=== PATIENT | male | born 1960 | race Caucasian/White ===

== ENCOUNTER → 2019-07-17 09:09 | Outpatient (CLI) | payer BC, SELFPAY ==
--- NOTE | 2019-07-17 09:25 | XR_ITS ---
PROCEDURE: XR CHEST 2V CLINICAL HISTORY: cough Cough and chest pain COMPARISON: CXR CHEST(2 VIEWS-NOT PORTABLE) from 02/21/2014 CXR CHEST(2 VIEWS-NOT PORTABLE) from 10/07/2015 CT CHEST W CON from 03/05/2019 XR CHEST AP from 03/05/2019 FINDINGS: The cardiomediastinal silhouette and pulmonary vascularity are within normal limits. The lungs are clear without infiltrates, suspicious nodules, or pleural effusions. No acute bony abnormalities. IMPRESSION: No acute findings. Dictated by: Vijay Greene MD 07/17/2019 11:16 Electronically signed by Vijay Greene MD in [place] 07/17/2019 11:16
[2019-07-17 09:35] LABS: Basophils # 0.1 K/mm3 (0-0.2); Basophils % 1.1 % (0.1-2.0); Eosinophils # 0.2 K/mm3 (0.0-0.4); Eosinophils % 2.8 % (0.1-12.0); Hematocrit 51.5 % (42.0-52.0); Hemoglobin 16.3 g/dL (14.1-18.0); Lymphocytes # 1.7 K/mm3 (0.7-4.5); Lymphocytes % 20.2 % (10-50); Mean Corpuscular HGB Conc 31.6 g/dL (31.8-35.4); Mean Corpuscular Hemoglobin 32.9 pg (27.0-31.2); Mean Corpuscular Volume 104.2 fl (80-94); Mean Platelet Volume 7.7 fl (7.4-10.4); Monocytes # 0.5 K/mm3 (0.1-1.0); Monocytes % 6.5 % (1.7-9.3); Neutrophils # 5.7 K/mm3 (1.8-7.8); Neutrophils % 69.3 % (37.0-80.0); Platelet Count 196 K/mm3 (142-424); Red Blood Count 4.94 M/mm3 (4.60-6.20); Red Cell Distribution Width 12.9 % (11.5-17.5); White Blood Count 8.2 K/mm3 (4.8-10.8)
== END ==
PROVIDERS: Visit Provider Physician Assistant
DX: R05 Cough (principal)
CPT/HCPCS: 36415; 71046; 85025

== ENCOUNTER 2020-04-28 13:33 | Emergency (ER) | payer BC, SELFPAY ==
[2020-04-28 13:33] VITALS: BP 124/73; PULSE 86; RESP 18; TEMP 36.8; O2SAT 97; BMI 27.3
--- NOTE | 2020-04-28 13:42 | XR_ITS ---
PROCEDURE: XR CHEST 2V CLINICAL HISTORY: R/O Pneumonia Cough, smoker COMPARISON: CR CXR CHEST(2 VIEWS-NOT PORTABLE) from 10/07/[address] CHEST W CON from 03/05/2019 CR XR CHEST AP from 03/05/2019 CR XR CHEST 2V from 07/17/2019 FINDINGS: The cardiomediastinal silhouette and pulmonary vascularity are within normal limits. The lungs are clear without infiltrates, suspicious nodules, or pleural effusions. Mild COPD. No acute bony findings. IMPRESSION: No change with no acute finding. Mild COPD Dictated by: Vijay Greene MD 04/28/2020 13:50 Vijay Greene MD in [place] 04/28/2020 13:50
--- NOTE | 2020-04-28 13:53 | HMH.EDGENADL ---
ED Disposition Clinical Impression: COPD (chronic obstructive pulmonary disease) Qualifiers: COPD type: chronic bronchitis Chronic bronchitis type: simple Qualified Code(s): J41.0 - Simple chronic bronchitis Disposition: Home, Self-Care Condition on Discharge: Good Instructions: DI for Chronic Bronchitis Referrals: PCP,Lakesha [Primary Care Provider] - Rubén Yoon MD [Staff Physician] - - Critical Care Critical Care Time: No Attestation: On 04/28/20, the high probability of a clinically significant, sudden or life threatening deterioration of the following system(s) required my full and direct attention, intervention and personal management. The time I documented below is in addition to time spent performing reported procedures but includes the following listed in this critical care notation. Medical Decision Making - Medical Records Medical records reviewed: Yes: I reviewed the patient's medical records. - Caesar Inquiry Pt receiving controlled substance: No Vital Signs: 04/28/20 13:33 Temperature 98.2 F Temperature Source Oral Pulse Rate [Right Radial] 86 Respiratory Rate 18 Blood Pressure [Right Arm] 124/73 Blood Pressure Mean [Right Arm] 90 Blood Pressure Source [Right Arm] Automatic Cuff Blood Pressure Position [Right Arm] Supine 02 Sat by Pulse Oximetry 97 Oxygen Delivery Method Room Air Orders (Tests/Meds): ORDERS Category Date Time Status Basic Metabolic Panel Stat Lab 04/28/20 13:31 Received CBC w/Auto Diff [Complete Blood Count Auto Diff] Stat Lab 04/28/20 13:31 Received - Radiology Data #1 Image(s): Chest Image Reviewed: Yes I reviewed the patient's radiology results, Yes I discussed the image results w/the radiologist, Yes I have reviewed radiologist's interpretation IMPRESSION: No change with no acute finding. Mild COPD - Reevaluation(s) Time: 14:12 Reevaluation #1: On reevaluation, the patient is doing fine. Resting comfortably. There is no evidence of hypoxia. Chest x-ray is unremarkable. Patient needs to follow-up with PCP. Given strict return precautions. Verbalized understanding. Medical Decision Narrative: 59-year-old male sent to the emergency department by his dentist for possible aspiration. The patient is not requiring any supplemental oxygen. No difficulty breathing. No respiratory distress. Patient is afebrile. Chest x-ray will be obtained. General Adult HPI - General Chief complaint: Shortness of Breath/Dyspnea Stated complaint: Short of breath Time Seen by Provider: 04/28/20 13:35 Mode of Arrival: EMS Limitations: No Limitations Description of Symptoms (Recalled from ER Triage Doc. by RN): Short of breath earlier today - History of Present Illness HPI narrative: This is a 59-year-old male presented to the emergency department with shortness of breath. The patient states that he went to the dentist yesterday had a tooth pulled. The dentist was concerned he may have aspirated some secretions and told him if he was to have any cough come the emergency department. Patient states that he coughed a little bit earlier when he was having a shortness of breath and he feels much better. He is not having any actual difficulty breathing at this time. He is not requiring supplemental oxygen. Denies any fevers or chills. Is not having any chest pain. No abdominal pain or vomiting. No diarrhea. - Related Data Home Medications Medication Instructions Recorded Confirmed Doxycycline Hyclate [Vibra-Tab 100 mg PO BID 04/28/20 100mg tablet] predniSONE [Deltasone 20mg 20 mg PO BID 04/28/20 tablet] Previous Rx's Medication Instructions Recorded albuterol sulfate 90 mcg/actuation 2 puff INHALATION Q4-6H PRN 90 08/22/19 aerosol inhaler Days #3 units Allergies Allergy/AdvReac Type Severity Reaction Status Date / Time amoxicillin [AMOXICILLIN] Allergy Mild Verified 04/28/20 13:40 Penicillins [PENICILLINS] Allergy
[2020-04-28 13:57] LABS: Chloride 106 mmol/L (98-107); Potassium 3.9 mmoL/L (3.5-5.1); Sodium 144 mmol/L (136-145)
[2020-04-28 14:00] LABS: Anion Gap 13.9 mEq/L (5-15); Blood Urea Nitrogen 9 mg/dl (9-20); Calcium 9.4 mg/dl (8.4-10.2); Carbon Dioxide 28 mmol/L (22.0-30.0); Creatinine Clearance Estimated 137 mL/min (50-200); Estimated Glomerular Filt Rate 116 ml/min (>60); GFR (African American) 140 ML/MIN (>60); Glucose 104 mg/dl (74-100)
[2020-04-28 14:34] VITALS: BP 130/70; PULSE 88; RESP 20; TEMP 37; O2SAT 99
[2020-04-28 14:34] LABS: Basophils # 0.1 K/mm3 (0-0.2); Basophils % 0.8 % (0.1-2.0); Eosinophils # 0.1 K/mm3 (0.0-0.4); Eosinophils % 1.1 % (0.1-12.0); Hematocrit 48.3 % (42.0-52.0); Hemoglobin 16.4 g/dL (14.1-18.0); Lymphocytes # 2.4 K/mm3 (0.7-4.5); Lymphocytes % 31.7 % (10-50); Mean Corpuscular Hemoglobin 35.7 pg (27.0-31.2); Mean Corpuscular Volume 104.9 fl (80-94); Mean Platelet Volume 8.1 fl (7.4-10.4); Monocytes # 0.8 K/mm3 (0.1-1.0); Monocytes % 10.7 % (1.7-9.3); Neutrophils # 4.2 K/mm3 (1.8-7.8); Neutrophils % 55.6 % (37.0-80.0); Platelet Count 103 K/mm3 (142-424); Red Blood Count 4.61 M/mm3 (4.60-6.20); Red Cell Distribution Width 14.4 % (11.5-17.5); White Blood Count 7.6 K/mm3 (4.8-10.8)
== END 2020-04-28 14:38 | disposition home or self-care (01) ==
PROVIDERS: Emergency Provider Emergency Medicine; PCP Emergency Medicine
DX: J41.0 Simple chronic bronchitis (principal); J44.0 Chronic obstructive pulmonary disease with (acute) lower respiratory infection; F17.210 Nicotine dependence, cigarettes, uncomplicated; Z79.899 Other long term (current) drug therapy; Z88.0 Allergy status to penicillin; Z88.2 Allergy status to sulfonamides
CPT/HCPCS: 71046; 80048; 85025; 99282

== ENCOUNTER 2020-06-16 10:30 | Emergency (ER) | payer BC, SELFPAY ==
[2020-06-16 10:40] VITALS: BP 151/90; PULSE 95; RESP 14; TEMP 36.9; O2SAT 97; BMI 26.6
--- NOTE | 2020-06-16 10:53 | HMH.EDUTC ---
[facility] Disposition Clinical Impression: Exposure to COVID-19 virus Sinusitis Qualifiers: Sinusitis location: unspecified location Chronicity: acute Recurrence: non-recurrent Qualified Code(s): J01.90 - Acute sinusitis, unspecified COPD (chronic obstructive pulmonary disease) Qualifiers: COPD type: unspecified COPD Qualified Code(s): J44.9 - Chronic obstructive pulmonary disease, unspecified Disposition: Home, Self-Care Condition on Discharge: Good Instructions: Chronic Obstructive Pulmonary Disease, DI for Sinusitis, Preventing the Spread of Coronavirus Discharge Instructions Additional Instructions: Drink plenty of fluids. Take tylenol for pain or fever. Take the medications as directed. Follow up with your regular doctor. GO TO THE ER FOR ANY WORSENING SYMPTOMS Prescriptions: predniSONE [Prednisone 20mg Tab] 20 mg PO BID 4 Days #8 tab Transmission Status: Received by [id number] Azithromycin [Z-Khai 250mg Tab*] 250 mg PO UD DOSE PK #6 tab Transmission Status: [id number] Referrals: Rubén Yoon MD [Primary Care Provider] - Time of Disposition: 11:06 Medical Decision Making - Medical Records Medical records reviewed: No: I reviewed the patient's medical records. - Caesar Inquiry Pt receiving controlled substance: No Vital Signs: 06/16/20 10:40 06/16/20 11:08 Temperature 98.4 F 98.4 F Temperature Source Oral Pulse Rate 95 H Pulse Rate [Right Brachial] 95 H Respiratory Rate 14 14 Blood Pressure 151/90 H Blood Pressure [Right Arm] 151/90 H Blood Pressure Mean [Right Arm] 110 Blood Pressure Source [Right Arm] Automatic Cuff Blood Pressure Position [Right Arm] Sitting 02 Sat by Pulse Oximetry 97 Oxygen Delivery Method Room Air [facility] HPI - General Stated complaint: cov test Time Seen by Provider: 06/16/20 10:53 - History of Present Illness Provider Complaint: He states that for the past 2 days he has had a low grade fever and sinus congestion. He thinks that he has a sinus infection, but his work wanted him to be tested for covid-19. - Related Data Previous Rx's Medication Instructions Recorded albuterol sulfate 90 mcg/actuation 2 puff INHALATION Q4-6H PRN 90 06/09/20 aerosol inhaler Days #3 units fluticasone 100 mcg-salmeterol 50 1 inh INHALATION BID #60 each 06/09/20 mcg/dose blistr powdr for inhalation Azithromycin [Z-Khai 250mg Tab*] 250 mg PO UD DOSE PK #6 tab 06/16/20 predniSONE [Prednisone 20mg 20 mg PO BID 4 Days #8 tab 06/16/20 Tab] Allergies Allergy/AdvReac Type Severity Reaction Status Date / Time amoxicillin [AMOXICILLIN] Allergy Mild Verified 06/09/20 14:18 Penicillins [PENICILLINS] Allergy Mild Verified 06/09/20 14:18 [facility]EE [facility]INGS Allergy Severe Anaphylaxis Uncoded 06/09/20 14:18 [facility] History - Hepatitis A Screen Attestation statement:: This patient has been screened for Hepatitis A risk factors. I have reviewed the patient's past medical history: Yes Medical History: Reports:: Anxiety, Chronic Obstructive Pulmonary Disease (COPD), Depression Other Surgeries: Yes: Colonoscopy Amputation: No Fractures: No Comment: Back surgery, Eye, Neck surgery - Social History Smoking Status: Current every day smoker Tobacco Type: cigarettes # Packs/Day (cigarettes): 1 Alcohol Intake: current Alcohol Intake Frequency:: 3 or more drinks per day Substance Use Type: denies use Occupational Status: disabled Housing: house Household Members: none - Psychiatric History Pschychiatric History:: Reports:: Anxiety, Depression Family Hx:: Cancer, Heart Attack, Diabetes, Hypertension, Stroke ROS Obtained: Yes All systems reviewed & no additional complaints - Constitutional Constitutional: Reports system reviewed and no additional complaints, except as docu - Eyes Eyes: Reports system reviewed and no additional complaints, except as docu - ENT Ears, Nose, Mouth, and Throat: Reports system r
[2020-06-16 11:08] VITALS: BP 151/90; PULSE 95; RESP 14; TEMP 36.9; O2SAT 97
== END 2020-06-16 11:10 | disposition home or self-care (01) ==
PROVIDERS: Emergency Provider Nurse Practitioner Family; PCP Emergency Medicine
DX: Z20.822 Contact with and (suspected) exposure to COVID-19 (principal); J01.90 Acute sinusitis, unspecified; J44.9 Chronic obstructive pulmonary disease, unspecified; F41.8 Other specified anxiety disorders; F17.210 Nicotine dependence, cigarettes, uncomplicated
CPT/HCPCS: 99202; G0463; U0003

== ENCOUNTER → 2020-06-30 10:07 | Outpatient (CLI) | payer BC, SELFPAY ==
--- NOTE | 2020-06-30 10:08 | CT_ITS ---
PROCEDURE: CT LUNG SCREENING CLINICAL INDICATION: LDCT Current smoker 45 pack year smoking history copd Chest w on pacs COMPARISON: CT ABDPELW/WO CT ABD PELVIS W/WO CONTRAST from 11/05/[address] CHEST W CON from 03/05/2019 TECHNIQUE: The exam was performed on a [employer] Speed [address] scanner using 2.90 mGy CTDI. A low dose helical CT CHEST was performed on a multi-detector scanner. All CT scans at the facility use one or more dose reduction, viz: automated exposure control, ma/kV adjustment per patient size (including targeted exams where dose is matched to indication, i.e. head), or iterative reconstruction technique. The LDCT was performed in a facility that meets the criteria for the screening program. Data regarding this exam was submitted to ACR which is an approved registry. The order for this exam indicates that it came as a result of a lung cancer screening counseling shard decision-making visit that included all the elements required of such a visit including smoking cessation. The radiologist interpreting this exam meets the CMS criteria for the LDCT lung cancer screening program. The exam is reported using the Lung-RADS classification scale and reported to the ACR registry. NOTE: This study was performed for the specific purposes of lung cancer screening and is not an alternative to diagnostic chest CT. RADIATION DOSE: CTDI vol(CT dose Index-volume) = 2.90mG DLP (Dose Length Product) = 119.33 mGcm FINDINGS: COPD changes with paraseptal and centrilobular emphysema. Old granulomatous disease. Scattered tiny nodular opacities which may be due to granulomas which are stable. Mild fibrotic change left lower lobe medially posterior to the hilum. No suspicious pulmonary nodules apparent. OTHER FINDINGS: Mild nonspecific thickening of the distal esophagus. Minimal calcification in the pancreatic head. Soft tissue density is present medial to the inferior vena cava measuring 2.4 x 1.7 cm consistent with a an area of adenopathy probably unchanged. IMPRESSION: Lung-RADS Category 2 Benign Appearance or Behavior Follow-up: Continue annual screening with LDCT in 12 months Dictated by: Vijay Greene MD 07/01/2020 09:04 Vijay Greene MD in [place] 07/01/2020 09:04
[2020-06-30 11:25] VITALS: PULSE 86; PULSE 90
== END ==
PROVIDERS: PCP Emergency Medicine; Visit Provider Internal Medicine Pulmonary Disease
DX: Z87.891 Personal history of nicotine dependence (principal); Z12.2 Encounter for screening for malignant neoplasm of respiratory organs; R06.02 Shortness of breath
CPT/HCPCS: 71271; 94060; 94618; 94640; 94727; 94729

== ENCOUNTER 2020-08-28 14:44 | Emergency (ER) | payer BC, SELFPAY ==
[2020-08-28 14:44] VITALS: BP 136/81; PULSE 101; RESP 16; TEMP 36.6; O2SAT 98; BMI 25.6
--- NOTE | 2020-08-28 15:08 | XR_ITS ---
PROCEDURE: XR CHEST PORTABLE CLINICAL HISTORY: soa Shortness of air COMPARISON: CR XR CHEST AP from 03/05/[address] CHEST W CON from 03/05/2019 CR XR CHEST 2V from 07/17/2019 CR XR CHEST 2V from 04/28/2020 FINDINGS: The cardiomediastinal silhouette and pulmonary vascularity are within normal limits. The lungs are clear without infiltrates, suspicious nodules, or pleural effusions. No acute bony abnormalities. IMPRESSION: No acute findings. Dictated by: Vijay Greene MD 08/28/2020 15:37 Vijay Greene MD in [place] 08/28/2020 15:37
--- NOTE | 2020-08-28 15:18 | HMH.EDGENADL ---
ED Disposition Clinical Impression: Vaccine reaction Disposition: Home, Self-Care Condition on Discharge: Good Additional Instructions: Return the emergency department for worsening nausea vomiting fever or any other concerns within 8 hours otherwise follow-up with your primary care physician with next few days Referrals: Rubén Yoon MD [Primary Care Provider] - - Critical Care Critical Care Time: No Attestation: On 08/28/20, the high probability of a clinically significant, sudden or life threatening deterioration of the following system(s) required my full and direct attention, intervention and personal management. The time I documented below is in addition to time spent performing reported procedures but includes the following listed in this critical care notation. Medical Decision Making - Medical Records Medical records reviewed: Yes: I reviewed the patient's medical records. - Caesar Inquiry Pt receiving controlled substance: No Vital Signs: 08/28/20 14:44 08/28/20 15:35 Temperature 98 F Temperature Source Oral Pulse Rate 98 H Pulse Rate [Radial] 101 H Respiratory Rate 16 Blood Pressure 124/86 Blood Pressure [Right Arm] 136/81 Blood Pressure Mean 103 Blood Pressure Mean [Right Arm] 99 Blood Pressure Position [Right Arm] Sitting 02 Sat by Pulse Oximetry 98 97 Oxygen Delivery Method Room Air - Lab Data Lab Results 08/28/20 15:30: WBC 4.9, RBC 4.33 L, Hgb 14.3, Hct 44.5, MCV 102.9 H, MCH 33.0 H, MCHC 32.0, RDW 13.5, Plt Count 81 L, MPV 8.8, Neut % (Auto) 62.1, Lymph % (Auto) 26.6, Banks % (Auto) 7.9, Eos % (Auto) 2.4, Baso % (Auto) 1.0, Neut # (Auto) 3.1, Lymph # (Auto) 1.3, Banks # (Auto) 0.4, Eos # (Auto) 0.1, Baso # (Auto) 0.1 08/28/20 15:30: Sodium 140, Potassium 3.5, Chloride 104, Carbon Dioxide 24, Anion Gap 15.5 H, BUN 6 L, Creatinine 0.60 L, Estimated Creat Clear 163, Estimated GFR 138, Est GFR ( Amer) 167, Glucose 164 H, Calcium 9.2, Total Bilirubin 0.9, AST 154 H, ALT 123 H, Alkaline Phosphatase 115, Total Protein 7.4, Albumin 4.4, Globulin 3.0, Albumin/Globulin Ratio 1.5 Result diagrams: 08/28/20 15:30 08/28/20 15:30 Orders (Tests/Meds): ED MEDICATIONS Generic Name Dose Route Start Last Admin Trade Name Freq PRN Reason Stop Dose Admin Sodium Chloride 1,000 mls @ 999 mls/hr 08/28/20 15:15 08/28/20 15:24 Sod Chlor 0.9% 1000ml Bag IV 08/28/20 16:15 999 mls/hr .Q1H1M CHAUNCEY Administration Discontinued Medications Generic Name Dose Route Start Last Admin Trade Name Freq PRN Reason Stop Dose Admin Promethazine HCl 25 mg 08/28/20 15:08 08/28/20 15:24 Promethazine Hcl 25mg/Ml 1ml Vial IV 08/28/20 15:09 25 mg ONCE ONE Administration Sodium Chloride 25 ml 08/28/20 15:08 08/28/20 16:04 Sodium Chloride 0.9% 25ml Bag IV 08/28/20 15:09 Not Given ONCE ONE Medical Decision Narrative: All presents with nonspecific symptoms as above after Covid vaccine. Symptoms most consistent with relation with vaccine. Otherwise he is in no acute distress chest x-ray was clear for no evidence of large consolidation. No concern for urinary tract infection based on history and exam and he does not have an acute abdomen on exam. He has no concern for pharyngitis or otitis media. Likely viral nature versus vaccine related. Laboratory and chest x-ray evaluation otherwise unremarkable and plan to discharge with return precautions General Adult HPI - General Chief complaint: Weakness Stated complaint: poss reaction to covid shot Time Seen by Provider: 08/28/20 14:45 Mode of Arrival: Ambulatory Limitations: No Limitations Description of Symptoms (Recalled from ER Triage Doc. by RN): to ed per pvt car with c/o generalized weakness, fever, dizziness, nausea, and feels shakey after recieving his covid vacc weds. pt denies chest pain, sob. - History of Present Illness HPI narrative: 59-year-old male presents with nausea vomiting for the last f
[2020-08-28 15:35] VITALS: BP 124/86; PULSE 98; O2SAT 97
[2020-08-28 15:43] LABS: Basophils # 0.1 K/mm3 (0-0.2); Eosinophils # 0.1 K/mm3 (0.0-0.4); Eosinophils % 2.4 % (0.1-12.0); Hematocrit 44.5 % (42.0-52.0); Hemoglobin 14.3 g/dL (14.1-18.0); Lymphocytes # 1.3 K/mm3 (0.7-4.5); Lymphocytes % 26.6 % (10-50); Mean Corpuscular Volume 102.9 fl (80-94); Mean Platelet Volume 8.8 fl (7.4-10.4); Monocytes # 0.4 K/mm3 (0.1-1.0); Monocytes % 7.9 % (1.7-9.3); Neutrophils # 3.1 K/mm3 (1.8-7.8); Neutrophils % 62.1 % (37.0-80.0); Platelet Count 81 K/mm3 (142-424); Red Blood Count 4.33 M/mm3 (4.60-6.20); Red Cell Distribution Width 13.5 % (11.5-17.5); White Blood Count 4.9 K/mm3 (4.8-10.8)
[2020-08-28 15:51] LABS: Chloride 104 mmol/L (98-107); Potassium 3.5 mmoL/L (3.5-5.1); Sodium 140 mmol/L (136-145)
[2020-08-28 15:54] LABS: Alanine Aminotransferase 123 U/L (12-78); Albumin Level 4.4 g/dl (3.5-5.0); Albumin/Globulin Ratio 1.5 (1.1-1.8); Alkaline Phosphatase 115 U/L (38-126); Anion Gap 15.5 mEq/L (5-15); Aspartate Amino Transferase 154 U/L (17-59); Bilirubin,Total 0.9 mg/dl (0.2-1.3); Blood Urea Nitrogen 6 mg/dl (9-20); Carbon Dioxide 24 mmol/L (22.0-30.0); Creatinine Clearance Estimated 163 mL/min (50-200); Estimated Glomerular Filt Rate 138 ml/min (>60); GFR (African American) 167 ML/MIN (>60); Total Protein,Serum 7.4 g/dl (6.3-8.2)
[2020-08-28 15:55] LABS: Calcium 9.2 mg/dl (8.4-10.2); Glucose 164 mg/dl (74-100)
[2020-08-28 16:18] VITALS: BP 135/74; PULSE 78; RESP 16; TEMP 36.6; O2SAT 98
== END 2020-08-28 16:19 | disposition home or self-care (01) ==
PROVIDERS: Emergency Provider Emergency Medicine; PCP Emergency Medicine
DX: T50.Z95A Adverse effect of other vaccines and biological substances, initial encounter (principal); R50.9 Fever, unspecified; R42 Dizziness and giddiness; R53.83 Other fatigue; J44.9 Chronic obstructive pulmonary disease, unspecified; F41.8 Other specified anxiety disorders; Z88.0 Allergy status to penicillin; F17.210 Nicotine dependence, cigarettes, uncomplicated
CPT/HCPCS: 71045; 80053; 85025; 96365; 99282

== ENCOUNTER → 2021-04-12 10:33 | Outpatient (CLI) | payer BC, SELFPAY | PROVIDERS: PCP Emergency Medicine; Visit Provider Nurse Practitioner | DX: Z20.822 Contact with and (suspected) exposure to COVID-19 (principal) | CPT/HCPCS: C9803; U0003; U0005 ==

== ENCOUNTER → 2021-10-28 10:53 | Outpatient (CLI) | payer BC, SELFPAY | PROVIDERS: PCP Emergency Medicine; Visit Provider Emergency Medicine | DX: Z20.822 Contact with and (suspected) exposure to COVID-19 (principal) | CPT/HCPCS: C9803; U0003; U0005 ==

== ENCOUNTER → 2022-01-28 08:54 | Outpatient (CLI) | payer BC, SELFPAY ==
--- NOTE | 2022-01-28 08:58 | XR_ITS ---
FINAL REPORT CLINICAL HISTORY: neck pain FINDINGS: CERVICAL SPINE Five views were obtained. There is no acute fracture. There is no malalignment. There are mild degenerative changes with osteophytes in the lower cervical spine. There is a chronic calcification adjacent to the C7 spinous process. There is mild right C6-7 neural foraminal narrowing. Note is made of presumed vascular calcifications in the bilateral neck. IMPRESSION: Degenerative change with mild right C6-7 neural foraminal narrowing. No acute bony abnormality. Reviewed, Interpreted and Dictated by Cezar Kevin III, MD Transcribed by Leona Peralta Authenticated and [facility]
== END ==
PROVIDERS: PCP Emergency Medicine; Visit Provider Physician Assistant
DX: M54.2 Cervicalgia (principal)
CPT/HCPCS: 72050

== ENCOUNTER → 2022-02-10 09:59 | Outpatient (CLI) | payer BC, SELFPAY ==
--- NOTE | 2022-02-10 | CA_ITS ---
FINAL REPORT TECHNIQUE: Color Doppler, duplex Doppler and lawson scale sonography of the bilateral neck arterial vasculature was performed. Velocities were measured in the carotid arteries. Stenosis evaluation based on the validated velocity criteria. CLINICAL HISTORY: smoker, dizziness, neck pain FINDINGS: The peak systolic velocity of the right common carotid artery is 57 cm/s. The peak systolic velocity of the right internal carotid artery is 110 cm/s and end diastolic velocity 32 cm/s. The ICA/CCA ratio is 2.7. A small amount of plaque is present. The right external carotid artery is patent. The right vertebral artery is patent with antegrade flow. The peak systolic velocity of the left common carotid artery is 170 cm/s. The peak systolic velocity of the left internal carotid artery is 100 cm/s and end diastolic velocity 27 cm/s. The ICA/CCA ratio is 1.6. A small amount of plaque is present. The left external carotid artery is patent.The left vertebral artery is patent with antegrade flow. IMPRESSION: Less than 50% bilateral carotid stenoses. Bilateral patent vertebral arteries with antegrade flow. If indicated, CTA or MRA could further evaluate. Reviewed, Interpreted and Dictated by Cezar Kevin III, MD Transcribed by Naina Choudhury Authenticated and [facility]
== END ==
PROVIDERS: PCP Emergency Medicine; Visit Provider Physician Assistant
DX: R42 Dizziness and giddiness (principal)
CPT/HCPCS: 93880

== ENCOUNTER 2022-02-16 09:00 | Outpatient (RCR) | payer BC, SELFPAY ==
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
== END 2022-02-16 09:05 | disposition home or self-care (01) ==
LOC: PT 09:00
PROVIDERS: PCP Emergency Medicine; Visit Provider Physician Assistant
DX: M54.2 Cervicalgia (principal)
CPT/HCPCS: 97010; 97110; 97140; 97163; 97535

== ENCOUNTER → 2022-02-16 10:07 | Outpatient (CLI) | payer BC, SELFPAY ==
[2022-02-16 11:17] LABS: Alanine Aminotransferase 39 U/L (12-78); Albumin Level 4.2 g/dl (3.5-5.0); Alkaline Phosphatase 108 U/L (38-126); Anion Gap 13.4 mEq/L (5-15); Aspartate Amino Transferase 38 U/L (17-59); Bilirubin,Indirect 0.6 mg/dL (0.0-0.9); Bilirubin,Total 0.6 mg/dl (0.2-1.3); Bilirubin,Unconjugated 0.6 mg/dL (0.0-1.1); Blood Urea Nitrogen 8 mg/dl (9-20); Calcium 9.8 mg/dl (8.4-10.2); Carbon Dioxide 30 mmol/L (22.0-30.0); Chloride 101 mmol/L (98-107); Chol/HDL Ratio 2.9 (1-3.5); Cholesterol 181 mg/dl (140-200); Estimated Glomerular Filt Rate 115 ml/min (>60); GFR (African American) 139 ML/MIN (>60); Glucose 97 mg/dl (74-100); HDL Cholesterol 63 mg/dl (40-60); Potassium 4.4 mmoL/L (3.5-5.1); Sodium 140 mmol/L (136-145); Triglycerides 96 mg/dl (30-150); VLDL Cholesterol 19 mg/dL (0-40)
[2022-02-16 11:34] LABS: Direct LDL Cholesterol 90.06 mg/dL (100-129)
[2022-02-16 12:21] LABS: Basophils # 0.1 K/mm3 (0-0.2); Basophils % 0.9 % (0.1-2.0); Eosinophils # 0.2 K/mm3 (0.0-0.4); Hematocrit 48.6 % (42.0-52.0); Hemoglobin 15.2 g/dL (14.1-18.0); Lymphocytes # 2.1 K/mm3 (0.7-4.5); Lymphocytes % 25.6 % (10-50); Mean Corpuscular HGB Conc 31.3 g/dL (31.8-35.4); Mean Corpuscular Hemoglobin 32.8 pg (27.0-31.2); Mean Corpuscular Volume 104.9 fl (80-94); Mean Platelet Volume 8.3 fl (7.4-10.4); Monocytes # 0.7 K/mm3 (0.1-1.0); Neutrophils # 4.9 K/mm3 (1.8-7.8); Neutrophils % 61.6 % (37.0-80.0); Platelet Count 129 K/mm3 (142-424); Red Blood Count 4.63 M/mm3 (4.60-6.20); Red Cell Distribution Width 13.4 % (11.5-17.5)
== END ==
PROVIDERS: PCP Emergency Medicine; Visit Provider Nurse Practitioner
DX: R42 Dizziness and giddiness (principal); I77.9 Disorder of arteries and arterioles, unspecified; E78.5 Hyperlipidemia, unspecified
CPT/HCPCS: 36415; 80048; 80061; 80076; 85025

== ENCOUNTER → 2022-04-15 07:32 | Outpatient (CLI) | payer BC, SELFPAY ==
--- NOTE | 2022-04-15 07:32 | NM_ITS ---
APPROVED REPORT Exam: Nuclear Stress Test Indication: TOB USE,FM HX, C.P., SOB, FATIGUE Patient Location: Outpatient Stress Tech: Cristina Diez MA Tech:Brittani Blackmon ARRT RT (R)(N)(M) Ht: 5 ft 9 in Wt: 195 lbs HR: 73 bpm BP: 170/92 mmHg BSA: 2.04 m2 TID: 1.07 BMI: 28.7 History: TOB USE, FM HX, C.P., SOB, FATIGUE Procedure: Patient received a 0.4 mg of intravenous Lexiscan, resting heart rate 73 bpm, resting blood pressure 170/92 mmHg, with Lexiscan maximum heart rate achived was 110 bpm which is Less than 85 % of the maximum predicted heart rate and blood pressure was 161/89 mmHg. PT C/O C.P. AND SOB WITH LEXISCAN Electrocardiogram Resting electrocardiogram shows sinus rhythm, with Lexiscan there is less than 1.[address] segment depression noted from the baseline EKG. The EKG portion of the Lexiscan is nondiagnostic. Cardiac Stress and Resting SPECT Images: Cardiac Stress and Resting SPECT images were obtained using technetium 99m Myoview 29.8 mCi stress and 10.55 mCi at rest. Gated SPECT for analysis of segmental wall motion and calculation of the ejection fraction also done. Prone images were also obtained. Cardiac prone images show uniform myocardial activity without segmental perfusion abnormality, computer derived ejection fraction is 57% with no regional wall motion abnormality, right ventricle is normal size and contractility. Conclusion: 1. The EKG portion of the Lexiscan is nondiagnostic. 2. No scintigraphic evidence of reversible ischemia seen, computer derived ejection fraction 57% with no regional wall motion abnormality, right ventricle is normal size and contractility. 3. Normal Lexiscan Myoview study. Electronically signed by : Lorenzo Lyons MD 04/15/2022 13:40:28
--- NOTE | 2022-04-15 07:33 | CA_ITS ---
APPROVED REPORT EXAM: Comprehensive 2D, Doppler, and color-flow Echocardiogram Direct Mail Clerk: Stephanie Hong RVT Ht: 5 ft 11 in Wt: 199lbs BSA: 2.10 BP: 134/70 mmHg Indications: CARDOSO,COPD,HLD 2D Dimensions LVOT 2.41 cm (M/F) 1.5-2.5 LA Volume 22.10 mL LA Volume Index 10.47 mL/m2 (M/F) 16-34 M-Mode Dimensions RVDd 3.34 cm (0.9-2.6) LA Diam 3.27 cm (1.9-4.0) LVDd 4.15 cm (3.5-5.7) Ao Diam 3.45 cm (2.0-3.7) LVDs 2.58 cm (3.5-5.7) IVSd 1.05 cm (0.6-1.1) PWd 0.85 cm (0.6-1.1) EF (Teich) 68.50% FS 37.80% EDV (Teich) 76.40 mL TAPSE 2.02 (<1.7) ESV (Teich) 24.10 mL LV Diastology E Decel Time 273.00 (160-240 msec) E/A Ratio 0.7 MED E' 6.00 (< 7 cm/sec) E'/MED E' Ratio 10.72 (>14) LAT E' 8.30 (<10 cm/sec) E/LAT E' Ratio 7.75 (>14) Aortic Valve AO Peak GR. 6.80 mmHg Mitral Valve MV E Max Rod. 64.00 (40-130 cm/s) MV A Velocity 93.00 (40-130 cm/s) E/A Ratio 0.69 MV Decel. Time 273.00 (160-240 ms) MV PHT 80.00 ms Pulmonary Valve PV Peak Velocity 82.00 (50-150 cm/s) Left Ventricle Left atrium is mildly enlarged, left ventricle is normal size mild concentric left ventricular hypertrophy, estimated ejection fraction 55% with no regional wall motion abnormality, grade 1 diastolic dysfunction seen without tissue Doppler evidence of raise left atrial pressure. Right Ventricle Right atrium and right ventricle are mildly enlarged with normal contractility. Aortic Valve Aortic valve is minimally thickened and fibrosed there is no aortic stenosis or aortic insufficiency. Mitral Valve Mitral valve is grossly normal, there is trace mitral regurgitation. Tricuspid Valve Tricuspid valve grossly normal, there is trace tricuspid regurgitation, tricuspid regurgitation jet velocity is inadequate for calculation of the right ventricular systolic pressure. Pulmonic Valve Pulmonic valve is poorly visualized. Great Vessels Aortic root is normal size. Inferior vena cava is normal size with normal inspiratory collapse. Pericardium No significant pericardial effusion noted. Conclusion 1. Mild biatrial enlargement, normal left ventricular size, mild concentric left ventricular hypertrophy, estimated ejection fraction 55% with no regional wall motion abnormality, grade 1 diastolic dysfunction seen without tissue Doppler evidence of raise left atrial pressure. 2. Mildly enlarged right ventricle with normal contractility. 3. Trace mitral and tricuspid regurgitation. 4. No significant pericardial effusion noted. 5. Inferior vena cava is normal size with normal inspiratory collapse. Electronically signed by : Lorenzo Lyons MD 04/15/2022 16:14:41
--- NOTE | 2022-04-15 08:57 | CA_ITS ---
APPROVED REPORT Exam: Pharmacologic Technologist: Cristina Welch, Ht: 5 ft 10 in Wt: 199 lbs BSA: 2.08 m2 HR: 73 bpm BP: 170/92 mmHg Medical History Medications: ProAir,,,,, ANoro,,,,, Timolol,,,,, Fluorometholone,,,,, LanTanoprost,,,,, Stress Test Details Test: LEXISCAN Reason for pharmacologic stress test: physical limitation. HR Resting HR: 74 bpm Max Heart Rate (APMHR): 160.155522 bpm Max HR Achieved: 111 bpm Target HR (85% APMHR): 136.152420 bpm % of APMHR: 69.38 BP Resting BP: 170/92 mmHg Max BP: 180/89 mmHg Recovery BP: 164.0/92.0 mmHg ECG Clinical Exercise duration: 04:00 min Highest Stage Achieved: Exercise capacity: 1.0 METs Stress ECG Conclusion Symptoms: SOA, Chest Pain. Arrhythmias/Ectopy: None ST-T Changes: <1.5mm ST segment Test Summary REST . . . . . . . Resting REST 01:15 . . 74 . 170/ 92 . . Stage 1 01:00 . . 99 . . . . Stage 2 01:00 . . 109 . 161/ 89 . . Stage 3 01:00 . . 105 . 167/ 90 . . Stage 4 01:00 . . 97 . 167/ 91 . Stop exercise at 04:00 RECOVERY 01:00 . . 93 . . . . RECOVERY 02:00 . . 93 . 180/ 89 . . RECOVERY 02:41 . . 91 . 164/ 92 . . Electronically signed by : Lorenzo Lyons MD 04/15/2022 13:36:33
== END ==
PROVIDERS: PCP Emergency Medicine; Visit Provider Nurse Practitioner
DX: R06.00 Dyspnea, unspecified (principal); I35.0 Nonrheumatic aortic (valve) stenosis
CPT/HCPCS: 78452; 93017; 93306; A9502; J2785

== ENCOUNTER 2022-04-29 08:48 | Emergency (ER) | payer BC, SELFPAY ==
[2022-04-29] VITALS (9 sets, daily range): BP systolic 129–154; BP diastolic 74–86; PULSE 86–109; RESP 14–18; TEMP 36.8; O2SAT 97–99; BMI 27.9
--- NOTE | 2022-04-29 08:44 | ECG_ITS ---
APPROVED REPORT Exam: Resting ECG HR:108 bpm ECG Measurements Heart Rate 108 AXES ID 183 P 87 QRSd 101 QRS -60 QT 414 T 67 QTc 477 Conclusion SINUS TACHYCARDIA LEFT ANTERIOR FASCICULAR BLOCK [QRS AXIS <= -45, QR IN I, RS IN II] NONSPECIFIC T-WAVE ABNORMALITY ABNORMAL ECG UNCONFIRMED REPORT Electronically signed by : Christian Campbell MD 04/29/2022 16:05:33
--- NOTE | 2022-04-29 08:51 | HMH.EDGENADL ---
Discharge Plan Disposition Patient Disposition: Home, Self-Care Condition: Good Prescriptions Prescriptions: New pantoprazole [Protonix] 40 mg tablet,delayed release (DR/EC) 40 mg PO DAILY Qty: 30 0RF No Action albuterol sulfate [ProAir HFA] 90 mcg/actuation HFA aerosol inhaler 2 puff INHALATION Q4-6H PRN (Reason: shortness of breath or wheezing) 90 Days Qty: 3 12RF Rx Instructions: administer with spacer latanoprost 0.005 % drops 1 drp Eye-Both HS Label Comments: INSTILL 1 DROP INTO EACH EYE ONCE DAILY AT NIGHT fluorometholone 0.1 % drops,suspension 1 drp Eye-Right ONCE PRN (Reason: Eye Irritation) Label Comments: INSTILL 1 DROP INTO RIGHT EYE ONCE DAILY timolol maleate 0.5 % drops 1 drp Eye-Both DAILY Anoro Ellipta 62.5-25 mcg/actuation blister with device 1 inh INHALATION DAILY Activity Restrictions/Add. Instructions Additional Instructions/Restrictions: Protonix as prescribed. Follow-up with Dr. Royal in his office. Call today to make an appointment to be seen. Return emergency department if worsening symptoms. Clinical Impressions Clinical Impression: Esophageal thickening, Atypical chest pain, Hematemesis, Hemoptysis, Cirrhosis, Occult blood positive stool, Abdominal pain, Chronic pancreatitis Instructions Patient Instructions: DI for Abdominal Pain-Adult, DI for Atypical Chest Pain, Gastrointestinal Bleeding, DI for Esophagitis Discharge ED Provider: Brad Love General Adult HPI General Chief complaint: Chest Pain Stated complaint: CHEST PAIN Time Seen by Provider: 04/29/22 08:56 History of Present Illness HPI narrative: The patient has numerous complaints. States that he has been sick since Monday of this week. He has a headache, states feels like my head is going to blow off . He has a cough with hemoptysis and shortness of breath. He feels like he has had a fever, but does not have a thermometer and has not taken his temperature. He has a dry throat. He has chest pain and abdominal pain. He is vomiting blood and passing blood in his stool. He has body aches. States he has not had a history of hematemesis or blood in stool before, but has had hemoptysis before. He does not know the cause at that time. He has had a EGD and colonoscopy before, he does not know when. He states he does drink alcohol but not very much and reports his last alcohol consumption was last month. He is a smoker. States he was here recently to have a stress test and an echocardiogram. Related Data Home Medications Medication Instructions Recorded Confirmed fluorometholone 0.1 % eye 1 drp Eye-Right ONCE PRN Eye 02/16/22 04/29/22 drops,suspension Irritation latanoprost 0.005 % eye drops 1 drp Eye-Both HS EYE 02/16/22 04/29/22 timolol maleate 0.5 % eye drops 1 drp Eye-Both DAILY EYE 02/16/22 04/29/22 umeclidinium 62.5 mcg-vilanterol 1 inh inhalation DAILY Breathing 04/29/22 04/29/22 25 mcg/actuation powdr for problems inhalation (Anoro Ellipta) Previous Rx's Medication Instructions Recorded albuterol sulfate 90 mcg/actuation 2 puff inhalation Q4-6H PRN 07/21/20 aerosol inhaler (ProAir HFA) shortness of breath or wheezing 90 days #3 multiple units pantoprazole 40 mg tablet,delayed 40 mg PO DAILY #30 tabs 04/29/22 release (Protonix) Allergies Allergy/AdvReac Type Severity Reaction Status Date / Time amoxicillin [AMOXICILLIN] Allergy Mild Unknown Verified 02/16/22 09:47 allergy reaction Penicillins [PENICILLINS] Allergy Mild Unknown Verified 02/16/22 09:47 allergy reaction BEE STINGS Allergy Severe Anaphylaxis Uncoded 02/16/22 09:47 [facility] Disclaimer: The information contained in this section may have been updated after the patient was seen, as this information can be updated by other users. Medical History Alcoholism Anxiety and depression Blindness
--- NOTE | 2022-04-29 08:52 | XR_ITS ---
FINAL REPORT CLINICAL HISTORY: CHEST PAIN, SOB FINDINGS: A portable view of the chest was obtained. Comparison is made to a prior exam dated 08/28/2020. Cardiac and mediastinal silhouettes are within normal limits. The lungs are clear. There is no pleural effusion or pneumothorax. IMPRESSION: No acute process on this portable exam. Reviewed, Interpreted and Dictated by Aixa Pena MD Transcribed by Ute Rand Authenticated and [facility]
--- NOTE | 2022-04-29 08:57 | PC.NURSE ---
XR AT BEDSIDE
--- NOTE | 2022-04-29 08:59 | PC.NURSE ---
DR GREENE AT BEDSIDE
--- NOTE | 2022-04-29 09:09 | CT_ITS ---
FINAL REPORT TECHNIQUE: Thin section axial images were obtained from skull base to vertex without contrast. Coronal reconstruction images were obtained from the axial data. Exam was performed using dose reduction technique. CLINICAL HISTORY: headache COMPARISON: 03/05/2019 FINDINGS: There is no mass effect or midline shift. There is no hydrocephalus. There is no intracranial hemorrhage. The posterior fossa is without acute abnormality. The basilar cisterns are preserved. The soft tissues are without acute abnormality. No acute osseous abnormality is identified. IMPRESSION: No acute intracranial abnormality. If symptomatology persists, consider MRI. Reviewed, Interpreted and Dictated by Aixa Pena MD Transcribed by Ute Rand Authenticated and [facility]
--- NOTE | 2022-04-29 09:09 | CT_ITS ---
FINAL REPORT TECHNIQUE: Axial imaging of the chest is obtained after the administration of contrast. 3-D MIP reformatted images were also obtained and reviewed per PE protocol. CLINICAL HISTORY: hemoptysis, soa COMPARISON: 03/05/2019 FINDINGS: The pulmonary arteries are well filled. There is no evidence of pulmonary embolus. There is no aortic dissection or intimal flap. There is no axillary lymphadenopathy. There are small mediastinal lymph nodes with no lymphadenopathy. There is a left thyroid nodule measuring 2.3 cm. There is wall thickening of the distal 1/2 of the esophagus which could represent esophagitis. Neoplasm is difficult to exclude particularly at the GE junction. There is emphysema. There is evidence of granulomatous disease. No suspicious mass or nodule is seen. There is no pleural or pericardial effusion. There is no acute osseous abnormality. IMPRESSION: No evidence of pulmonary embolism or aortic dissection. Distal esophageal wall thickening particularly of the GE junction could represent esophagitis or neoplasm. Consider endoscopy. Left thyroid nodule. Consider ultrasound. Reviewed, Interpreted and Dictated by Aixa Pena MD Transcribed by Ute Rand Authenticated and [facility]
--- NOTE | 2022-04-29 09:09 | CT_ITS ---
FINAL REPORT TECHNIQUE: Thin section axial images were obtained through the abdomen after intravenous contrast. Reconstruction images were obtained from the axial data. Exam was performed using dose reduction techniques. CLINICAL HISTORY: abdo pain, hematemesis, blood in stool COMPARISON: 03/05/2019 FINDINGS: There are hypodense lesions in the dome and left lobe of the liver. These are unchanged and favored to represent hepatic cysts. The liver is nodular in contour consistent with cirrhosis. The gallbladder is present. The spleen and adrenal glands are unremarkable. There are calcifications in the head of the pancreas suggesting chronic pancreatitis. There are small bilateral hypodense renal lesions favored to represent cysts. There is no hydronephrosis. Abdominal GI tract is without acute abnormality. Distal esophageal wall thickening is seen. There is no small bowel obstruction. There is no abdominal lymphadenopathy or ascites. The pelvic solid organs are unremarkable. The pelvic portions of the GI tract, including the appendix, are without acute abnormality. There is no pelvic lymphadenopathy or ascites. No acute osseous abnormalities identified. IMPRESSION: 1. Cirrhosis. 2. No acute intra-abdominal or intrapelvic abnormality. 3. Chronic pancreatitis. Reviewed, Interpreted and Dictated by Aixa Pena MD Transcribed by Ute Rand Authenticated and [facility]
[2022-04-29 09:12] LABS: Coronavirus 19, PCR Not Detected (NotDetected); Influenza A, PCR Not Detected (NotDetected); Influenza B, PCR Not Detected (NotDetected)
[2022-04-29 09:14] LABS: Chloride 98 mmol/L (98-107); Potassium 3.3 mmoL/L (3.5-5.1); Sodium 133 mmol/L (136-145)
[2022-04-29 09:16] LABS: Alanine Aminotransferase 55 U/L (12-78); Alkaline Phosphatase 115 U/L (38-126); Aspartate Amino Transferase 96 U/L (17-59); Basophils # 0.1 K/mm3 (0-0.2); Basophils % 1.3 % (0.1-2.0); Bilirubin,Total 2.3 mg/dl (0.2-1.3); Blood Urea Nitrogen 21 mg/dl (9-20); Creatinine Clearance Estimated 123 mL/min (50-200); Eosinophils # 0.1 K/mm3 (0.0-0.4); Eosinophils % 1.2 % (0.1-12.0); Estimated Glomerular Filt Rate 99 ml/min (>60); GFR (African American) 119 ML/MIN (>60); Hematocrit 48.9 % (42.0-52.0); Hemoglobin 16.4 g/dL (14.1-18.0); Lymphocytes # 1.1 K/mm3 (0.7-4.5); Lymphocytes % 18.1 % (10-50); Mean Corpuscular HGB Conc 33.6 g/dL (31.8-35.4); Mean Corpuscular Hemoglobin 32.7 pg (27.0-31.2); Mean Corpuscular Volume 97.4 fl (80-94); Mean Platelet Volume 9.2 fl (7.4-10.4); Monocytes # 0.4 K/mm3 (0.1-1.0); Monocytes % 6.3 % (1.7-9.3); Neutrophils # 4.2 K/mm3 (1.8-7.8); Neutrophils % 73.1 % (37.0-80.0); Platelet Count 59 K/mm3 (142-424); Red Blood Count 5.02 M/mm3 (4.60-6.20); Red Cell Distribution Width 13.7 % (11.5-17.5); White Blood Count 5.8 K/mm3 (4.8-10.8)
[2022-04-29 09:16] LABS: Occult Blood,Stool Positive (Negative)
[2022-04-29 09:17] LABS: Albumin Level 4.9 g/dl (3.5-5.0); Albumin/Globulin Ratio 1.3 (1.1-1.8); Anion Gap 18.3 mEq/L (5-15); Calcium 9.8 mg/dl (8.4-10.2); Carbon Dioxide 20 mmol/L (22.0-30.0); Globulin 3.7 g/dL (1.3-3.2); Glucose 125 mg/dl (74-100); Total Protein,Serum 8.6 g/dl (6.3-8.2)
[2022-04-29 09:23] LABS: Ethyl Alcohol < 10 mg/dl (0-10)
[2022-04-29 09:29] LABS: Troponin I 0.02 ng/ml (0.00-0.034)
--- NOTE | 2022-04-29 09:42 | PC.NURSE ---
PT TO CT AT THIS TIME
--- NOTE | 2022-04-29 09:58 | PC.NURSE ---
PT RETURNED FROM CT
--- NOTE | 2022-04-29 10:10 | PC.NURSE ---
1010 ROUNDED ON PT, NO NEEDS AT THIS TIME
--- NOTE | 2022-04-29 11:00 | PC.NURSE ---
1100 ROUNDED ON PT, WARM BLANKET PROVIDED. CALL LIGHT WITHIN REACH
--- NOTE | 2022-04-29 11:42 | PC.NURSE ---
DR WARD PAGED AT THIS TIME
--- NOTE | 2022-04-29 12:00 | PC.NURSE ---
1200 PT PROVIDED REMOTE FOR TV, NO NEEDS AT THIS TIME
[2022-04-29 12:07] LABS: Troponin I 0.02 ng/ml (0.00-0.034)
[2022-04-29 12:28] LABS: Lipase 256 U/L (23-300)
[2022-04-29 12:40] LABS: Microscopic, Urine URINE MICROSCOPIC (MICROSCOPIC)
[2022-04-29 12:43] LABS: Appearance,Urine CLEAR (Clear); Blood, Urine TRACE-I (Negative); Color,Urine YELLOW (Yellow); Glucose,Urine (UA) Negative (Negative); Ketones,Urine 2+ (Negative); Leukocyte Esterase,Urine Negative (Negative); Nitrate,Urine Negative (Negative); PH,Urine 6.5 (5.0-8.5); Protein,Urine Negative (Negative); Specific Gravity, Urine <= 1.005 (1.005-1.030); Urobilinogen,Urine 0.2 EU/dl (0.2)
[2022-04-29 12:47] LABS: Bilirubin,Urine 1+ (Negative)
[2022-04-29 12:51] LABS: Bacteria,Urine Trace /lpf; RBC,Urine Occasional #/hpf (0-3); WBC,Urine Occasional #/hpf (0-3)
[2022-04-29 12:51] LABS: INR 1.06 (0.9-1.1); Prothrombin Time 11.4 seconds (10.1-12.5)
--- NOTE | 2022-04-29 13:03 | PC.NURSE ---
DR GREENE AT BEDSIDE TO UPDATE PT
== END 2022-04-29 13:18 | disposition home or self-care (01) ==
PROVIDERS: Emergency Provider Emergency Medicine; PCP Physician Assistant
DX: R07.89 Other chest pain (principal); K22.89 Other specified disease of esophagus; K92.0 Hematemesis; R04.2 Hemoptysis; R10.9 Unspecified abdominal pain; F10.20 Alcohol dependence, uncomplicated; K70.30 Alcoholic cirrhosis of liver without ascites; K86.1 Other chronic pancreatitis; J44.9 Chronic obstructive pulmonary disease, unspecified; F41.9 Anxiety disorder, unspecified; F17.210 Nicotine dependence, cigarettes, uncomplicated; Z20.822 Contact with and (suspected) exposure to COVID-19
CPT/HCPCS: 70450; 71045; 71275; 74177; 80053; 81001; 82272; 83690; 84484; 85025; 85610; 93005; 96361; 96374; 96375; 99285; C9803; G0328; J2405; Q9967; U0003; U0005

== ENCOUNTER 2022-04-30 23:11 | Emergency (ER) | payer BC, SELFPAY ==
[2022-04-30 23:11] VITALS: BP 142/73; PULSE 89; RESP 18; TEMP 36.4; O2SAT 100; BMI 26.5
[2022-04-30 23:54] VITALS: BMI 26.5
--- NOTE | 2022-04-30 23:55 | CT_ITS ---
PROCEDURE INFORMATION: Exam: CT Head Without Contrast Exam date and time: 05/01/2022 12:30 AM Age: 61 years old Clinical indication: Injury or trauma; Fall TECHNIQUE: Imaging protocol: Computed tomography of the head without contrast. Radiation optimization: All CT scans at this facility use at least one of these dose optimization techniques: automated exposure control; mA and/or kV adjustment per patient size (includes targeted exams where dose is matched to clinical indication); or iterative reconstruction. COMPARISON: CT HEAD/BRAIN WO CON 04/29/2022 9:46 AM FINDINGS: Brain: There is no evidence of acute parenchymal hemorrhage, extra-axial collection, or acute infarction. There is no mass effect, midline shift, or downward herniation. Cerebral ventricles: No ventriculomegaly. Paranasal sinuses: Visualized sinuses are unremarkable. No fluid levels. Mastoid air cells: Visualized mastoid air cells are well aerated. Bones/joints: Unremarkable. No acute fracture. Soft tissues: Unremarkable. IMPRESSION: No acute intracranial abnormality.
--- NOTE | 2022-04-30 23:55 | XR_ITS ---
PROCEDURE INFORMATION: Exam: XR Chest Exam date and time: 05/01/2022 1:06 AM Age: 61 years old Clinical indication: Pain; Chest pressure; Additional info: Fall TECHNIQUE: Imaging protocol: Radiologic exam of the chest. Views: 1 view. COMPARISON: CR XR CHEST PORTABLE 04/29/2022 9:09 AM FINDINGS: Lungs: Unremarkable. No consolidation. Pleural spaces: Unremarkable. No pleural effusion. No pneumothorax. Heart/Mediastinum: Unremarkable. No cardiomegaly. Bones/joints: No acute osseous abnormality. IMPRESSION: No acute findings.
--- NOTE | 2022-04-30 23:55 | XR_ITS ---
PROCEDURE INFORMATION: Exam: XR Pelvis Exam date and time: 05/01/2022 12:42 AM Age: 61 years old Clinical indication: Pelvic pain; Patient HX: Fall TECHNIQUE: Imaging protocol: Radiologic exam of the pelvis. Views: 1 or 2 view. COMPARISON: CT ABDOMEN PELVIS W CON 04/29/2022 9:49 AM FINDINGS: Bones/joints: No acute fracture or dislocation. Incidentally seen are postoperative changes from L3-L5 fusion. Minimal joint space narrowing in both hips. Soft tissues: Unremarkable. IMPRESSION: No acute findings.
--- NOTE | 2022-04-30 23:55 | CT_ITS ---
PROCEDURE INFORMATION: Exam: CT Cervical Spine Without Contrast Exam date and time: 05/01/2022 12:32 AM Age: 61 years old Clinical indication: Neck pain; Additional info: Fall TECHNIQUE: Imaging protocol: Computed tomography of the cervical spine without contrast. Radiation optimization: All CT scans at this facility use at least one of these dose optimization techniques: automated exposure control; mA and/or kV adjustment per patient size (includes targeted exams where dose is matched to clinical indication); or iterative reconstruction. COMPARISON: CT CERVICAL SPINE WO CON 03/05/2019 8:57 AM FINDINGS: Bones/joints: No acute fracture. Normal alignment. There is [id number] degenerative disc disease and spondylosis at C5-C6 and C6-C7. Lungs: There is COPD noted. Please refer to chest CT from 04/29/2022. Soft tissues: Unremarkable. IMPRESSION: No evidence of acute fracture.
[2022-05-01] VITALS (10 sets, daily range): BP systolic 102–151; BP diastolic 53–81; PULSE 84–93; RESP 20; TEMP 36.4; O2SAT 94–99
--- NOTE | 2022-05-01 00:14 | HMH.EDFALL ---
Discharge Plan Disposition Patient Disposition: Home, Self-Care Chief Complaint: Fall Prescriptions Prescriptions: No Action albuterol sulfate [ProAir HFA] 90 mcg/actuation HFA aerosol inhaler 2 puff INHALATION Q4-6H PRN (Reason: shortness of breath or wheezing) 90 Days Qty: 3 12RF Rx Instructions: administer with spacer latanoprost 0.005 % drops 1 drp Eye-Both HS Label Comments: INSTILL 1 DROP INTO EACH EYE ONCE DAILY AT NIGHT fluorometholone 0.1 % drops,suspension 1 drp Eye-Right ONCE PRN (Reason: Eye Irritation) Label Comments: INSTILL 1 DROP INTO RIGHT EYE ONCE DAILY timolol maleate 0.5 % drops 1 drp Eye-Both DAILY Anoro Ellipta 62.5-25 mcg/actuation blister with device 1 inh INHALATION DAILY pantoprazole [Protonix] 40 mg tablet,delayed release (DR/EC) 40 mg PO DAILY Qty: 30 0RF Referrals Follow up/Referrals: Kari Barnard PA [Primary Care Provider] - See instructions Clinical Impressions Clinical Impression: Fall, Alcohol intoxication Instructions Patient Instructions: DI for Alcohol Use Disorder Discharge ED Provider: Rubén Yoon Fall HPI General Chief Complaint: Fall Stated Complaint: Fall Time Seen by Provider: 04/30/22 23:30 Mode of Arrival: EMS Source of Information: Patient, EMS and Medical Record Limitations: No Limitations Description of Symptoms (Recalled from ER Triage Doc. by RN): the pt claims he has had a half pint of vodka and has fallen no complaints other than the fact he has been falling over a month History of Present Illness HPI Narrative: pt with fall and has hx of etoh -no specific c/o - MD complaint: fall Onset (ago): hour(s) Fall witnessed: no Place fall occurred: home Loss of consciousness: unsure Prolonged down time: unclear Symptoms prior to fall: none Context: alcohol use Location of injury: head and neck Severity: moderate Related Data Home Medications Medication Instructions Recorded Confirmed fluorometholone 0.1 % eye 1 drp Eye-Right ONCE PRN Eye 02/16/22 04/29/22 drops,suspension Irritation latanoprost 0.005 % eye drops 1 drp Eye-Both HS EYE 02/16/22 04/29/22 timolol maleate 0.5 % eye drops 1 drp Eye-Both DAILY EYE 02/16/22 04/29/22 umeclidinium 62.5 mcg-vilanterol 1 inh inhalation DAILY Breathing 04/29/22 04/29/22 25 mcg/actuation powdr for problems inhalation (Anoro Ellipta) Previous Rx's Medication Instructions Recorded albuterol sulfate 90 mcg/actuation 2 puff inhalation Q4-6H PRN 07/21/20 aerosol inhaler (ProAir HFA) shortness of breath or wheezing 90 days #3 multiple units pantoprazole 40 mg tablet,delayed 40 mg PO DAILY #30 tabs 04/29/22 release (Protonix) Allergies Allergy/AdvReac Type Severity Reaction Status Date / Time amoxicillin [AMOXICILLIN] Allergy Mild Unknown Verified 02/16/22 09:47 allergy reaction Penicillins [PENICILLINS] Allergy Mild Unknown Verified 02/16/22 09:47 allergy reaction BEE STINGS Allergy Severe Anaphylaxis Uncoded 02/16/22 09:47 [facility] Disclaimer: The information contained in this section may have been updated after the patient was seen, as this information can be updated by other users. Medical History Alcoholism Anxiety and depression Blindness of right eye Chronic low back pain Common bile duct dilatation COPD (chronic obstructive pulmonary disease) Elevated LFTs Hiatal hernia Pancreatitis, acute Surgical History History of cornea transplant History of lumbar fusion Social History Smoking Status: Current every day smoker tobacco type: cigarettes packs per day: 1 alcohol intake: current substance use type: denies use current occupational status: other Travel in the last 8 weeks: None household members: none housing: house
[2022-05-01 00:17] LABS: Creatine Kinase MB 1.6 ng/ml (0.0-2.03); Ethyl Alcohol 367 mg/dl (0-10)
[2022-05-01 00:21] LABS: Troponin I 0.02 ng/ml (0.00-0.034)
[2022-05-01 00:24] LABS: Microscopic, Urine URINE MICROSCOPIC (MICROSCOPIC)
[2022-05-01 00:26] LABS: Appearance,Urine CLEAR (Clear); Bilirubin,Urine Negative (Negative); Blood, Urine TRACE-L (Negative); Color,Urine YELLOW (Yellow); Glucose,Urine (UA) Negative (Negative); Ketones,Urine TRACE (Negative); Leukocyte Esterase,Urine Negative (Negative); Nitrate,Urine Negative (Negative); PH,Urine 6.5 (5.0-8.5); Protein,Urine TRACE (Negative); Urobilinogen,Urine 0.2 EU/dl (0.2)
[2022-05-01 00:28] LABS: RBC,Urine Occasional #/hpf (0-3); Squamous Epithelial Cell,Urine Occasional #/hpf (0-5)
--- NOTE | 2022-05-01 00:30 | PC.NURSE ---
Pt gone to RAD via stretcher
[2022-05-01 00:37] LABS: Barbiturates Screen,Urine Negative ng/ml (<200)
[2022-05-01 00:38] LABS: Amphetamine/Metha Screen,Urine Negative ng/ml (<1000)
[2022-05-01 00:39] LABS: Cannabinoid Screen,Urine Negative ng/ml (<50); Cocaine Screen,Urine Negative ng/ml (<300)
[2022-05-01 00:40] LABS: Methadone Screen,Urine Negative ng/ml (<300)
[2022-05-01 00:41] LABS: Opiate Screen,Urine Negative ng/ml (<300)
[2022-05-01 00:42] LABS: Phencyclidine Screen,Urine Negative ng/ml (<25)
[2022-05-01 00:44] LABS: Benzodiazepines Screen,Urine Negative ng/ml (<200)
--- NOTE | 2022-05-01 01:07 | ECG_ITS ---
APPROVED REPORT Exam: Resting ECG HR:87 bpm ECG Measurements Heart Rate 87 AXES QRSd 121 QRS -27 QT 412 T 41 QTc 456 Conclusion UNCERTAIN REGULAR RHYTHM - appears to be sinus tach, but artifact limits accuracy LEFT AXIS DEVIATION [QRS AXIS < -20] RIGHT VENTRICULAR CONDUCTION DELAY [RSR (QR) IN V1/V2] NONSPECIFIC ST ELEVATION [0.05+ mV ST ELEVATION] ABNORMAL RHYTHM ECG UNCONFIRMED REPORT Electronically signed by : Christian Campbell MD 05/02/2022 20:20:32
[2022-05-01 01:17] LABS: Magnesium 2.4 mg/dl (1.6-2.3)
--- NOTE | 2022-05-01 01:50 | PC.NURSE ---
Pt provided with more warm blankets and a gatorade
--- NOTE | 2022-05-01 02:11 | PC.NURSE ---
LAB at to draw troponin
[2022-05-01 02:23] LABS: Monocytes # 0.2 K/mm3 (0.1-1.0); Red Cell Distribution Width 13.9 % (11.5-17.5); White Blood Count 3.3 K/mm3 (4.8-10.8)
[2022-05-01 02:26] LABS: Basophils % 0.9 % (0.1-2.0); Eosinophils % 0.9 % (0.1-12.0); Hematocrit 41.7 % (42.0-52.0); Hemoglobin 13.8 g/dL (14.1-18.0); Lymphocytes # 1.1 K/mm3 (0.7-4.5); Lymphocytes % 33.4 % (10-50); Mean Corpuscular HGB Conc 33.2 g/dL (31.8-35.4); Mean Corpuscular Hemoglobin 32.8 pg (27.0-31.2); Mean Corpuscular Volume 98.9 fl (80-94); Mean Platelet Volume 8.4 fl (7.4-10.4); Monocytes % 6.4 % (1.7-9.3); Neutrophils # 1.9 K/mm3 (1.8-7.8); Neutrophils % 58.4 % (37.0-80.0); Platelet Count 67 K/mm3 (142-424); Red Blood Count 4.22 M/mm3 (4.60-6.20)
[2022-05-01 02:38] LABS: Chloride 109 mmol/L (98-107); Potassium 3.2 mmoL/L (3.5-5.1); Sodium 141 mmol/L (136-145)
[2022-05-01 02:41] LABS: Alanine Aminotransferase 107 U/L (12-78); Albumin Level 3.9 g/dl (3.5-5.0); Albumin/Globulin Ratio 1.5 (1.1-1.8); Alkaline Phosphatase 100 U/L (38-126); Anion Gap 14.2 mEq/L (5-15); Aspartate Amino Transferase 183 U/L (17-59); Bilirubin,Total 0.8 mg/dl (0.2-1.3); Blood Urea Nitrogen 10 mg/dl (9-20); Carbon Dioxide 21 mmol/L (22.0-30.0); Creatinine Clearance Estimated 133 mL/min (50-200); Estimated Glomerular Filt Rate 115 ml/min (>60); GFR (African American) 139 ML/MIN (>60); Globulin 2.6 g/dL (1.3-3.2); Total Protein,Serum 6.5 g/dl (6.3-8.2)
[2022-05-01 02:42] LABS: Glucose 227 mg/dl (74-100)
[2022-05-01 02:55] LABS: Troponin I < 0.01 ng/ml (0.00-0.034)
[2022-05-01 05:16] LABS: Creatine Kinase 118 U/L (55-170)
--- NOTE | 2022-05-01 05:53 | PC.NURSE ---
Ordered breakfast tray for pt
--- NOTE | 2022-05-01 08:05 | PC.NURSE ---
spoke with sister, winnie who states she will be on her way to get pt
--- NOTE | 2022-05-01 08:19 | PC.NURSE ---
IV removed and pt is getting dressed
== END 2022-05-01 08:29 | disposition home or self-care (01) ==
PROVIDERS: Emergency Provider Emergency Medicine; PCP Physician Assistant
DX: F10.229 Alcohol dependence with intoxication, unspecified (principal); W19.XXXA Unspecified fall, initial encounter; F41.9 Anxiety disorder, unspecified; M54.50 Low back pain, unspecified; G89.29 Other chronic pain; J44.9 Chronic obstructive pulmonary disease, unspecified; Z87.19 Personal history of other diseases of the digestive system; F17.210 Nicotine dependence, cigarettes, uncomplicated; Z94.7 Corneal transplant status; M43.26 Fusion of spine, lumbar region
CPT/HCPCS: 36415; 70450; 71045; 72125; 72170; 80053; 80305; 81001; 82550; 82553; 83735; 84484; 85025; 93005; 96360; 99285

== ENCOUNTER 2022-06-13 11:43 | Emergency (ER) | payer BC, SELFPAY ==
[2022-06-13 11:45] VITALS: BP 140/80; PULSE 75; RESP 17; TEMP 36.8; O2SAT 100; BMI 27.9
[2022-06-13 12:00] VITALS: BP 144/87; PULSE 74; RESP 20; O2SAT 97
--- NOTE | 2022-06-13 12:05 | HMH.EDGENADL ---
Discharge Plan Disposition Patient Disposition: Home, Self-Care Prescriptions Prescriptions: No Action albuterol sulfate [ProAir HFA] 90 mcg/actuation HFA aerosol inhaler 2 puff INHALATION Q4-6H PRN (Reason: shortness of breath or wheezing) 90 Days Qty: 3 12RF Rx Instructions: administer with spacer latanoprost 0.005 % drops 1 drp Eye-Both HS Label Comments: INSTILL 1 DROP INTO EACH EYE ONCE DAILY AT NIGHT fluorometholone 0.1 % drops,suspension 1 drp Eye-Right ONCE PRN (Reason: Eye Irritation) Label Comments: INSTILL 1 DROP INTO RIGHT EYE ONCE DAILY timolol maleate 0.5 % drops 1 drp Eye-Both DAILY Anoro Ellipta 62.5-25 mcg/actuation blister with device 1 inh INHALATION DAILY pantoprazole [Protonix] 40 mg tablet,delayed release (DR/EC) 40 mg PO DAILY Referrals Follow up/Referrals: Rubén Yoon MD [Primary Care Provider] - See instructions Activity Restrictions/Add. Instructions Additional Instructions/Restrictions: Please follow-up with your primary care doctor. Your CT showed chronic but improving distal esophageal wall thickening which is likely inflammatory. You do need an endoscopy at some point but this is not emergent as there is no evidence of any upper GI bleed at the moment. You also have abnormal LFTs and thrombocytopenia and a CT scan showing cirrhosis please continue follow-up with primary care doctor regarding this. Clinical Impressions Clinical Impression: Abnormal LFTs, Cirrhosis, Abdominal pain, Thrombocytopenia Instructions Patient Instructions: DI for Gastrointestinal Bleeding Discharge ED Provider: Stone Hernandez General Adult HPI General Chief complaint: GI Bleed Stated complaint: right stomach pain, Blood in Stool Time Seen by Provider: 06/13/22 12:06 Mode of Arrival: Ambulatory Limitations: No Limitations Description of Symptoms (Recalled from ER Triage Doc. by RN): PT REPORTS WEEK LONG DARK BLACK STOOLS AND LOWER ABDOMINAL PAIN. SIMILAR EPISODE IN APRIL. History of Present Illness HPI narrative: Patient is a 61-year-old male presenting with dark stool and diffuse abdominal pain. Was sent by his primary care doctor as they were concerned that his H&H had dropped. Patient states that he for 1 week has had some diffuse abdominal discomfort as well as dark stools. He is not on any iron supplementation. From chart review he has a history of abnormal LFTs and potential cirrhosis however he states that he has not been told any specific etiology for this. States he had a similar presentation of this in the past and was supposed to have an endoscopy but did not follow-up as he was supposed to. Denies any NSAIDs denies any anticoagulation currently. Related Data Home Medications Medication Instructions Recorded Confirmed fluorometholone 0.1 % eye 1 drp Eye-Right ONCE PRN Eye 02/16/22 06/13/22 drops,suspension Irritation latanoprost 0.005 % eye drops 1 drp Eye-Both HS EYE 02/16/22 06/13/22 timolol maleate 0.5 % eye drops 1 drp Eye-Both DAILY EYE 02/16/22 06/13/22 umeclidinium 62.5 mcg-vilanterol 1 inh inhalation DAILY Breathing 04/29/22 06/13/22 25 mcg/actuation powdr for problems inhalation (Anoro Ellipta) pantoprazole 40 mg tablet,delayed 40 mg PO DAILY Reflux/Acid reflux 06/13/22 06/13/22 release (Protonix) Previous Rx's Medication Instructions Recorded albuterol sulfate 90 mcg/actuation 2 puff inhalation Q4-6H PRN 07/21/20 aerosol inhaler (ProAir HFA) shortness of breath or wheezing 90 days #3 multiple units Allergies Allergy/AdvReac Type Severity Reaction Status Date / Time amoxicillin [AMOXICILLIN] Allergy Mild Unknown Verified 02/16/22 09:47 allergy reaction Penicillins [PENICILLINS] Allergy Mild Unknown Verified 02/16/22 09:47 allergy reaction BEE STINGS Allergy Severe Anaphylaxis Uncoded 02/16/22 09:47 [facility] Disclaimer: The information contained in this section may
--- NOTE | 2022-06-13 12:06 | PC.NURSE ---
DR XIONG AT BEDSIDE
[2022-06-13 12:07] LABS: Coronavirus 19, PCR Not Detected (NotDetected); Influenza A, PCR Not Detected (NotDetected); Influenza B, PCR Not Detected (NotDetected)
--- NOTE | 2022-06-13 12:12 | CT_ITS ---
FINAL REPORT CLINICAL HISTORY: diffuse abdominal pain/ttp with history of melena COMPARISON: 04/29/2022 FINDINGS: CT OF THE ABDOMEN AND PELVIS WITH CONTRAST Axial CT images of the abdomen and pelvis were obtained after the administration of IV contrast. Coronal reformatted images were also obtained and reviewed.This study was performed with techniques to keep radiation doses as low as reasonably achievable (ALARA). Individualized dose reduction techniques using automated exposure control or adjustment of mA and/or kV according to the patient's size were employed. Abdomen: There is mild atelectasis or scarring in the lung bases. The heart is normal in size. There is persistent but improved distal esophageal wall thickening which is probably inflammatory. The liver has a lobular contour consistent with cirrhosis. There are 3 small hepatic masses which likely represent cysts, stable. There is no biliary ductal dilatation. There is nonspecific gallbladder wall thickening. The spleen is unremarkable. No adrenal mass is present. Again noted are multiple pancreatic calcifications consistent with chronic pancreatitis. There are less than 3 mm bilateral renal stones with a small probable cyst in the lower pole the right kidney. There is no hydronephrosis. The aorta is normal in caliber. There is no free fluid or adenopathy. There are moderate vascular calcifications. Pelvis: The appendix is normal. The there are multiple sigmoid diverticula The urinary bladder is unremarkable. No inflammatory process is seen. There is no adenopathy. There is no evidence of bowel obstruction. There are postoperative changes in the lower lumbar spine. IMPRESSION: Stable findings of cirrhosis and chronic pancreatitis. Partially improved distal esophageal wall thickening, likely inflammatory. If indicated, upper endoscopy may be helpful. Small nonobstructing renal stones. Reviewed, Interpreted and Dictated by Cezar Kevin III, MD Transcribed by Leona Peralta Authenticated and [facility]
[2022-06-13 12:16] LABS: Basophils # 0.1 K/mm3 (0-0.2); Basophils % 1.3 % (0.1-2.0); Chloride 102 mmol/L (98-107); Eosinophils # 0.1 K/mm3 (0.0-0.4); Eosinophils % 1.8 % (0.1-12.0); Hemoglobin 16.6 g/dL (14.1-18.0); Lymphocytes # 1.6 K/mm3 (0.7-4.5); Mean Corpuscular HGB Conc 32.5 g/dL (31.8-35.4); Mean Corpuscular Hemoglobin 32.9 pg (27.0-31.2); Mean Corpuscular Volume 101.1 fl (80-94); Mean Platelet Volume 8.6 fl (7.4-10.4); Monocytes # 0.6 K/mm3 (0.1-1.0); Monocytes % 8.7 % (1.7-9.3); Neutrophils # 4.2 K/mm3 (1.8-7.8); Neutrophils % 64.1 % (37.0-80.0); Platelet Count 117 K/mm3 (142-424); Potassium 3.3 mmoL/L (3.5-5.1); Red Blood Count 5.04 M/mm3 (4.60-6.20); Red Cell Distribution Width 15.2 % (11.5-17.5); Sodium 138 mmol/L (136-145); White Blood Count 6.5 K/mm3 (4.8-10.8)
--- NOTE | 2022-06-13 12:18 | PC.NURSE ---
PT UPDATED ON POC, REMOTE PROVIDED FOR TV. NO FURTHER NEEDS AT THIS TIME
[2022-06-13 12:19] LABS: Alanine Aminotransferase 131 U/L (12-78); Albumin Level 4.7 g/dl (3.5-5.0); Albumin/Globulin Ratio 1.3 (1.1-1.8); Alkaline Phosphatase 127 U/L (38-126); Anion Gap 11.3 mEq/L (5-15); Aspartate Amino Transferase 154 U/L (17-59); Bilirubin,Total 1.6 mg/dl (0.2-1.3); Blood Urea Nitrogen 5 mg/dl (9-20); Calcium 9.3 mg/dl (8.4-10.2); Carbon Dioxide 28 mmol/L (22.0-30.0); Creatinine Clearance Estimated 164 mL/min (50-200); Estimated Glomerular Filt Rate 137 ml/min (>60); GFR (African American) 166 ML/MIN (>60); Globulin 3.7 g/dL (1.3-3.2); Glucose 133 mg/dl (74-100); Total Protein,Serum 8.4 g/dl (6.3-8.2)
[2022-06-13 12:30] VITALS: BP 148/83; PULSE 68; RESP 18; O2SAT 98
[2022-06-13 12:34] LABS: Lipase 198 U/L (23-300)
[2022-06-13 13:00] VITALS: BP 148/84; PULSE 67; RESP 18; O2SAT 99
--- NOTE | 2022-06-13 13:00 | PC.NURSE ---
ROUNDED ON PT, URINAL PROVIDED. NO NEEDS AT THIS TIME. CALL LIGHT WITHIN REACH
[2022-06-13 13:31] VITALS: BP 130/88; PULSE 66; RESP 20; O2SAT 98
--- NOTE | 2022-06-13 13:38 | PC.NURSE ---
contacted rad to check on status of ct, staff states will check on it
[2022-06-13 13:39] LABS: Occult Blood,Stool Negative (Negative)
--- NOTE | 2022-06-13 13:42 | PC.NURSE ---
DR XIONG AT BEDSIDE TO UPDATE PT
--- NOTE | 2022-06-13 13:45 | PC.NURSE ---
preliminary ct reading given to VERONICA NAVAS
[2022-06-13 14:02] VITALS: BP 150/80; PULSE 68; RESP 18; TEMP 36.6; O2SAT 99
== END 2022-06-13 14:08 | disposition home or self-care (01) ==
PROVIDERS: Emergency Provider Student in an Organized Health Care Education/Training Program; PCP Emergency Medicine
DX: R10.30 Lower abdominal pain, unspecified (principal); R94.5 Abnormal results of liver function studies; K74.60 Unspecified cirrhosis of liver; D69.6 Thrombocytopenia, unspecified; F10.20 Alcohol dependence, uncomplicated; F41.8 Other specified anxiety disorders; M54.50 Low back pain, unspecified; G89.29 Other chronic pain; Z87.19 Personal history of other diseases of the digestive system; F17.210 Nicotine dependence, cigarettes, uncomplicated; H54.413A Blindness right eye category 3, normal vision left eye; K44.9 Diaphragmatic hernia without obstruction or gangrene; Z20.822 Contact with and (suspected) exposure to COVID-19
CPT/HCPCS: 74177; 80053; 82272; 83690; 85025; 86850; 96360; 99284; 99285; C9803; G0328; Q9967; U0003; U0005

== ENCOUNTER 2022-08-03 10:50 | Day surgery (SDC) | payer BC, SELFPAY ==
[2022-07-18 13:56] VITALS: BMI 26.5
[2022-08-03 11:43] VITALS: BP 176/104; PULSE 68; RESP 18; TEMP 36.2; O2SAT 97
[2022-08-03 13:27] VITALS: O2SAT 97
--- NOTE | 2022-08-03 13:32 | EXP.ANES.CKL ---
[facility] Disclaimer: The information contained in this section may have been updated after the patient was seen, as this information can be updated by other users. Medical History Alcoholism Anxiety and depression Black tarry stools Blindness of right eye Chronic low back pain Common bile duct dilatation COPD (chronic obstructive pulmonary disease) Elevated LFTs Hiatal hernia Pancreatitis, acute Surgical History History of cornea transplant History of lumbar fusion Hx of neck surgery Family History Other Family history of diabetes mellitus type II Family history of stroke No significant family history Social History Smoking Status: Current every day smoker tobacco type: cigarettes packs per day: 1 alcohol intake: current substance use type: denies use current occupational status: other Travel in the last 8 weeks: None household members: none housing: house lives independently: Yes marital status: education level: high school caffeine: No special feliciano needs: No agree to transfusion: No do you feel safe at home: Yes victim of physical abuse: No victim of emotional abuse: No victim of sexual abuse: No would you like helpful sources: No [facility] Anesthesia Checklist Patient Identification Patient Identification: Verbal (Name & ) Structural Data Admitted From: Home Planned Operative Procedure/s: egd,colonoscopy Consent for Planned Operative Procedure(s) Verified: Yes Airway Assessment C-Spine Mobility Assessed: Yes TMJ Mobility Assessed: Yes Dentition: Poor Dentition Neurological Assessment Level of Consciousness: Awake, Alert and Appropriate Anesthesia Plan Anesthesia Risk discussed: Yes Anesthesia Plan: Verified ASA Class: III Anesthesia Type: MAC
[2022-08-03 13:55] VITALS: BP 104/66; PULSE 67; RESP 14; TEMP 36.2; O2SAT 96
--- NOTE | 2022-08-03 13:55 | HMH.SCOPE ---
Procedure: Date: 08/03/22 Patient Date of :: 1960 Procedure Performed:: EGD Indications:: The patient is a 61 year old with cirrhosis. There is history of chronic intermittent stools that are black and tarry. Patient has had negative FOBT. Has chronic intermittent abdominal pain Performing Provider:: Merrick Morales MD Referring Provider:: Jitendra Lancaster APRN Sedation:: See RN records Procedure:: The gastroscope was gently passed through the incisoral orifice into the oral cavity and under direct visualization the esophagus was intubated. The endoscope was passed down the esophagus, through the stomach, and into the duodenum. Color, texture, mucosa, and anatomy of the esophagus, stomach, and duodenum were carefully examined with the scope. Findings:: Oropharynx: normal Esophagus: normal EG Junction: intact at 40 cm Cardia: small hiatal hernia Fundus: normal Body: portal hypertensive gastropathy. gastritis. Biopsies obtained Antrum: portal hypertensive gastropathy. gastritis. Biopsies obtained Duodenal bulb: normal Duodenum (second and third portion): normal Impression: Small hiatal hernia PHG Gastritis Recommendations:: Await pathology results Recommend that patient work towards abstinence of alcohol use Repeat EGD in 3 years Complications:: none Estimated blood obtained (mL): 0
--- NOTE | 2022-08-03 13:58 | HMH.SCOPE ---
Procedure: Date: 08/03/22 Patient Date of :: 1960 Procedure Performed:: Colonoscopy Indications:: Screening Performing Provider:: Merrick Morales MD Referring Provider:: Jitendra Lancaster APRN Sedation:: See RN records Procedure:: After placing the patient in the left lateral decubitus position, the colonoscopy was gently inserted into the rectum and under direct visualization advanced to the cecum which was identified by transillumination in the right lower quadrant, identification of the ileocecal valve, appendiceal orifice, and cecal strap. Color, texture, mucosa, and anatomy of the colon were carefully examined with the scope. Findings:: Anal canal: normal Rectum: Internal hemorrhoids Sigmoid colon: normal without polyps or inflammatory changes Descending colon: normal without polyps or inflammatory changes Splenic flexure: normal Transverse colon: normal without polyps or inflammatory changes Hepatic flexure: normal Ascending colon: normal without polyps or inflammatory changes Cecum: normal Terminal ileum: not visualized Impression: Hemorrhoids Fair bowel preparation throughout entire colon (green and brown substance adherent to mucosa) Recommendations:: Repeat colonoscopy in 5 years Complications:: none Estimated blood obtained (mL): 0
[2022-08-03 14:05] VITALS: BP 123/99; PULSE 67; RESP 17; O2SAT 98
[2022-08-03 14:20] VITALS: BP 158/86; PULSE 71; RESP 18; O2SAT 98
== END 2022-08-03 14:25 | disposition home or self-care (01) ==
PROVIDERS: PCP Physician Assistant; Visit Provider Internal Medicine
PROC: 0DJ08ZZ Inspection of Upper Intestinal Tract, Via Natural or Artificial Opening Endoscopic (ICD-10-PCS; CPT 43235; principal; 2022-08-03 12:00)
DX: K92.1 Melena (principal); R10.9 Unspecified abdominal pain; Z86.010 Personal history of colon polyps; K44.9 Diaphragmatic hernia without obstruction or gangrene; K31.9 Disease of stomach and duodenum, unspecified; K29.70 Gastritis, unspecified, without bleeding
CPT/HCPCS: 45378; 43239

== ENCOUNTER → 2022-08-17 10:32 | Outpatient (CLI) | payer BC, SELFPAY ==
[2022-08-17 10:59] LABS: Basophils % 0.3 % (0.1-2.0); Eosinophils # 0.1 K/mm3 (0.0-0.4); Eosinophils % 1.7 % (0.1-12.0); Hematocrit 52.4 % (42.0-52.0); Lymphocytes # 1.2 K/mm3 (0.7-4.5); Lymphocytes % 19.1 % (10-50); Mean Corpuscular HGB Conc 32.4 g/dL (31.8-35.4); Mean Corpuscular Hemoglobin 33.6 pg (27.0-31.2); Mean Corpuscular Volume 103.5 fl (80-94); Mean Platelet Volume 9.1 fl (7.4-10.4); Monocytes # 0.4 K/mm3 (0.1-1.0); Monocytes % 6.3 % (1.7-9.3); Neutrophils # 4.6 K/mm3 (1.8-7.8); Neutrophils % 72.6 % (37.0-80.0); Platelet Count 93 K/mm3 (142-424); Red Blood Count 5.06 M/mm3 (4.60-6.20); Red Cell Distribution Width 14.1 % (11.5-17.5); White Blood Count 6.3 K/mm3 (4.8-10.8)
[2022-08-17 11:11] LABS: INR 1.16 (0.9-1.1); Prothrombin Time 12.4 seconds (10.1-12.5)
[2022-08-17 11:24] LABS: Iron 303 ug/dL (49-181)
[2022-08-17 11:25] LABS: Alanine Aminotransferase 90 U/L (12-78); Albumin Level 4.7 g/dl (3.5-5.0); Albumin/Globulin Ratio 1.3 (1.1-1.8); Alkaline Phosphatase 140 U/L (38-126); Amylase 180 U/L (30-110); Anion Gap 23.1 mEq/L (5-15); Aspartate Amino Transferase 124 U/L (17-59); Bilirubin,Total 2.9 mg/dl (0.2-1.3); Blood Urea Nitrogen 7 mg/dl (9-20); Calcium 9.6 mg/dl (8.4-10.2); Carbon Dioxide 26 mmol/L (22.0-30.0); Chloride 93 mmol/L (98-107); Estimated Glomerular Filt Rate 115 ml/min (>60); GFR (African American) 139 ML/MIN (>60); Globulin 3.5 g/dL (1.3-3.2); Glucose 110 mg/dl (74-100); Lipase 117 U/L (23-300); Potassium 4.1 mmoL/L (3.5-5.1); Sodium 138 mmol/L (136-145); Total Protein,Serum 8.2 g/dl (6.3-8.2)
[2022-08-17 11:31] LABS: C-Reactive Protein 8.7 mg/L (0-4)
[2022-08-17 11:34] LABS: Total Iron Binding Capacity 345 ug/dL (261-462)
[2022-08-17 11:45] LABS: Erythrocyte Sedimentation Rate 2 mm/hr (0-20)
[2022-08-17 12:00] LABS: Ferritin 553 ng/ml (17.9-464)
[2022-08-17 12:31] LABS: Vitamin B12 451 pg/mL (239-931)
[2022-08-18 12:14] LABS: Anti-Centromere B Antibodies <0.2 AI (0.0-0.9); Anti-DNA (DS) Ab Qn <1 IU/mL (0-9); Anti-Jo-1 <0.2 AI (0.0-0.9); Anti-Smith Antibody <0.2 AI (0.0-0.9); Antichromatin Antibodies <0.2 AI (0.0-0.9); Antiscleroderma-70 Antibodies <0.2 AI (0.0-0.9); RNP Antibodies <0.2 AI (0.0-0.9); Sjogren's Anti-SS-A <0.2 AI (0.0-0.9); Sjogren's Anti-SS-B 0.2 AI (0.0-0.9)
[2022-08-18 17:15] LABS: RA Latex Turbid. <10.0 IU/mL (<14.0)
[2022-08-19 10:35] LABS: Peripheral Smear Review Scanned Result
[2022-08-22 07:51] LABS: Fibrosis Score 0.85; Fibrosis Stage F4
[2022-08-22 07:52] LABS: Steatosis Score 0.85
[2022-08-22 07:53] LABS: Alpha 2-Macroglobulins, Qn 260; NASH Grade N1
[2022-08-22 07:54] LABS: Apolipoprotein A-1 190; Bilirubin, Total 2.2; Haptoglobin 175
[2022-08-22 07:55] LABS: ALT (SGPT) P5P 85; GGT 1531
[2022-08-22 07:56] LABS: AST (SGOT) P5P 103; Cholesterol, Total 234; Glucose 106; Triglycerides 161
[2022-08-22 08:09] LABS: HBsAg Screen Negative; Hep A Ab, IGM Negative
[2022-08-22 08:10] LABS: HCV Ab Non Reactive; Hep B Core Ab, IgM Negative
== END ==
PROVIDERS: PCP Physician Assistant; Visit Provider Physician Assistant
DX: D69.6 Thrombocytopenia, unspecified (principal); K74.60 Unspecified cirrhosis of liver; R79.89 Other specified abnormal findings of blood chemistry; K92.1 Melena; F10.20 Alcohol dependence, uncomplicated; K86.1 Other chronic pancreatitis; H54.40 Blindness, one eye, unspecified eye
CPT/HCPCS: 36415; 80053; 80074; 82150; 82607; 82728; 82746; 83540; 83550; 83690; 85025; 85610; 85651; 86140; 86225; 86235; 86431

== ENCOUNTER → 2022-08-19 08:03 | Outpatient (CLI) | payer BC, SELFPAY ==
--- NOTE | 2022-08-19 08:07 | US_ITS ---
FINAL REPORT TECHNIQUE: Limited sonographic images of the liver were obtained. CLINICAL HISTORY: Cirrhosis FINDINGS: LIVER ULTRASOUND There is increased echogenicity of the liver with mild heterogeneous echotexture compatible with reported cirrhosis. There are at least 1 or 2 small hepatic cysts. The gallbladder is partially contracted without definite stones. There is no biliary ductal dilatation. The portal vein is patent with normal directional flow. There is no evidence of ascites. IMPRESSION: Cirrhosis without appreciable ascites. Reviewed, Interpreted and Dictated by Josh Zapata MD Transcribed by Naina Choudhury Authenticated and [facility]
== END ==
PROVIDERS: PCP Physician Assistant; Visit Provider Nurse Practitioner Family
DX: K74.60 Unspecified cirrhosis of liver (principal)
CPT/HCPCS: 76705

== ENCOUNTER → 2022-08-25 13:24 | Outpatient (CLI) | payer BC, SELFPAY | PROVIDERS: PCP Nurse Practitioner; Visit Provider Nurse Practitioner | DX: D45 Polycythemia vera (principal) ==

== ENCOUNTER → 2022-09-21 23:15 | Outpatient (CLI) | payer BC, SELFPAY ==
[2022-09-21 17:48] LABS: MANUAL DIFFERENTIAL MANUAL DIFFERENTIAL (MANUAL DIFF)
[2022-09-21 18:02] LABS: Alanine Aminotransferase 188 U/L (12-78); Albumin Level 4.7 g/dl (3.5-5.0); Albumin/Globulin Ratio 1.6 (1.1-1.8); Alkaline Phosphatase 144 U/L (38-126); Amylase 183 U/L (30-110); Anion Gap 17.6 mEq/L (5-15); Aspartate Amino Transferase 171 U/L (17-59); Bilirubin,Total 1.6 mg/dl (0.2-1.3); Blood Urea Nitrogen 9 mg/dl (9-20); Calcium 9.5 mg/dl (8.4-10.2); Carbon Dioxide 22 mmol/L (22.0-30.0); Chloride 103 mmol/L (98-107); Estimated Glomerular Filt Rate 137 ml/min (>60); GFR (African American) 166 ML/MIN (>60); Glucose 107 mg/dl (74-100); Lactate Dehydrogenase 198 U/L (313-618); Lipase 249 U/L (23-300); Potassium 3.6 mmoL/L (3.5-5.1); Sodium 139 mmol/L (136-145); Total Protein,Serum 7.7 g/dl (6.3-8.2)
[2022-09-21 18:13] LABS: Basophils % 0.3 % (0.1-2.0); Eosinophils # 0.1 K/mm3 (0.0-0.4); Eosinophils % 1.8 % (0.1-12.0); Hematocrit 50.2 % (42.0-52.0); Hemoglobin 15.7 g/dL (14.1-18.0); Lymphocytes # 1.6 K/mm3 (0.7-4.5); Lymphocytes % 24.9 % (10-50); Mean Corpuscular HGB Conc 31.3 g/dL (31.8-35.4); Mean Corpuscular Hemoglobin 32.5 pg (27.0-31.2); Mean Corpuscular Volume 103.8 fl (80-94); Mean Platelet Volume 9.6 fl (7.4-10.4); Monocytes # 0.5 K/mm3 (0.1-1.0); Monocytes % 8.4 % (1.7-9.3); Neutrophils # 4.1 K/mm3 (1.8-7.8); Neutrophils % 64.6 % (37.0-80.0); Platelet Count 89 K/mm3 (142-424); Red Blood Count 4.84 M/mm3 (4.60-6.20); Red Cell Distribution Width 13.6 % (11.5-17.5); White Blood Count 6.3 K/mm3 (4.8-10.8)
[2022-09-21 20:37] LABS: Hypochromasia 1+; Lymphocytes % 22 % (10-50); Macrocytosis 1+; Monocytes % 10 % (2-9); Neutrophils % 68 % (42-76); Platelet Estimate Normal; Total Cells Counted 100
[2022-09-23 16:13] LABS: Erythropoietin 6.2 mIU/mL (2.6-18.5)
[2022-09-23 17:47] LABS: Peripheral Smear Review Scanned Result
== END ==
PROVIDERS: PCP Physician Assistant; Visit Provider Physician Assistant
DX: R10.9 Unspecified abdominal pain (principal); K70.30 Alcoholic cirrhosis of liver without ascites; K86.1 Other chronic pancreatitis; R79.89 Other specified abnormal findings of blood chemistry
CPT/HCPCS: 80053; 81270; 82150; 82668; 83615; 83690; 85007; 85014; 85018; 85048; 85049

== ENCOUNTER → 2023-02-21 08:01 | Outpatient (CLI) | payer BC, SELFPAY ==
--- NOTE | 2023-02-21 08:09 | US_ITS ---
FINAL REPORT CLINICAL HISTORY: ALCOHLIC CIRRHOSIS COMPARISON: 08/19/2022 FINDINGS: Sonographic images of the right upper quadrant were obtained. The pancreas is partially obscured. The liver has a coarse and somewhat nodular appearance, consistent with the clinical history of cirrhosis. There is mild sludge present in the gallbladder without evidence of stones. There is no evidence of biliary ductal dilatation.The common duct measures 3.4 mm. Limited images of the right kidney are unremarkable. No ascites is visualized. IMPRESSION: Coarsened liver texture with a somewhat nodular appearance, consistent with the clinical history of cirrhosis. Mild sludge present in the gallbladder without evidence of stones or biliary ductal dilatation. Reviewed, Interpreted and Dictated by Vito Vernon MD Transcribed by Rolanda Cameron Authenticated and . [facility]
== END ==
PROVIDERS: PCP Physician Assistant; Visit Provider Physician Assistant
DX: K70.30 Alcoholic cirrhosis of liver without ascites (principal)
CPT/HCPCS: 76705

== ENCOUNTER 2023-03-20 15:47 | Emergency (ER) | payer BC, SELFPAY ==
[2023-03-20] VITALS (7 sets, daily range): BP systolic 118–155; BP diastolic 76–101; PULSE 68–96; RESP 18–20; TEMP 36.7; O2SAT 94–98; BMI 27.1
--- NOTE | 2023-03-20 15:50 | PC.NURSE ---
called [facility] for neuro for possible transfer
--- NOTE | 2023-03-20 17:27 | HMH.EDGENADL ---
Discharge Plan Disposition Patient Disposition: Home, Self-Care Condition: Good Prescriptions Prescriptions: New lidocaine 5 % adhesive patch,medicated 1 patch topical DAILY PRN (Reason: pain) Qty: 30 0RF Rx Instructions: leave on most painful area for up to 12 hrs No Action albuterol sulfate [ProAir HFA] 90 mcg/actuation HFA aerosol inhaler 2 puff INHALATION Q4-6H PRN (Reason: shortness of breath or wheezing) 90 Days Qty: 3 12RF Rx Instructions: administer with spacer latanoprost 0.005 % drops 1 drp Eye-Both HS Patient Comments: INSTILL 1 DROP INTO EACH EYE ONCE DAILY AT NIGHT fluorometholone 0.1 % drops,suspension 1 drp Eye-Right ONCE PRN (Reason: Eye Irritation) Patient Comments: INSTILL 1 DROP INTO RIGHT EYE ONCE DAILY timolol maleate 0.5 % drops 1 drp Eye-Both DAILY pantoprazole [Protonix] 40 mg tablet,delayed release (DR/EC) 40 mg PO BID Qty: 180 1RF Rx Instructions: Take first thing in the morning (on empty stomach) and before dinner (not bedtime) quetiapine 25 mg tablet See Rx Instructions .ROUTE .COMPLEX Qty: 30 2RF Dose Instruction: TAKE ONE TABLET BY MOUTH EVERY DAY AT BEDTIME Rx Instructions: TAKE ONE TABLET BY MOUTH EVERY DAY AT BEDTIME fluticasone propionate [Flovent HFA] 110 mcg/actuation HFA aerosol inhaler 1 puff inhalation BID 90 Days Qty: 12 3RF Anoro Ellipta 62.5-25 mcg/actuation blister with device 1 inh inhalation DAILY 90 Days Qty: 180 2RF famotidine 40 mg tablet See Rx Instructions .ROUTE .COMPLEX Qty: 90 1RF Dose Instruction: TAKE ONE TABLET BY MOUTH EVERY DAY AT BEDTIME Rx Instructions: TAKE ONE TABLET BY MOUTH EVERY DAY AT BEDTIME sucralfate [Carafate] 1 gram tablet 1 g PO QACHS Zenpep 40,000-126,000- 168,000 unit capsule,delayed release(DR/EC) 2 cap PO BID Rx Instructions: administer with meals and/or snacks peg 3350-electrolytes [GaviLyte-G] 236-22.74-6.74 -5.86 gram recon soln 240 ml PO Q10M Rx Instructions: until fecal effluent is clear- follow mailed instructions Referrals Follow up/Referrals: Kari Barnard PA [Primary Care Provider] - See instructions Activity Restrictions/Add. Instructions Additional Instructions/Restrictions: Your CT scan showed no evidence of acute infection, hernia, or other emergent pathology. please follow-up with your primary care provider. Please return to the emergency department if you develop any new or worsening symptoms or become concerned for your health. Clinical Impressions Clinical Impression: Abdominal pain, LLQ Instructions Patient Instructions: DI for Acute Abdominal Pain Discharge ED Provider: Laurent Reyes General Adult HPI General Chief complaint: Abdominal Pain Stated complaint: adb pain, suspected gulbladder Time Seen by Provider: 03/20/23 17:22 Mode of Arrival: Ambulatory Source of Information: Patient Limitations: No Limitations Description of Symptoms (Recalled from ER Triage Doc. by RN): c/o lower left abdominal pain that started one year ago. pt states he had an ultrasound on the here showing he needed his gallbladder taken out. He was scheduled at [place] to have the procedure when the pain got to severe he was directed to the nearest ER. History of Present Illness HPI narrative: 62-year-old male, history as reported below, presents with worsening left lower quadrant pain. Reports pain is worse with movement. Reports pain is improved with belching and with farting. Denies fevers at home. No history of diverticulitis. No changes in bowel habits. Related Data Home Medications Medication Instructions Recorded Confirmed fluorometholone 0.1 % eye 1 drp Eye-Right ONCE PRN Eye 02/16/22 11/04/22 drops,suspension Irritation latanoprost 0.005 % eye drops 1 drp Eye-Both HS EYE 02/16/22 11/04/22 timolol maleate 0.5 % eye drops 1 drp Eye-Both DAILY EYE 02/16/22
--- NOTE | 2023-03-20 17:31 | CT_ITS ---
PROCEDURE INFORMATION: Exam: CT Abdomen And Pelvis With Contrast Exam date and time: 03/20/2023 6:28 PM Age: 62 years old Clinical indication: Abdominal pain; Localized; Left lower quadrant (llq); Additional info: Llq pain TECHNIQUE: Imaging protocol: Computed tomography of the abdomen and pelvis with contrast. Radiation optimization: All CT scans at this facility use at least one of these dose optimization techniques: automated exposure control; mA and/or kV adjustment per patient size (includes targeted exams where dose is matched to clinical indication); or iterative reconstruction. Contrast material: ISOVUE; Contrast volume: 75 ml; Contrast route: IV; REPORTING DATA: Count of CT and Cardiac NM exams in prior 12 months: This patient has received 6 known CTs and 0 known cardiac nuclear medicine studies in the 12 months prior to the current study. COMPARISON: No relevant prior studies available. FINDINGS: Liver: There are low-density lesions in the liver which most likely reflect a combination of cysts and/or hemangiomas. The liver demonstrates a cirrhotic morphology with nodular contour and volume redistribution. Gallbladder and bile ducts: Normal. No calcified stones. No ductal dilation. Pancreas: There are scattered calcifications throughout pancreas compatible with chronic pancreatitis. Spleen: There are multiple calcifications in the spleen most likely reflects small granulomas. Adrenal glands: The adrenal glands appear normal. Kidneys and ureters: There are nonobstructing bilateral intrarenal calculi. Stomach and bowel: There are scattered colonic diverticula without evidence for active diverticulitis. Appendix: No evidence of appendicitis. Intraperitoneal space: Unremarkable. No free air. No significant fluid collection. Vasculature: There is atherosclerotic disease of the visualized aorta and its major branch vessels. Lymph nodes: There are mildly prominent but nonenlarged and nonspecific retroperitoneal nodes. Urinary bladder: There is mild bladder wall thickening, possibly due to under distention and a nonspecific finding. Reproductive: No significant pathology. Bones/joints: There is surgical hardware within the lumbar spine. There is diffuse degenerative disease of the visualized osseous structures. Soft tissues: Unremarkable. IMPRESSION: 1. There are scattered colonic diverticula without evidence for active diverticulitis. 2. Cirrhosis and portal hypertension. 3. Changes of chronic pancreatitis. 4. Otherwise, incidental findings as above.
[2023-03-20 17:53] LABS: Microscopic, Urine URINE MICROSCOPIC (MICROSCOPIC)
[2023-03-20 17:57] LABS: Basophils # 0.1 K/mm3 (0-0.2); Basophils % 0.6 % (0.1-2.0); Eosinophils # 0.1 K/mm3 (0.0-0.4); Eosinophils % 1.1 % (0.1-12.0); Hemoglobin 16.9 g/dL (14.1-18.0); Lymphocytes # 2.2 K/mm3 (0.7-4.5); Lymphocytes % 28.7 % (10-50); Mean Corpuscular HGB Conc 33.1 g/dL (31.8-35.4); Mean Corpuscular Hemoglobin 33.3 pg (27.0-31.2); Mean Corpuscular Volume 100.7 fl (80-94); Mean Platelet Volume 9.1 fl (7.4-10.4); Monocytes # 0.5 K/mm3 (0.1-1.0); Monocytes % 6.5 % (1.7-9.3); Neutrophils # 4.7 K/mm3 (1.8-7.8); Neutrophils % 63.2 % (37.0-80.0); Platelet Count 93 K/mm3 (142-424); Red Blood Count 5.06 M/mm3 (4.60-6.20); Red Cell Distribution Width 14.9 % (11.5-17.5); White Blood Count 7.5 K/mm3 (4.8-10.8)
[2023-03-20 17:58] LABS: Appearance,Urine CLEAR (Clear); Bilirubin,Urine Negative (Negative); Blood, Urine Negative (Negative); Color,Urine YELLOW (Yellow); Glucose,Urine (UA) Negative (Negative); Ketones,Urine Negative (Negative); Leukocyte Esterase,Urine TRACE (Negative); Nitrate,Urine Negative (Negative); PH,Urine 6.5 (5.0-8.5); Protein,Urine Negative (Negative); Urobilinogen,Urine 0.2 EU/dl (0.2)
[2023-03-20 17:59] LABS: Chloride 107 mmol/L (98-107); Potassium 3.5 mmoL/L (3.5-5.1); Sodium 142 mmol/L (136-145)
[2023-03-20 18:01] LABS: Blood Urea Nitrogen 7 mg/dl (9-20); Creatinine Clearance Estimated 97 mL/min (50-200); Estimated Glomerular Filt Rate 98 ml/min (>60); GFR (African American) 119 ML/MIN (>60)
[2023-03-20 18:02] LABS: Alanine Aminotransferase 146 U/L (12-78); Albumin Level 4.9 g/dl (3.5-5.0); Albumin/Globulin Ratio 1.3 (1.1-1.8); Alkaline Phosphatase 122 U/L (38-126); Anion Gap 13.5 mEq/L (5-15); Aspartate Amino Transferase 187 U/L (17-59); Bilirubin,Total 1.2 mg/dl (0.2-1.3); Calcium 9.3 mg/dl (8.4-10.2); Carbon Dioxide 25 mmol/L (22.0-30.0); Globulin 3.7 g/dL (1.3-3.2); Glucose 96 mg/dl (74-100); Lipase 263 U/L (23-300); Total Protein,Serum 8.6 g/dl (6.3-8.2)
[2023-03-20 18:07] LABS: Squamous Epithelial Cell,Urine Occasional #/hpf (0-5); WBC,Urine Occasional #/hpf (0-3)
[2023-03-20 18:07] LABS: Lactic Acid 2.3 mmol/L (0.7-2.1)
== END 2023-03-20 19:32 | disposition home or self-care (01) ==
PROVIDERS: Emergency Medicine; Emergency Provider Nurse Practitioner Family; PCP Physician Assistant
DX: R10.32 Left lower quadrant pain (principal); J44.9 Chronic obstructive pulmonary disease, unspecified; F31.9 Bipolar disorder, unspecified; F17.210 Nicotine dependence, cigarettes, uncomplicated
CPT/HCPCS: 74177; 80053; 81001; 83605; 83690; 85025; 99285; Q9967

== ENCOUNTER 2023-04-24 12:10 | Outpatient (CLI) | payer BC, SELFPAY ==
[2023-04-24 13:25] VITALS: PULSE 73; PULSE 78
[2023-04-24] MEDS: ALBUTEROL 0.083% 2.5 MG/3 ML NEB IH (13:25)
== END 2023-04-24 23:59 ==
LOC: RT 12:10
PROVIDERS: PCP Physician Assistant; Visit Provider Internal Medicine Pulmonary Disease
DX: R06.09 Other forms of dyspnea (principal)
CPT/HCPCS: 94060; 94618; 94640; 94726; 94729

== ENCOUNTER 2023-07-14 20:03 | Observation (INO) | payer BC, SELFPAY ==
[2023-07-14] VITALS (8 sets, daily range): BP systolic 136–158; BP diastolic 70–106; PULSE 70–90; RESP 13–19; TEMP 36.6; O2SAT 95–98; BMI 27.2
--- NOTE | 2023-07-14 20:05 | ECG_ITS ---
APPROVED REPORT Exam: Resting ECG HR:92 bpm ECG Measurements Heart Rate 92 AXES MI 178 P 64 QRSd 112 QRS -61 QT 386 T 56 QTc 435 Conclusion SINUS RHYTHM S1-S2-S3 PATTERN, CONSISTENT WITH PULMONARY DISEASE, RVH, OR NORMAL VARIANT INCOMPLETE RIGHT BUNDLE BRANCH BLOCK [90+ ms QRS DURATION, TERMINAL R IN V1/V2, 40+ ms S IN I/aVL/V4/V5/V6] LEFT ANTERIOR FASCICULAR BLOCK [QRS AXIS <= -45, QR IN I, RS IN II] UNCONFIRMED REPORT Electronically signed by : MAITE CAZARES, 07/15/2023 07:50:21
--- NOTE | 2023-07-14 20:07 | PC.NURSE ---
Dr. Hughes and nursing staff at [facility] side
--- NOTE | 2023-07-14 20:10 | XR_ITS ---
PROCEDURE INFORMATION: Exam: XR Chest Exam date and time: 07/14/2023 8:19 PM Age: 62 years old Clinical indication: Other: Vomiting blood; Additional info: Vomitng blood cp TECHNIQUE: Imaging protocol: Radiologic exam of the chest. Views: 1 view. COMPARISON: CR XR CHEST PORTABLE 05/01/2022 1:06 AM FINDINGS: Lungs: No airspace consolidation. Pleural spaces: Hazy opacity at the right lung base possibly lung presenting a small volume of pleural fluid. Heart/Mediastinum: Unremarkable. No cardiomegaly. Bones/joints: Unremarkable. IMPRESSION: Possible minor right-sided pleural fluid.
--- NOTE | 2023-07-14 20:12 | HMH.EDGENADL ---
Discharge Plan Disposition Patient Disposition: Admitted Chief Complaint: Chest Pain Clinical Impressions Clinical Impression: Hematemesis, Gastritis, Esophagitis Discharge ED Provider: Cachorro Hughes General Adult HPI General Chief complaint: Chest Pain Stated complaint: CP, hematemisis, Time Seen by Provider: 07/14/23 20:10 History of Present Illness HPI narrative: This is a 62-year-old male with history of hypertension, hyperlipidemia, COPD still currently smoking, bipolar disorder, anxiety, presenting with vomiting blood. Patient states this has been going on for couple of days. He has also been having black, tarry stools. He has had both of these in the past. Patient states that he started vomiting just before arrival and was bringing up red blood. Midsternal chest pain started shortly thereafter. Does not radiate. Not made better or worse by anything in particular. Patient states that the vomiting is unrelated to p.o. intake. States that he does drink, does not drink daily. Recently followed up with GI and had scope done, unsure of what the results were. This was done at [facility]. Patient denies lightheadedness, shortness of breath, diaphoresis, or any other concerns. Please note that above description of symptoms, in this electronic medical record under categorization of recalled from ER triage doctor by RN are reflective of an initial nursing assessment, however, is not reflective of my full history and physical exam that was personally taken and clarified. Consequentially, this preceding description of symptoms, which may include the patient's categorized chief complaint in the EMR, do not reflect my personal clinical impression, and the ultimate description of history of present illness and patient stated complaints should be deferred to this section of the note. Unless stated otherwise or congruent with this section of the note, additional signs, symptoms, or incongruence should be interpreted as inaccurate with my clinical impression. Related Data Home Medications Medication Instructions Recorded Confirmed fluorometholone 0.1 % eye 1 drp Eye-Right ONCE PRN Eye 02/16/22 07/14/23 drops,suspension Irritation latanoprost 0.005 % eye drops 1 drp Eye-Both HS EYE 02/16/22 07/14/23 timolol maleate 0.5 % eye drops 1 drp Eye-Both DAILY EYE 02/16/22 07/14/23 [id number] 2 cap PO BID Supplement 07/18/22 07/14/23 40,000-126,000-168,000 unit capsule, delay rel (Zenpep) peg 3350-electrolytes 236 240 ml PO Q10M prep 08/03/22 07/14/23 gram-22.74 gram-6.74 gram-5.86 gram solution (GaviLyte-G) famotidine 40 mg tablet 40 mg PO DAILY GERD 07/14/23 07/14/23 quetiapine 25 mg tablet 25 mg PO HS Insomnia 07/14/23 07/14/23 Previous Rx's Medication Instructions Recorded albuterol sulfate 90 mcg/actuation 2 puff inhalation Q4-6H PRN 07/21/20 aerosol inhaler (ProAir HFA) shortness of breath or wheezing 90 days #3 multiple units fluticasone propionate 110 1 puff inhalation BID 90 days #12 01/23/23 mcg/actuation HFA aerosol inhaler grams (Flovent HFA) umeclidinium 62.5 mcg-vilanterol 1 inh inhalation DAILY 90 days 01/23/23 25 mcg/actuation powdr for #180 ea inhalation (Anoro Ellipta) pantoprazole 40 mg tablet,delayed 40 mg PO BID Reflux/Acid reflux 05/01/23 release (Protonix) #180 tabs Allergies Allergy/AdvReac Type Severity Reaction Status Date / Time amoxicillin [AMOXICILLIN] Allergy Mild Unknown Verified 11/04/22 11:25 allergy reaction Penicillins [PENICILLINS] Allergy Mild Unknown Verified 11/04/22 11:25 allergy reaction BEE STINGS Allergy Severe Anaphylaxis Uncoded 11/04/22 11:25 [facility] Disclaimer: The information contained in this section may have been updated after the patient was seen, as this information can be updated by other users. Medical History (Updated 07/14/23 @ 23:21 by Cachorro Hughes MD) Dyspnea on exertion Encounter for screening for malignant neoplasm of lung Smoking greater than 30 pack years Bipolar 1 disorder Abnormal LFTs Black tarry stools Alcohol intoxication Chronic low back pain Alcoholism Anxiety and depression Blindness of right eye COPD (chronic obstructive pulmonary disease) Common bile duct dilatation Hiatal hernia Pancreatitis, acute Elevated LFTs Surgical History Hx of neck surgery History of cornea transplant History of lumbar fusion Family History Other Family history of diabetes mellitus type II Family history of stroke No significant family history Social History Smoking Status: Current every day smoker tobacco type: cigarettes packs per day: 1 alcohol intake: current substance use type: denies use current occupational status: other Travel in the last 8 weeks: None household members: none housing: house lives independently: Yes marital status: education level: high school caffeine: No special feliciano needs: No agree to transfusion: No do you feel safe at home: Yes victim of physical abuse: No victim of emotional abuse: No victim of sexual abuse: No would you like helpful sources: No ROS Obtained: Yes All systems reviewed & no additional complaints except as documented Physical Exam General General appearance: alert and in no apparent distress Head Head exam: atraumatic and normocephalic Eye Eye exam: Present normal appearance, PERRL and EOMI ENT ENT exam: Present mucous membranes moist Neck Neck exam: Present normal inspection, full ROM and trachea midline Respiratory Respiratory exam: Present normal lung sounds bilaterally; Absent respiratory distress, wheezes, stridor, accessory muscle use or prolonged expiratory phase Cardiovascular Cardiovascular exam: Present regular rate and normal rhythm Abdominal Exam Abdominal exam: Present soft; Absent distention, tenderness, guarding, rebound or rigidity Extremities Exam Extremities exam: Absent edema Neurological Exam Neurological exam: Present alert, oriented X3, CN II-XII intact and normal gait; Absent motor sensory deficit Skin Skin exam: Present warm and dry; Absent diaphoresis or erythema Medical Decision Making Medical Records Medical records reviewed: Yes I reviewed the patient's medical records. Caesar Inquiry Pt receiving controlled substance: No Caesar was queried for this patient: No Vital Signs: 07/14/23 20:05 07/14/23 20:30 07/14/23 21:00 Temperature 98 F Temperature Source Oral Pulse Rate 90 74 Pulse Rate [Left] 87 Respiratory Rate 16 19 17 Blood Pressure 136/88 143/86 H Blood Pressure [Right Arm] 157/106 H Blood Pressure Mean 104 Blood Pressure Mean [Right Arm] 123 Blood Pressure Source [Right Arm] Automatic Cuff Blood Pressure Position [Right Arm] Sitting 02 Sat by Pulse Oximetry 98 98 95 Oxygen Delivery Method Room Air Room Air 07/14/23 22:00 07/14/23 22:30 Temperature Temperature Source Pulse Rate 71 70 Pulse Rate [Left] Respiratory Rate 13 16 Blood Pressure 153/83 H 151/80 H Blood Pressure [Right Arm] Blood Pressure Mean Blood Pressure Mean [Right Arm] Blood Pressure Source [Right Arm] Blood Pressure Position [Right Arm] 02 Sat by Pulse Oximetry 98 98 Oxygen Delivery Method Lab Data Lab Results 07/14/23 20:55: WBC 4.5 L, RBC 4.60, Hgb 15.0, Hct 48.5, MCV 105.5 H, MCH 32.7 H, MCHC 31.0 L, RDW 14.3, Plt Count 106 L, MPV 9.0, Neut % (Auto) 56.1, Lymph % (Auto) 33.9, [place] % (Auto) 6.0, Eos % (Auto) 1.5, Baso % (Auto) 2.5 H, Neut # (Auto) 2.6, Lymph # (Auto) 1.6, [place] # (Auto) 0.3, Eos # (Auto) 0.1, Baso # (Auto) 0.1, PT 12.1, INR 1.13 H, APTT 28.5, Sodium 144, Potassium 3.8, Chloride 107, Carbon Dioxide 26, Anion Gap 14.8, BUN 10, Creatinine 0.90, Estimated Creat Clear 95, Estimated GFR 86, Est GFR ( Amer) 104, Glucose 135 H, Lactate 4.1 H, Calcium 8.9, Total Bilirubin 1.3, AST 122 H, ALT 75, Alkaline Phosphatase 170 H, Troponin I < 0.01, Total Protein 7.0, Albumin 3.9, Globulin 3.1, Albumin/Globulin Ratio 1.3, Lipase 380 H 07/14/23 20:55 07/14/23 20:55 Orders (Tests/Meds): ED MEDICATIONS Generic Name Dose Route Start Last Admin Trade Name Freq PRN Reason Stop Dose Admin Vancomycin HCl 2,000 mg/ 250 mls @ 125 mls/hr 07/14/23 21:45 07/14/23 23:16 Sodium Chloride IV 07/14/23 23:44 125 mls/hr ONCE ONE Administration Miscellaneous 1 each 07/14/23 21:45 07/14/23 21:48 Vancomycin Consult Request NOTAPPLIC 08/13/23 21:44 1 each CONSULT PHARMACY [facility] Administration Sodium Chloride 10 ml 07/14/23 20:10 07/14/23 21:49 Sodium Chloride 0.9% 10ml Vial IV 08/13/23 20:09 10 ml NEEDED PRN Administration dilute protonix Sodium Chloride 10 ml 07/14/23 21:47 07/14/23 21:48 Sodium Chloride 0.9% 10ml Syr (Rad Only) IV 08/13/23 21:46 10 ml NEEDED PRN Administration Maintain IV Site Discontinued Medications Generic Name Dose Route Start Last Admin Trade Name Freq PRN Reason Stop Dose Admin Belladonna Alkaloids 60 ml 07/14/23 20:10 07/14/23 20:20 Belladonna Alkaloids 60 Ml Ml PO 07/14/23 20:11 60 ml ONCE ONE Administration Cefepime HCl 2 gm/ Sodium 100 mls @ 200 mls/hr 07/14/23 21:36 07/14/23 21:49 Chloride IV 07/14/23 22:05 200 mls/hr ONCE ONE Administration Metronidazole 500 mg in 100 mls @ 100 mls/hr 07/14/23 21:36 07/14/23 22:08 Flagyl 500mg/100ml Ivpb IV 07/14/23 22:35 100 mls/hr ONCE ONE Administration Lactated Ringer's 1,000 mls @ 999 mls/hr 07/14/23 21:36 07/14/23 21:49 Lactated Ringer's 1000 Ml Bag IV 07/14/23 22:36 999 mls/hr .Q1H1M ONE Administration Iopamidol 100 ml 07/14/23 21:47 07/14/23 21:48 Iopamidol-370 (76%);100ml Bottle IV 07/14/23 21:48 100 ml ONCE ONE Administration Ondansetron HCl 4 mg 07/14/23 20:10 07/14/23 20:20 Ondansetron 4mg/2ml Vial IV 07/14/23 20:11 4 mg ONCE ONE Administration Pantoprazole Sodium 40 mg 07/14/23 20:10 07/14/23 20:20 Pantoprazole 40mg Vial IV 07/14/23 20:11 40 mg ONCE ONE Administration Sodium Chloride 50 ml 07/14/23 21:47 07/14/23 22:16 0.9 % Sodium Chloride 50 Ml Vial IV 07/14/23 21:48 50 ml ONCE ONE Administration ORDERS Category Date Time Status CT angio abdomen pelvis Stat Cat Scan 07/14/23 21:[address] angio chest - dissection Stat Cat Scan 07/14/23 21:03 Completed CXR --portable [XR chest portable] Stat Exams 07/14/23 20:10 Completed Basic Metabolic Panel AMLAB Lab 07/15/23 06:00 Ordered CBC w/Auto Diff [Complete Blood Count Auto Diff] Stat Lab 07/14/23 20:55 Completed CMP [Comprehensive Metabolic Panel] Stat Lab 07/14/23 20:55 Completed Complete Blood Count Auto Diff AMLAB Lab 07/15/23 06:00 Ordered Lactic Acid Stat Lab 07/14/23 20:55 Completed Lipase Stat Lab 07/14/23 20:55 Completed PT INR [Prothrombin Time INR] Stat Lab 07/14/23 20:55 Completed PTT [Activated Partial Thrombo Time] Stat Lab 07/14/23 20:55 Completed Trop I [Troponin I] Stat Lab 07/14/23 20:55 Completed Troponin I Q3H Lab 07/14/23 23:15 Ordered Troponin I Q3H Lab 07/15/23 02:15 Ordered Blood Culture Stat Micro 07/14/23 21:33 Received Medical Decision Narrative: This is a 62-year-old male with history of hypertension, hyperlipidemia, COPD still currently smoking, bipolar disorder, anxiety, presenting with vomiting blood. Patient states this has been going on for couple of days. He has also been having black, tarry stools. He has had both of these in the past. Patient states that he started vomiting just before arrival and was bringing up red blood. Midsternal chest pain started shortly thereafter. Does not radiate. Not made better or worse by anything in particular. Patient states that the vomiting is unrelated to p.o. intake. States that he does drink, does not drink daily. Recently followed up with GI and had scope done, unsure of what the results were. This was done at [facility]. Patient denies lightheadedness, shortness of breath, diaphoresis, or any other concerns. History was obtained via conversation with patient. On arrival, patient hemodynamically stable, alert, oriented x4, appropriate, GCS 15, moving all extremities spontaneously, pupils equal and reactive to light. Full physical exam performed and significant for well-appearing male in no acute distress. Lungs are clear to auscultation bilaterally. Abdomen is soft, nontender, nondistended. No pulsatile mass. Pulses equal and symmetric. Cardiac exam within normal limits, patient not actively retching. Differential includes gastric ulcer, malignancy, gastritis, enteritis, esophageal tear, esophageal rupture, among others. Patient was given 40 mg IV Protonix, GI cocktail, fluids for symptomatic management and correction of underlying abnormalities. Workup independently interpreted and significant for nonactionable CBC, hemoglobin 15. Chemistry with normal kidney function. Lactate elevated at 4.1, cardiac labs negative. CTA of the chest abdomen pelvis without acute bleed. He does have diffuse gastritis and esophagitis, this is likely the etiology of his hematemesis. See radiology read for full review of final results. Independent interpretation of EKG shows sinus rhythm [address] or T wave changes concerning for acute ischemia. MO, QRS, QT intervals within normal limits. Incomplete right bundle branch block. On reevaluation, patient resting comfortably bed tolerating p.o. intake. Hospital medicine was contacted out of abundance of caution given hematemesis, lactic acid of 4, and concern for potential decompensation. Although patient does appear very well clinically, I feel is appropriate to admit patient for observation. Hospitalist was contacted and case was discussed at length, agreeable to admission. Critical Care Critical Care Time Critical Care Time: No
[2023-07-14] MEDS: BELLADONNA ALKALOIDS 60 ML ML PO (20:20)
[2023-07-14] MEDS: ONDANSETRON 4MG/2ML VIAL 4 MG IV (20:20)
[2023-07-14] MEDS: PANTOPRAZOLE 40MG VIAL 40 MG IV (20:20)
--- NOTE | 2023-07-14 21:03 | CT_ITS ---
PROCEDURE INFORMATION: Exam: CTA Abdomen and Pelvis With Contrast Exam date and time: 07/14/2023 9:25 PM Age: 62 years old Clinical indication: Other: Hemtemesis; Additional info: New hematemesis, in setting of previous gastric ul TECHNIQUE: Imaging protocol: Computed tomographic angiography of the abdomen and pelvis with contrast. Exam focused on the arteries. 3D rendering (Not supervised by radiologist): MIP and/or 3D reconstructed images were created by the technologist. Radiation optimization: All CT scans at this facility use at least one of these dose optimization techniques: automated exposure control; mA and/or kV adjustment per patient size (includes targeted exams where dose is matched to clinical indication); or iterative reconstruction. Contrast material: ISOUVE 370; Contrast volume: 100 ml; Contrast route: INTRAVENOUS (IV); COMPARISON: CT ABDOMEN PELVIS W CON 03/20/2023 6:28 PM FINDINGS: Aorta: No aortic aneurysm. No aortic dissection. Moderate atherosclerotic disease. Celiac trunk and mesenteric arteries: Mild stenosis of the SMA. Renal arteries: No occlusion or significant stenosis. Right iliac arteries: Multifocal mild stenoses. Left iliac arteries: Up to moderate stenosis of the left external iliac artery. Liver: Nodular liver contour. Low-density of the liver. Stable scattered hypodensities. Gallbladder and bile ducts: Unremarkable. No calcified stones. No ductal dilation. Pancreas: Stable calcifications in the pancreatic head. Spleen: Unremarkable. No splenomegaly. Adrenal glands: Unremarkable. No mass. Kidneys and ureters: Unremarkable. No solid mass. No hydronephrosis. Stomach and bowel: Colonic diverticulosis without CT evidence of acute diverticulitis. Appendix: No evidence of appendicitis. Intraperitoneal space: Unremarkable. No free air. No significant fluid collection. Lymph nodes: Unremarkable. No enlarged lymph nodes. Urinary bladder: Unremarkable. No mass. Reproductive: Unremarkable as visualized. Bones/joints: Lumbar spinal hardware. Soft tissues: Unremarkable. IMPRESSION: 1. No evidence of aortic dissection in the abdomen and pelvis. 2. Cirrhotic liver morphology.
--- NOTE | 2023-07-14 21:03 | CT_ITS ---
PROCEDURE INFORMATION: Exam: CTA Chest With Contrast Exam date and time: 07/14/2023 9:25 PM Age: 62 years old Clinical indication: Other: Hematemsis; Additional info: New hematemesis TECHNIQUE: Imaging protocol: Computed tomographic angiography of the chest with contrast. Exam focused on the arteries. 3D rendering (Not supervised by radiologist): MIP and/or 3D reconstructed images were created by the technologist. Radiation optimization: All CT scans at this facility use at least one of these dose optimization techniques: automated exposure control; mA and/or kV adjustment per patient size (includes targeted exams where dose is matched to clinical indication); or iterative reconstruction. Contrast material: ISOUVE 370; Contrast volume: 100 ml; Contrast route: INTRAVENOUS (IV); COMPARISON: CT ANGIO CHEST PE PROTOCOL 04/29/2022 9:49 AM FINDINGS: Pulmonary arteries: Normal caliber of the main pulmonary artery. No pulmonary artery filling defects seen. Aorta: Mild moderate atherosclerotic disease. No aortic aneurysm. No aortic dissection. Lungs: Mild emphysema.. No consolidation. No masses. Pleural spaces: Unremarkable. No pneumothorax. No pleural effusion. Heart: Unremarkable. No cardiomegaly. No pericardial effusion. Esophagus: Circumferential wall thickening of the mid to distal esophagus. Lymph nodes: Calcified left hilar lymph nodes indicating sequela of prior granulomatous disease. Stable scattered prominent mediastinal lymph nodes. Bones/joints: No acute fracture. Soft tissues: Unremarkable. IMPRESSION: 1. No evidence of aortic dissection. 2. Circumferential wall thickening of the mid to distal esophagus compatible with esophagitis. 3. Smoking related lung disease. COMMENTS: The presence of pulmonary emphysema on CT is an independent risk factor for lung cancer. In the absence of a history or active diagnosis of lung cancer, it is recommended that this patient with emphysema be evaluated for enrollment in a low dose CT lung cancer screening program.
[2023-07-14 21:12] LABS: Basophils # 0.1 K/mm3 (0-0.2); Basophils % 2.5 % (0.1-2.0); Eosinophils # 0.1 K/mm3 (0.0-0.4); Eosinophils % 1.5 % (0.1-12.0); Hematocrit 48.5 % (42.0-52.0); Lymphocytes # 1.6 K/mm3 (0.7-4.5); Lymphocytes % 33.9 % (10-50); Mean Corpuscular Hemoglobin 32.7 pg (27.0-31.2); Mean Corpuscular Volume 105.5 fl (80-94); Monocytes # 0.3 K/mm3 (0.1-1.0); Neutrophils # 2.6 K/mm3 (1.8-7.8); Neutrophils % 56.1 % (37.0-80.0); Platelet Count 106 K/mm3 (142-424); Red Cell Distribution Width 14.3 % (11.5-17.5); White Blood Count 4.5 K/mm3 (4.8-10.8)
[2023-07-14 21:15] LABS: Chloride 107 mmol/L (98-107); Potassium 3.8 mmoL/L (3.5-5.1); Sodium 144 mmol/L (136-145)
[2023-07-14 21:17] LABS: Blood Urea Nitrogen 10 mg/dl (9-20); Creatinine Clearance Estimated 95 mL/min (50-200); Estimated Glomerular Filt Rate 86 ml/min (>60); GFR (African American) 104 ML/MIN (>60)
[2023-07-14 21:18] LABS: Alanine Aminotransferase 75 U/L (12-78); Albumin Level 3.9 g/dl (3.5-5.0); Albumin/Globulin Ratio 1.3 (1.1-1.8); Alkaline Phosphatase 170 U/L (38-126); Anion Gap 14.8 mEq/L (5-15); Aspartate Amino Transferase 122 U/L (17-59); Bilirubin,Total 1.3 mg/dl (0.2-1.3); Calcium 8.9 mg/dl (8.4-10.2); Carbon Dioxide 26 mmol/L (22.0-30.0); Globulin 3.1 g/dL (1.3-3.2); Glucose 135 mg/dl (74-100); Lactic Acid 4.1 mmol/L (0.7-2.1); Lipase 380 U/L (23-300)
[2023-07-14 21:22] LABS: Activated Partial Thrombo Time 28.5 seconds (22.8-30.6); INR 1.13 (0.9-1.1); Prothrombin Time 12.1 seconds (10.1-12.5)
[2023-07-14 21:30] LABS: Troponin I < 0.01 ng/ml (0.00-0.034)
--- NOTE | 2023-07-14 21:34 | PC.NURSE ---
patient to CT
--- NOTE | 2023-07-14 21:43 | PC.NURSE ---
patient back from CT
[2023-07-14] MEDS: IOPAMIDOL-370 (76%);100ML BOTTLE 100 ML IV (21:48)
[2023-07-14] MEDS: VANCOMYCIN CONSULT REQUEST 1 EACH NOTAPPLIC (21:48)
[2023-07-14] MEDS: SODIUM CHLORIDE 0.9% 10ML SYR (RAD ONLY) 10 ML IV (21:48)
[2023-07-14] MEDS: SODIUM CHLORIDE 0.9% 10ML VIAL 10 ML IV (21:49)
[2023-07-14] MEDS: CEFEPIME HCL 2 GM in 0.9 % SODIUM CHLORIDE 100 ML IV (21:49)
[2023-07-14] MEDS: LACTATED RINGERS 1000ML 1,000 ML 999 ML IV (21:49)
[2023-07-14] MEDS: METRONIDAZ/SOD CHL 500 MG/100 ML PIGGYBACK 100 MG IV (22:08)
[2023-07-14] MEDS: 0.9 % SODIUM CHLORIDE 50 ML VIAL IV (22:16)
--- NOTE | 2023-07-14 22:59 | PC.NURSE ---
on phone with hospitalist
[2023-07-14] MEDS: VANCOMYCIN HCL 2,000 MG in 0.9 % SODIUM CHLORIDE 250 ML 125 MG IV (23:16)
[2023-07-15] VITALS: BP 119/68; BP 157/89; PULSE 53; PULSE 77; RESP 16; RESP 18; TEMP 36.7; TEMP 36.9; O2SAT 96; O2SAT 97; BMI 26.6
[2023-07-15 00:14] LABS: Reflex Lactic Add Lactic Reflex
[2023-07-15 00:41] LABS: Lactic Acid Follow Up (RFLX 1) 3.6 mmol/L (0.7-2.1)
--- NOTE | 2023-07-15 01:00 | EXP.HP ---
History of Present Illness *Admission Date: 07/14/23 *Reason for visit:: Esophagitis *History of present illness: 62 year old male presented to [facility] ED for c/o hematemisis and melena for the past couple days. PMHX of hypertension, hyperlipidemia, COPD, tobacco abuse, bipolar disorder, anxiety, and alcohol abuse. He reports drinking 8 to 10 beers daily and has been told he has cirrhosis of the liver. He currently see a GI doctor at [facility]. Denies any blood thinner use. Reports that he takes medications only for his breathing and stomach. His ED work up reveals mild thrombocytopenia with platelets of 106, INR 1.13, lactate 4.1, AST 122, and Alk phosphate 170. His hemoglobin is stable at 15.0. His chest xray reveals small pleural fluid in the right lung, Abd/ pelvis CT reveals cirrhotic liver, and chest CTA reveals wall thickening of the esophagus and emphysema. The ED physician consulted the hospitalist team for further medical management. The case was discussed at length and I admitted the pt to the medical floor for futher medical management. The pt was started on broad spectrum antibiotics and blood cultures are pending. I will continue to trend his lactate and repeat his CBC to monitor his hemoglobin. He will continue to receive protonix and treatment for alcohol withdrawal. [facility] Disclaimer: The information contained in this section may have been updated after the patient was seen, as this information can be updated by other users. Medical History (Updated 07/15/23 @ 01:25 by ELIZABETH Monroe) Dyspnea on exertion Encounter for screening for malignant neoplasm of lung Smoking greater than 30 pack years Bipolar 1 disorder Abnormal LFTs Black tarry stools Alcohol intoxication Chronic low back pain Alcoholism Anxiety and depression Blindness of right eye COPD (chronic obstructive pulmonary disease) Common bile duct dilatation Hiatal hernia Pancreatitis, acute Elevated LFTs Surgical History Hx of neck surgery History of cornea transplant History of lumbar fusion Family History Other Family history of diabetes mellitus type II Family history of stroke No significant family history Social History Smoking Status: Current every day smoker tobacco type: cigarettes packs per day: 1 alcohol intake: current substance use type: denies use current occupational status: other Travel in the last 8 weeks: None household members: none housing: house lives independently: Yes marital status: education level: high school caffeine: No special feliciano needs: No agree to transfusion: No do you feel safe at home: Yes victim of physical abuse: No victim of emotional abuse: No victim of sexual abuse: No would you like helpful sources: No Review of Systems Review of Systems Review of systems:: pertinent systems reviewed and negative unless documented below Meds Home Medications and Allergies Home Medications Medication Instructions Recorded Confirmed Type [id number]-[id number] 2 cap PO BID Supplement 07/18/22 07/14/23 History 40,000-126,000-168,000 unit capsule, delay rel (Zenpep) umeclidinium 62.5 mcg-vilanterol 1 inh inhalation DAILY 90 days 01/23/23 07/15/23 Rx 25 mcg/actuation powdr for #180 ea inhalation (Anoro Ellipta) pantoprazole 40 mg tablet,delayed 40 mg PO BID Reflux/Acid reflux 05/01/23 07/14/23 Rx release (Protonix) #180 tabs famotidine 40 mg tablet 40 mg PO HS Acid Reflux 07/14/23 07/15/23 History quetiapine 25 mg tablet 25 mg PO HS Mood 07/14/23 07/14/23 History albuterol sulfate 90 mcg/actuation 2 puff inhalation Q4HP PRN 07/15/23 07/15/23 History aerosol inhaler (ProAir HFA) shortness of breath or wheezing New Prescriptions to Start Prescriptions: Allergies Allergy/AdvReac Type Severity Reaction Status Date / Time amoxicillin [AMOXICILLIN] Allergy Mild Unknown Verified 11/04/22 11:25 allergy reaction Penicillins [PENICILLINS] Allergy Mild Unknown Verified 11/04/22 11:25 allergy reaction BEE STINGS Allergy Severe Anaphylaxis Uncoded 11/04/22 11:25 Exam Data for Last 24 hours Vital signs and Labs for Last 24 Hours: Temp Pulse Resp BP Pulse Ox O2 Del Method 98.5 F 77 18 157/89 H 97 Room Air 07/15/23 00:00 07/15/23 00:00 07/15/23 00:00 07/15/23 00:00 07/15/23 00:00 07/15/23 00:58 Laboratory Results - last 24 hr 07/14/23 20:55: WBC 4.5 L, RBC 4.60, Hgb 15.0, Hct 48.5, MCV 105.5 H, MCH 32.7 H, MCHC 31.0 L, RDW 14.3, Plt Count 106 L, MPV 9.0, Neut % (Auto) 56.1, Lymph % (Auto) 33.9, Gem % (Auto) 6.0, Eos % (Auto) 1.5, Baso % (Auto) 2.5 H, Neut # (Auto) 2.6, Lymph # (Auto) 1.6, Gem # (Auto) 0.3, Eos # (Auto) 0.1, Baso # (Auto) 0.1, PT 12.1, INR 1.13 H, APTT 28.5, Sodium 144, Potassium 3.8, Chloride 107, Carbon Dioxide 26, Anion Gap 14.8, BUN 10, Creatinine 0.90, Estimated Creat Clear 95, Estimated GFR 86, Est GFR ( Amer) 104, Glucose 135 H, Lactate 4.1 H, Calcium 8.9, Total Bilirubin 1.3, AST 122 H, ALT 75, Alkaline Phosphatase 170 H, Troponin I < 0.01, Total Protein 7.0, Albumin 3.9, Globulin 3.1, Albumin/Globulin Ratio 1.3, Lipase 380 H 07/15/23 00:25: Lactate 3.6 H I & O for Last 24 hours: Intake & Output 07/12/23 07/13/23 07/14/23 07/15/23 23:59 23:59 23:59 23:59 Weight 86.183 kg 86.727 kg Constitutional Constitutional: no acute distress *Routine HEENT Exam Head: Present normocephalic and atraumatic Eye: Present EOMI, PERRL and normal accommodation ENT: Present mucous membranes moist *Routine Neck Exam Neck: Present supple and full ROM *Routine Respiratory Exam Respiratory: Present wheezes and symmetric chest movement *Routine Cardiovascular Exam Cardiovascular: Present RRR *Routine Abdominal Exam Abdominal: Present soft and normoactive bowel sounds; Absent tenderness *Routine Rectal Exam Rectal:: deferred *Routine Genitalia Exam Genitalia:: deferred *Routine Extremities Exam Extremities: Present full ROM *Routine Skin Exam Skin: Present intact *Routine Neurological Exam Neurological: Present alert and oriented X3 Assessment and Plan *Assessment and plan (1) Esophagitis: Status: Acute Category: Medical Code(s): K20.90 - Esophagitis, unspecified without bleeding (2) Lactic acid increased: Status: Acute Category: Medical Code(s): E87.20 - Acidosis, unspecified (3) Cirrhosis: Status: Acute Category: Medical Code(s): K74.60 - Unspecified cirrhosis of liver (4) Alcoholism: Status: Chronic Category: Medical Code(s): F10.20 - Alcohol dependence, uncomplicated (5) COPD (chronic obstructive pulmonary disease): Status: Chronic Qualifiers: COPD type: unspecified COPD Qualified Code(s): J44.9 - Chronic obstructive pulmonary disease, unspecified Category: Medical Code(s): J44.9 - Chronic obstructive pulmonary disease, unspecified (6) Hyperlipidemia: Status: Acute Category: Medical Code(s): E78.5 - Hyperlipidemia, unspecified (7) Anxiety and depression: Status: Chronic Category: Medical Code(s): F41.9 - Anxiety disorder, unspecified; F32.9 - Major depressive disorder, single episode, unspecified (8) HTN (hypertension): Status: Acute Category: Medical Code(s): I10 - Essential (primary) hypertension (9) Tobacco abuse: Status: Acute Category: Medical Code(s): Z72.0 - Tobacco use Plan 62 year old male presented to [facility] ED for c/o hematemisis and melena for the past couple days. PMHX of hypertension, hyperlipidemia, COPD, tobacco abuse, bipolar disorder, anxiety, and alcohol abuse. He reports drinking 8 to 10 beers daily and has been told he has cirrhosis of the liver. He currently see a GI doctor at [facility]. Denies any blood thinner use. Reports that he takes medications only for his breathing and stomach. His ED work up reveals mild thrombocytopenia with platelets of 106, INR 1.13, lactate 4.1, AST 122, and Alk phosphate 170. His hemoglobin is stable at 15.0. His chest xray reveals small pleural fluid in the right lung, Abd/ pelvis CT reveals cirrhotic liver, and chest CTA reveals wall thickening of the esophagus and emphysema. The ED physician consulted the hospitalist team for further medical management. The case was discussed at length and I admitted the pt to the medical floor for futher medical management. The pt was started on broad spectrum antibiotics and blood cultures are pending. I will continue to trend his lactate and repeat his CBC to monitor his hemoglobin. He will continue to receive protonix and treatment for alcohol withdrawal. ESOPHAGITIS LACTIC ACID -hematemisis and melena for the past couple days. Follows GI at [facility] -CTA of chest reviewed and reveals wall thickening of the esophagus -continue protonix 40 mg IV BID -Zofran 4mg Q 6hr PRN -lactate 4.1 and 3.6-> Will continue to trend -Received 1L in ED of LR. Encourage oral hydration -Blood cultures are pending -Continue broad spectrum coverage with vancomycin, flagyl 500mg IV q 8 hr, and cefepime 2 gm IV Q 12 hr -hemoglobin 15.0. Repeat in morning -occult stool ordered CIRRHOSIS -platelets of 106, INR 1.13, AST 122, and Alk phosphate 170 -Denies any blood thinners. Reports that he has been told in the past he has cirrhosis -Repeat INR and liver enzymes daily ALCOHOLISM -CIWA protocol -folic acid 1mg, multivitamin, and thiamine 100 mg daily COPD HLD ANXIETY HTN -awaiting pharmacy to verify home medications for eye drops -continue seroquel 25 mg -duoneb q 6hr PRN TOBACCO ABUSE -nicotine patch PRN FULL CODE CLEAR LIQUIDS DVT: HOLD Attending attestation Patient was seen and evaluated at the bedside myself, agree with DEMOND note.
[2023-07-15 01:50] LABS: Magnesium 1.9 mg/dl (1.6-2.3); Phosphorous 3.3 mg/dl (2.5-4.5)
[2023-07-15 02:27] LABS: Reflex Lactic (2 hrs) Add Lactic Reflex
[2023-07-15 02:54] LABS: Lactic Acid Follow up (RFLX 2) 2.3 mmol/L (0.7-2.1)
[2023-07-15 04:00] VITALS: BP 150/87; PULSE 71; RESP 18; TEMP 36.7; O2SAT 97; BMI 26.8
[2023-07-15] MEDS: CEFEPIME HCL 2 GM in 0.9 % SODIUM CHLORIDE 100 ML IV ×2 (05:31→19:06)
[2023-07-15] MEDS: METRONIDAZ/SOD CHL 500 MG/100 ML PIGGYBACK 100 MG IV ×3 (05:31→20:43)
--- NOTE | 2023-07-15 05:59 | PC.NURSE ---
Patient VSS, lungs clear, CIWA score 0 at time of admission. Patient rested throughout the night voicing no concerns.
[2023-07-15 07:00] LABS: Chloride 107 mmol/L (98-107); Potassium 3.9 mmoL/L (3.5-5.1); Sodium 140 mmol/L (136-145)
[2023-07-15 07:02] LABS: Alanine Aminotransferase 60 U/L (12-78); Aspartate Amino Transferase 91 U/L (17-59); Basophils # 0.1 K/mm3 (0-0.2); Blood Urea Nitrogen 7 mg/dl (9-20); Creatinine Clearance Estimated 95 mL/min (50-200); Eosinophils # 0.1 K/mm3 (0.0-0.4); Estimated Glomerular Filt Rate 115 ml/min (>60); GFR (African American) 139 ML/MIN (>60); Lymphocytes # 1.4 K/mm3 (0.7-4.5); Monocytes # 0.3 K/mm3 (0.1-1.0); White Blood Count 3.8 K/mm3 (4.8-10.8)
[2023-07-15 07:03] LABS: Albumin Level 3.5 g/dl (3.5-5.0); Albumin/Globulin Ratio 1.3 (1.1-1.8); Alkaline Phosphatase 149 U/L (38-126); Anion Gap 10.9 mEq/L (5-15); Bilirubin,Total 1.3 mg/dl (0.2-1.3); Calcium 8.6 mg/dl (8.4-10.2); Carbon Dioxide 26 mmol/L (22.0-30.0); Globulin 2.6 g/dL (1.3-3.2); Glucose 85 mg/dl (74-100); Total Protein,Serum 6.1 g/dl (6.3-8.2)
[2023-07-15 07:04] LABS: Prothrombin Time 12.8 seconds (10.1-12.5)
[2023-07-15 07:36] LABS: Basophils % 1.6 % (0.1-2.0); Eosinophils % 1.5 % (0.1-12.0); Hematocrit 42.6 % (42.0-52.0); Lymphocytes % 36.2 % (10-50); Mean Corpuscular HGB Conc 30.7 g/dL (31.8-35.4); Mean Corpuscular Hemoglobin 32.2 pg (27.0-31.2); Mean Corpuscular Volume 105.1 fl (80-94); Mean Platelet Volume 8.3 fl (7.4-10.4); Monocytes % 8.4 % (1.7-9.3); Neutrophils % 52.3 % (37.0-80.0); Platelet Count 84 K/mm3 (142-424); Red Blood Count 4.05 M/mm3 (4.60-6.20); Red Cell Distribution Width 14.4 % (11.5-17.5)
[2023-07-15 07:38] LABS: Hemoglobin 13.1 g/dL (14.1-18.0)
[2023-07-15 07:51] VITALS: BP 164/97; PULSE 70; RESP 18; TEMP 37; O2SAT 98
[2023-07-15 08:35] LABS: Occult Blood,Stool Negative (Negative)
[2023-07-15 08:43] LABS: Amphetamine/Metha Screen,Urine Negative ng/ml (<1000)
[2023-07-15 08:44] LABS: Barbiturates Screen,Urine Positive ng/ml (<200); Benzodiazepines Screen,Urine Negative ng/ml (<200)
[2023-07-15 08:45] LABS: Cannabinoid Screen,Urine Positive ng/ml (<50)
[2023-07-15 08:46] LABS: Cocaine Screen,Urine Negative ng/ml (<300); Methadone Screen,Urine Negative ng/ml (<300)
[2023-07-15 08:47] LABS: Opiate Screen,Urine Negative ng/ml (<300); Phencyclidine Screen,Urine Negative ng/ml (<25)
--- NOTE | 2023-07-15 08:52 | P.CONPHA_ITS ---
Pharmacy Consult Date: 07/15/23 Time: 08:52 Referring provider: DR. QUINTANILLA Reason for Consult:: VANCOMYCIN DOSING Allergies Allergy/AdvReac Type Severity Reaction Status Date / Time amoxicillin [AMOXICILLIN] Allergy Mild Unknown Verified 11/04/22 11:25 allergy reaction Penicillins [PENICILLINS] Allergy Mild Unknown Verified 11/04/22 11:25 allergy reaction BEE STINGS Allergy Severe Anaphylaxis Uncoded 11/04/22 11:25 Home Medications Medication Instructions Recorded Confirmed Type albuterol sulfate 90 mcg/actuation 2 puff inhalation Q4-6H PRN 07/21/20 07/14/23 Rx aerosol inhaler (ProAir HFA) shortness of breath or wheezing 90 days #3 multiple units fluorometholone 0.1 % eye 1 drp Eye-Right ONCE PRN Eye 02/16/22 07/14/23 History drops,suspension Irritation latanoprost 0.005 % eye drops 1 drp Eye-Both HS EYE 02/16/22 07/14/23 History timolol maleate 0.5 % eye drops 1 drp Eye-Both DAILY EYE 02/16/22 07/14/23 History [id number] 2 cap PO BID Supplement 07/18/22 07/14/23 History 40,000-126,000-168,000 unit capsule, delay rel (Zenpep) peg 3350-electrolytes 236 240 ml PO Q10M prep 08/03/22 07/14/23 History gram-22.74 gram-6.74 gram-5.86 gram solution (GaviLyte-G) fluticasone propionate 110 1 puff inhalation BID 90 days #12 01/23/23 07/14/23 Rx mcg/actuation HFA aerosol inhaler grams (Flovent HFA) umeclidinium 62.5 mcg-vilanterol 1 inh inhalation DAILY 90 days 01/23/23 07/14/23 Rx 25 mcg/actuation powdr for #180 ea inhalation (Anoro Ellipta) pantoprazole 40 mg tablet,delayed 40 mg PO BID Reflux/Acid reflux 05/01/23 07/14/23 Rx release (Protonix) #180 tabs famotidine 40 mg tablet 40 mg PO DAILY GERD 07/14/23 07/14/23 History quetiapine 25 mg tablet 25 mg PO HS Insomnia 07/14/23 07/14/23 History New Prescriptions to Start Prescriptions: Height: 1.8 m Weight: 86.891 kg Laboratory Results:: Laboratory Results - last 24 hr 07/14/23 00:00: Phosphorus 3.3, Magnesium 1.9 07/14/23 20:55: WBC 4.5 L, RBC 4.60, Hgb 15.0, Hct 48.5, MCV 105.5 H, MCH 32.7 H , MCHC 31.0 L, RDW 14.3, Plt Count 106 L, MPV 9.0, Neut % (Auto) 56.1, Lymph % (Auto) 33.9, [place] % (Auto) 6.0, Eos % (Auto) 1.5, Baso % (Auto) 2.5 H, Neut # (Auto) 2.6, Lymph # (Auto) 1.6, [place] # (Auto) 0.3, Eos # (Auto) 0.1, Baso # (Auto) 0.1, PT 12.1, INR 1.13 H, APTT 28.5, Sodium 144, Potassium 3.8, Chloride 107, Carbon Dioxide 26, Anion Gap 14.8, BUN 10, Creatinine 0.90, Estimated Creat Clear 95, Estimated GFR 86, Est GFR ( Amer) 104, Glucose 135 H, Lactate 4.1 H, Calcium 8.9, Total Bilirubin 1.3, AST 122 H, ALT 75, Alkaline Phosphatase 170 H, Troponin I < 0.01, Total Protein 7.0, Albumin 3.9, Globulin 3.1, Albumin/Globulin Ratio 1.3, Lipase 380 H 07/15/23 00:25: Lactate 3.6 H 07/15/23 02:35: Lactate 2.3 H 07/15/23 06:31: WBC 3.8 L, RBC 4.05 L, Hgb 13.1 L D, Hct 42.6, MCV 105.1 H, MCH 32.2 H, MCHC 30.7 L, RDW 14.4, Plt Count 84 L, MPV 8.3, Neut % (Auto) 52.3, Lymph % (Auto) 36.2, [place] % (Auto) 8.4, Eos % (Auto) 1.5, Baso % (Auto) 1.6, Neut # (Auto) 2.0, Lymph # (Auto) 1.4, [place] # (Auto) 0.3, Eos # (Auto) 0.1, Baso # (Auto) 0.1, PT 12.8 H, INR 1.20 H, Sodium 140, Potassium 3.9, Chloride 107, Carbon Dioxide 26, Anion Gap 10.9, BUN 7 L D, Creatinine 0.70 D, Estimated Creat Clear 95, Estimated GFR 115, Est GFR ( Amer) 139 D, Glucose 85 D, Calcium 8.6, Total Bilirubin 1.3, AST 91 H D, ALT 60, Alkaline Phosphatase 149 H, Total Protein 6.1 L, Albumin 3.5 D, Globulin 2.6, Albumin/Globulin Ratio 1.3 07/15/23 08:19: Stool Occult Blood Negative Medical History: Medical History (Updated 07/15/23 @ 01:25 by Oh [facility] Dyspnea on exertion Encounter for screening for malignant neoplasm of lung Smoking greater than 30 pack years Bipolar 1 disorder Abnormal LFTs Black tarry stools Alcohol intoxication Chronic low back pain Alcoholism Anxiety and depression Blindness of right eye COPD (chronic obstructive pulmonary disease) Common bile duct dilatation Hiatal hernia Pancreatitis, acute Elevated LFTs Assessment and Plan Assessment and plan all Dx Assessment and Plan for all problems:: Pharmacokinetic dosing service Objective: Patient: Floor: Age: 62 yo Serum creatinine: 0.70 mg/dL Height: 70.9 Inches Weight (kg): 86.9 Assessment: IBW (kg): 75.07 Dosing wt(kg): 86.9 Estimated Creatinine clearance (ml/min): 117.7 CRCL method: Cockcroft and Gault using ibw(default). Drug selected: Vancomycin Loading dose (mg): Vd (liters): 69.5 (factor used: 0.8 L/kg) Jadon (hr-1): 0.102 Half life (hrs): 6.80 CLvanco=?? 7.089 L/hr Recommended dose: 2000 mg Interval: 12 hrs Infusion time (hrs): 2.0 Predicted peak (mcg/mL): 36.9 Predicted trough (mcg/mL): 13.31 Total body weight is being used for vancomycin dosing. Recommendations: Give Vancomycin 2000 mg q 12 hrs with an expected Cpeak of 36.9 mcg/ml and an expected Ctrough of 13.31 mcg/ml AUC 0-24 /TANNA Data: TANNA 0.5 mcg/mL:?? AUC/TANNA:? 1128.5 TANNA 1.0 mcg/mL:?? AUC/TANNA:? 564.3 --------- TANNA 1.5 mcg/mL:?? AUC/TANNA:? 376.2 TANNA 2.0 mcg/mL:?? AUC/TANNA:? 282.1 Thank you for the consult, will continue to follow. -GOLDY FLETCHER, PRAKASHD
[2023-07-15] MEDS: SODIUM CHLORIDE 0.9% 10ML VIAL 10 ML IV ×2 (09:24→20:44)
[2023-07-15] MEDS: FOLIC ACID 1MG TABLET 1 MG PO (09:24)
[2023-07-15] MEDS: PANTOPRAZOLE 40MG VIAL 40 MG IV ×2 (09:24→20:43)
[2023-07-15] MEDS: THIAMINE 100MG TABLET 100 MG PO (09:24)
[2023-07-15] MEDS: LIPASE/PROTEASE/AMYLASE 1 EACH CAPSULE.DR 2 EACH PO ×2 (09:24→20:43)
[2023-07-15] MEDS: VANCOMYCIN HCL 2,000 MG in 0.9 % SODIUM CHLORIDE 250 ML 125 MG IV ×2 (10:16→22:32)
--- NOTE | 2023-07-15 11:26 | HMH.PHAINT1 ---
Pharmacy Intervention Comments: MEDICATION RECONCILIATION COMPLETED ON PATIENT USING EXTERNAL FILL HISTORY FROM PHARMACY. -GOLDY FLETCHER, PRAKASHD
[2023-07-15 12:00] VITALS: BP 151/76; PULSE 62; RESP 18; TEMP 36.9; O2SAT 98
[2023-07-15] MEDS: LORazepam 1MG TABLET 1 MG PO (12:51)
--- NOTE | 2023-07-15 15:37 | PC.NURSE ---
VS stable and patient remained on room air. Ativan given for ciwa score of 3 and patient tolerated well. Patient remained on clear liquid diet and able to tolerate. Abdomen soft, tender on left side. Bowel sounds present.
[2023-07-15 15:50] VITALS: BP 149/89; PULSE 66; RESP 18; TEMP 37.1; O2SAT 98
[2023-07-15] MEDS: MULTIVITAMIN TABLET 1 EACH PO (18:43)
[2023-07-15 20:00] VITALS: BP 154/97; PULSE 64; RESP 16; TEMP 36.9; O2SAT 97
[2023-07-15] MEDS: QUETIAPINE 25MG TABLET 25 MG PO (20:44)
[2023-07-16] VITALS: BP 147/95; PULSE 65; RESP 18; TEMP 37.1; O2SAT 98
[2023-07-16 04:00] VITALS: BP 143/87; PULSE 61; RESP 18; TEMP 36.6; O2SAT 99; BMI 27.1
[2023-07-16] MEDS: METRONIDAZ/SOD CHL 500 MG/100 ML PIGGYBACK 100 MG IV (04:49)
[2023-07-16] MEDS: CEFEPIME HCL 2 GM in 0.9 % SODIUM CHLORIDE 100 ML IV (06:22)
--- NOTE | 2023-07-16 06:29 | PC.NURSE ---
no acute changes
[2023-07-16 07:56] VITALS: BP 158/92; PULSE 79; RESP 19; TEMP 36.7; O2SAT 100
[2023-07-16] MEDS: PANTOPRAZOLE 40MG VIAL 40 MG IV (08:15)
[2023-07-16] MEDS: FOLIC ACID 1MG TABLET 1 MG PO (08:15)
[2023-07-16] MEDS: THIAMINE 100MG TABLET 100 MG PO (08:15)
[2023-07-16] MEDS: LIPASE/PROTEASE/AMYLASE 1 EACH CAPSULE.DR 2 EACH PO (08:15)
[2023-07-16] MEDS: SODIUM CHLORIDE 0.9% 10ML VIAL 10 ML IV (08:15)
[2023-07-16] MEDS: LORazepam 1MG TABLET 1 MG PO (08:20)
[2023-07-16] MEDS: NICOTINE 21MG/24HR PATCH 21 MG TD (08:20)
[2023-07-16 10:43] LABS: Vancomycin,Trough 14.4 ug/mL (5.0-10.0)
--- NOTE | 2023-07-16 11:14 | PC.NURSE ---
yaniv with pharmacy called and stated vanc trough was good and it's ok to go ahead and administer vanc
[2023-07-16] MEDS: VANCOMYCIN HCL 2,000 MG in 0.9 % SODIUM CHLORIDE 250 ML 125 MG IV (11:21)
--- NOTE | 2023-07-16 11:32 | P.CONPHA_ITS ---
Pharmacy Consult Date: 07/16/23 Time: 11:32 Referring provider: DR. NELSON Reason for Consult:: VANCOMYCIN TROUGH LEVEL Allergies Allergy/AdvReac Type Severity Reaction Status Date / Time amoxicillin [AMOXICILLIN] Allergy Mild Unknown Verified 11/04/22 11:25 allergy reaction Penicillins [PENICILLINS] Allergy Mild Unknown Verified 11/04/22 11:25 allergy reaction BEE STINGS Allergy Severe Anaphylaxis Uncoded 11/04/22 11:25 Home Medications Medication Instructions Recorded Confirmed Type [id number]-[id number] 2 cap PO BID Supplement 07/18/22 07/14/23 History 40,000-126,000-168,000 unit capsule, delay rel (Zenpep) umeclidinium 62.5 mcg-vilanterol 1 inh inhalation DAILY 90 days 01/23/23 07/15/23 Rx 25 mcg/actuation powdr for #180 ea inhalation (Anoro Ellipta) pantoprazole 40 mg tablet,delayed 40 mg PO BID Reflux/Acid reflux 05/01/23 07/14/23 Rx release (Protonix) #180 tabs famotidine 40 mg tablet 40 mg PO HS Acid Reflux 07/14/23 07/15/23 History quetiapine 25 mg tablet 25 mg PO HS Mood 07/14/23 07/14/23 History albuterol sulfate 90 mcg/actuation 2 puff inhalation Q4HP PRN 07/15/23 07/15/23 History aerosol inhaler (ProAir HFA) shortness of breath or wheezing New Prescriptions to Start Prescriptions: Height: 1.8 m Weight: 88.025 kg Laboratory Results:: Laboratory Results - last 24 hr 07/16/23 10:10: Vancomycin Trough 14.4 H Medical History: Medical History (Updated 07/15/23 @ 01:25 by ELIZABETH Monroe) Dyspnea on exertion Encounter for screening for malignant neoplasm of lung Smoking greater than 30 pack years Bipolar 1 disorder Abnormal LFTs Black tarry stools Alcohol intoxication Chronic low back pain Alcoholism Anxiety and depression Blindness of right eye COPD (chronic obstructive pulmonary disease) Common bile duct dilatation Hiatal hernia Pancreatitis, acute Elevated LFTs Assessment and Plan Assessment and plan all Dx Assessment and Plan for all problems:: BASED ON PATIENT FACTORS AND VANCOMYCIN TROUGH LEVEL OF 14.4, RECOMMEND CON TINUING CURRENT DOSE OF VANCOMYCIN AT 2,000MG IV EVERY 12 HOURS. PHARMACY WILL CONTINUE TO MONITOR. -GOLDY FLETCHER PHARMD
[2023-07-16 11:49] VITALS: BP 134/85; PULSE 65; RESP 18; TEMP 36.7; O2SAT 99
--- NOTE | 2023-07-16 11:55 | EXP.DC.SUM ---
General Admission date:: 07/14/23 Discharge date: 07/16/23 HPI HPI HPI: 62 year old male presented to [facility] ED for c/o hematemisis and melena for the past couple days. PMHX of hypertension, hyperlipidemia, COPD, tobacco abuse, bipolar disorder, anxiety, and alcohol abuse. He reports drinking 8 to 10 beers daily and has been told he has cirrhosis of the liver. He currently see a GI doctor at [facility]. Denies any blood thinner use. Reports that he takes medications only for his breathing and stomach. His ED work up reveals mild thrombocytopenia with platelets of 106, INR 1.13, lactate 4.1, AST 122, and Alk phosphate 170. His hemoglobin is stable at 15.0. His chest xray reveals small pleural fluid in the right lung, Abd/ pelvis CT reveals cirrhotic liver, and chest CTA reveals wall thickening of the esophagus and emphysema. The ED physician consulted the hospitalist team for further medical management. The case was discussed at length and I admitted the pt to the medical floor for futher medical management. The pt was started on broad spectrum antibiotics and blood cultures are pending. I will continue to trend his lactate and repeat his CBC to monitor his hemoglobin. He will continue to receive protonix and treatment for alcohol withdrawal. Hospital Course Hospital Course Hospital Course: 62 year old male presented to [facility] ED for c/o hematemisis and melena for the past couple days. PMHX of hypertension, hyperlipidemia, COPD, tobacco abuse, bipolar disorder, anxiety, and alcohol abuse. He reports drinking 8 to 10 beers daily and has been told he has cirrhosis of the liver. He currently see a GI doctor at [facility]. Denies any blood thinner use. Reports that he takes medications only for his breathing and stomach. His ED work up reveals mild thrombocytopenia with platelets of 106, INR 1.13, lactate 4.1, AST 122, and Alk phosphate 170. His hemoglobin is stable at 15.0. His chest xray reveals small pleural fluid in the right lung, Abd/ pelvis CT reveals cirrhotic liver, and chest CTA reveals wall thickening of the esophagus and emphysema. The ED physician consulted the hospitalist team for further medical management. The case was discussed at length and I admitted the pt to the medical floor for futher medical management. The pt was started on broad spectrum antibiotics and blood cultures are pending. I will continue to trend his lactate and repeat his CBC to monitor his hemoglobin. He will continue to receive protonix and treatment for alcohol withdrawal. ESOPHAGITIS - improved, hematemesis - improved DC on protonix LACTIC ACID CIRRHOSIS - stable -Denies any blood thinners. Reports that he has been told in the past he has cirrhosis ALCOHOLISM -folic acid 1mg, multivitamin, and thiamine 100 mg daily , follow up with PCP as OP COPD HLD ANXIETY HTN - home medications Exam Data for Last 24 hours Vital signs and Labs for Last 24 Hours: Temp Pulse Resp BP Pulse Ox O2 Del Method 98.1 F 65 18 134/85 99 Room Air 07/16/23 11:49 07/16/23 11:49 07/16/23 11:49 07/16/23 11:49 07/16/23 11:49 07/16/23 11:49 Laboratory Results - last 24 hr 07/16/23 10:10: Vancomycin Trough 14.4 H I & O for Last 24 hours: Intake & Output 07/13/23 07/14/23 07/15/23 07/16/23 23:59 23:59 23:59 23:59 Intake Total 2552 / 3162 1330 / 1330 Output Total 100 / 100 380 / 380 Balance 2452 / 3062 950 / 950 Weight 86.183 kg 86.891 kg 88.025 kg Constitutional Constitutional: no acute distress *Routine HEENT Exam Head: Present normocephalic Eye: Present EOMI and PERRL ENT: Present mucous membranes moist *Routine Neck Exam Neck: Present supple; Absent lymphadenopathy *Routine Respiratory Exam Respiratory: Present CTA bilaterally *Routine Cardiovascular Exam Cardiovascular: Present RRR *Routine Abdominal Exam Abdominal: Present soft and normoactive bowel sounds; Absent tenderness *Routine Extremities Exam Extremities: Absent cyanosis, clubbing or edema *Routine Skin Exam Skin: Present warm; Absent rash *Routine Neurological Exam Neurological: Present alert and oriented X3 Results Data Completed and Pending Labs on day of discharge: Labs from last 24 hours 07/16/23 10:10 Vancomycin Trough 14.4 H DS: Diagnosis Discharge Diagnosis (1) Esophagitis: Status: Acute Code(s): K20.90 - Esophagitis, unspecified without bleeding (2) Lactic acid increased: Status: Acute Code(s): E87.20 - Acidosis, unspecified (3) Cirrhosis: Status: Acute Code(s): K74.60 - Unspecified cirrhosis of liver (4) Alcoholism: Status: Chronic Code(s): F10.20 - Alcohol dependence, uncomplicated (5) COPD (chronic obstructive pulmonary disease): Status: Chronic Code(s): J44.9 - Chronic obstructive pulmonary disease, unspecified Qualifiers: COPD type: unspecified COPD Qualified Code(s): J44.9 - Chronic obstructive pulmonary disease, unspecified (6) Hyperlipidemia: Status: Acute Code(s): E78.5 - Hyperlipidemia, unspecified (7) Anxiety and depression: Status: Chronic Code(s): F41.9 - Anxiety disorder, unspecified; F32.9 - Major depressive disorder, single episode, unspecified (8) HTN (hypertension): Status: Acute Code(s): I10 - Essential (primary) hypertension (9) Tobacco abuse: Status: Acute Code(s): Z72.0 - Tobacco use Meds Home Medications and Allergies Home Medications Medication Instructions Recorded Confirmed Type [id number] 2 cap PO BID Supplement 07/18/22 07/14/23 History 40,000-126,000-168,000 unit capsule, delay rel (Zenpep) umeclidinium 62.5 mcg-vilanterol 1 inh inhalation DAILY 90 days 01/23/23 07/15/23 Rx 25 mcg/actuation powdr for #180 ea inhalation (Anoro Ellipta) pantoprazole 40 mg tablet,delayed 40 mg PO BID Reflux/Acid reflux 05/01/23 07/14/23 Rx release (Protonix) #180 tabs famotidine 40 mg tablet 40 mg PO HS Acid Reflux 07/14/23 07/15/23 History quetiapine 25 mg tablet 25 mg PO HS Mood 07/14/23 07/14/23 History albuterol sulfate 90 mcg/actuation 2 puff inhalation Q4HP PRN 07/15/23 07/15/23 History aerosol inhaler (ProAir HFA) shortness of breath or wheezing folic acid 1 mg tablet 1 mg PO DAILY 30 days #30 tabs 07/16/23 Rx multivitamin with folic acid 400 1 tab PO 1700 30 days #30 tabs 07/16/23 Rx mcg tablet (Tab-A-Nanci) thiamine mononitrate (vit B1) 100 100 mg PO DAILY 30 days #30 tabs 07/16/23 Rx mg tablet New Prescriptions to Start Prescriptions: folic acid Charly Lyles multivitamin with folic acid [Tab-A-Nanci] Charly Lyles thiamine mononitrate (vit B1) Charly Lyles Allergies Allergy/AdvReac Type Severity Reaction Status Date / Time amoxicillin [AMOXICILLIN] Allergy Mild Unknown Verified 11/04/22 11:25 allergy reaction Penicillins [PENICILLINS] Allergy Mild Unknown Verified 11/04/22 11:25 allergy reaction BEE STINGS Allergy Severe Anaphylaxis Uncoded 11/04/22 11:25 Discharge Plan Disposition Patient Disposition: Home, Self-Care Condition: Good Follow up Plan Follow up with: Kari Barnard PA [Primary Care Provider] - 2 weeks (Please call Monday to make a follow up appt. ) Prescriptions/Medication Reconciliation: New thiamine mononitrate (vit B1) 100 mg Tablet 100 mg PO DAILY 30 Days Qty: 30 0RF multivitamin with folic acid [Tab-A-Nanci] 400 mcg Tablet 1 tab PO 1700 30 Days Qty: 30 0RF folic acid 1 mg Tablet 1 mg PO DAILY 30 Days Qty: 30 0RF Continued Anoro Ellipta 62.5-25 mcg/actuation blister with device 1 inh inhalation DAILY 90 Days Qty: 180 2RF pantoprazole [Protonix] 40 mg tablet,delayed release (DR/EC) 40 mg PO BID Qty: 180 1RF Zenpep 40,000-126,000- 168,000 unit capsule,delayed release(DR/EC) 2 cap PO BID famotidine 40 mg tablet 40 mg PO HS quetiapine 25 mg tablet 25 mg PO HS albuterol sulfate [ProAir HFA] 90 mcg/actuation HFA aerosol inhaler 2 puff INHALATION Q4HP PRN (Reason: shortness of breath or wheezing) Problem Reconciliation Problems Reviewed?: Yes Patient Discharge Instructions ACTIVITY: Ambulate as tolerated DIET: continue same diet Patient Instructions: DI for Cirrhosis, DI for Gastritis, DI for Esophagitis Providers Primary Care Provider: Kari Barnard Admit Provider: Charly Lyles Attending Provider: Charly Lyles
--- NOTE | 2023-07-17 14:16 | CARE MANAGER ---
Contacted patient related to hospital discharge. He states he is doing well and picked up his prescriptions. He has made his follow up appointment and denies questions or concerns. SHIRA Sanchez
--- NOTE | 2023-07-19 04:14 | PC.NURSE ---
no growth noted on prelim blood cultures. will assign to dr so for pending finals.
== END 2023-07-16 14:13 | disposition home or self-care (01) ==
LOC: ER 20:30 → 2ND 23:21
PROVIDERS: Nurse Practitioner Critical Care Medicine; Admitting Provider Internal Medicine; Emergency Provider Emergency Medicine; PCP Physician Assistant; Visit Provider Internal Medicine
DX: K20.90 Esophagitis, unspecified without bleeding (principal); K74.60 Unspecified cirrhosis of liver; E87.20 Acidosis, unspecified; F10.20 Alcohol dependence, uncomplicated; J44.9 Chronic obstructive pulmonary disease, unspecified; E78.5 Hyperlipidemia, unspecified; F41.9 Anxiety disorder, unspecified; F32.9 Major depressive disorder, single episode, unspecified; I10 Essential (primary) hypertension; F17.210 Nicotine dependence, cigarettes, uncomplicated; Z79.899 Other long term (current) drug therapy
CPT/HCPCS: 36415; 71045; 71275; 74174; 80053; 80202; 80307; 82272; 83605; 83690; 83735; 84100; 84484; 85025; 85610; 85730; 87040; 93005; 99285; G0328; G0378; J2405; J3370; Q9967

== ENCOUNTER 2023-08-25 16:34 | Emergency (ER) | payer BC, SELFPAY ==
--- NOTE | 2023-08-25 16:30 | ECG_ITS ---
APPROVED REPORT Exam: Resting ECG HR:96 bpm ECG Measurements Heart Rate 96 AXES FL 187 P 76 QRSd 92 QRS -55 QT 380 T 71 QTc 433 Conclusion SINUS RHYTHM LEFT AXIS DEVIATION [QRS AXIS < -30] ABNORMAL ECG Electronically signed by : MASOUD BAE, 08/26/2023 00:37:32
[2023-08-25 16:35] VITALS: BP 142/96; PULSE 85; RESP 20; TEMP 37.1; O2SAT 95; BMI 25.7
--- NOTE | 2023-08-25 16:48 | CT_ITS ---
PROCEDURE INFORMATION: Exam: CTA Neck With Contrast Exam date and time: 08/25/2023 5:05 PM Age: 62 years old Clinical indication: Stroke-like symptoms; Generalized numbness/paresthesia; Additional info: L sided numbness/tingling TECHNIQUE: Imaging protocol: Computed tomographic angiography of the neck with contrast. Exam focused on the cervical segments of the vasculature. 3D rendering (Not supervised by radiologist): MIP and/or 3D reconstructed images were created by the technologist. Radiation optimization: All CT scans at this facility use at least one of these dose optimization techniques: automated exposure control; mA and/or kV adjustment per patient size (includes targeted exams where dose is matched to clinical indication); or iterative reconstruction. Contrast material: ISOVUE 370; Contrast volume: 100 ml; Contrast route: INTRAVENOUS (IV); COMPARISON: CT CERVICAL SPINE WO CON 08/25/2023 5:03 PM FINDINGS: Right common carotid artery: Calcification at the right common carotid bifurcation without hemodynamically significant stenosis. Right internal carotid artery: Calcification involving the proximal right internal carotid artery. Stenosis measures 60%. Right external carotid artery: No occlusion or stenosis of the origin. Left common carotid artery: Calcification and plaquing at the distal left common carotid artery. No hemodynamically significant stenosis. Left internal carotid artery: Calcification and plaquing at the proximal left internal carotid artery. Stenosis measures less than 50%. Left external carotid artery: No occlusion or stenosis of the origin. Right vertebral artery: Severe stenosis involving the proximal right vertebral artery V1 segment versus short segment occlusion. Right vertebral artery V3 occlusion. Left vertebral artery: Left vertebral artery is dominant. Aorta: Aortic calcification. Thyroid: Left thyroid nodule measures 2.5 cm. Soft tissues: Normal. No significant soft tissue swelling. Bones/joints: Degenerative change involving the spine. Lungs: Pulmonary emphysema. IMPRESSION: 1. Right vertebral artery V3 occlusion. 2. Short-segment occlusion versus high-grade stenosis at the proximal right vertebral artery V1 segment. 3. 60% stenosis of the proximal right ICA. 4. Additional findings as above. COMMENTS: Consistent with the [employer]'s Incidental Findings Committee white paper (J Am Rocael Radiol 2015): In patients aged 35 years and older with an incidental thyroid nodule equal to or greater than 1.[address], MRI or extrathyroidal US, further evaluation with dedicated thyroid US is recommended for patients with normal life expectancy and without comorbidities. For smaller nodules without suspicious features, no further evaluation or follow up is recommended. REFERENCES: NASCET CRITERIA. The degree of stenosis in the cervical segment of the internal carotid artery is based on NASCET criteria. Normal is no stenosis. Mild is less than 50% stenosis. Moderate is 50-69% stenosis. Severe is 70% to 99% stenosis. Total occlusion is no detectable patent lumen.
--- NOTE | 2023-08-25 16:48 | CT_ITS ---
PROCEDURE INFORMATION: Exam: CTA Head With Contrast, Arteriography Exam date and time: 08/25/2023 5:05 PM Age: 62 years old Clinical indication: Stroke-like symptoms; Left upper extremity numbness/paresthesia; Additional info: L sided numbness/tingling TECHNIQUE: Imaging protocol: Computed tomographic angiography of the head with contrast. Exam focused on the arteries. 3D rendering (Not supervised by radiologist): MIP and/or 3D reconstructed images were created by the technologist. Radiation optimization: All CT scans at this facility use at least one of these dose optimization techniques: automated exposure control; mA and/or kV adjustment per patient size (includes targeted exams where dose is matched to clinical indication); or iterative reconstruction. Contrast material: ISOVUE 370; Contrast volume: 90 ml; Contrast route: INTRAVENOUS (IV); COMPARISON: CT HEAD/BRAIN WO CON 08/25/2023 5:03 PM FINDINGS: ANTERIOR CIRCULATION: Right internal carotid artery: Mild calcification involving the right carotid siphon without significant stenosis. Right middle cerebral artery: No occlusion or significant stenosis. No aneurysm. Right anterior cerebral artery: No occlusion or significant stenosis. No aneurysm. Left internal carotid artery: Mild calcification involving the left carotid siphon without significant stenosis. Left middle cerebral artery: No occlusion or significant stenosis. No aneurysm. Left anterior cerebral artery: No occlusion or significant stenosis. No aneurysm. POSTERIOR CIRCULATION: Right vertebral artery: No occlusion or significant stenosis. No aneurysm. Left vertebral artery: Left vertebral artery is dominant. Basilar artery: No occlusion or significant stenosis. No aneurysm. Right posterior cerebral artery: No occlusion or significant stenosis. No aneurysm. Left posterior cerebral artery: No occlusion or significant stenosis. No aneurysm. IMPRESSION: No hemodynamically significant stenosis or large vessel occlusion.
--- NOTE | 2023-08-25 16:48 | CT_ITS ---
PROCEDURE INFORMATION: Exam: CT Head Without Contrast Exam date and time: 08/25/2023 5:03 PM Age: 62 years old Clinical indication: Stroke-like symptoms; Left upper extremity numbness/paresthesia; Additional info: L sided numbness/tingling TECHNIQUE: Imaging protocol: Computed tomography of the head without contrast. Radiation optimization: All CT scans at this facility use at least one of these dose optimization techniques: automated exposure control; mA and/or kV adjustment per patient size (includes targeted exams where dose is matched to clinical indication); or iterative reconstruction. Other technique: STROKE PROTOCOL was implemented. COMPARISON: CT HEAD/BRAIN WO CON 05/01/2022 12:30 AM FINDINGS: Brain: Age-related volume loss. No acute intracranial hemorrhage, midline shift or intracranial mass effect. No cerebral edema. Cerebral ventricles: No obstructive hydrocephalus. Paranasal sinuses: Visualized sinuses are unremarkable. No fluid levels. Mastoid air cells: Visualized mastoid air cells are well aerated. Bones: Unremarkable. No acute fracture. Soft tissues: Unremarkable. IMPRESSION: No acute intracranial abnormality. ASSESSMENT: ASPECTS ([place] Stroke Program Early CT Score) is 10.
--- NOTE | 2023-08-25 16:48 | CT_ITS ---
PROCEDURE INFORMATION: Exam: CTA Chest With Contrast Exam date and time: 08/25/2023 5:09 PM Age: 62 years old Clinical indication: Other: L sided numbness/tingling TECHNIQUE: Imaging protocol: Computed tomographic angiography of the chest with contrast. Exam focused on the arteries. 3D rendering (Not supervised by radiologist): MIP and/or 3D reconstructed images were created by the technologist. Radiation optimization: All CT scans at this facility use at least one of these dose optimization techniques: automated exposure control; mA and/or kV adjustment per patient size (includes targeted exams where dose is matched to clinical indication); or iterative reconstruction. Contrast material: ISOVUE 370; Contrast volume: 100 ml; Contrast route: INTRAVENOUS (IV); COMPARISON: CT ANGIO CHEST 07/14/2023 9:25 PM FINDINGS: Limitations: Patient motion. Pulmonary arteries: No convincing evidence of pulmonary embolus. Aorta: Negative for thoracic aortic dissection or aneurysm. Thyroid: 2.5 cm left thyroid nodule. Lungs: There is emphysema with upper lobe predominance. No airspace consolidation. Scattered calcified granulomas. Pleural spaces: Unremarkable. No pneumothorax. No pleural effusion. Heart: Unremarkable. No cardiomegaly. No pericardial effusion. Lymph nodes: Calcified bilateral hilar lymph nodes. Liver: There is cirrhotic liver morphology. Kidneys and ureters: 7 mm indeterminate left renal hypodensity. Bones/joints: There are degenerative changes involving the spine. Soft tissues: Unremarkable. IMPRESSION: 1. Motion limited examination. 2. No definite acute abnormality involving the chest. 3. 7 mm indeterminate left renal hypodensity, ultrasound as clinically warranted. 4. Additional nonemergent findings as above. COMMENTS: 1. Consistent with the [employer]'s Incidental Findings Committee white paper (J Am Rocael Radiol 2015): In patients aged 35 years and older with an incidental thyroid nodule equal to or greater than 1.[address], MRI or extrathyroidal US, further evaluation with dedicated thyroid US is recommended for patients with normal life expectancy and without comorbidities. For smaller nodules without suspicious features, no further evaluation or follow up is recommended. 2. The presence of pulmonary emphysema on CT is an independent risk factor for lung cancer. In the absence of a history or active diagnosis of lung cancer, it is recommended that this patient with emphysema be evaluated for enrollment in a low dose CT lung cancer screening program.
--- NOTE | 2023-08-25 16:48 | CT_ITS ---
PROCEDURE INFORMATION: Exam: CT Cervical Spine Without Contrast Exam date and time: 08/25/2023 5:03 PM Age: 62 years old Clinical indication: Other: L sided numbness/tingling TECHNIQUE: Imaging protocol: Computed tomography of the cervical spine without contrast. Radiation optimization: All CT scans at this facility use at least one of these dose optimization techniques: automated exposure control; mA and/or kV adjustment per patient size (includes targeted exams where dose is matched to clinical indication); or iterative reconstruction. COMPARISON: CT CERVICAL SPINE WO CON 05/01/2022 12:32 AM FINDINGS: Bones: Mild dextroconvex curvature. Vertebral body height and AP alignment is preserved. [id number] degenerative change about the dens. Moderate prevertebral osteophytosis. Bilateral facet joint degenerative change. No acute cervical spine fracture. Central canal stenosis greatest at C3-C4, at least mild. Multilevel cervical foraminal stenoses. Lungs: Pulmonary emphysema. Pleural spaces: No visible pneumothorax. Thyroid: Left thyroid nodule measures 2.5 cm. Vasculature: Vascular calcification. Soft tissues: Unremarkable. IMPRESSION: No acute osseous abnormality. COMMENTS: Consistent with the [employer]'s Incidental Findings Committee white paper (J Am Rocael Radiol 2015): In patients aged 35 years and older with an incidental thyroid nodule equal to or greater than 1.[address], MRI or extrathyroidal US, further evaluation with dedicated thyroid US is recommended for patients with normal life expectancy and without comorbidities. For smaller nodules without suspicious features, no further evaluation or follow up is recommended.
--- NOTE | 2023-08-25 16:57 | PC.NURSE ---
pt going to ct scan. Per MD, she does not want to wait on labs.
[2023-08-25 17:00] LABS: Basophils # 0.2 K/mm3 (0-0.2); Basophils % 2.1 % (0.1-2.0); Eosinophils # 0.2 K/mm3 (0.0-0.4); Hematocrit 47.3 % (42.0-52.0); Hemoglobin 15.1 g/dL (14.1-18.0); Lymphocytes # 3.7 K/mm3 (0.7-4.5); Lymphocytes % 45.6 % (10-50); Mean Corpuscular Hemoglobin 32.9 pg (27.0-31.2); Mean Corpuscular Volume 102.9 fl (80-94); Mean Platelet Volume 8.5 fl (7.4-10.4); Monocytes # 0.4 K/mm3 (0.1-1.0); Monocytes % 5.1 % (1.7-9.3); Neutrophils # 3.6 K/mm3 (1.8-7.8); Neutrophils % 45.2 % (37.0-80.0); Platelet Count 142 K/mm3 (142-424); Red Blood Count 4.59 M/mm3 (4.60-6.20); White Blood Count 8.1 K/mm3 (4.8-10.8)
[2023-08-25 17:02] VITALS: BP 142/96; PULSE 82; O2SAT 95
[2023-08-25 17:03] LABS: Chloride 105 mmol/L (98-107); Potassium 3.9 mmoL/L (3.5-5.1); Sodium 144 mmol/L (136-145)
[2023-08-25 17:06] LABS: Alanine Aminotransferase 100 U/L (12-78); Albumin Level 4.5 g/dl (3.5-5.0); Albumin/Globulin Ratio 1.3 (1.1-1.8); Alkaline Phosphatase 185 U/L (38-126); Anion Gap 22.9 mEq/L (5-15); Aspartate Amino Transferase 168 U/L (17-59); Bilirubin,Total 1.6 mg/dl (0.2-1.3); Blood Urea Nitrogen 10 mg/dl (9-20); Carbon Dioxide 20 mmol/L (22.0-30.0); Creatinine Clearance Estimated 95 mL/min (50-200); Estimated Glomerular Filt Rate 98 ml/min (>60); GFR (African American) 119 ML/MIN (>60); Globulin 3.5 g/dL (1.3-3.2)
[2023-08-25 17:07] LABS: Activated Partial Thrombo Time 28.5 seconds (22.8-30.6); Calcium 8.5 mg/dl (8.4-10.2); Glucose 119 mg/dl (74-100); INR 1.11 (0.9-1.1); Prothrombin Time 11.9 seconds (10.1-12.5)
[2023-08-25] MEDS: IOPAMIDOL-370 (76%);100ML BOTTLE 140 ML IV (17:08)
[2023-08-25] MEDS: 0.9 % SODIUM CHLORIDE 50 ML VIAL 100 ML IV (17:08)
[2023-08-25] MEDS: SODIUM CHLORIDE 0.9% 10ML SYR (RAD ONLY) 10 ML IV (17:08)
[2023-08-25 17:24] LABS: Troponin I < 0.01 ng/ml (0.00-0.034)
--- NOTE | 2023-08-25 17:31 | PC.NURSE ---
pt moved to room 8 by wc, pt lying in bed. Turned TV on for pt
--- NOTE | 2023-08-25 17:51 | PC.NURSE ---
Called [facility] per DR Knutson about this pt being transferred. While on the phone they connected me with service coordinator [facility] facility [facility] and he is speaking with Dr Knutson now
--- NOTE | 2023-08-25 17:58 | HMH.EDGENADL ---
Discharge Plan Disposition Patient Disposition: Xfer Short-Term Hosp Chief Complaint: Weakness Prescriptions Prescriptions: No Action Anoro Ellipta 62.5-25 mcg/actuation blister with device 1 inh inhalation DAILY 90 Days Qty: 180 2RF pantoprazole [Protonix] 40 mg tablet,delayed release (DR/EC) 40 mg PO BID Qty: 180 1RF Zenpep 40,000-126,000- 168,000 unit capsule,delayed release(DR/EC) 2 cap PO BID famotidine 40 mg tablet 40 mg PO HS quetiapine 25 mg tablet 25 mg PO HS albuterol sulfate [ProAir HFA] 90 mcg/actuation HFA aerosol inhaler 2 puff INHALATION Q4HP PRN (Reason: shortness of breath or wheezing) folic acid 1 mg tablet 1 mg PO DAILY Qty: 30 0RF thiamine HCl (vitamin B1) 100 mg tablet 100 mg PO DAILY 30 Days Qty: 30 0RF multivitamin with folic acid 400 mcg tablet 1 tab PO DAILY 30 Days Qty: 30 0RF Referrals Follow up/Referrals: Kari Barnard PA [Primary Care Provider] - See instructions Clinical Impressions Clinical Impression: CVA (cerebral vascular accident), Alcohol abuse, Vertebral artery obstruction Discharge ED Provider: Susan Knutson General Adult HPI General Chief complaint: Weakness Stated complaint: Left sided weakness/numbness Time Seen by Provider: 08/25/23 16:37 Mode of Arrival: Wheelchair Source of Information: Patient Limitations: No Limitations Description of Symptoms (Recalled from ER Triage Doc. by RN): Patient presents to ED with left sided weakness/numbness that started two days ago. Patient reports 3 falls recently. Patient states he drinks alcohol daily. History of Present Illness HPI narrative: This patient is a 62-year-old male with a history of hypertension, hyperlipidemia, alcohol use disorder, tobacco use disorder, COPD, GERD, and anxiety and depression presenting to the emergency department for evaluation with concern for left-sided numbness and tingling that started 2-3 days ago. He states that he is following all over the place because he is tripping over his left foot because he cannot feel it. He denies any weakness, visual disturbance, gait abnormality, or other concern. He does continue to use alcohol. Related Data Home Medications Medication Instructions Recorded Confirmed [id number] 2 cap PO BID Supplement 07/18/22 07/20/23 40,000-126,000-168,000 unit capsule, delay rel (Zenpep) famotidine 40 mg tablet 40 mg PO HS Acid Reflux 07/14/23 07/20/23 quetiapine 25 mg tablet 25 mg PO HS Mood 07/14/23 07/20/23 albuterol sulfate 90 mcg/actuation 2 puff inhalation Q4HP PRN 07/15/23 07/20/23 aerosol inhaler (ProAir HFA) shortness of breath or wheezing Previous Rx's Medication Instructions Recorded umeclidinium 62.5 mcg-vilanterol 1 inh inhalation DAILY 90 days 01/23/23 25 mcg/actuation powdr for #180 ea inhalation (Anoro Ellipta) pantoprazole 40 mg tablet,delayed 40 mg PO BID Reflux/Acid reflux 05/01/23 release (Protonix) #180 tabs folic acid 1 mg tablet 1 mg PO DAILY #30 tabs 07/17/23 multivitamin with folic acid 400 1 tab PO DAILY 30 days #30 tabs 07/17/23 mcg tablet thiamine HCl (vitamin B1) 100 mg 100 mg PO DAILY 30 days #30 tabs 07/17/23 tablet Allergies Allergy/AdvReac Type Severity Reaction Status Date / Time amoxicillin [AMOXICILLIN] Allergy Mild Unknown Verified 07/20/23 11:45 allergy reaction Penicillins [PENICILLINS] Allergy Mild Unknown Verified 07/20/23 11:45 allergy reaction BEE STINGS Allergy Severe Anaphylaxis Uncoded 07/20/23 11:45 [facility] Disclaimer: The information contained in this section may have been updated after the patient was seen, as this information can be updated by other users. Medical History Dyspnea on exertion Encounter for screening for malignant neoplasm of lung Smoking greater than 30 pack years Bipolar 1 disorder Abnormal LFTs Black tarry stools Alcohol intoxication Chronic low back pain Alcoholism Anxiety and depression Blindness of right eye COPD (chronic obstructive pulmonary disease) Common bile duct dilatation Hiatal hernia Pancreatitis, acute Elevated LFTs Surgical History Hx of neck surgery History of cornea transplant History of lumbar fusion Family History Other Family history of diabetes mellitus type II Family history of stroke No significant family history Social History Smoking Status: Current every day smoker tobacco type: cigarettes packs per day: 1 alcohol intake: current alcohol intake frequency: 3 or more drinks per day substance use type: denies use current occupational status: other Travel in the last 8 weeks: None household members: none housing: house lives independently: Yes marital status: education level: high school caffeine: No special feliciano needs: No agree to transfusion: No do you feel safe at home: Yes victim of physical abuse: No victim of emotional abuse: No victim of sexual abuse: No would you like helpful sources: No ROS Obtained: Yes All systems reviewed & no additional complaints except as documented Physical Exam General General appearance: alert, in no apparent distress and appears intoxicated Head Head exam: atraumatic and normocephalic Eye Eye exam: Present normal appearance, PERRL and EOMI ENT ENT exam: Present normal exam, normal oropharynx, mucous membranes moist and normal external ear exam Neck Neck exam: Present normal inspection, full ROM and trachea midline; Absent tenderness Chest Chest inspection: Present normal inspection and symmetric chest wall rise; Absent tenderness Respiratory Respiratory exam: Present normal lung sounds bilaterally; Absent respiratory distress, wheezes, stridor or accessory muscle use Cardiovascular Cardiovascular exam: Present regular rate and normal rhythm Abdominal Exam Abdominal exam: Present soft; Absent distention, tenderness or guarding Extremities Exam Extremities exam: Present normal inspection, full ROM and normal capillary refill; Absent tenderness or edema Back Exam Back exam: Present normal inspection and full ROM; Absent tenderness Neurological Exam Neurological exam: Present alert, oriented X3, CN II-XII intact and motor sensory deficit (Absent sensation on the left side. NIH scale of 2. Exam is difficult given intoxicated status, poor cooperation) Psychiatric Psychiatric exam: Present agitated Skin Skin exam: Present warm and dry Medical Decision Making Medical Records Medical records reviewed: Yes I reviewed the patient's medical records. Caesar Inquiry Pt receiving controlled substance: No Vital Signs: 08/25/23 16:35 08/25/23 17:02 Temperature 98.7 F Temperature Source Oral Pulse Rate 82 Pulse Rate [Right Radial] 85 Respiratory Rate 20 Blood Pressure 142/96 H Blood Pressure [Right Arm] 142/96 H Blood Pressure Mean [Right Arm] 111 Blood Pressure Source Automatic Cuff Blood Pressure Source [Right Arm] Automatic Cuff Blood Pressure Position Sitting Blood Pressure Position [Right Arm] Sitting 02 Sat by Pulse Oximetry 95 95 Oxygen Delivery Method Room Air Room Air Lab Data Lab results reviewed: Yes I reviewed the patient's lab results. Lab Results 08/25/23 16:37: WBC 8.1, RBC 4.59 L, Hgb 15.1, Hct 47.3, MCV 102.9 H, MCH 32.9 H, MCHC 32.0, RDW 15.0, Plt Count 142, MPV 8.5, Neut % (Auto) 45.2, Lymph % (Auto) 45.6, [place] % (Auto) 5.1, Eos % (Auto) 2.0, Baso % (Auto) 2.1 H, Neut # (Auto) 3.6, Lymph # (Auto) 3.7, [place] # (Auto) 0.4, Eos # (Auto) 0.2, Baso # (Auto) 0.2, PT 11.9, INR 1.11 H, APTT 28.5, Sodium 144, Potassium 3.9, Chloride 105, Carbon Dioxide 20 L, Anion Gap 22.9 H, BUN 10, Creatinine 0.80, Estimated Creat Clear 95, Estimated GFR 98, Est GFR ( Amer) 119, Glucose 119 H, Calcium 8.5, Total Bilirubin 1.6 H, AST 168 H, ALT 100 H, Alkaline Phosphatase 185 H, Troponin I < 0.01, Total Protein 8.0 D, Albumin 4.5, Globulin 3.5 H, Albumin/Globulin Ratio 1.3 08/25/23 16:37 08/25/23 16:37 Orders (Tests/Meds): ED MEDICATIONS Discontinued Medications Generic Name Dose Route Start Last Admin Trade Name Freq PRN Reason Stop Dose Admin Iopamidol 140 ml 08/25/23 17:07 08/25/23 17:08 Iopamidol-370 (76%);100ml Bottle IV 08/25/23 17:08 140 ml ONCE ONE Administration Sodium Chloride 10 ml 08/25/23 17:07 08/25/23 17:08 Sodium Chloride 0.9% 10ml Syr (Rad Only) IV 08/25/23 17:08 10 ml ONCE ONE Administration Sodium Chloride 100 ml 08/25/23 17:07 08/25/23 17:08 0.9 % Sodium Chloride 50 Ml Vial IV 08/25/23 17:08 100 ml ONCE ONE Administration ORDERS Category Date Time Status CT angio chest - dissection Stat Cat Scan 08/25/23 16:[address] angio head Stat Cat Scan 08/25/23 16:[address] angio neck Stat Cat Scan 08/25/23 16:[address] cervical spine wo con Stat Cat Scan 08/25/23 16:[address] head/brain wo con Stat Cat Scan 08/25/23 16:48 Completed Activated Partial Thrombo Time Stat Lab 08/25/23 16:37 Completed Complete Blood Count Auto Diff Stat Lab 08/25/23 16:37 Completed Comprehensive Metabolic Panel Stat Lab 08/25/23 16:37 Completed Drug Screen,Urine Stat Lab 08/25/23 17:18 Ordered Ethyl Alcohol Stat Lab 08/25/23 17:18 Ordered Prothrombin Time INR Stat Lab 08/25/23 16:37 Completed Troponin I Q3H Lab 08/25/23 20:00 Ordered Troponin I Q3H Lab 08/25/23 23:00 Ordered Troponin I Stat Lab 08/25/23 16:37 Completed UA [Urinalysis and Microscopic] Stat Lab 08/25/23 17:18 Ordered ECG Data Tracing #1: I reviewed this ECG and interpreted as documented below: Normal sinus rhythm with a ventricular rate of [address] changes concerning for ischemia. Normal intervals. Left axis deviation. ECG initial impression date: 08/25/23 ECG initial impression time: 16:37 Medical Decision Narrative: In summary, this patient is a 62-year-old male presenting to the Emergency Department for evaluation of left-sided numbness and tingling as well as frequent falls. Differential diagnoses considered include but are not limited to intracranial hemorrhage, CVA, electrolyte derangements, hypoglycemia, dysrhythmia, other stroke mimic. Ruling out the most morbid conditions drove assessment. It should be noted patient's history includes hypertension, hyperlipidemia, cirrhosis, COPD, alcohol use disorder, tobacco use disorder which are not at goal therapy. This complicates all aspects of care by increasing patient's risk for morbidity. I reviewed patient's past medical records and noted previous evaluations related to alcohol abuse in the past. On exam, the patient appears intoxicated. He has decree sensation on the left side but no other neurologic deficits. Exam is difficult given poor cooperation. Workup included stroke CT scans as well as CT C-spine and chest given his multiple falls. I independently interpreted CT scan prior to the radiologist read and noted concerns for acute stroke. Please see their read for final interpretation. I had an interactive discussion with the radiologist who noted that the patient had a right vertebral artery occlusion. Labs were obtained that demonstrated transaminitis, mild hyperbilirubinemia, no other acutely concerning abnormalities obvious. EKG is reassuring. Given concern for right vertebral artery occlusion, I had an interactive discussion with Demetris nurse practitioner at [facility] in the stroke center who advised that he would accept the patient for stroke evaluation on behalf of Dr. Barrios. Patient is agreeable to this. Transport was arranged, and the patient was transported by EMS to [facility] for stroke evaluation in stable condition. Critical Care Critical Care Time Critical Care Time: Yes Attestation: On 08/25/23, the high probability of a clinically significant, sudden or life threatening deterioration of the following system(s) required my full and direct attention, intervention and personal management. The time I documented below is in addition to time spent performing reported procedures but includes the following listed in this critical care notation. Total Time Total Critical Care Time: 30
[2023-08-25 18:02] LABS: Microscopic, Urine URINE MICROSCOPIC (MICROSCOPIC)
[2023-08-25 18:06] VITALS: BP 158/75; PULSE 74; O2SAT 98
[2023-08-25 18:09] LABS: Appearance,Urine CLEAR (Clear); Blood, Urine Negative (Negative); Color,Urine YELLOW (Yellow); Glucose,Urine (UA) Negative (Negative); Ketones,Urine 1+ (Negative); Leukocyte Esterase,Urine Negative (Negative); Nitrate,Urine Negative (Negative); PH,Urine 6.5 (5.0-8.5); Protein,Urine Negative (Negative); Specific Gravity, Urine <= 1.005 (1.005-1.030); Urobilinogen,Urine 0.2 EU/dl (0.2)
[2023-08-25 18:19] LABS: Ethyl Alcohol 402 mg/dl (0-10)
[2023-08-25 18:20] VITALS: BP 158/75; PULSE 78; O2SAT 97
--- NOTE | 2023-08-25 18:20 | PC.NURSE ---
critical ethanol level was 402, aware
[2023-08-25 18:22] LABS: Amphetamine/Metha Screen,Urine Negative ng/ml (<1000); Benzodiazepines Screen,Urine Negative ng/ml (<200); Bilirubin,Urine 1+ (Negative)
[2023-08-25 18:23] LABS: Barbiturates Screen,Urine Negative ng/ml (<200); Squamous Epithelial Cell,Urine Occasional #/hpf (0-5)
[2023-08-25 18:24] VITALS: BP 158/75; PULSE 85; RESP 20; TEMP 37.1; O2SAT 97
[2023-08-25 18:24] LABS: Cannabinoid Screen,Urine Positive ng/ml (<50); Cocaine Screen,Urine Negative ng/ml (<300)
[2023-08-25 18:25] LABS: Methadone Screen,Urine Negative ng/ml (<300)
[2023-08-25 18:26] LABS: Opiate Screen,Urine Negative ng/ml (<300); Phencyclidine Screen,Urine Negative ng/ml (<25)
== END 2023-08-25 18:39 | disposition short-term general hospital (02) ==
PROVIDERS: Emergency Provider Emergency Medicine; PCP Physician Assistant
DX: I63.9 Cerebral infarction, unspecified (principal); I65.09 Occlusion and stenosis of unspecified vertebral artery; F10.129 Alcohol abuse with intoxication, unspecified; J44.9 Chronic obstructive pulmonary disease, unspecified; F17.210 Nicotine dependence, cigarettes, uncomplicated; E78.5 Hyperlipidemia, unspecified; K21.9 Gastro-esophageal reflux disease without esophagitis; I10 Essential (primary) hypertension
CPT/HCPCS: 70450; 70496; 70498; 71275; 72125; 80053; 80307; 81001; 84484; 85025; 85610; 85730; 93005; 99291; Q9967

== ENCOUNTER 2023-11-27 08:08 | Outpatient (CLI) | payer BC, SELFPAY ==
--- NOTE | 2023-11-27 08:09 | US_ITS ---
FINAL REPORT CLINICAL HISTORY: f/u cirrohisis progression COMPARISON: 02/21/2023 FINDINGS: Sonographic images of the right upper quadrant were obtained. The pancreas is partially obscured. There is coarsening of the echotexture in the liver, also seen on the prior ultrasound of 2022, consistent with clinical diagnosis of cirrhosis. The gallbladder is partially contracted, with mild gallbladder wall thickening. There is no evidence of biliary ductal dilatation.The common duct measures 4mm. Limited images of the right kidney are unremarkable. IMPRESSION: Coarsening of echotexture of the liver, consistent with the clinical diagnosis of cirrhosis. This appears stable since the prior ultrasound of 2022. Gallbladder is partially contracted with mild gallbladder wall thickening but no evidence of biliary ductal dilatation. Reviewed, Interpreted and Dictated by Vito Vernon MD Transcribed by Rolanda Cameron Authenticated and . [facility]
== END 2023-11-27 23:59 | disposition home or self-care (01) ==
LOC: RAD 08:09
PROVIDERS: PCP Nurse Practitioner Family; Visit Provider Physician Assistant
DX: K70.30 Alcoholic cirrhosis of liver without ascites (principal)
CPT/HCPCS: 76705

== ENCOUNTER 2024-01-02 11:15 | Outpatient (CLI) | payer BC, SELFPAY ==
[2024-01-02 11:57] LABS: Basophils % 0.5 % (0.1-2.0); Eosinophils # 0.1 K/mm3 (0.0-0.4); Eosinophils % 1.5 % (0.1-12.0); Hematocrit 47.4 % (42.0-52.0); Lymphocytes # 1.3 K/mm3 (0.7-4.5); Lymphocytes % 23.3 % (10-50); Mean Corpuscular HGB Conc 31.6 g/dL (31.8-35.4); Mean Corpuscular Hemoglobin 33.7 pg (27.0-31.2); Mean Corpuscular Volume 106.5 fl (80-94); Mean Platelet Volume 8.2 fl (7.4-10.4); Monocytes # 0.5 K/mm3 (0.1-1.0); Monocytes % 8.3 % (1.7-9.3); Neutrophils # 3.7 K/mm3 (1.8-7.8); Neutrophils % 66.4 % (37.0-80.0); Platelet Count 102 K/mm3 (142-424); Red Blood Count 4.45 M/mm3 (4.60-6.20); Red Cell Distribution Width 14.9 % (11.5-17.5); White Blood Count 5.6 K/mm3 (4.8-10.8)
[2024-01-02 12:21] LABS: Albumin Level 4.4 g/dl (3.5-5.0); Chloride 106 mmol/L (98-107); Potassium 3.4 mmoL/L (3.5-5.1); Sodium 139 mmol/L (136-145)
[2024-01-02 12:24] LABS: Alanine Aminotransferase 100 U/L (12-78); Albumin/Globulin Ratio 1.4 (1.1-1.8); Alkaline Phosphatase 246 U/L (38-126); Anion Gap 10.4 mEq/L (5-15); Aspartate Amino Transferase 120 U/L (17-59); Blood Urea Nitrogen 7 mg/dl (9-20); Carbon Dioxide 26 mmol/L (22.0-30.0); Estimated Glomerular Filt Rate 137 ml/min (>60); GFR (African American) 165 ML/MIN (>60); Globulin 3.2 g/dL (1.3-3.2); Iron 209 ug/dL (49-181); Total Protein,Serum 7.6 g/dl (6.3-8.2)
[2024-01-02 12:25] LABS: Calcium 9.7 mg/dl (8.4-10.2); Glucose 135 mg/dl (74-100)
[2024-01-02 12:34] LABS: Total Iron Binding Capacity 354 ug/dL (261-462)
[2024-01-02 12:39] LABS: INR 1.17 (0.9-1.1); Prothrombin Time 12.9 seconds (10.1-12.5)
[2024-01-02 12:59] LABS: Ferritin 157 ng/ml (17.9-464)
[2024-01-03 14:14] LABS: AFP, Tumor Marker 11.3 ng/mL (0.0-8.4)
[2024-01-05 02:09] LABS: ALT (SGPT) P5P 93 IU/L (0-55); AST (SGOT) P5P 114 IU/L (0-40); Alpha 2-Macroglobulins, Qn 348 mg/dL (110-276); Apolipoprotein A-1 145 mg/dL (101-178); Cholesterol, Total 196 mg/dL (100-199); Fibrosis Score 0.93 (0.00-0.21); GGT 1775 IU/L (0-65); Glucose 135 mg/dL (70-99); Haptoglobin 125 mg/dL (32-363); NASH Score 0.96 (0.00-0.25); Steatosis Score 0.89 (0.00-0.40); Triglycerides 136 mg/dL (0-149)
== END 2024-01-02 23:59 | disposition home or self-care (01) ==
LOC: LAB 11:16
PROVIDERS: PCP Emergency Medicine; Visit Provider Nurse Practitioner Family
DX: K92.2 Gastrointestinal hemorrhage, unspecified (principal); F10.10 Alcohol abuse, uncomplicated; K70.30 Alcoholic cirrhosis of liver without ascites; K86.1 Other chronic pancreatitis
CPT/HCPCS: 36415; 80053; 82105; 82728; 83540; 83550; 85025; 85610

== ENCOUNTER 2024-02-02 10:44 | Outpatient (CLI) | payer BC, SELFPAY ==
--- NOTE | 2024-02-02 10:44 | US_ITS ---
PROCEDURE INFORMATION: Exam: US Abdomen, Limited; Right Upper Quadrant Exam date and time: 02/02/2024 10:50 AM Age: 63 years old Clinical indication: Condition or disease; Liver condition and pancreatic condition; Cirrhosis; Pancreatitis; Additional info: Cirrhosis, chronic pancreatitis TECHNIQUE: Imaging protocol: Real time ultrasound of the abdomen with image documentation. Limited exam focused on the right upper quadrant. COMPARISON: No relevant prior studies available. FINDINGS: Liver: Coarse hepatic echotexture with fatty infiltration and nodular surface. Simple anechoic hepatic cysts measuring less than 1 cm. No significant intrahepatic biliary ductal dilation. Gallbladder: Incompletely distended gallbladder with diffuse nonspecific wall thickening and trace pericholecystic fluid without sludge or gallstones. Sonographic Nieto's sign is negative. Biliary ducts: The common duct measures approximately 4 mm. Pancreas: Obscured by bowel gas. Right kidney: Measures 12.6 cm and demonstrates normal echotexture, normal renal cortical thickness without nephrolithiasis or hydronephrosis. Other findings: No evidence of ascites. IMPRESSION: 1. Cirrhotic liver with fatty infiltration and anechoic cysts. 2. Nonspecific diffuse gallbladder wall thickening without sludge, no gallstones or evidence of acute cholecystitis. 3. Normal RIGHT kidney without hydronephrosis. 4. Pancreas is obscured by bowel gas. Recommend correlation with pancreatic enzymes for pancreatitis.
== END 2024-02-02 23:59 | disposition home or self-care (01) ==
LOC: RAD 10:44
PROVIDERS: PCP Nurse Practitioner Family; Visit Provider Nurse Practitioner Family
DX: K70.30 Alcoholic cirrhosis of liver without ascites (principal); K86.1 Other chronic pancreatitis
CPT/HCPCS: 76705

== ENCOUNTER 2024-05-14 14:32 | Emergency (ER) | payer MEDICARE, OTHER, SELFPAY ==
[2024-05-14 14:32] VITALS: BP 160/78; PULSE 89; RESP 18; TEMP 37.1; O2SAT 99; BMI 23.7
--- NOTE | 2024-05-14 14:34 | CT_ITS ---
FINAL REPORT TECHNIQUE: Axial images were obtained of the cervical spine by computed tomography. Coronal and sagittal reconstruction process performed. This study was performed with techniques to keep radiation doses as low as reasonably achievable (ALARA). Individualized dose reduction techniques using automated exposure control or adjustment of mA and/or kV according to the patient's size were employed. CLINICAL HISTORY: Fall, limited hx COMPARISON: 08/25/2023 FINDINGS: CT CERVICAL SPINE: Cervical vertebrae show normal height. There is moderate disc space narrowing at the C5-6 and C6-7 levels, as well as anterior osteophytes at the C4-5, C5-6, and C6-7 levels. There is no malalignment. The facets are properly aligned. Parasagittal images reveal severe left C4-5 neuroforaminal narrowing, and severe right C5-6 neural foraminal narrowing. No acute bony abnormalities are identified. IMPRESSION: Degenerative change as described, not significantly changed since the prior exam of 08/25/2023. No acute bony abnormality. Reviewed, Interpreted and Dictated by Vito Vernon MD Transcribed by Rolanda Cameron Authenticated and [facility]
--- NOTE | 2024-05-14 14:34 | CT_ITS ---
FINAL REPORT TECHNIQUE: multiple axial CT images were performed from the foramen magnum to the vertex without enhancement. CLINICAL HISTORY: Fall, limited hx COMPARISON: 08/25/2023 FINDINGS: CT HEAD: The ventricles are mildly enlarged. There is mild diffuse atrophy. There is minimal periventricular white matter change likely related to small vessel disease. There is no evidence of hemorrhage. No masses are identified. No extra-axial fluid is seen. The sinuses are normal. IMPRESSION: Mild atrophy and chronic changes without acute process. Reviewed, Interpreted and Dictated by Vito Vernon MD Transcribed by Rolanda Cameron Authenticated and . [facility]
--- NOTE | 2024-05-14 14:37 | ED_ITS ---
<Statement entered by Joselo Tipton MD - 05/14/24 16:20> I was consulted by the DEMOND, and we discussed the complexity of the problems being addressed. I approved the treatment and management plan for this patient's care in the emergency department, thus performing a substantive portion of the medical decision making. Patient originally presented intoxicated, hematologic labs and CT imaging nonactionable. Patient has chronic transaminitis, elevated alcohol level. Patient was allowed to progress to a point of clinical sobriety and had capacity and was appropriate for outpatient management after tolerating p.o. and ambulatory in the emergency department. Joselo Tipton MD Discharge Plan Disposition Patient Disposition: Home, Self-Care Condition: Good Prescriptions Prescriptions: No Action aspirin 81 mg tablet,chewable PO Patient Comments: chew AND swallow 1 tablet BY MOUTH EVERY DAY lidocaine 5 % adhesive patch,medicated 1 patch topical DAILY Qty: 30 5RF Rx Instructions: leave on most painful area for up to 12 hrs Zenpep 40,000-126,000- 168,000 unit capsule,delayed release(DR/EC) 2 cap PO BID Qty: 360 1RF famotidine 40 mg tablet 40 mg PO HS Qty: 90 1RF folic acid 1 mg tablet 1 mg PO DAILY Qty: 90 1RF quetiapine 25 mg tablet See Rx Instructions .ROUTE .COMPLEX Qty: 90 1RF Dose Instruction: TAKE ONE TABLET BY MOUTH EVERY DAY AT BEDTIME Rx Instructions: TAKE ONE TABLET BY MOUTH EVERY DAY AT BEDTIME thiamine HCl (vitamin B1) 100 mg tablet 100 mg PO DAILY 30 Days Qty: 90 1RF multivitamin with folic acid [Tab-A-Nanci] 400 mcg tablet 1 tab PO DAILY Qty: 90 1RF epinephrine [EpiPen 2-Khai] 0.3 mg/0.3 mL auto-injector 0.3 mg IM Q4H PRN (Reason: anaphylaxis) Qty: 2 0RF ezetimibe 10 mg tablet 10 mg PO DAILY lactulose 10 gram/15 mL solution 10 g PO DAILY Anoro Ellipta 62.5-25 mcg/actuation blister with device 1 inh inhalation DAILY 90 Days Qty: 180 2RF pantoprazole [Protonix] 40 mg tablet,delayed release (DR/EC) 40 mg PO BID Qty: 180 1RF albuterol sulfate [ProAir HFA] 90 mcg/actuation HFA aerosol inhaler 2 puff INHALATION Q4HP PRN (Reason: shortness of breath or wheezing) multivitamin with folic acid 400 mcg tablet 1 tab PO DAILY 30 Days Qty: 30 0RF Referrals Follow up/Referrals: Demetris Miramontes DO [Primary Care Provider] - See instructions Clinical Impressions Clinical Impression: Fall Qualifiers: Encounter type: initial encounter Qualified Code(s): W19.XXXA - Unspecified fall, initial encounter Alcohol intoxication Qualifiers: Complication of substance-induced condition: uncomplicated Qualified Code(s): F 10.920 - Alcohol use, unspecified with intoxication, uncomplicated Print Language Print Language: Bulgarian Discharge ED Provider: Joselo Tipton General Adult HPI General Chief complaint: Fall Stated complaint: FALL Time Seen by Provider: 05/14/24 14:34 History of Present Illness HPI narrative: Patient presents for evaluation of a fall. Patient reports that he has been drinking this morning as well as smoking marijuana with a friend. Friend noted that the patient fell however patient himself denies any injury. The friend called EMS as he was concerned about the fall however patient reports that there was no loss of consciousness he immediately was ambulatory and has no complaints. On arrival patient denies headache chest pain fever chills hemoptysis hematochezia melena nausea vomiting diarrhea. He does admit to drinking approximately a third of a fifth of vodka and smoking marijuana today. Related Data Home Medications ?Medication ?Instructions ?Recorded ?Confirmed albuterol sulfate 90 mcg/actuation 2 puff inhalation Q4HP PRN 07/15/23 01/02/24 aerosol inhaler (ProAir HFA) shortness of breath or wheezing aspirin 81 mg chewable tablet PO 09/21/23 01/02/24 ezetimibe 10 mg tablet 10 mg PO DAILY 01/02/24 01/02/24 lactulose 10 gram/15 mL oral 10 g PO DAILY 01/02/24 01/02/24 solution Previous Rx's ?Medication ?Instructions ?Recorded umeclidinium 62.5 mcg-vilanterol 1 inh inhalation DAILY 90 days 01/23/23 25 mcg/actuation powdr for #180 ea inhalation (Anoro Ellipta) multivitamin with folic acid 400 1 tab PO DAILY 30 days #30 tabs 07/17/23 mcg tablet epinephrine 0.3 mg/0.3 mL 0.3 mg (0.3 mL) IM Q4H PRN 09/21/23 injection, auto-injector (EpiPen anaphylaxis #2 ea 2-Khai) famotidine 40 mg tablet 40 mg PO HS Acid Reflux #90 tabs 09/21/23 folic acid 1 mg tablet 1 mg PO DAILY #90 tabs 09/21/23 lidocaine 5 % topical patch 1 patch topical DAILY #30 ea 09/21/23 [id number] 2 cap PO BID Supplement #360 caps 09/21/23 40,000-126,000-168,000 unit capsule, delay rel (Zenpep) multivitamin with folic acid 400 1 tab PO DAILY #90 tabs 09/21/23 mcg tablet (Tab-A-Nanci) quetiapine 25 mg tablet See Rx Instructions .Route 09/21/23 .COMPLEX #90 tabs thiamine HCl (vitamin B1) 100 mg 100 mg PO DAILY 30 days #90 tabs 09/21/23 tablet pantoprazole 40 mg tablet,delayed 40 mg PO BID Reflux/Acid reflux 02/09/24 release (Protonix) #180 tabs Allergies Allergy/AdvReac Type Severity Reaction Status Date / Time amoxicillin (AMOXICILLIN) Allergy Mild Unknown Verified 01/02/24 10:23 allergy reaction Penicillins (PENICILLINS) Allergy Mild Unknown Verified 01/02/24 10:23 allergy reaction BEE STINGS Allergy Severe Anaphylaxis Uncoded 01/02/24 10:23 [facility] Disclaimer: The information contained in this section may have been updated after the patient was seen, as this information can be updated by other users. Medical History Dyspnea on exertion Encounter for screening for malignant neoplasm of lung Smoking greater than 30 pack years Bipolar 1 disorder Abnormal LFTs Black tarry stools advised of prep and procedure Pt states understanding Alcohol intoxication Chronic low back pain Alcoholism Anxiety and depression Blindness of right eye COPD (chronic obstructive pulmonary disease) Common bile duct dilatation Hiatal hernia Pancreatitis, acute Elevated LFTs Surgical History Hx of neck surgery History of cornea transplant History of lumbar fusion Family History Other Family history of diabetes mellitus type II Family history of stroke No significant family history Social History Smoking Status: Current every day smoker tobacco type: cigarettes packs per day: 1 alcohol intake: current alcohol intake frequency: 3 or more drinks per day substance use type: denies use current occupational status: other Travel in the last 8 weeks: None household members: none housing: house lives independently: Yes marital status: education level: high school caffeine: No special feliciano needs: No agree to transfusion: No do you feel safe at home: Yes victim of physical abuse: No victim of emotional abuse: No victim of sexual abuse: No would you like helpful sources: No Have you lived/traveled outside [place] in past 30 days?: No Contact w/someone who lives/traveled outside US past 30 days?: No Exposure to someone with infectious disease in past 14 days?: No Do you have a fever (greater than 100.4 F or 38 C)?: No Have you tested positive for COVID-19: No Exposed to someone with COVID-19 in past 14 days?: No Do you have a sore throat?: No Do you have a cough?: No Do you have any weakness?: No Do you have any diarrhea?: No Are you experiencing any unusual bleeding?: No Do you have any muscle aches/pain?: No Do you have any abdominal pain?: No Are you experiencing loss of taste or smell?: No Other Medical History Have you received the Flu Vaccine for this season: No Have you received the Pneumonia Vaccine: Yes ROS Obtained: Yes Systems reviewed as appropriate & no additional complaints except as documented Physical Exam General General appearance: alert and in no apparent distress Neck Neck exam: Present lymphadenopathy Respiratory Respiratory exam: Present normal lung sounds bilaterally Cardiovascular Cardiovascular exam: Present regular rate Neurological Exam Neurological exam: Present alert and oriented X3 Medical Decision Making Medical Records Medical records reviewed: Yes I reviewed the patient's medical records. Screening: Per USPSTF and CDC recommendations, given the prevalence of disease in our region, it is our hospital?s policy to screen for HIV and viral Hepatitis for all patients aged 18 and over and those with ongoing risk factors. Caesar Inquiry Pt receiving controlled substance: No Vital Signs: 05/14/24 14:32 Temperature 98.7 F Temperature Source Oral Pulse Rate [Radial] 89 Respiratory Rate 18 Blood Pressure [Right Arm] 160/78 H Blood Pressure Mean [Right Arm] 105 Blood Pressure Source [Right Arm] Automatic Cuff Blood Pressure Position [Right Arm] Sitting 02 Sat by Pulse Oximetry 99 Oxygen Delivery Method Room Air Lab Data Lab results reviewed: Yes I reviewed the patient's lab results. Lab Results 05/14/24 14:25: Urine Color Yellow, Urine Appearance Clear, Urine pH 6.0, Ur Specific [place] <= 1.005, Urine Protein Negative, Urine Glucose (UA) Negative, Urine Ketones Negative, Urine Blood Negative, Urine Nitrate Negative, Urine Bilirubin Negative, Urine Urobilinogen 0.2, Ur Leukocyte Esterase Negative, Urine RBC None, Urine WBC Occasional, Ur Squamous Epith Cells Occasional, Urine Bacteria Trace, Urine Opiates Screen Negative, Urine Methadone Screen Negative, Ur Barbituates Screen Negative, Ur Phencyclidine Scrn Negative, Ur Amphetamines Screen Negative, U Benzodiazepines Scrn Negative, Urine Cocaine Screen Negative, U Marijuana (THC) Screen Positive H 05/14/24 14:45: WBC 10.0, RBC 4.40 L, Hgb 14.2, Hct 43.1, MCV 98.0 H, MCH 32.3 H , MCHC 32.9, RDW 16.6, Plt Count 103 L, MPV 10.3, Neut % (Auto) 65.1, Lymph % (Auto) 24.4, [place] % (Auto) 9.0, Eos % (Auto) 0.9, Baso % (Auto) 0.4, Neut # (Auto) 6.5, Lymph # (Auto) 2.4, [place] # (Auto) 0.9, Eos # (Auto) 0.1, Baso # (Auto) 0.0, PT 10.8, INR 0.98, Sodium 146 H, Potassium 4.2, Chloride 111 H, C arbon Dioxide 19 L, Anion Gap 20.2 H, BUN 8 L, Creatinine 0.80, Estimated Creat Clear 88, Estimated GFR 98, Est GFR ( Amer) 119, Glucose 134 H, Calcium 9.0, Magnesium 2.0, Total Bilirubin 1.2, AST 270 H, ALT 128 H, Alkaline Phosphatase 211 H, Troponin I < 0.01, NT-Pro-B Natriuret Pep 36.8, Total Protein 7.7, Albumin 4.6, Globulin 3.1, Albumin/Globulin Ratio 1.5, Procalcitonin 0.120, Plasma/Serum Alcohol 291 H 02/04/25 14:45 05/14/24 14:45 Orders (Tests/Meds): ORDERS Category Date Time Status CT cervical spine wo con Stat Cat Scan 05/14/24 14:[address] head/brain wo con Stat Cat Scan 05/14/24 14:34 Completed BNP [NT Pro Brain Natriuretic Pep.] Stat Lab 05/14/24 14:45 Completed CBC w/Auto Diff [Complete Blood Count Auto Diff] Stat Lab 05/14/24 14:45 Completed CMP [Comprehensive Metabolic Panel] Stat Lab 05/14/24 14:45 Completed Ethyl Alcohol Stat Lab 05/14/24 14:45 Completed HIV Combo Stat Lab 05/14/24 14:45 Received Hepatitis C Ab Qual. W/ RFX Stat Lab 05/14/24 14:45 Received INR [Prothrombin Time INR] Stat Lab 05/14/24 14:45 Completed Magnesium Stat Lab 05/14/24 14:45 Completed Procalcitonin Stat Lab 05/14/24 14:45 Completed Rapid PCR Covid and Flu A/B Stat Lab 05/14/24 15:34 Received Trop I [Troponin I] Stat Lab 05/14/24 14:45 Completed Troponin I Q3H Lab 05/14/24 17:45 Ordered Troponin I Q3H Lab 05/14/24 20:45 Ordered UA [Urinalysis and Microscopic] Stat Lab 05/14/24 14:25 Completed UDS [Drug Screen,Urine] Stat Lab 05/14/24 14:25 Completed VBG [Venous Blood Gas] Stat RT 05/14/24 14:36 Ordered Medical Decision Narrative: In summary patient is a 63-year-old male who presents to the emergency department for evaluation of a fall. Patient is patient is hemodynamically stable with a blood pressure 160/78 pulse 89 with normal sinus rhythm on the bedside monitor 18 times a minute respiratory rate satting at 99% on room air upon arrival, febrile at 98.7. Physical exam is unremarkable and nonfocal including a [place] Coma Score 15 patient is awake alert and oriented although he is intoxicated he is appropriate cranial nerves II through XII are intact grossly to exam patient moves all 4 extremities. He can ambulate alone unassisted and normally and male presents currently. He has no headache he has no dorsal spine tenderness no C-spine tenderness has full range of motion of his neck pupils are equal round reactive to light.. Differential diagnosis includes possible occult C-spine or head injury alcohol intoxication electrolyte derangement etc. Initial workup will be conducted with CT scan of the head and C-spine as well as hematologic labs.. Initial interventions were considered however patient is complaint free thus deferred for now. Initial workup reviewed by me and his hematologic labs are nonactionable however he does have transaminitis with an AST of 270 and ALT of 128 and alk phos of 211 indicating his ongoing alcohol abuse drug screen is positive for marijuana and alcohol which she the patient is already voluntarily admitted to.. Upon repeat evaluation patient is tolerating oral intake hungry and independently ambulating without deficits.. Given this patient is appropriate for discharge with recommendations to follow-up with PCP for any continued new or worsening signs or symptoms. Patient given strict return precautions. Patient offered referral for rehab but patient via patient directed decision making declines at this time. Critical Care Critical Care Time Critical Care Time: No
[2024-05-14 14:41] LABS: Microscopic, Urine URINE MICROSCOPIC (MICROSCOPIC)
--- NOTE | 2024-05-14 14:55 | PC.NURSE ---
PT UNABLE TO VERIFY MEDS AT THIS TIME
[2024-05-14 15:01] LABS: Basophils % 0.4 % (0.1-2.0); Eosinophils # 0.1 K/mm3 (0.0-0.4); Eosinophils % 0.9 % (0.1-12.0); Hematocrit 43.1 % (42.0-52.0); Hemoglobin 14.2 g/dL (14.1-18.0); Lymphocytes # 2.4 K/mm3 (0.7-4.5); Lymphocytes % 24.4 % (10-50); Mean Corpuscular HGB Conc 32.9 g/dL (31.8-35.4); Mean Corpuscular Hemoglobin 32.3 pg (27.0-31.2); Mean Platelet Volume 10.3 fl (7.4-10.4); Monocytes # 0.9 K/mm3 (0.1-1.0); Neutrophils # 6.5 K/mm3 (1.8-7.8); Neutrophils % 65.1 % (37.0-80.0); Platelet Count 103 K/mm3 (142-424); Red Cell Distribution Width 16.6 % (11.5-17.5)
--- NOTE | 2024-05-14 15:01 | PC.NURSE ---
PT TO CT
[2024-05-14 15:14] LABS: INR 0.98 (0.9-1.1); Prothrombin Time 10.8 seconds (9.2-12.1)
[2024-05-14 15:15] VITALS: BP 142/82; PULSE 92; O2SAT 98
[2024-05-14 15:15] LABS: Alanine Aminotransferase 128 U/L (12-78); Albumin Level 4.6 g/dl (3.5-5.0); Albumin/Globulin Ratio 1.5 (1.1-1.8); Alkaline Phosphatase 211 U/L (38-126); Anion Gap 20.2 mEq/L (5-15); Aspartate Amino Transferase 270 U/L (17-59); Bilirubin,Total 1.2 mg/dl (0.2-1.3); Blood Urea Nitrogen 8 mg/dl (9-20); Carbon Dioxide 19 mmol/L (22.0-30.0); Chloride 111 mmol/L (98-107); Creatinine Clearance Estimated 88 mL/min (50-200); Estimated Glomerular Filt Rate 98 ml/min (>60); GFR (African American) 119 ML/MIN (>60); Globulin 3.1 g/dL (1.3-3.2); Glucose 134 mg/dl (74-100); Potassium 4.2 mmoL/L (3.5-5.1); Sodium 146 mmol/L (136-145); Total Protein,Serum 7.7 g/dl (6.3-8.2)
[2024-05-14 15:16] LABS: Appearance,Urine CLEAR (Clear); Bilirubin,Urine Negative (Negative); Blood, Urine Negative (Negative); Color,Urine YELLOW (Yellow); Glucose,Urine (UA) Negative (Negative); Ketones,Urine Negative (Negative); Leukocyte Esterase,Urine Negative (Negative); Nitrate,Urine Negative (Negative); Protein,Urine Negative (Negative); Specific Gravity, Urine <= 1.005 (1.005-1.030); Urobilinogen,Urine 0.2 EU/dl (0.2)
[2024-05-14 15:24] LABS: Amphetamine/Metha Screen,Urine Negative ng/ml (<1000); Benzodiazepines Screen,Urine Negative ng/ml (<200)
[2024-05-14 15:25] LABS: Barbiturates Screen,Urine Negative ng/ml (<200)
[2024-05-14 15:27] LABS: Cannabinoid Screen,Urine Positive ng/ml (<50); Cocaine Screen,Urine Negative ng/ml (<300)
[2024-05-14 15:28] LABS: Methadone Screen,Urine Negative ng/ml (<300)
[2024-05-14 15:28] LABS: NT Pro Brain Natriuretic Pep. 36.8 pg/mL (0-125); Troponin I < 0.01 ng/ml (0.00-0.034)
[2024-05-14 15:29] LABS: Opiate Screen,Urine Negative ng/ml (<300)
[2024-05-14 15:30] LABS: Phencyclidine Screen,Urine Negative ng/ml (<25)
--- NOTE | 2024-05-14 15:36 | PC.NURSE ---
ROUNDED ON THE PT. THE PT VOICES THAT HE DOES NOT NEED ANYTHING AT THIS TIME. CALL LIGHT IS WITHIN REACH OF THE PT. THE PT WAS GIVEN A SANDWHICH.
[2024-05-14 15:40] LABS: Bacteria,Urine Trace /lpf; Squamous Epithelial Cell,Urine Occasional #/hpf (0-5); WBC,Urine Occasional #/hpf (0-3)
[2024-05-14 15:43] LABS: Coronavirus 19, PCR Not Detected (NotDetected); Influenza A, PCR Not Detected (NotDetected); Influenza B, PCR Not Detected (NotDetected)
[2024-05-14 15:50] LABS: Ethyl Alcohol 291 mg/dl (0-10)
--- NOTE | 2024-05-14 16:06 | PC.NURSE ---
SPOKE WITH ARASELI, PTS ROOMMATE. WILL COME PICK PT UP
[2024-05-14 16:08] LABS: HIV Combo NEGATIVE (Negative)
[2024-05-14 16:15] VITALS: BP 144/81; PULSE 88; RESP 18; TEMP 36.8; O2SAT 98
[2024-05-14 18:34] LABS: Hepatitis C Ab Qual. W/ RFX NEGATIVE (Negative)
== END 2024-05-14 16:36 | disposition home or self-care (01) ==
PROVIDERS: Physician Assistant; Emergency Provider Emergency Medicine; PCP Internal Medicine
DX: F10.920 Alcohol use, unspecified with intoxication, uncomplicated (principal); F17.210 Nicotine dependence, cigarettes, uncomplicated; Y90.8 Blood alcohol level of 240 mg/100 ml or more
CPT/HCPCS: 70450; 72125; 80053; 80307; 80320; 81001; 83735; 83880; 84145; 84484; 85025; 85610; 86803; 87389; 87636; 99284; G0480

== ENCOUNTER 2024-05-27 15:11 | Outpatient (CLI) | payer MEDICARE, OTHER, SELFPAY ==
[2024-05-27 19:53] LABS: Creatinine,Urine Random 67 mg/dL (Not Estab.)
[2024-05-27 20:45] LABS: Microalbumin < 6.000 mg/L (0-16.7)
== END 2024-05-27 23:59 | disposition home or self-care (01) ==
LOC: LAB.DROPOF 05-28 14:50
PROVIDERS: PCP Internal Medicine; Visit Provider Internal Medicine
DX: Z76.89 Persons encountering health services in other specified circumstances (principal); E55.9 Vitamin D deficiency, unspecified
CPT/HCPCS: 82043; 82570

== ENCOUNTER 2024-05-30 21:33 | Outpatient (CLI) | payer MEDICARE, OTHER, SELFPAY ==
[2024-05-30 23:23] LABS: Hemoglobin A1C 4.8 % (4.0-6.0)
[2024-05-31 00:07] LABS: Chol/HDL Ratio 6.1 (1-3.5); Cholesterol 182 mg/dl (140-200); HDL Cholesterol 30 mg/dl (40-60); Triglycerides 171 mg/dl (30-150); VLDL Cholesterol 34 mg/dL (0-40)
[2024-05-31 00:18] LABS: Direct LDL Cholesterol 127.95 mg/dL (100-129)
[2024-05-31 00:26] LABS: 25-OH Vitamin D, Total 38.6 ng/mL (30-100)
[2024-05-31 00:39] LABS: Prostate Specific Ag Screen 0.7 ng/ml (0.0-4.0)
[2024-05-31 00:58] LABS: Vitamin B12 571 pg/mL (239-931)
[2024-05-31 01:16] LABS: Folate > 20.00 ng/mL
== END 2024-05-30 23:59 | disposition home or self-care (01) ==
LOC: LAB.DROPOF 21:34
PROVIDERS: PCP Internal Medicine; Visit Provider Internal Medicine
DX: I10 Essential (primary) hypertension (principal); F10.20 Alcohol dependence, uncomplicated; D69.6 Thrombocytopenia, unspecified; K70.30 Alcoholic cirrhosis of liver without ascites; E55.9 Vitamin D deficiency, unspecified; E78.5 Hyperlipidemia, unspecified; Z12.5 Encounter for screening for malignant neoplasm of prostate; Z13.1 Encounter for screening for diabetes mellitus
CPT/HCPCS: 80061; 82306; 82607; 82746; 83036; G0103

== ENCOUNTER 2024-07-13 00:14 | Observation (INO) | payer MEDICARE, OTHER, SELFPAY ==
[2024-07-13] VITALS (25 sets, daily range): BP systolic 99–147; BP diastolic 53–84; PULSE 58–90; RESP 13–19; TEMP 36.7–37; O2SAT 95–100; BMI 27.3
--- NOTE | 2024-07-13 00:15 | CT_ITS ---
PROCEDURE INFORMATION: Exam: CT Head Without Contrast Exam date and time: 07/13/2024 12:56 AM Age: 63 years old Clinical indication: Stroke-like symptoms; David lower extremity weakness; Additional info: ETOH, fall, cant feel legs TECHNIQUE: Imaging protocol: Computed tomography of the head without contrast. Radiation optimization: All CT scans at this facility use at least one of these dose optimization techniques: automated exposure control; mA and/or kV adjustment per patient size (includes targeted exams where dose is matched to clinical indication); or iterative reconstruction. Other technique: STROKE PROTOCOL was implemented. COMPARISON: CT HEAD/BRAIN WO CON 05/14/2024 3:04 PM FINDINGS: Brain: No evidence for intracranial hemorrhage, mass lesions or acute stroke. Mild small vessel ischemic change periventricular white matter. Intracranial vascular calcifications. Cerebral ventricles: No ventriculomegaly. Pituitary gland and sella: Negative Paranasal sinuses: Visualized sinuses are unremarkable. No fluid levels. Mastoid air cells: Visualized mastoid air cells are well aerated. Orbital cavities: Right cataract extraction. Bones: Unremarkable. No acute fracture. Soft tissues: Unremarkable. Vasculature: Negative. Other findings: Mild generalized atrophy. IMPRESSION: 1. No evidence for intracranial hemorrhage, mass lesions or acute stroke. 2. Mild small vessel ischemic change periventricular white matter. 3. Intracranial vascular calcifications. 4. Mild generalized atrophy. ASSESSMENT: ASPECTS ([place] Stroke Program Early CT Score) is 10.
--- NOTE | 2024-07-13 00:15 | CT_ITS ---
PROCEDURE INFORMATION: Exam: CTA Head With Contrast, Arteriography Exam date and time: 07/13/2024 1:05 AM Age: 63 years old Clinical indication: Stroke-like symptoms; Altered mental status/memory loss; David lower extremity weakness; Additional info: ETOH fall, cant feel legs TECHNIQUE: Imaging protocol: Computed tomographic angiography of the head with contrast. Exam focused on the arteries. 3D rendering (Not supervised by radiologist): MIP and/or 3D reconstructed images were created by the technologist. Radiation optimization: All CT scans at this facility use at least one of these dose optimization techniques: automated exposure control; mA and/or kV adjustment per patient size (includes targeted exams where dose is matched to clinical indication); or iterative reconstruction. Contrast material: ISOVUE; Contrast volume: 80 ml; Contrast route: INTRAVENOUS (IV); COMPARISON: CT ANGIO HEAD 08/25/2023 5:05 PM FINDINGS: ANTERIOR CIRCULATION: Right internal carotid artery: Intracranial segment is patent with no significant stenosis. No aneurysm. Right middle cerebral artery: No occlusion or significant stenosis. No aneurysm. Right anterior cerebral artery: No occlusion or significant stenosis. No aneurysm. Left internal carotid artery: Intracranial segment is patent with no significant stenosis. No aneurysm. Left middle cerebral artery: No occlusion or significant stenosis. No aneurysm. Left anterior cerebral artery: No occlusion or significant stenosis. No aneurysm. POSTERIOR CIRCULATION: Right vertebral artery: Atretic but patent intracranial right vertebral artery. Left vertebral artery: Dominant intracranial left vertebral artery. Basilar artery: No occlusion or significant stenosis. No aneurysm. Right posterior cerebral artery: No occlusion or significant stenosis. No aneurysm. Left posterior cerebral artery: No occlusion or significant stenosis. No aneurysm. Brain: No definite mass, mass effect, or midline shift. Cerebral ventricles: No ventriculomegaly. Bones/joints: Unremarkable. No acute fracture. Soft tissues: Unremarkable. Other findings: No evidence for large vessel occlusion. IMPRESSION: 1. No evidence for large vessel occlusion. 2. Atretic but patent intracranial right vertebral artery. 3. Dominant intracranial left vertebral artery.
--- NOTE | 2024-07-13 00:15 | CT_ITS ---
PROCEDURE INFORMATION: Exam: CT Cervical Spine Without Contrast Exam date and time: 07/13/2024 12:59 AM Age: 63 years old Clinical indication: Injury or trauma; Fall; Blunt trauma; Additional info: ETOH fall TECHNIQUE: Imaging protocol: Computed tomography of the cervical spine without contrast. Radiation optimization: All CT scans at this facility use at least one of these dose optimization techniques: automated exposure control; mA and/or kV adjustment per patient size (includes targeted exams where dose is matched to clinical indication); or iterative reconstruction. COMPARISON: CT CERVICAL SPINE WO CON 05/14/2024 3:04 PM FINDINGS: Bones: Spinal alignment is normal. No fracture or bone destruction. Predental space narrowing consistent with arthritis. Multilevel degenerative disc disease predominantly at C4-C5 and C5-C6 levels with disc space narrowing and small disc osteophyte complexes. Moderate to severe multilevel facet arthropathy. Lungs: Lung apices are normal. Vasculature: Bilateral carotid calcifications. Soft tissues: Unremarkable. IMPRESSION: 1. Spinal alignment is normal. 2. No fracture or bone destruction 3. Predental space narrowing consistent with arthritis. 4. Multilevel degenerative disc disease predominantly at C4-C5 and C5-C6 levels with disc space narrowing and small disc osteophyte complexes. 5. Moderate to severe multilevel facet arthropathy. 6. Bilateral carotid calcifications.
--- NOTE | 2024-07-13 00:15 | CT_ITS ---
PROCEDURE INFORMATION: Exam: CTA Neck With Contrast Exam date and time: 07/13/2024 1:05 AM Age: 63 years old Clinical indication: Stroke-like symptoms; Altered mental status/memory loss; David lower extremity weakness; Additional info: Fall ETOH cant feel legs TECHNIQUE: Imaging protocol: Computed tomographic angiography of the neck with contrast. Exam focused on the cervical segments of the vasculature. 3D rendering (Not supervised by radiologist): MIP and/or 3D reconstructed images were created by the technologist. Radiation optimization: All CT scans at this facility use at least one of these dose optimization techniques: automated exposure control; mA and/or kV adjustment per patient size (includes targeted exams where dose is matched to clinical indication); or iterative reconstruction. Contrast material: ISOVUE; Contrast volume: 80 ml; Contrast route: INTRAVENOUS (IV); COMPARISON: CT CERVICAL SPINE WO CON 07/13/2024 12:59 AM FINDINGS: Right common carotid artery: No stenosis. No dissection or occlusion. Right internal carotid artery: No stenosis of the extracranial segment. No dissection or occlusion. Right external carotid artery: No occlusion or stenosis of the origin. Left common carotid artery: No stenosis. No dissection or occlusion. Left internal carotid artery: No stenosis of the extracranial segment. No dissection or occlusion. Left external carotid artery: No occlusion or stenosis of the origin. Right vertebral artery: Atretic but patent cervical right vertebral artery. Left vertebral artery: Dominant and patent cervical left vertebral artery. Thyroid: Low-density lesion left thyroid lobe; recommend ultrasound. Soft tissues: Normal. No significant soft tissue swelling. Bones/joints: No acute fracture. Other findings: Moderate bilateral calcific and soft plaque in the carotid bifurcations without hemodynamically significant stenosis. IMPRESSION: 1. Moderate bilateral calcific and soft plaque in the carotid bifurcations without hemodynamically significant stenosis. 2. Atretic but patent cervical right vertebral artery. 3. Dominant and patent cervical left vertebral artery. 4. Low-density lesion left thyroid lobe; recommend ultrasound. COMMENTS: Consistent with the [employer]'s Incidental Findings Committee white paper (J Am Rocael Radiol 2015): In patients aged 35 years and older with an incidental thyroid nodule equal to or greater than 1.[address], MRI or extrathyroidal US, further evaluation with dedicated thyroid US is recommended for patients with normal life expectancy and without comorbidities. For smaller nodules without suspicious features, no further evaluation or follow up is recommended. REFERENCES: NASCET CRITERIA. The degree of stenosis in the cervical segment of the internal carotid artery is based on NASCET criteria. Normal is no stenosis. Mild is less than 50% stenosis. Moderate is 50-69% stenosis. Severe is 70% to 99% stenosis. Total occlusion is no detectable patent lumen.
--- NOTE | 2024-07-13 00:17 | XR_ITS ---
PROCEDURE INFORMATION: Exam: XR Chest Exam date and time: 07/13/2024 12:47 AM Age: 63 years old Clinical indication: Injury or trauma; Fall; Blunt trauma (contusions or hematomas); Additional info: Fall ETOH TECHNIQUE: Imaging protocol: Radiologic exam of the chest. Views: 1 view. COMPARISON: CT ANGIO CHEST 08/25/2023 5:09 PM FINDINGS: Lungs: Unremarkable. No consolidation. Pleural spaces: Unremarkable. No pleural effusion. No pneumothorax. Heart/Mediastinum: Unremarkable. No cardiomegaly. Bones/joints: Unremarkable. IMPRESSION: No acute findings.
--- NOTE | 2024-07-13 00:20 | CT_ITS ---
PROCEDURE INFORMATION: Exam: CT Thoracic Spine Without Contrast Exam date and time: 07/13/2024 12:59 AM Age: 63 years old Clinical indication: Injury or trauma; Fall; Blunt trauma (contusions or hematomas); Additional info: Fall ETOH TECHNIQUE: Imaging protocol: Computed tomography of the thoracic spine without contrast. Radiation optimization: All CT scans at this facility use at least one of these dose optimization techniques: automated exposure control; mA and/or kV adjustment per patient size (includes targeted exams where dose is matched to clinical indication); or iterative reconstruction. COMPARISON: CT CERVICAL SPINE WO CON 05/14/2024 3:04 PM FINDINGS: Bones/joints: No acute fracture. Normal alignment. No significant disc bulge or herniation. No severe spinal canal stenosis. No significant neural foraminal narrowing. Soft tissues: Unremarkable. IMPRESSION: No acute findings identified.
--- NOTE | 2024-07-13 00:20 | CT_ITS ---
PROCEDURE INFORMATION: Exam: CT Lumbar Spine Without Contrast Exam date and time: 07/13/2024 12:59 AM Age: 63 years old Clinical indication: Injury or trauma; Fall; Blunt trauma (contusions or hematomas); Additional info: Fall ETOH TECHNIQUE: Imaging protocol: Computed tomography of the lumbar spine without contrast. Radiation optimization: All CT scans at this facility use at least one of these dose optimization techniques: automated exposure control; mA and/or kV adjustment per patient size (includes targeted exams where dose is matched to clinical indication); or iterative reconstruction. COMPARISON: CT ANGIO ABDOMEN PELVIS 07/14/2023 9:25 PM FINDINGS: Bones/joints: No acute fracture. Normal alignment. ORIF of L3-L5 levels. L4/5 fusion. Soft tissues: Unremarkable. IMPRESSION: No acute findings.
--- NOTE | 2024-07-13 00:20 | PC.NURSE ---
C-Collar placed at this time
[2024-07-13 00:27] LABS: Basophils # 0.1 K/mm3 (0-0.2); Basophils % 0.8 % (0.1-2.0); Eosinophils # 0.2 K/mm3 (0.0-0.4); Eosinophils % 1.7 % (0.1-12.0); Hematocrit 43.5 % (42.0-52.0); Hemoglobin 14.5 g/dL (14.1-18.0); Lymphocytes # 2.8 K/mm3 (0.7-4.5); Lymphocytes % 32.5 % (10-50); Mean Corpuscular HGB Conc 33.3 g/dL (31.8-35.4); Mean Corpuscular Hemoglobin 32.8 pg (27.0-31.2); Mean Corpuscular Volume 98.4 fl (80-94); Mean Platelet Volume 9.1 fl (7.4-10.4); Monocytes # 0.5 K/mm3 (0.1-1.0); Monocytes % 5.9 % (1.7-9.3); Neutrophils # 5.1 K/mm3 (1.8-7.8); Neutrophils % 58.9 % (37.0-80.0); Platelet Count 94 K/mm3 (142-424); Red Blood Count 4.42 M/mm3 (4.60-6.20); Red Cell Distribution Width 14.7 % (11.5-17.5); White Blood Count 8.7 K/mm3 (4.8-10.8)
--- NOTE | 2024-07-13 00:30 | HMH.EDGENADL ---
Discharge Plan Disposition Patient Disposition: Admitted Condition: Fair Clinical Impressions Clinical Impression: Fall, Alcohol abuse, Declining functional status, Thyroid nodule Discharge ED Provider: Wilfredo Hugo Adult HPI General Chief complaint: Fall Stated complaint: numb legs Time Seen by Provider: 07/13/24 00:15 Mode of Arrival: Wheelchair Source of Information: Patient Description of Symptoms (Recalled from ER Triage Doc. by RN): Patient reports that he fell today at an unknown time. Patient states he is drunk and is a daily drinker. States the police gave him a breathalizer. States that his legs are numb bilaterally but that he can feel his feet. History of Present Illness HPI narrative: 63-year-old male presents to the ER complaining that his legs are numb bilaterally. Reportedly patient has been drinking and fell sometime during daylight. He does not know when. Unknown downtime. Reportedly the police were there earlier today and did a breathalyzer on him. Unclear circumstances surrounding this. He is reporting numbness in the legs but when I tested sensation he reported sensation in the feet. He reports no pain anywhere, he states when he fell he does not know if he hit his head or lost consciousness. Patient takes aspirin according to his medication list but no other daily blood thinners. He is belligerent and answers most questions with it is in my chart . He is not cooperative with me or staff. He has yelled at staff repeatedly. He does report he uses marijuana. Unclear if there are other elements of intoxication. He is reportedly a daily drinker. He denies headache, dizziness, chest pain, weakness, vomiting, abdominal pain, back pain, neck pain, or pain in the extremities. Related Data Home Medications ?Medication ?Instructions ?Recorded ?Confirmed aspirin 81 mg tablet 81 mg PO DAILY 05/27/24 05/30/24 Previous Rx's ?Medication ?Instructions ?Recorded epinephrine 0.3 mg/0.3 mL 0.3 mg (0.3 mL) IM Q4H PRN 09/21/23 injection, auto-injector (EpiPen anaphylaxis #2 ea 2-Khai) pantoprazole 40 mg tablet,delayed 40 mg PO BID Reflux/Acid reflux 02/09/24 release (Protonix) #180 tabs albuterol sulfate 90 mcg/actuation 2 puff inhalation Q4HP PRN 05/28/24 aerosol inhaler shortness of breath or wheezing #8.5 grams ezetimibe 10 mg tablet 10 mg PO DAILY #90 tabs 05/28/24 famotidine 40 mg tablet 40 mg PO HS Acid Reflux #90 tabs 05/28/24 fluticasone propionate 110 1 puff inhalation BID #12 grams 05/28/24 mcg/actuation HFA aerosol inhaler (Flovent HFA) folic acid 1 mg tablet 1 mg PO DAILY #90 tabs 05/28/24 lactulose 10 gram/15 mL oral 10 g (15 mL) PO DAILY #1,500 mL 05/28/24 solution multivitamin with folic acid 400 1 tab PO DAILY #90 tabs 05/28/24 mcg tablet (Tab-A-Nanci) quetiapine 25 mg tablet See Rx Instructions .Route 05/28/24 .COMPLEX #90 tabs thiamine HCl (vitamin B1) 100 mg 100 mg PO DAILY 30 days #90 tabs 05/28/24 tablet topiramate 25 mg tablet 25 mg PO DAILY #90 tabs 05/28/24 umeclidinium 62.5 mcg-vilanterol 1 inh inhalation DAILY 90 days 05/28/24 25 mcg/actuation powdr for #180 ea inhalation (Anoro Ellipta) Allergies Allergy/AdvReac Type Severity Reaction Status Date / Time amoxicillin (AMOXICILLIN) Allergy Mild Unknown Verified 05/30/24 14:03 allergy reaction Penicillins (PENICILLINS) Allergy Mild Unknown Verified 05/30/24 14:03 allergy reaction BEE STINGS Allergy Severe Anaphylaxis Uncoded 05/30/24 14:03 PFSH PFS Disclaimer: The information contained in this section may have been updated after the patient was seen, as this information can be updated by other users. Medical History Dyspnea on exertion Encounter for screening for malignant neoplasm of lung Smoking greater than 30 pack years Bipolar 1 disorder Abnormal LFTs Black tarry stools advised of prep and procedure Pt states understanding Alcohol intoxication Chronic low back pain Alcoholism Anxiety and depression Blindness of right eye COPD (chronic obstructive pulmonary disease) Common bile duct dilatation Hiatal hernia Pancreatitis, acute Elevated LFTs Surgical History Hx of neck surgery History of cornea transplant History of lumbar fusion Family History Other Family history of diabetes mellitus type II Family history of stroke No significant family history Social History Smoking Status: Current every day smoker tobacco type: cigarettes packs per day: 1 alcohol intake: current alcohol intake frequency: 3 or more drinks per day substance use type: denies use current occupational status: other Travel in the last 8 weeks: None household members: none housing: house lives independently: Yes marital status: education level: high school caffeine: No special feliciano needs: No agree to transfusion: No do you feel safe at home: Yes victim of physical abuse: No victim of emotional abuse: No victim of sexual abuse: No would you like helpful sources: No Other Medical History Have you received the Flu Vaccine for this season: No Have you received the Pneumonia Vaccine: Yes ROS Obtained: Yes Systems reviewed as appropriate & no additional complaints except as documented per HPI Physical Exam General General appearance: alert, in no apparent distress and appears intoxicated Comment: Slurring his speech Head Head exam: atraumatic and normocephalic Eye Eye exam: Present PERRL and EOMI ENT ENT exam: Present mucous membranes moist Neck Neck exam: Present normal inspection, full ROM and other (C-collar applied after arrival in the ER); Absent tenderness Chest Chest inspection: Present symmetric chest wall rise Respiratory Respiratory exam: Present normal lung sounds bilaterally; Absent respiratory distress, wheezes or stridor Cardiovascular Cardiovascular exam: Present regular rate and normal rhythm Abdominal Exam Abdominal exam: Present soft; Absent distention or tenderness Extremities Exam Extremities exam: Present full ROM and normal capillary refill; Absent tenderness, edema, joint swelling or calf tenderness Back Exam Back exam: Absent tenderness Neurological Exam Neurological exam: Present alert, oriented X3 (Patient is fully oriented but otherwise does not answer questions consistently. He is intermittently confused.), motor sensory deficit ( When I was testing sensation, he would not respond to painful, light touch, or temperature stimuli in any extremities or on the torso. He reported not being able to feel anything anywhere on his body.) and other (Patient is not able to ambulate at this time but is moving all extremities equally, he was able to bear weight and shuffle to the bed with assistance, he also brought up both legs and pushed his hips up in the air off the bed to remove his pants. Strength equal in both legs.) Psychiatric Psychiatric exam: Present normal affect and normal mood Skin Skin exam: Present warm and dry Medical Decision Making Medical Records Medical records reviewed: Yes I reviewed the patient's medical records. Screening: Per USPSTF and CDC recommendations, given the prevalence of disease in our region, it is our hospital?s policy to screen for HIV and viral Hepatitis for all patients aged 18 and over and those with ongoing risk factors. MR Comment: Patient has presented to this ER in the past for alcohol related complaints. He does have a history of previous stroke. Review of most recent discharge summary from July 2023 demonstrates patient was admitted with hematemesis, melena in the setting of alcohol abuse, cirrhosis, while inpatient he was treated with Protonix and for alcohol withdrawal. Caesar Inquiry Pt receiving controlled substance: No Vital Signs: 07/13/24 00:25 07/13/24 00:31 07/13/24 00:45 Temperature 98.3 F Temperature Source Oral Pulse Rate 76 82 Pulse Rate [Right Radial] 90 Respiratory Rate 16 13 16 Blood Pressure 109/77 L Blood Pressure [Right Arm] 137/83 Blood Pressure Mean [Right Arm] 101 Blood Pressure Source [Right Arm] Automatic Cuff Blood Pressure Position [Right Arm] Supine 02 Sat by Pulse Oximetry 96 97 95 Oxygen Delivery Method Room Air 07/13/24 01:30 07/13/24 01:45 07/13/24 02:00 Temperature Temperature Source Pulse Rate 73 78 68 Pulse Rate [Right Radial] Respiratory Rate 13 16 15 Blood Pressure 122/67 113/61 Blood Pressure [Right Arm] Blood Pressure Mean [Right Arm] Blood Pressure Source [Right Arm] Blood Pressure Position [Right Arm] 02 Sat by Pulse Oximetry 95 95 96 Oxygen Delivery Method Room Air 07/13/24 02:30 07/13/24 03:00 07/13/24 03:30 Temperature Temperature Source Pulse Rate 81 71 71 Pulse Rate [Right Radial] Respiratory Rate 15 15 15 Blood Pressure 133/72 130/79 127/68 Blood Pressure [Right Arm] Blood Pressure Mean [Right Arm] Blood Pressure Source [Right Arm] Blood Pressure Position [Right Arm] 02 Sat by Pulse Oximetry 97 97 97 Oxygen Delivery Method Room Air Room Air Room Air 07/13/24 04:15 07/13/24 04:31 07/13/24 05:00 Temperature Temperature Source Pulse Rate 80 73 73 Pulse Rate [Right Radial] Respiratory Rate 19 15 16 Blood Pressure 99/62 L 110/64 Blood Pressure [Right Arm] Blood Pressure Mean [Right Arm] Blood Pressure Source [Right Arm] Blood Pressure Position [Right Arm] 02 Sat by Pulse Oximetry 96 95 97 Oxygen Delivery Method Lab Data Lab Results 07/13/24 00:16: Urine Opiates Screen Negative, Urine Methadone Screen Negative, Ur Barbituates Screen Negative, Ur Phencyclidine Scrn Negative, Ur Amphetamines Screen Negative, U Benzodiazepines Scrn Negative, Urine Cocaine Screen Negative, U Marijuana (THC) Screen Positive H 07/13/24 00:18: WBC 8.7, RBC 4.42 L, Hgb 14.5, Hct 43.5, MCV 98.4 H, MCH 32.8 H, MCHC 33.3, RDW 14.7, Plt Count 94 L, MPV 9.1, Neut % (Auto) 58.9, Lymph % (Auto) 32.5, [place] % (Auto) 5.9, Eos % (Auto) 1.7, Baso % (Auto) 0.8, Neut # (Auto) 5.1, Lymph # (Auto) 2.8, [place] # (Auto) 0.5, Eos # (Auto) 0.2, Baso # (Auto) 0.1, Sodium 148 H, Potassium 4.0, Chloride 110 H, Carbon Dioxide 23, Anion Gap 19.0 H, BUN 6 L, Creatinine 0.80, Estimated Creat Clear 91, Estimated GFR 98, Est GFR ( Amer) 119, Glucose 117 H, Calcium 9.4, Total Bilirubin 0.9, AST 194 H, ALT 107 H, Alkaline Phosphatase 165 H, Total Creatine Kinase 90, Troponin I < 0.01, Total Protein 7.7, Albumin 4.3, Globulin 3.4 H, Albumin/Globulin Ratio 1.3, Plasma/Serum Alcohol 357 H 07/13/24 01:14: Lactate 3.4 H 07/13/24 01:16: Urine Color Yellow, Urine Appearance Clear, Urine pH 6.0, Ur Specific [place] <= 1.005, Urine Protein Negative, Urine Glucose (UA) Negative, Urine Ketones Negative, Urine Blood Negative, Urine Nitrate Negative, Urine Bilirubin Negative, Urine Urobilinogen 0.2, Ur Leukocyte Esterase Negative, Urine RBC None, Urine WBC Occasional, Ur Squamous Epith Cells None, Urine Bacteria Trace 07/13/24 03:41: Troponin I < 0.01 07/13/24 05:27: Lactate 2.5 H 07/13/24 00:18 07/13/24 00:18 Orders (Tests/Meds): ED MEDICATIONS Generic Name Dose Route Start Last Admin Trade Name Carli PRN Reason Stop Dose Admin Folic Acid 1 mg 07/13/24 09:00 Folic Acid 1mg Tablet PO 08/12/24 08:59 DAILY CHAUNCEY Multivitamins 10 ml/ Thiamine 1,015 mls @ 150 mls/hr 07/13/24 01:51 07/13/24 02:02 HCl 100 mg/ Magnesium Sulfate IV 07/13/24 08:36 150 mls/hr 2 gm/ Lactated Ringer's .Q6H46M CHAUNCEY Administration Sodium Chloride 1,000 mls @ 999 mls/hr 07/13/24 06:15 Sod Chlor 0.9% 1000ml Bag IV 07/13/24 07:15 .Q1H1M CHAUNCEY Multivitamins 1 each 07/13/24 17:00 Multivitamin Tablet PO 08/12/24 16:59 1700 CHAUNCEY Sodium Chloride 10 ml 07/13/24 06:02 Sodium Chloride 0.9% 10ml Flush Syringe IV 08/12/24 06:01 NEEDED PRN Maintain IV Site Discontinued Medications Generic Name Dose Route Start Last Admin Trade Name Carli PRN Reason Stop Dose Admin Folic Acid 1 mg 07/13/24 01:50 07/13/24 02:02 Folic Acid 1mg Tablet PO 07/13/24 01:51 1 mg ONCE ONE Administration Haloperidol Lactate 2 mg 07/13/24 00:17 07/13/24 00:33 Haloperidol Lactate 5 Mg/Ml Vial IV 07/13/24 00:18 2 mg ONCE ONE Administration Lactated Ringer's 1,000 mls @ 999 mls/hr 07/13/24 00:17 07/13/24 00:34 Lactated Ringer's 1000 Ml Bag IV 07/13/24 01:17 999 mls/hr .Q1H1M ONE Administration Iopamidol 80 ml 07/13/24 01:15 07/13/24 01:16 Iopamidol-370 (76%);100ml Bottle IV 07/13/24 01:16 80 ml ONCE ONE Administration Ondansetron HCl 4 mg 07/13/24 00:17 07/13/24 00:34 Ondansetron 4mg/2ml Vial IV 07/13/24 00:18 4 mg ONCE ONE Administration Sodium Chloride 50 ml 07/13/24 01:15 07/13/24 01:15 0.9 % Sodium Chloride 50 Ml Vial IV 07/13/24 01:16 50 ml ONCE ONE Administration Sodium Chloride 10 ml 07/13/24 01:15 07/13/24 01:15 Sodium Chloride 0.9% 10ml Syr (Rad Only) IV 07/13/24 01:16 10 ml ONCE ONE Administration ORDERS Category Date Time Status CT angio head Stat Cat Scan 07/13/24 00:[address] angio neck Stat Cat Scan 07/13/24 00:[address] cervical spine wo con Stat Cat Scan 07/13/24 00:[address] head/brain wo con Stat Cat Scan 07/13/24 00:[address] lumbar spine wo con Stat Cat Scan 07/13/24 00:[address] thoracic spine wo con Stat Cat Scan 07/13/24 00:20 Completed CXR --portable [XR chest portable] Stat Exams 07/13/24 00:17 Completed CBC w/Auto Diff [Complete Blood Count Auto Diff] Stat Lab 07/13/24 00:18 Completed CK [Creatine Kinase] Stat Lab 07/13/24 00:18 Completed CMP [Comprehensive Metabolic Panel] Stat Lab 07/13/24 00:18 Completed Ethanol [Ethyl Alcohol] Stat Lab 07/13/24 00:18 Completed Lactic Acid Follow Up (RFLX 1) Stat Lab 07/13/24 05:27 Completed Lactic Acid Stat Lab 07/13/24 01:14 Completed Trop I [Troponin I] Stat Lab 07/13/24 00:18 Completed Troponin I Q3H Lab 07/13/24 03:41 Completed Troponin I Q3H Lab 07/13/24 06:30 Ordered UDS [Drug Screen,Urine] Stat Lab 07/13/24 00:16 Completed Urinalysis and Microscopic Stat Lab 07/13/24 01:16 Completed Medical Decision Narrative: In summary, this 63-year-old male with comorbidities including history of previous stroke, COPD, alcohol abuse which increased the overall morbidity as well as the amount of data to be reviewed presents to the emergency department today with concerns of alcohol intoxication, numbness of the lower extremities, fall. On initial evaluation patient is hemodynamically stable, afebrile, GCS 14 for intermittent confusion, patient reports numbness in the legs but responds to painful stimuli in the feet. He claims he can feel his feet. When I test for sensation in the other extremities, he reports not feeling anything anywhere. He is not cooperative with the neuroexam but is moving all extremities equally, helps transfer himself from the wheelchair to the bed with equal weightbearing in both legs, also pushed his hips up from the bed using his legs in order to remove his pants by himself. He does not appear to have any motor deficits. He has been belligerent and noncooperative as well as yelling at staff. I have high suspicion for intoxication being the majority of the problem in this situation at this time. He has no findings of trauma externally, no tenderness on palpation of his C-spine or back, benign abdomen, c-collar was applied right after arrival in the ER. Differential diagnosis includes but is not limited to intoxication, traumatic injury including but not limited to intracranial bleed, skull fracture, C-spine or other spinal injury, also considered the possibility of stroke but I have much lower suspicion for this given patient's report of body wide numbness which is not consistent with stroke. Based on these concerns, I ordered serum labs, CT imaging, with unclear circumstances surrounding the fall also ordered EKG, imaging of the spine. Vitals are stable and very reassuring. I have extremely low suspicion for severe internal traumatic injury with the report of ground-level fall in his home and reassuring vitals despite patient reportedly being on the floor for many hours. Patient was not stroke alerted because his symptoms have been going on for more than 4-1/2 hours according to his report of his fall being during daylight. Because he has been aggressive with staff and belligerent, I gave him low-dose haloperidol for his safety and ours. ECG personally interpreted demonstrates sinus rhythm, first-degree AV block, rate 77, left axis deviation, normal QTc, no STEMI. Patient received IV fluids and Zofran initially for treatment. Labs personally reviewed demonstrate no leukocytosis or anemia, thrombocytopenia, nonactionable hypernatremia and hyperchloremia potentially related to hypovolemia, patient has good kidney function, lactic is elevated at 3.4 which is nonspecific at this time, patient has approximately 2-1 AST to ALT elevation consistent with his alcohol history. Alk phos also elevated. Benign abdomen. Troponin undetectably low less than 0.01. Initial lactic elevated. UA negative for findings of infection, UDS positive for THC to which patient admits. Patient serum alcohol was 357. Patient is receiving a rally pack. Chest x-ray personally interpreted does not demonstrate acute intrathoracic abnormality, see radiology read for final interpretation. CT head personally interpreted does not demonstrate acute traumatic injury, see radiology read for final interpretation. CT cervical spine demonstrates degenerative changes but no acute fracture on my personal interpretation. See radiology read for final interpretation. CTs of the thoracic and lumbar spine also do not demonstrate any acute traumatic injury on my personal interpretation, see radiology reads for final interpretations. CT angiography of the head and neck demonstrates no large vessel occlusion, dominant left vertebral artery, atretic but patent right vertebral artery. Carotid calcifications. See radiology read for full interpretation. Patient was placed into ED observation at 0230 for metabolization of intoxication as well as to recheck lactic after receiving fluids and reassess his neuro and ambulatory status. On repeat neuro exam, he has no deficits. Normal [id number] and [id number], sensation intact throughout. He states he deals with chronic pain so he often does not respond to painful stimuli, but when sensory tests are performed he accurately identifies sensation in all extremities, all over his body. He also has full strength in all extremities. On reassessment patient has had dramatic improvement in mentation and is clearly becoming more sober. He is also much less belligerent and behaving more pleasantly. He was willing to try to ambulate to the restroom but when we got him up he claimed his legs felt like they were going to give out. Notably, he did not put in significant effort. He asked if he would be able to go home, and I told him that he would not be able to go until he was able to walk with a cane like he does at home. He told me well that will probably be a day or 2 . I have considered the idea that patient could be behaving this way for secondary gain, but regardless at this time he has not shown me that he can ambulate or be safe at home so he does require admission. I discussed this case with the hospitalist including the patient's initial complaints, workup, initial neuroexam, dramatic improvement at this time but inability to ambulate, and his alcohol intoxication and history. Patient was graciously accepted to the hospitalist for admission. He was admitted in stable condition. Total time in ED observation: 3 hours 30 minutes Critical Care Critical Care Time Critical Care Time: No
--- NOTE | 2024-07-13 00:31 | ECG_ITS ---
APPROVED REPORT Exam: Resting ECG HR:77 bpm ECG Measurements Heart Rate 77 AXES MS 218 P 51 QRSd 101 QRS -31 QT 383 T 24 QTc 415 Conclusion SINUS RHYTHM WITH FIRST DEGREE AV BLOCK LEFT AXIS DEVIATION [QRS AXIS < -30] No STEMI Electronically signed by : NIYA SINCLAIR, 07/13/2024 03:17:38
[2024-07-13] MEDS: HALOPERIDOL LACTATE 5 MG/ML VIAL 2 MG IV (00:33)
[2024-07-13] MEDS: ONDANSETRON 4MG/2ML VIAL 4 MG IV (00:34)
[2024-07-13] MEDS: LACTATED RINGERS 1000ML 1,000 ML 999 ML IV (00:34)
[2024-07-13 00:37] LABS: Alanine Aminotransferase 107 U/L (12-78); Albumin Level 4.3 g/dl (3.5-5.0); Albumin/Globulin Ratio 1.3 (1.1-1.8); Alkaline Phosphatase 165 U/L (38-126); Aspartate Amino Transferase 194 U/L (17-59); Bilirubin,Total 0.9 mg/dl (0.2-1.3); Blood Urea Nitrogen 6 mg/dl (9-20); Calcium 9.4 mg/dl (8.4-10.2); Carbon Dioxide 23 mmol/L (22.0-30.0); Chloride 110 mmol/L (98-107); Creatine Kinase 90 U/L (55-170); Creatinine Clearance Estimated 91 mL/min (50-200); Estimated Glomerular Filt Rate 98 ml/min (>60); GFR (African American) 119 ML/MIN (>60); Globulin 3.4 g/dL (1.3-3.2); Glucose 117 mg/dl (74-100); Sodium 148 mmol/L (136-145); Total Protein,Serum 7.7 g/dl (6.3-8.2)
--- NOTE | 2024-07-13 00:37 | PC.NURSE ---
Patient given a urinal
[2024-07-13 00:49] LABS: Troponin I < 0.01 ng/ml (0.00-0.034)
[2024-07-13 00:58] LABS: Ethyl Alcohol 357 mg/dl (0-10)
--- NOTE | 2024-07-13 00:59 | PC.NURSE ---
critical ethanol of 357 given by Donna in lab; Notified Dr. Hugo
[2024-07-13] MEDS: SODIUM CHLORIDE 0.9% 10ML SYR (RAD ONLY) 10 ML IV (01:15)
[2024-07-13] MEDS: 0.9 % SODIUM CHLORIDE 50 ML VIAL IV (01:15)
[2024-07-13] MEDS: IOPAMIDOL-370 (76%);100ML BOTTLE 80 ML IV (01:16)
[2024-07-13 01:18] LABS: Microscopic, Urine URINE MICROSCOPIC (MICROSCOPIC)
[2024-07-13 01:24] LABS: Appearance,Urine CLEAR (Clear); Bilirubin,Urine Negative (Negative); Blood, Urine Negative (Negative); Color,Urine YELLOW (Yellow); Glucose,Urine (UA) Negative (Negative); Ketones,Urine Negative (Negative); Leukocyte Esterase,Urine Negative (Negative); Nitrate,Urine Negative (Negative); Protein,Urine Negative (Negative); Specific Gravity, Urine <= 1.005 (1.005-1.030); Urobilinogen,Urine 0.2 EU/dl (0.2)
[2024-07-13 01:32] LABS: Lactic Acid 3.4 mmol/L (0.7-2.1)
[2024-07-13 01:34] LABS: Bacteria,Urine Trace /lpf; WBC,Urine Occasional #/hpf (0-3)
[2024-07-13 01:36] LABS: Amphetamine/Metha Screen,Urine Negative ng/ml (<1000); Barbiturates Screen,Urine Negative ng/ml (<200)
[2024-07-13 01:37] LABS: Benzodiazepines Screen,Urine Negative ng/ml (<200)
[2024-07-13 01:38] LABS: Cannabinoid Screen,Urine Positive ng/ml (<50); Cocaine Screen,Urine Negative ng/ml (<300)
[2024-07-13 01:39] LABS: Methadone Screen,Urine Negative ng/ml (<300)
[2024-07-13 01:40] LABS: Opiate Screen,Urine Negative ng/ml (<300); Phencyclidine Screen,Urine Negative ng/ml (<25)
--- NOTE | 2024-07-13 01:44 | PC.NURSE ---
Hugo speaking with SANTIAGO at this time
[2024-07-13] MEDS: FOLIC ACID 1MG TABLET 1 MG PO ×2 (02:02→09:21)
[2024-07-13] MEDS: MVI, ADULT NO.1 WITH VIT K 10 ML, THIAMINE HCL 100 MG, MAGNESIUM SULFATE 2 GM in LACTAT... 150 ML IV (02:02)
--- NOTE | 2024-07-13 03:46 | PC.NURSE ---
Patient's 2nd Troponin was collected.
[2024-07-13 04:10] LABS: Troponin I < 0.01 ng/ml (0.00-0.034)
[2024-07-13 05:16] LABS: Reflex Lactic Add Lactic Reflex
[2024-07-13 05:41] LABS: Lactic Acid Follow Up (RFLX 1) 2.5 mmol/L (0.7-2.1)
--- NOTE | 2024-07-13 06:05 | EXP.HP ---
History of Present Illness *Admission Date: 07/13/24 *Reason for visit:: Fall with alcohol abuse *History of present illness: This is a 63-year-old male with a past medical history of alcohol abuse, drinks half 1/5 a day, gastritis, cirrhosis, COPD who presents to the emergency department today after fall. Per reports, patient fell and was found by his landlord. He reported that he was unable to walk so 911 was called. Upon arrival to the emergency department he stated that he was unable to fill any part of his body and that it was all numb. Patient underwent CT imaging CT head neck and total spine with no obvious abnormalities. Further into the workup with the emergency department he was able to move his legs willingly to take off his close. Ambulation was attempted but he was a max to assist and unable to bear weight for discharge. Laboratory evaluation emergency department notable for transaminitis, lactic of 2.5. He underwent IV fluid administration with multivitamins. Despite hydration and time he was unable to ambulate for discharge. Given this he is admitted to hospital service [facility] Disclaimer: The information contained in this section may have been updated after the patient was seen, as this information can be updated by other users. Medical History (Updated 07/13/24 @ 11:08 by Yesenia Polanco RN) GERD (gastroesophageal reflux disease) Dyspnea on exertion Encounter for screening for malignant neoplasm of lung Smoking greater than 30 pack years Bipolar 1 disorder Abnormal LFTs Black tarry stools Alcohol intoxication Chronic low back pain Alcoholism Anxiety and depression Blindness of right eye COPD (chronic obstructive pulmonary disease) Common bile duct dilatation Hiatal hernia Pancreatitis, acute Elevated LFTs Surgical History (Updated 07/13/24 @ 11:09 by Yesenia Polanco RN) History of ankle surgery H/O knee surgery Hx of neck surgery History of cornea transplant History of lumbar fusion Family History (Updated 07/13/24 @ 11:08 by Yesenia Polanco RN) Other Cancer Family history of diabetes mellitus type II Family history of stroke No significant family history Social History (Updated 07/13/24 @ 11:09 by Yesenia Polanco, SHIRA) Smoking Status: Current every day smoker tobacco type: cigarettes packs per day: 1 alcohol intake: current alcohol intake frequency: 3 or more drinks per day substance use type: denies use current occupational status: other Travel in the last 8 weeks: None household members: none housing: house lives independently: Yes marital status: education level: high school caffeine: No special feliciano needs: No agree to transfusion: No do you feel safe at home: Yes victim of physical abuse: No victim of emotional abuse: No victim of sexual abuse: No would you like helpful sources: No Contact w/someone who lives/traveled outside [place] past 30 days?: No Exposure to someone with infectious disease in past 14 days?: No Do you have a fever (greater than 100.4 F or 38 C)?: No Have you tested positive for COVID-19: No Exposed to someone with COVID-19 in past 14 days?: No Do you have a sore throat?: No Do you have a cough?: No Do you have any weakness?: No Are you experiencing any nausea/vomitting?: No Do you have any diarrhea?: No Are you experiencing any unusual bleeding?: No Do you have any muscle aches/pain?: No Do you have any abdominal pain?: No Are you experiencing loss of taste or smell?: No Other Medical History Have you received the Flu Vaccine for this season: No Have you received the Pneumonia Vaccine: Yes Review of Systems Review of Systems Review of systems:: pertinent systems reviewed and negative unless documented below Review of systems (narrative): Negative except for HPI Meds Home Medications and Allergies Home Medications ?Medication ?Instructions ?Recorded ?Confirmed ?Type aspirin 81 mg tablet 81 mg PO DAILY 05/27/24 07/13/24 History albuterol sulfate 90 mcg/actuation 2 puff inhalation Q4HP PRN 05/28/24 07/13/24 Rx aerosol inhaler shortness of breath or wheezing #8.5 grams ezetimibe 10 mg tablet 10 mg PO DAILY #90 tabs 05/28/24 07/13/24 Rx folic acid 1 mg tablet 1 mg PO DAILY #90 tabs 05/28/24 07/13/24 Rx lactulose 10 gram/15 mL oral 10 g (15 mL) PO DAILY #1,500 mL 05/28/24 07/13/24 Rx solution multivitamin with folic acid 400 1 tab PO DAILY #90 tabs 05/28/24 07/13/24 Rx mcg tablet (Tab-A-Nanci) thiamine HCl (vitamin B1) 100 mg 100 mg PO DAILY 30 days #90 tabs 05/28/24 07/13/24 Rx tablet topiramate 25 mg tablet 25 mg PO DAILY #90 tabs 05/28/24 07/13/24 Rx umeclidinium 62.5 mcg-vilanterol 1 inh inhalation DAILY 90 days 05/28/24 07/13/24 Rx 25 mcg/actuation powdr for #180 ea inhalation (Anoro Ellipta) epinephrine 0.3 mg/0.3 mL 0.3 mg IM Q4HP PRN anaphylaxis 07/13/24 07/13/24 History injection, auto-injector (EpiPen 2-Khai) famotidine 40 mg tablet 40 mg PO HS 07/13/24 07/13/24 History fluticasone propionate 110 1 puff inhalation BIDRT 07/13/24 07/13/24 History mcg/actuation HFA aerosol inhaler (Flovent HFA) pantoprazole 40 mg tablet,delayed 40 mg PO BID 07/13/24 07/13/24 History release (Protonix) quetiapine 25 mg tablet 25 mg PO HS 07/13/24 07/13/24 History New Prescriptions to Start Prescriptions: Allergies Allergy/AdvReac Type Severity Reaction Status Date / Time amoxicillin (AMOXICILLIN) Allergy Mild Unknown Verified 05/30/24 14:03 allergy reaction Penicillins (PENICILLINS) Allergy Mild Unknown Verified 05/30/24 14:03 allergy reaction BEE STINGS Allergy Severe Anaphylaxis Uncoded 05/30/24 14:03 Exam Data for Last 24 hours Vital signs and Labs for Last 24 Hours: Temp Pulse Resp BP Pulse Ox O2 Del Method 98.3 F 73 16 110/64 97 Room Air 07/13/24 00:25 07/13/24 05:00 07/13/24 05:00 07/13/24 05:00 07/13/24 05:00 07/13/24 03:30 Laboratory Results - last 24 hr 07/13/24 00:16: Urine Opiates Screen Negative, Urine Methadone Screen Negative, Ur Barbituates Screen Negative, Ur Phencyclidine Scrn Negative, Ur Amphetamines Screen Negative, U Benzodiazepines Scrn Negative, Urine Cocaine Screen Negative, U Marijuana (THC) Screen Positive H 07/13/24 00:18: WBC 8.7, RBC 4.42 L, Hgb 14.5, Hct 43.5, MCV 98.4 H, MCH 32.8 H, MCHC 33.3, RDW 14.7, Plt Count 94 L, MPV 9.1, Neut % (Auto) 58.9, Lymph % (Auto) 32.5, [place] % (Auto) 5.9, Eos % (Auto) 1.7, Baso % (Auto) 0.8, Neut # (Auto) 5.1, Lymph # (Auto) 2.8, [place] # (Auto) 0.5, Eos # (Auto) 0.2, Baso # (Auto) 0.1, Sodium 148 H, Potassium 4.0, Chloride 110 H, Carbon Dioxide 23, Anion Gap 19.0 H, BUN 6 L, Creatinine 0.80, Estimated Creat Clear 91, Estimated GFR 98, Est GFR ( Amer) 119, Glucose 117 H, Calcium 9.4, Total Bilirubin 0.9, AST 194 H, ALT 107 H, Alkaline Phosphatase 165 H, Total Creatine Kinase 90, Troponin I < 0.01, Total Protein 7.7, Albumin 4.3, Globulin 3.4 H, Albumin/Globulin Ratio 1.3, Plasma/Serum Alcohol 357 H 07/13/24 01:14: Lactate 3.4 H 07/13/24 01:16: Urine Color Yellow, Urine Appearance Clear, Urine pH 6.0, Ur Specific [employer] <= 1.005, Urine Protein Negative, Urine Glucose (UA) Negative, Urine Ketones Negative, Urine Blood Negative, Urine Nitrate Negative, Urine Bilirubin Negative, Urine Urobilinogen 0.2, Ur Leukocyte Esterase Negative, Urine RBC None, Urine WBC Occasional, Ur Squamous Epith Cells None, Urine Bacteria Trace 07/13/24 03:41: Troponin I < 0.01 07/13/24 05:27: Lactate 2.5 H I & O for Last 24 hours: Intake & Output 07/10/24 07/11/24 07/12/24 07/13/24 23:59 23:59 23:59 23:59 Weight 83.915 kg Constitutional Constitutional: no acute distress *Routine HEENT Exam Head: Present normocephalic Eye: Present EOMI and PERRL ENT: Present mucous membranes moist *Routine Neck Exam Neck: Present supple; Absent lymphadenopathy *Routine Respiratory Exam Respiratory: Present CTA bilaterally *Routine Cardiovascular Exam Cardiovascular: Present RRR *Routine Abdominal Exam Abdominal: Present soft and normoactive bowel sounds; Absent tenderness *Routine Rectal Exam Rectal:: deferred *Routine Genitalia Exam Genitalia:: deferred *Routine Extremities Exam Extremities: Absent cyanosis, clubbing or edema *Routine Skin Exam Skin: Present warm; Absent rash *Routine Neurological Exam Neurological: Present alert and oriented X3 Assessment and Plan *Assessment and plan (1) Declining functional status: Status: Acute Category: Medical Code(s): R53.81 - Other malaise (2) Alcohol abuse: Status: Acute Category: Social Hx Code(s): F10.10 - Alcohol abuse, uncomplicated (3) Fall: Status: Acute Category: Medical Code(s): W19.XXXA - Unspecified fall, initial encounter (4) HTN (hypertension): Status: Acute Qualifiers: Hypertension type: primary hypertension Qualified Code(s): I10 - Essential (primary) hypertension Category: Medical Code(s): I10 - Essential (primary) hypertension (5) Cirrhosis: Status: Chronic Qualifiers: Ascites presence: without ascites Hepatic cirrhosis type: alcoholic cirrhosis Qualified Code(s): K70.30 - Alcoholic cirrhosis of liver without ascites Category: Medical Code(s): K74.60 - Unspecified cirrhosis of liver Plan 63-year-old male with alcohol abuse disorder. Presented with weakness and intoxication. Unable to ambulate. Admitted for CIWA protocol after discussion with the ER physician. Medicine decided to admit. Initiated on CIWA protocol. Will attempt ambulation in the morning. Monitor for withdrawal symptoms. Problems addressed as follows: #Alcohol abuse EtOH today 357. Reports drinking up to 1/5 daily. Continue CIWA Continue maintenance IV fluids with oral multivitamins, thiamine daily Seizure precautions Continue home Seroquel #Fall Initially reported numbness all over but that is improved. Patient still unable to bear weight to ambulate. Will need PT and OT Up to bedside with assistance for meals #Chronic obstructive pulmonary disease Not in exacerbation at this time Continue as needed bronchodilators
[2024-07-13] MEDS: 0.9 % SODIUM CHLORIDE 1000ML 1,000 ML 999 ML IV (06:22)
[2024-07-13 06:34] LABS: Microscopic, Urine URINE MICROSCOPIC (MICROSCOPIC)
[2024-07-13 06:36] LABS: Appearance,Urine CLEAR (Clear); Bilirubin,Urine Negative (Negative); Blood, Urine Negative (Negative); Color,Urine YELLOW (Yellow); Glucose,Urine (UA) Negative (Negative); Ketones,Urine Negative (Negative); Leukocyte Esterase,Urine Negative (Negative); Nitrate,Urine Negative (Negative); Protein,Urine Negative (Negative); Specific Gravity, Urine <= 1.005 (1.005-1.030); Urobilinogen,Urine 0.2 EU/dl (0.2)
[2024-07-13 07:30] LABS: Reflex Lactic (2 hrs) Add Lactic Reflex
[2024-07-13 07:52] LABS: Lactic Acid Follow up (RFLX 2) 1.8 mmol/L (0.7-2.1)
--- NOTE | 2024-07-13 07:52 | PC.NURSE ---
Walked patient to the bathroom. Breakfast tray delivered
[2024-07-13 08:23] LABS: Creatine Kinase 119 U/L (55-170)
[2024-07-13 08:53] LABS: Troponin I < 0.01 ng/ml (0.00-0.034)
[2024-07-13 09:21] LABS: Vitamin B12 661 pg/mL (239-931)
[2024-07-13 09:37] LABS: Folate > 20.00 ng/mL
--- NOTE | 2024-07-13 10:04 | PC.NURSE ---
pt resting at this time. call light is within reach. pt ambulated well with x1 assist to the bathroom.
--- NOTE | 2024-07-13 11:08 | HMH.PHAINT1 ---
Pharmacy Intervention Comments: MEDICATION RECONCILIATION COMPLETE USING EXTERNAL PHARMACY FILL HISTORY AND RECENT MD OFFICE VISIT NOTE.
--- NOTE | 2024-07-13 16:42 | PC.NURSE ---
AOX4, CIWA SCORE 1 THIS SHIFT. DID SIT UP TO CHAIR FOR A LITTLE OVER AN HOUR. TOLERATED AMBULATION WELL WITH MINIMAL ASSISTANCE. SEIZURE PADS IN PLACE.
[2024-07-13] MEDS: QUETIAPINE 25MG TABLET 25 MG PO (20:37)
[2024-07-13] MEDS: PANTOPRAZOLE 40MG TABLET 40 MG PO (20:37)
[2024-07-14] VITALS: BP 148/72; PULSE 53; RESP 17; TEMP 36.5; O2SAT 98
[2024-07-14 04:00] VITALS: BP 121/62; PULSE 52; RESP 17; TEMP 36.4; O2SAT 97; BMI 27.3
--- NOTE | 2024-07-14 05:02 | PC.NURSE ---
Pt is alert and oriented x4. Pt CIWA scores remain 0. Pt has no complaints and denies pain. Pt has rested well this shift and has had no acute changes to note.
[2024-07-14 08:00] VITALS: BP 139/73; PULSE 58; RESP 16; TEMP 36.7; O2SAT 98
[2024-07-14 08:01] LABS: Basophils % 0.9 % (0.1-2.0); Eosinophils # 0.1 K/mm3 (0.0-0.4); Eosinophils % 2.4 % (0.1-12.0); Hematocrit 36.9 % (42.0-52.0); Hemoglobin 12.4 g/dL (14.1-18.0); Lymphocytes # 1.2 K/mm3 (0.7-4.5); Lymphocytes % 36.5 % (10-50); Mean Corpuscular HGB Conc 33.6 g/dL (31.8-35.4); Mean Corpuscular Hemoglobin 33.1 pg (27.0-31.2); Mean Corpuscular Volume 98.4 fl (80-94); Monocytes # 0.4 K/mm3 (0.1-1.0); Monocytes % 11.9 % (1.7-9.3); Neutrophils # 1.6 K/mm3 (1.8-7.8); Neutrophils % 48.3 % (37.0-80.0); Platelet Count 53 K/mm3 (142-424); Red Blood Count 3.75 M/mm3 (4.60-6.20); Red Cell Distribution Width 14.3 % (11.5-17.5); White Blood Count 3.3 K/mm3 (4.8-10.8)
[2024-07-14 08:11] LABS: Chloride 107 mmol/L (98-107); Potassium 3.8 mmoL/L (3.5-5.1); Sodium 140 mmol/L (136-145)
[2024-07-14 08:14] LABS: Anion Gap 7.8 mEq/L (5-15); Blood Urea Nitrogen 5 mg/dl (9-20); Calcium 8.7 mg/dl (8.4-10.2); Carbon Dioxide 29 mmol/L (22.0-30.0); Creatinine Clearance Estimated 91 mL/min (50-200); Estimated Glomerular Filt Rate 137 ml/min (>60); GFR (African American) 165 ML/MIN (>60); Glucose 78 mg/dl (74-100)
[2024-07-14] MEDS: FOLIC ACID 1MG TABLET 1 MG PO (09:00)
[2024-07-14] MEDS: ASPIRIN EC 81MG TABLET 81 MG PO (09:00)
[2024-07-14] MEDS: PANTOPRAZOLE 40MG TABLET 40 MG PO (09:00)
[2024-07-14] MEDS: UMECLIDINIUM/VILANTEROL 62.5/25MCG INHALER 1 PUFF IH (09:34)
--- NOTE | 2024-07-14 10:46 | EXP.DC.SUM ---
General Admission date:: 07/13/24 Discharge date: 07/14/24 HPI HPI HPI: This is a 63-year-old male with a past medical history of alcohol abuse, drinks half 1/5 a day, gastritis, cirrhosis, COPD who presents to the emergency department today after fall. Per reports, patient fell and was found by his landlord. He reported that he was unable to walk so 911 was called. Upon arrival to the emergency department he stated that he was unable to fill any part of his body and that it was all numb. Patient underwent CT imaging CT head neck and total spine with no obvious abnormalities. Further into the workup with the emergency department he was able to move his legs willingly to take off his close. Ambulation was attempted but he was a max to assist and unable to bear weight for discharge. Laboratory evaluation emergency department notable for transaminitis, lactic of 2.5. He underwent IV fluid administration with multivitamins. Despite hydration and time he was unable to ambulate for discharge. Given this he is admitted to hospital service Hospital Course Hospital Course Hospital Course: 63-year-old male with alcohol abuse disorder. Presented with weakness and intoxication. Unable to ambulate. Admitted for CIWA protocol after discussion with the ER physician. Medicine decided to admit. Initiated on CIWA protocol. Patient showed improvement as he sobered up. Able to ambulate with a walker which is his baseline assistive device. Walked over 150 feet. Therapy evaluated prior to discharge home. Did not have a significant withdrawal symptoms. Given his clinical stability, will discharge home with plan for home health PT and OT to improve functionality and decrease risk for readmission. Problems addressed as follows: #Alcohol abuse EtOH on day of admission elevated at 357. Reports drinking up to 1/5 daily. Initiated on CIWA protocol. Patient felt better after sobering up. Did not have any seizures or significant withdrawal symptoms. Able to advance diet. Tolerating supplementation. Has no desire to quit drinking at this time. #Fall Initially reported numbness all over but that is improved. Patient still unable to bear weight to ambulate. Ambulation improved as he sobered up. Still had some pain in his legs. CK of 95 on day of discharge. Able to ambulate with nursing and a walker which he uses at home. Therapy evaluated. Stable discharge home with home health therapy. #Chronic obstructive pulmonary disease Not in exacerbation at this time. Continue home regimen Continue as needed bronchodilators Exam Data for Last 24 hours Vital signs and Labs for Last 24 Hours: Temp Pulse Resp BP Pulse Ox O2 Del Method O2 Flow Rate 98.0 F 66 15 100/61 L 97 Room Air 3 07/13/24 10:22 07/13/24 10:22 07/13/24 10:22 07/13/24 10:22 07/13/24 10:00 07/13/24 10:22 07/13/24 08:30 Laboratory Results - last 24 hr 07/13/24 00:16: Urine Opiates Screen Negative, Urine Methadone Screen Negative, Ur Barbituates Screen Negative, Ur Phencyclidine Scrn Negative, Ur Amphetamines Screen Negative, U Benzodiazepines Scrn Negative, Urine Cocaine Screen Negative, U Marijuana (THC) Screen Positive H 07/13/24 00:18: WBC 8.7, RBC 4.42 L, Hgb 14.5, Hct 43.5, MCV 98.4 H, MCH 32.8 H, MCHC 33.3, RDW 14.7, Plt Count 94 L, MPV 9.1, Neut % (Auto) 58.9, Lymph % (Auto) 32.5, Blaine % (Auto) 5.9, Eos % (Auto) 1.7, Baso % (Auto) 0.8, Neut # (Auto) 5.1, Lymph # (Auto) 2.8, Blaine # (Auto) 0.5, Eos # (Auto) 0.2, Baso # (Auto) 0.1, Sodium 148 H, Potassium 4.0, Chloride 110 H, Carbon Dioxide 23, Anion Gap 19.0 H, BUN 6 L, Creatinine 0.80, Estimated Creat Clear 91, Estimated GFR 98, Est GFR ( Amer) 119, Glucose 117 H, Calcium 9.4, Total Bilirubin 0.9, AST 194 H, ALT 107 H, Alkaline Phosphatase 165 H, Total Creatine Kinase 90, Troponin I < 0.01, Total Protein 7.7, Albumin 4.3, Globulin 3.4 H, Albumin/Globulin Ratio 1.3, Plasma/Serum Alcohol 357 H 07/13/24 01:14: Lactate 3.4 H 07/13/24 01:16: Urine Color Yellow, Urine Appearance Clear, Urine pH 6.0, Ur Specific [place] <= 1.005, Urine Protein Negative, Urine Glucose (UA) Negative, Urine Ketones Negative, Urine Blood Negative, Urine Nitrate Negative, Urine Bilirubin Negative, Urine Urobilinogen 0.2, Ur Leukocyte Esterase Negative, Urine RBC None, Urine WBC Occasional, Ur Squamous Epith Cells None, Urine Bacteria Trace 07/13/24 03:41: Troponin I < 0.01 07/13/24 05:27: Lactate 2.5 H 07/13/24 06:27: Urine Color Yellow, Urine Appearance Clear, Urine pH 6.0, Ur Specific [place] <= 1.005, Urine Protein Negative, Urine Glucose (UA) Negative, Urine Ketones Negative, Urine Blood Negative, Urine Nitrate Negative, Urine Bilirubin Negative, Urine Urobilinogen 0.2, Ur Leukocyte Esterase Negative, Urine RBC None, Urine WBC None, Ur Squamous Epith Cells None, Urine Bacteria None 07/13/24 07:30: Lactate 1.8 07/13/24 07:55: Total Creatine Kinase 119 D, Troponin I < 0.01, Vitamin B12 661, Folate > 20.00 I & O for Last 24 hours: Intake & Output 07/10/24 07/11/24 07/12/24 07/13/24 23:59 23:59 23:59 23:59 Intake Total 3540 / 3540 Balance 3540 / 3540 Weight 83.915 kg Constitutional Constitutional: no acute distress, average body habitus, chronically ill appearing and cooperative *Routine HEENT Exam Head: Present normocephalic Eye: Present EOMI and PERRL ENT: Present mucous membranes moist *Routine Neck Exam Neck: Present supple; Absent lymphadenopathy *Routine Respiratory Exam Respiratory: Absent CTA bilaterally, rhonchi, stridor, wheezes or crackles *Routine Cardiovascular Exam Cardiovascular: Present RRR *Routine Abdominal Exam Abdominal: Present soft and normoactive bowel sounds; Absent tenderness *Routine Rectal Exam Patient deferred: visual exam *Routine Exam Patient deferred: penile exam *Routine Extremities Exam Extremities: Absent cyanosis, clubbing or edema Comments: thighs tender to palpation bilaterally *Routine Skin Exam Skin: Present intact and warm; Absent rash *Routine Neurological Exam Neurological: Present alert, oriented X3 and moving all extremities; Absent altered mental status Results Data Completed and Pending Labs on day of discharge: Labs from last 24 hours 07/13/24 07/13/24 07/13/24 07:55 07:30 06:27 WBC RBC Hgb Hct MCV MCH MCHC RDW Plt Count MPV Neut % (Auto) Lymph % (Auto) [place] % (Auto) Eos % (Auto) Baso % (Auto) Neut # (Auto) Lymph # (Auto) [place] # (Auto) Eos # (Auto) Baso # (Auto) Sodium Potassium Chloride Carbon Dioxide Anion Gap BUN Creatinine Estimated Creat Clear Estimated GFR Est GFR ( Amer) Glucose Lactate 1.8 Calcium Total Bilirubin AST ALT Alkaline Phosphatase Total Creatine Kinase 119 D Troponin I < 0.01 Total Protein Albumin Globulin Albumin/Globulin Ratio Vitamin B12 661 Folate > 20.00 Urine Color Yellow Urine Appearance Clear Urine pH 6.0 Ur Specific [place] <= 1.005 Urine Protein Negative Urine Glucose (UA) Negative Urine Ketones Negative Urine Blood Negative Urine Nitrate Negative Urine Bilirubin Negative Urine Urobilinogen 0.2 Ur Leukocyte Esterase Negative Urine RBC None Urine WBC None Ur Squamous Epith Cells None Urine Bacteria None Urine Opiates Screen Urine Methadone Screen Ur Barbituates Screen Ur Phencyclidine Scrn Ur Amphetamines Screen U Benzodiazepines Scrn Urine Cocaine Screen U Marijuana (THC) Screen Plasma/Serum Alcohol 07/13/24 07/13/24 07/13/24 05:27 03:41 01:16 WBC RBC Hgb Hct MCV MCH MCHC RDW Plt Count MPV Neut % (Auto) Lymph % (Auto) [place] % (Auto) Eos % (Auto) Baso % (Auto) Neut # (Auto) Lymph # (Auto) [place] # (Auto) Eos # (Auto) Baso # (Auto) Sodium Potassium Chloride Carbon Dioxide Anion Gap BUN Creatinine Estimated Creat Clear Estimated GFR Est GFR ( Amer) Glucose Lactate 2.5 H Calcium Total Bilirubin AST ALT Alkaline Phosphatase Total Creatine Kinase Troponin I < 0.01 Total Protein Albumin Globulin Albumin/Globulin Ratio Vitamin B12 Folate Urine Color Yellow Urine Appearance Clear Urine pH 6.0 Ur Specific [place] <= 1.005 Urine Protein Negative Urine Glucose (UA) Negative Urine Ketones Negative Urine Blood Negative Urine Nitrate Negative Urine Bilirubin Negative Urine Urobilinogen 0.2 Ur Leukocyte Esterase Negative Urine RBC None Urine WBC Occasional Ur Squamous Epith Cells None Urine Bacteria Trace Urine Opiates Screen Urine Methadone Screen Ur Barbituates Screen Ur Phencyclidine Scrn Ur Amphetamines Screen U Benzodiazepines Scrn Urine Cocaine Screen U Marijuana (THC) Screen Plasma/Serum Alcohol 07/13/24 07/13/24 07/13/24 01:14 00:18 00:16 WBC 8.7 RBC 4.42 L Hgb 14.5 Hct 43.5 MCV 98.4 H MCH 32.8 H MCHC 33.3 RDW 14.7 Plt Count 94 L MPV 9.1 Neut % (Auto) 58.9 Lymph % (Auto) 32.5 Blaine % (Auto) 5.9 Eos % (Auto) 1.7 Baso % (Auto) 0.8 Neut # (Auto) 5.1 Lymph # (Auto) 2.8 [place]aine # (Auto) 0.5 Eos # (Auto) 0.2 Baso # (Auto) 0.1 Sodium 148 H Potassium 4.0 Chloride 110 H Carbon Dioxide 23 Anion Gap 19.0 H BUN 6 L Creatinine 0.80 Estimated Creat Clear 91 Estimated GFR 98 Est GFR ( Amer) 119 Glucose 117 H Lactate 3.4 H Calcium 9.4 Total Bilirubin 0.9 AST 194 H ALT 107 H Alkaline Phosphatase 165 H Total Creatine Kinase 90 Troponin I < 0.01 Total Protein 7.7 Albumin 4.3 Globulin 3.4 H Albumin/Globulin Ratio 1.3 Vitamin B12 Folate Urine Color Urine Appearance Urine pH Ur Specific [place] Urine Protein Urine Glucose (UA) Urine Ketones Urine Blood Urine Nitrate Urine Bilirubin Urine Urobilinogen Ur Leukocyte Esterase Urine RBC Urine WBC Ur Squamous Epith Cells Urine Bacteria Urine Opiates Screen Negative Urine Methadone Screen Negative Ur Barbituates Screen Negative Ur Phencyclidine Scrn Negative Ur Amphetamines Screen Negative U Benzodiazepines Scrn Negative Urine Cocaine Screen Negative U Marijuana (THC) Screen Positive H Plasma/Serum Alcohol 357 H DS: Diagnosis Discharge Diagnosis (1) Declining functional status: Status: Acute Code(s): R53.81 - Other malaise (2) Alcohol abuse: Status: Acute Code(s): F10.10 - Alcohol abuse, uncomplicated (3) Fall: Status: Acute Code(s): W19.XXXA - Unspecified fall, initial encounter (4) HTN (hypertension): Status: Acute Code(s): I10 - Essential (primary) hypertension Qualifiers: Hypertension type: primary hypertension Qualified Code(s): I10 - Essential (primary) hypertension (5) Cirrhosis: Status: Chronic Code(s): K74.60 - Unspecified cirrhosis of liver Qualifiers: Ascites presence: without ascites Hepatic cirrhosis type: alcoholic cirrhosis Qualified Code(s): K70.30 - Alcoholic cirrhosis of liver without ascites Meds Home Medications and Allergies Home Medications ?Medication ?Instructions ?Recorded ?Confirmed ?Type aspirin 81 mg tablet 81 mg PO DAILY 05/27/24 07/13/24 History albuterol sulfate 90 mcg/actuation 2 puff inhalation Q4HP PRN 05/28/24 07/13/24 Rx aerosol inhaler shortness of breath or wheezing #8.5 grams ezetimibe 10 mg tablet 10 mg PO DAILY #90 tabs 05/28/24 07/13/24 Rx folic acid 1 mg tablet 1 mg PO DAILY #90 tabs 05/28/24 07/13/24 Rx lactulose 10 gram/15 mL oral 10 g (15 mL) PO DAILY #1,500 mL 05/28/24 07/13/24 Rx solution multivitamin with folic acid 400 1 tab PO DAILY #90 tabs 05/28/24 07/13/24 Rx mcg tablet (Tab-A-Nanci) thiamine HCl (vitamin B1) 100 mg 100 mg PO DAILY 30 days #90 tabs 05/28/24 07/13/24 Rx tablet topiramate 25 mg tablet 25 mg PO DAILY #90 tabs 05/28/24 07/13/24 Rx umeclidinium 62.5 mcg-vilanterol 1 inh inhalation DAILY 90 days 05/28/24 07/13/24 Rx 25 mcg/actuation powdr for #180 ea inhalation (Anoro Ellipta) epinephrine 0.3 mg/0.3 mL 0.3 mg IM Q4HP PRN anaphylaxis 07/13/24 07/13/24 History injection, auto-injector (EpiPen 2-Khai) famotidine 40 mg tablet 40 mg PO HS 07/13/24 07/13/24 History fluticasone propionate 110 1 puff inhalation BIDRT 07/13/24 07/13/24 History mcg/actuation HFA aerosol inhaler (Flovent HFA) pantoprazole 40 mg tablet,delayed 40 mg PO BID 07/13/24 07/13/24 History release (Protonix) quetiapine 25 mg tablet 25 mg PO HS 07/13/24 07/13/24 History New Prescriptions to Start Prescriptions: Allergies Allergy/AdvReac Type Severity Reaction Status Date / Time amoxicillin (AMOXICILLIN) Allergy Mild Unknown Verified 05/30/24 14:03 allergy reaction Penicillins (PENICILLINS) Allergy Mild Unknown Verified 05/30/24 14:03 allergy reaction BEE STINGS Allergy Severe Anaphylaxis Uncoded 05/30/24 14:03 Discharge Plan Disposition Patient Disposition: Home Health Service Condition: Fair Discharge Order Discharge Orders: Discharge Order (Routine); Ordered 07/14/24 Ordered By: Laurent Palacio Follow up Plan Follow up with: Provider,Referral, MD [Primary Care Provider] - Enter time for follow up Prescriptions/Medication Reconciliation: Continued aspirin 81 mg tablet 81 mg PO DAILY albuterol sulfate 90 mcg/actuation HFA aerosol inhaler 2 puff INHALATION Q4HP PRN (Reason: shortness of breath or wheezing) Qty: 8.5 8RF ezetimibe 10 mg tablet 10 mg PO DAILY Qty: 90 3RF folic acid 1 mg tablet 1 mg PO DAILY Qty: 90 3RF lactulose 10 gram/15 mL solution 10 g PO DAILY Qty: 1500 3RF multivitamin with folic acid [Tab-A-Nanci] 400 mcg tablet 1 tab PO DAILY Qty: 90 1RF thiamine HCl (vitamin B1) 100 mg tablet 100 mg PO DAILY 30 Days Qty: 90 3RF topiramate 25 mg tablet 25 mg PO DAILY Qty: 90 3RF Anoro Ellipta 62.5-25 mcg/actuation blister with device 1 inh inhalation DAILY 90 Days Qty: 180 2RF quetiapine 25 mg tablet 25 mg PO HS famotidine 40 mg tablet 40 mg PO HS pantoprazole [Protonix] 40 mg tablet,delayed release (DR/EC) 40 mg PO BID epinephrine [EpiPen 2-Khai] 0.3 mg/0.3 mL auto-injector 0.3 mg IM Q4HP PRN (Reason: anaphylaxis) fluticasone propionate [Flovent HFA] 110 mcg/actuation HFA aerosol inhaler 1 puff inhalation BIDRT Problem Reconciliation Problems Reviewed?: Yes Patient Discharge Instructions ACTIVITY: Continue current activity DIET: continue same diet Patient Instructions: DI for Alcohol Use Disorder, How to Prevent Falls Print Language: Romanian Providers Primary Care Provider: Provider,Referral Admit Provider: Laurent Palacio Attending Provider: Laurent Palacio
[2024-07-14 11:10] LABS: Creatine Kinase 95 U/L (55-170)
[2024-07-14 11:54] VITALS: BP 132/63; PULSE 59; RESP 18; TEMP 36.9; O2SAT 97
--- NOTE | 2024-07-14 13:17 | HMH.PTEV ---
Physical Therapy Evaluation Rehab PT IP Evaluation Start: 07/14/24 10:49 Freq: ONCE Status: Active Protocol: Document 07/14/24 12:57 PDESEROUX (Rec: 07/14/24 13:17 [email or web address] [id number]) Subjective/History History History Pt. is a male 63 yoa who presents to 2nd floor [facility] Inpatient this date(07/14/24) for the Inpatient Physical Therapy initial evaluation. Pt . vocalizes having a fall on Monday while trying to transfer into his truck after going to [employer] Pt. c /o of shakiness and BLE giving out on his during transfer as secondary to a fall. Pt. reports he's been dealing w/ this complaint for the last several weeks that has been getting worse. Pt. reports he was scheduled for Home Health Physical Therapy for generalized weakness, but states it fell through secondary to his Health Insurance change. Pt. reports he is now responsible for 50$ co-pay w/ Outpatient Physical Therapy and is unable to pay this shelton. Pt. also c/o having to drive 15 miles to the Hospital for Outpatient Physical Therapy secondary to financial concern. Pt. expresses interest in participating in skilled Home Health Physical Therapy. Pt. reports he lives a lone w/ his dog. Pt. reports ambulation w / FWW and SPC at home. Pt. reports he is IND. w/ ADLs and is able to go out in the community. PMH includes history of ankle surgery, H/O knee surgery, Hx of neck surgery, History of cornea transplant, History of lumbar fusion, GERD, Alcoholism, COPD , Bipolar disorder. Subjective Subjective Pt. reports, I've already walked down to the end of the hallway. New diagnosis of cancer in past 12 No months? [facility] How much help from another person do you currently need... Turning from your back to your side None while in a flat bed without using bedrails? Moving from lying on back to sitting on None the side of a flat bed without using bedrails? Moving to and from a bed to a chair ( None including a wheelchair)? Standing up from a chair using your arms None ? (e.g., wheelchair, bedside chair) Walking in hospital room? None Climbing 3-5 steps with a railing? A little Mobility Score 23 Mobility Level [facility] Mobility Calculator Mobility 7 Walk 25 feet or more Rehab PT IP Eval Objective Appearance Patient Behavior Appropriate,Cooperative, Patient Baseline Patient Orientation Person,Place,Patient Baseline Difficulty following instructions none Speech Pattern Clear,Appropriate,Coherent, Baseline Function Ambulation Patient Able to Ambulate Yes Ambulation Observation IP General Gait Pattern Observation Wide Based Gait Ambulation Distance (feet) 50 Ambulation Assistive Device Rolling Walker Ambulation Ability Supervision/Stand by Balance Ability to Arise Able, uses arms to help Sitting Balance Steady, safe Standing Balance Steady, wide stance Dynamic Sitting Balance Ability Good Dynamic Standing Balance Ability Good Transfers Bed Transfer Ability Independent Chair Transfer Ability Independent Sit to Stand Bed Transfer Ability Independent Sit to Stand Chair Transfer Ability Independent ROM RLE PT ROM Status WFL LLE PT ROM Status WFL MMT RLE PT MMT WFL LLE PT MMT WFL Rehab PT IP prob,goals,plan Problems Date of Evaluation: 07/14/24 Rehab Potential Rehab Potential Innapropriate for Skilled Therapy Discharge Plan PT Discharge Plan Upon discharge from [facility], once medically stable per MD, pt. is appropriate to return to home environment w/ recommendation of skilled Home Health Physical Therapy secondary to generalized muscle weakness to improve current ADL and community function. Eval Complexity Eval Charge Codes 09030 - Low Complexity PHYSICIAN CERTIFICATION: I certify the specified therapy services for Brad Blackmon are required, authorized, and reviewed every 30 days.
--- NOTE | 2024-07-15 09:47 | SW/DCPLANNER ---
Addendum entered by Jeanne Dominguez 07/15/24 14:36: [facility] isnt able to accept patient. I offered patient to do outpatient PT and OT and patient stated that he lives too far out to do that. Mary Grace Conley Addendum entered by Jeanne Dominguez 07/15/24 14:04: [facility] is[facility] able to accept patient. Im going to fax patients info to [facility]. Mary Grace Conley Addendum entered by Jeanne Dominguez 07/15/24 10:45: [facility] is not able to accept patient. Faxed [facility] info to [facility]. I will update once i hear back from [facility]. Mary Grace Conlye Original Note: Spoke with patient on the phone. Patient stated that he is doing well. Patient stated that he has not made a follow up phone call yet. Patient stated that he was not prescribed any new medicine. Patient stated that he has no concerns or questions at this time. Mary Grace Conley. Spoke with patient over the phone about home health services. Patient stated that he is interested in home health and that he has no preference. I faxed patients info to [facility] and will update once i hear back. Mary Grace Conley
--- OUTSIDE RECORDS SUMMARY | 2024-07-18 19:44 | XMS_ITS ---
Author Organization Unknown TREATMENT PLAN Planned Care Start Date Provider Encounter for Check-up [phone] [facility]
--- NOTE | 2024-07-23 12:43 | PEERSUPPORT ---
Peer Support Note Patient Information Patient Information: DOS: 07/23/2024 Reason: ETOH, AUD ED Ps Consult Pt stated he is doign better, about to make a call to primary care to check his follow up appointment date and time. Ps provides contact information to receive recovery support ongoing. Pt is receptive and accepting of this information, and will look into medically assisted treatment outpatient through [facility] after he has talked to his primary care provider.
== END 2024-07-14 13:53 | disposition home or self-care (01) ==
LOC: ER 05:53 → 2ND 05:54
PROVIDERS: Nurse Practitioner Acute Care; Admitting Provider Internal Medicine Adolescent Medicine; Emergency Provider Emergency Medicine; Visit Provider Internal Medicine Adolescent Medicine
DX: F10.220 Alcohol dependence with intoxication, uncomplicated (principal); R26.2 Difficulty in walking, not elsewhere classified; W19.XXXA Unspecified fall, initial encounter; I10 Essential (primary) hypertension; K70.30 Alcoholic cirrhosis of liver without ascites; Y90.8 Blood alcohol level of 240 mg/100 ml or more; R53.1 Weakness; K29.70 Gastritis, unspecified, without bleeding; Z99.89 Dependence on other enabling machines and devices; F12.90 Cannabis use, unspecified, uncomplicated; F17.210 Nicotine dependence, cigarettes, uncomplicated; G89.29 Other chronic pain; F41.9 Anxiety disorder, unspecified; F32.A Depression, unspecified; H54.61 Unqualified visual loss, right eye, normal vision left eye; J44.9 Chronic obstructive pulmonary disease, unspecified; K83.8 Other specified diseases of biliary tract; K21.9 Gastro-esophageal reflux disease without esophagitis; K44.9 Diaphragmatic hernia without obstruction or gangrene; Z98.890 Other specified postprocedural states; Z83.3 Family history of diabetes mellitus; Z82.3 Family history of stroke; Z86.73 Personal history of transient ischemic attack (TIA), and cerebral infarction without residual deficits; Z80.9 Family history of malignant neoplasm, unspecified; Z79.82 Long term (current) use of aspirin; Z79.51 Long term (current) use of inhaled steroids; Z79.899 Other long term (current) drug therapy; Z88.0 Allergy status to penicillin; Z88.1 Allergy status to other antibiotic agents; Z91.030 Bee allergy status
CPT/HCPCS: 36415; 70450; 70496; 70498; 71045; 72125; 72128; 72131; 80048; 80053; 80307; 80320; 81001; 82550; 82607; 82746; 83605; 84484; 85025; 93005; 97161; 99285; G0378; J1630; J2405; J3411; J7030; J7120; Q9967

== ENCOUNTER 2024-08-20 18:10 | Emergency (ER) | payer MEDICARE, MEDICAID, SELFPAY ==
[2024-08-20] VITALS (8 sets, daily range): BP systolic 105–142; BP diastolic 66–80; PULSE 69–80; RESP 16–20; TEMP 36.6–36.7; O2SAT 96–100; BMI 21.7; BMI 26.6
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
--- NOTE | 2024-08-20 18:21 | ECG_ITS ---
APPROVED REPORT Exam: Resting ECG HR:70 bpm ECG Measurements Heart Rate 70 AXES IL 199 P 35 QRSd 113 QRS -20 QT 401 T 50 QTc 422 Conclusion SINUS RHYTHM INCOMPLETE RIGHT BUNDLE BRANCH BLOCK [90+ ms QRS DURATION, TERMINAL R IN V1/V2, 40+ ms S IN I/aVL/V4/V5/V6] BORDERLINE ECG Electronically signed by : MAITE CAZARES, 09/02/2024 07:45:39
[2024-08-20 18:36] LABS: Microscopic, Urine URINE MICROSCOPIC (MICROSCOPIC)
[2024-08-20 18:42] LABS: Appearance,Urine CLEAR (Clear); Bilirubin,Urine Negative (Negative); Blood, Urine Negative (Negative); Color,Urine YELLOW (Yellow); Glucose,Urine (UA) Negative (Negative); Ketones,Urine Negative (Negative); Leukocyte Esterase,Urine Negative (Negative); Nitrate,Urine Negative (Negative); Protein,Urine Negative (Negative); Specific Gravity, Urine <= 1.005 (1.005-1.030)
--- NOTE | 2024-08-20 18:46 | PC.NURSE ---
To RAD now
--- NOTE | 2024-08-20 18:46 | PC.NURSE ---
transported to ct
--- NOTE | 2024-08-20 18:48 | PC.NURSE ---
blood drawn and sent to lab
[2024-08-20] MEDS: 0.9 % SODIUM CHLORIDE 50 ML VIAL 100 ML IV (19:02)
[2024-08-20] MEDS: SODIUM CHLORIDE 0.9% 10ML SYR (RAD ONLY) 10 ML IV (19:03)
[2024-08-20] MEDS: IOPAMIDOL-370 (76%);100ML BOTTLE 160 ML IV (19:03)
[2024-08-20 19:08] LABS: Albumin Level 3.6 g/dl (3.5-5.0); Basophils % 0.6 % (0.1-2.0); Chloride 109 mmol/L (98-107); Eosinophils # 0.1 Kmm3 (0.0-0.4); Eosinophils % 2.9 % (0.1-12.0); Hematocrit 34.6 % (42.0-52.0); Hemoglobin 11.4 g/dL (14.1-18.0); Immature Granulocytes # 0.01 10^3uL; Immature Granulocytes % 0.3 %; Lymphocytes % 32.6 % (10-50); Mean Corpuscular HGB Conc 32.9 g/dL (31.8-35.4); Mean Corpuscular Hemoglobin 32.8 pg (27.0-31.2); Mean Corpuscular Volume 99.4 fl (80-94); Mean Platelet Volume 11.2 fl (7.4-10.4); Monocytes # 0.6 K/mm3 (0.1-1.0); Monocytes % 19.4 % (1.7-9.3); Neutrophils # 1.4 K/mm3 (1.8-7.8); Neutrophils % 44.2 % (37.0-80.0); Nucleated Red Blood Cells # 0 10^3/uL; Nucleated Red Blood Cells % 0 %; Potassium 3.1 mmoL/L (3.5-5.1); Red Blood Count 3.48 M/mm3 (4.60-6.20); Red Cell Distribution Width 15.8 % (11.5-17.5); Red Cell Distribution Width-SD 57.5 fL; Sodium 140 mmol/L (136-145); White Blood Count 3.1 K/mm3 (4.8-10.8)
[2024-08-20 19:11] LABS: Alanine Aminotransferase 116 U/L (12-78); Albumin/Globulin Ratio 1.2 (1.1-1.8); Alkaline Phosphatase 147 U/L (38-126); Anion Gap 11.1 mEq/L (5-15); Aspartate Amino Transferase 195 U/L (17-59); Bilirubin,Total 1.3 mg/dl (0.2-1.3); Blood Urea Nitrogen 8 mg/dl (9-20); Calcium 8.8 mg/dl (8.4-10.2); Carbon Dioxide 23 mmol/L (22.0-30.0); Creatinine Clearance Estimated 88 mL/min (50-200); Estimated Glomerular Filt Rate 98 ml/min (>60); GFR (African American) 119 ML/MIN (>60); Glucose 100 mg/dl (74-100); Lipase 325 U/L (23-300); Total Protein,Serum 6.6 g/dl (6.3-8.2)
[2024-08-20 19:14] LABS: Activated Partial Thrombo Time 26.7 seconds (22.8-30.6); INR 1.07 (0.9-1.1); Prothrombin Time 11.9 seconds (10.1-12.5)
[2024-08-20 19:14] LABS: Bacteria,Urine Trace /lpf; RBC,Urine Occasional #/hpf (0-3); Squamous Epithelial Cell,Urine Occasional #/hpf (0-5); WBC,Urine Occasional #/hpf (0-3)
[2024-08-20 19:23] LABS: Ethyl Alcohol 111 mg/dl (0-10)
--- NOTE | 2024-08-20 19:27 | PC.NURSE ---
rounded on pt. given urinal as requested. 400ml urine emptied.
[2024-08-20] MEDS: ACETAMINOPHEN 1,000MG/100ML VIAL 1000 MG IV (19:30)
[2024-08-20] MEDS: MORPHINE 4MG/ML SYRINGE 4 MG IV (19:31)
[2024-08-20 19:52] LABS: Platelet Count 43 K/mm3 (142-424)
--- NOTE | 2024-08-20 19:59 | PC.NURSE ---
reported critical platelet count to Dr Tipton
[2024-08-20] MEDS: POTASSIUM CHLORIDE 20MEQ TAB 40 MEQ PO (20:14)
--- NOTE | 2024-08-20 20:24 | PC.NURSE ---
c collar removed per MD Tipton.
== END 2024-08-20 21:32 | disposition home or self-care (01) ==
PROVIDERS: Emergency Provider Emergency Medicine
DX: M54.9 Dorsalgia, unspecified (principal); F10.129 Alcohol abuse with intoxication, unspecified; E87.6 Hypokalemia; D69.6 Thrombocytopenia, unspecified; K83.1 Obstruction of bile duct; F17.210 Nicotine dependence, cigarettes, uncomplicated; V49.40XA Driver injured in collision with unspecified motor vehicles in traffic accident, initial encounter; Y92.410 Unspecified street and highway as the place of occurrence of the external cause; Y90.5 Blood alcohol level of 100-119 mg/100 ml
CPT/HCPCS: 70450; 70496; 70498; 71045; 71275; 72125; 72170; 74174; 80053; 80320; 81001; 83690; 85025; 85610; 85730; 93005; 96374; 96375; 99285; J0131; J2270; Q9967

== ENCOUNTER 2024-08-23 14:10 | Outpatient (CLI) | payer MEDICARE, MEDICAID, SELFPAY ==
[2024-08-23 18:15] LABS: Basophils % 0.7 % (0.1-2.0); Eosinophils # 0.1 Kmm3 (0.0-0.4); Eosinophils % 1.9 % (0.1-12.0); Hemoglobin 12.7 g/dL (14.1-18.0); Immature Granulocytes # 0.01 10^3uL; Immature Granulocytes % 0.2 %; Lymphocytes # 1.1 K/mm3 (0.7-4.5); Lymphocytes % 26.8 % (10-50); Mean Corpuscular HGB Conc 32.6 g/dL (31.8-35.4); Mean Corpuscular Hemoglobin 33.2 pg (27.0-31.2); Mean Corpuscular Volume 101.8 fl (80-94); Mean Platelet Volume 11.1 fl (7.4-10.4); Monocytes % 23.5 % (1.7-9.3); Neutrophils % 46.9 % (37.0-80.0); Nucleated Red Blood Cells # 0 10^3/uL; Nucleated Red Blood Cells % 0 %; Platelet Count 70 K/mm3 (142-424); Red Blood Count 3.83 M/mm3 (4.60-6.20); Red Cell Distribution Width 16.1 % (11.5-17.5); Red Cell Distribution Width-SD 59.8 fL; White Blood Count 4.3 K/mm3 (4.8-10.8)
[2024-08-23 19:10] LABS: Chloride 107 mmol/L (98-107); Potassium 3.2 mmoL/L (3.5-5.1); Sodium 138 mmol/L (136-145)
[2024-08-23 19:13] LABS: Anion Gap 10.2 mEq/L (5-15); Blood Urea Nitrogen 6 mg/dl (9-20); Carbon Dioxide 24 mmol/L (22.0-30.0); Estimated Glomerular Filt Rate 114 ml/min (>60); GFR (African American) 138 ML/MIN (>60)
[2024-08-23 19:14] LABS: Calcium 8.7 mg/dl (8.4-10.2); Glucose 154 mg/dl (74-100)
[2024-08-25 18:05] LABS: Peripheral Smear Review Scanned Result
== END 2024-08-23 23:59 | disposition home or self-care (01) ==
LOC: LAB.DROPOF 08-26 14:13
PROVIDERS: PCP Family Medicine; Visit Provider Family Medicine
DX: D69.6 Thrombocytopenia, unspecified (principal); E87.6 Hypokalemia
CPT/HCPCS: 80048; 85025

== ENCOUNTER 2024-08-29 10:43 | Outpatient (CLI) | payer MEDICARE, MEDICAID, SELFPAY ==
--- NOTE | 2024-08-29 11:00 | US_ITS ---
FINAL REPORT CLINICAL HISTORY: thyroid nodule COMPARISON: None FINDINGS: Sonographic images of the thyroid gland were obtained. The right thyroid lobe measures 6.3 mL in volume. The left thyroid lobe measures 15 mL in volume. The thyroid isthmus measures 5 mm. The right lobe of the thyroid gland is normal in appearance. There is a focal nodule present in the left lobe of the thyroid gland, isoechoic, measuring up to 3.1 cm in greatest dimension. This is a TI-RADS category 3 nodule, and contains some calcifications. No other left thyroid lobe mass or nodule is identified. IMPRESSION: 3.1 cm focal nodule in the left lobe of the thyroid gland, isoechoic, a TI-RADS category 3 nodule, which contains calcifications. Consider ultrasound directed FNA for further evaluation. Reviewed, Interpreted and Dictated by Josh Zapata MD Transcribed by Rolanda Cameron Authenticated and [facility]
== END 2024-08-29 23:59 | disposition home or self-care (01) ==
LOC: RAD 10:44
PROVIDERS: PCP Family Medicine; Visit Provider Family Medicine
DX: E04.1 Nontoxic single thyroid nodule (principal)
CPT/HCPCS: 76536

== ENCOUNTER 2024-09-03 08:19 | Inpatient (IN) | payer MEDICARE, MEDICAID, SELFPAY ==
[2024-09-03] VITALS (22 sets, daily range): BP systolic 123–170; BP diastolic 73–90; PULSE 64–92; RESP 12–26; TEMP 36.7–37.2; O2SAT 97–100; BMI 25.5; BMI 25.8
--- NOTE | 2024-09-03 08:36 | ECG_ITS ---
APPROVED REPORT Exam: Resting ECG HR:75 bpm ECG Measurements Heart Rate 75 AXES ND 196 P 60 QRSd 99 QRS -14 QT 431 T 47 QTc 460 Conclusion SINUS RHYTHM INCOMPLETE RIGHT BUNDLE BRANCH BLOCK [90+ ms QRS DURATION, TERMINAL R IN V1/V2, 40+ ms S IN I/aVL/V4/V5/V6] BORDERLINE ECG UNCONFIRMED REPORT Electronically signed by : RM MATUTE, 09/05/2024 02:23:16
--- NOTE | 2024-09-03 08:56 | PC.NURSE ---
Notified Resp. of VBG in lab
[2024-09-03 08:59] LABS: Basophils % 0.4 % (0.1-2.0); Eosinophils % 0.9 % (0.1-12.0); Hematocrit 37.8 % (42.0-52.0); Hemoglobin 12.7 g/dL (14.1-18.0); Immature Granulocytes # 0.01 10^3uL; Immature Granulocytes % 0.2 %; Lymphocytes # 1.2 K/mm3 (0.7-4.5); Lymphocytes % 27.4 % (10-50); Mean Corpuscular HGB Conc 33.6 g/dL (31.8-35.4); Mean Corpuscular Hemoglobin 32.9 pg (27.0-31.2); Mean Corpuscular Volume 97.9 fl (80-94); Mean Platelet Volume 9.3 fl (7.4-10.4); Monocytes # 0.3 K/mm3 (0.1-1.0); Monocytes % 6.4 % (1.7-9.3); Neutrophils # 2.9 K/mm3 (1.8-7.8); Neutrophils % 64.7 % (37.0-80.0); Nucleated Red Blood Cells # 0 10^3/uL; Nucleated Red Blood Cells % 0 %; Platelet Count 77 K/mm3 (142-424); Red Blood Count 3.86 M/mm3 (4.60-6.20); Red Cell Distribution Width 15.5 % (11.5-17.5); Red Cell Distribution Width-SD 55.6 fL; White Blood Count 4.5 K/mm3 (4.8-10.8)
[2024-09-03 09:01] LABS: Albumin Level 3.9 g/dl (3.5-5.0); Chloride 111 mmol/L (98-107); Potassium 3.7 mmoL/L (3.5-5.1); Sodium 142 mmol/L (136-145); VBG Base Excess -3.9 mmol/L (-2.4-2.3); VBG Oxygen Saturation 85.3 % (50-70); VBG PCO2 34.8 mmol/L (35-51); VBG PO2 50.6 mmol/L (28-40)
[2024-09-03 09:03] LABS: Lactate Venous 4.6 mmol/L (0.4-2.0)
[2024-09-03 09:04] LABS: Alanine Aminotransferase 84 U/L (12-78); Albumin/Globulin Ratio 1.3 (1.1-1.8); Alkaline Phosphatase 183 U/L (38-126); Anion Gap 12.7 mEq/L (5-15); Aspartate Amino Transferase 129 U/L (17-59); Bilirubin,Total 1.7 mg/dl (0.2-1.3); Blood Urea Nitrogen 6 mg/dl (9-20); Calcium 8.9 mg/dl (8.4-10.2); Carbon Dioxide 22 mmol/L (22.0-30.0); Creatinine Clearance Estimated 87 mL/min (50-200); Estimated Glomerular Filt Rate 137 ml/min (>60); GFR (African American) 165 ML/MIN (>60); Glucose 143 mg/dl (74-100); Lipase 374 U/L (23-300); Total Protein,Serum 6.9 g/dl (6.3-8.2)
[2024-09-03] MEDS: diazePAM 2MG TABLET 2 MG PO (09:10)
[2024-09-03] MEDS: POTASSIUM CHLORIDE 20MEQ TAB 60 MEQ PO (09:10)
[2024-09-03] MEDS: MAGNESIUM OXIDE 400MG TABLET 800 MG PO (09:10)
--- NOTE | 2024-09-03 09:45 | ED_ITS ---
Discharge Plan Disposition Patient Disposition: Home, Self-Care Clinical Impressions Clinical Impression: Alcohol withdrawal, Sepsis Discharge ED Provider: Cach[facility] Adult HPI General Chief complaint: Alcohol Stated complaint: alcohol withdrawl symptoms Time Seen by Provider: 09/03/24 08:21 Mode of Arrival: Ambulatory Source of Information: Patient Description of Symptoms (Recalled from ER Triage Doc. by RN): pt to the ED with complaints of nausea, headache and hot flashed x 3 days. pt reports he usually drinks a pint of vodka a day and had his last drink on 08/29. pt stated he also uses marjuiana daily which he claims has helped significantly with his symptoms so far. pt denies ever attempting to quit drinking before History of Present Illness HPI narrative: Please note that above description of symptoms, in this electronic medical record under categorization of recalled from ER triage doctor by RN are reflective of an initial nursing assessment, however, is not reflective of my full history and physical exam that was personally taken and clarified. Consequentially, this preceding description of symptoms, which may include the patient's categorized chief complaint in the EMR, do not reflect my personal clinical impression, and the ultimate description of history of present illness and patient stated complaints should be deferred to this section of the note. Unless stated otherwise or congruent with this section of the note, additional signs, symptoms, or incongruence should be interpreted as inaccurate with my clinical impression. Related Data Home Medications ?Medication ?Instructions ?Recorded ?Confirmed aspirin 81 mg tablet 81 mg PO DAILY 05/27/24 09/03/24 epinephrine 0.3 mg/0.3 mL 0.3 mg IM Q4HP PRN anaphylaxis 07/13/24 09/03/24 injection, auto-injector (EpiPen 2-Khai) famotidine 40 mg tablet 40 mg PO HS 07/13/24 09/03/24 fluticasone propionate 110 1 puff inhalation BID 07/13/24 09/03/24 mcg/actuation HFA aerosol inhaler (Flovent HFA) pantoprazole 40 mg tablet,delayed 40 mg PO BID 07/13/24 09/03/24 release (Protonix) quetiapine 25 mg tablet 25 mg PO HS 07/13/24 09/03/24 Previous Rx's ?Medication ?Instructions ?Recorded albuterol sulfate 90 mcg/actuation 2 puff inhalation Q4HP PRN 05/28/24 aerosol inhaler shortness of breath or wheezing #8.5 grams ezetimibe 10 mg tablet 10 mg PO DAILY #90 tabs 05/28/24 folic acid 1 mg tablet 1 mg PO DAILY #90 tabs 05/28/24 multivitamin with folic acid 400 1 tab PO DAILY #90 tabs 05/28/24 mcg tablet (Tab-A-Nanci) thiamine HCl (vitamin B1) 100 mg 100 mg PO DAILY 30 days #90 tabs 05/28/24 tablet topiramate 25 mg tablet 25 mg PO DAILY #90 tabs 05/28/24 umeclidinium 62.5 mcg-vilanterol 1 inh inhalation DAILY 90 days 05/28/24 25 mcg/actuation powdr for #180 ea inhalation (Anoro Ellipta) potassium chloride 20 mEq 20 meq PO DAILY #30 tabs 08/26/24 tablet,extended release(part/cryst) (Klor-Con M) pwvums-biqttwaf-bznwued 2 cap PO BID #120 caps 08/27/24 40,000-126,000-168,000 unit capsule, delay rel (Zenpep) Allergies Allergy/AdvReac Type Severity Reaction Status Date / Time amoxicillin (AMOXICILLIN) Allergy Mild Unknown Verified 08/23/24 09:54 allergy reaction Penicillins (PENICILLINS) Allergy Mild Unknown Verified 08/23/24 09:54 allergy reaction BEE STINGS Allergy Severe Anaphylaxis Uncoded 05/30/24 14:03 [facility] Disclaimer: The information contained in this section may have been updated after the patient was seen, as this information can be updated by other users. Medical History GERD (gastroesophageal reflux disease) CVA (cerebral vascular accident) Dyspnea on exertion Encounter for screening for malignant neoplasm of lung Smoking greater than 30 pack years Bipolar 1 disorder Abnormal LFTs Black tarry stools Alcohol intoxication Cirrhosis Chronic low back pain Alcoholism Anxiety and depression Blindness of right eye COPD (chronic obstructive pulmonary disease) Common bile duct dilatation Hiatal hernia Pancreatitis, acute Elevated LFTs Surgical History History of ankle surgery H/O knee surgery Hx of neck surgery History of cornea transplant History of lumbar fusion Family History Other Cancer Family history of diabetes mellitus type II Family history of stroke No significant family history Social History Smoking Status: Current every day smoker tobacco type: cigarettes packs per day: 1 alcohol intake: current alcohol intake frequency: 3 or more drinks per day substance use type: denies use current occupational status: disabled and other Travel in the last 8 weeks?: None household members: none housing: house lives independently: Yes marital status: education level: high school caffeine: No special feliciano needs: No agree to transfusion: No do you feel safe at home: Yes victim of physical abuse: No victim of emotional abuse: No victim of sexual abuse: No would you like helpful sources: No Have you lived/traveled outside [place] in past 30 days?: No Contact w/someone who lives/traveled outside US past 30 days?: No Exposure to someone with infectious disease in past 14 days?: No Do you have a fever (greater than 100.4 F or 38 C)?: No Have you tested positive for COVID-19?: No Exposed to someone with COVID-19 in past 14 days?: No Do you have a sore throat?: No Do you have a cough?: No Do you have any weakness?: No Do you have any diarrhea?: No Are you experiencing any unusual bleeding?: No Do you have any muscle aches/pain?: No Do you have any abdominal pain?: No Are you experiencing loss of taste or smell?: No Other Medical History Have you received the Flu Vaccine for this season: No Have you received the Pneumonia Vaccine: No ROS Obtained: Yes All systems reviewed & no additional complaints except as documented Physical Exam General General appearance: alert Head Head exam: atraumatic and normocephalic Eye Eye exam: Present normal appearance, PERRL and EOMI Neck Neck exam: Present normal inspection, full ROM and trachea midline Respiratory Respiratory exam: Absent respiratory distress, wheezes, stridor, accessory muscle use or prolonged expiratory phase Cardiovascular Cardiovascular exam: Present other (Pulses equal symmetric in upper and lower extremities) Abdominal Exam Abdominal exam: Present soft; Absent distention, tenderness or pulsatile mass Extremities Exam Extremities exam: Absent edema Neurological Exam Neurological exam: Present alert, oriented X3 and CN II-XII intact; Absent motor sensory deficit Skin Skin exam: Present warm and dry; Absent diaphoresis or erythema Medical Decision Making Medical Records Medical records reviewed: Yes I reviewed the patient's medical records. Screening: Per USPSTF and CDC recommendations, given the prevalence of disease in our region, it is our hospital?s policy to screen for HIV and viral Hepatitis for all patients aged 18 and over and those with ongoing risk factors. Caesar Inquiry Pt receiving controlled substance: No Caesar was queried for this patient: No Vital Signs: 09/03/24 08:29 09/03/24 08:30 09/03/24 09:15 Temperature 98.1 F Temperature Source Oral Pulse Rate 80 72 Pulse Rate [Left Radial] 77 Respiratory Rate 17 18 20 Blood Pressure 169/85 H 164/86 H Blood Pressure [Right Arm] 169/85 H Blood Pressure Mean [Right Arm] 113 Blood Pressure Source [Right Arm] Automatic Cuff Blood Pressure Position [Right Arm] Sitting 02 Sat by Pulse Oximetry 99 99 99 Oxygen Delivery Method Room Air Room Air 09/03/24 09:30 09/03/24 10:00 09/03/24 10:15 Temperature Temperature Source Pulse Rate 65 64 64 Pulse Rate [Left Radial] Respiratory Rate 12 16 16 Blood Pressure 162/82 H 156/75 H 145/74 H Blood Pressure [Right Arm] Blood Pressure Mean [Right Arm] Blood Pressure Source [Right Arm] Blood Pressure Position [Right Arm] 02 Sat by Pulse Oximetry 98 99 98 Oxygen Delivery Method 09/03/24 10:30 09/03/24 10:45 09/03/24 11:01 Temperature Temperature Source Pulse Rate 68 76 71 Pulse Rate [Left Radial] Respiratory Rate 17 20 16 Blood Pressure 149/78 H 163/84 H 153/74 H Blood Pressure [Right Arm] Blood Pressure Mean [Right Arm] Blood Pressure Source [Right Arm] Blood Pressure Position [Right Arm] 02 Sat by Pulse Oximetry 100 99 99 Oxygen Delivery Method 09/03/24 11:15 09/03/24 11:30 09/03/24 11:45 Temperature Temperature Source Pulse Rate 72 69 72 Pulse Rate [Left Radial] Respiratory Rate 20 Blood Pressure 170/90 H 160/82 H 169/87 H Blood Pressure [Right Arm] Blood Pressure Mean [Right Arm] Blood Pressure Source [Right Arm] Blood Pressure Position [Right Arm] 02 Sat by Pulse Oximetry 98 99 99 Oxygen Delivery Method Room Air 09/03/24 12:02 09/03/24 12:16 09/03/24 12:30 Temperature Temperature Source Pulse Rate 70 72 73 Pulse Rate [Left Radial] Respiratory Rate 21 23 26 H Blood Pressure 168/83 H 166/79 H 153/87 H Blood Pressure [Right Arm] Blood Pressure Mean [Right Arm] Blood Pressure Source [Right Arm] Blood Pressure Position [Right Arm] 02 Sat by Pulse Oximetry 98 98 98 Oxygen Delivery Method 09/03/24 12:45 09/03/24 13:00 09/03/24 13:05 Temperature 98.2 F Temperature Source Pulse Rate 68 68 75 Pulse Rate [Left Radial] Respiratory Rate 18 20 20 Blood Pressure 153/81 H 158/73 H 158/73 H Blood Pressure [Right Arm] Blood Pressure Mean [Right Arm] Blood Pressure Source [Right Arm] Blood Pressure Position [Right Arm] 02 Sat by Pulse Oximetry 98 97 Oxygen Delivery Method Room Air Lab Data Lab Results 09/03/24 08:44: WBC 4.5 L, RBC 3.86 L, Hgb 12.7 L, Hct 37.8 L, MCV 97.9 H, MCH 32.9 H, MCHC 33.6, RDW 15.5, Plt Count 77 L, MPV 9.3, Neut % (Auto) 64.7, Lymph % (Auto) 27.4, [place] % (Auto) 6.4, Eos % (Auto) 0.9, Baso % (Auto) 0.4, Neut # (Auto) 2.9, Lymph # (Auto) 1.2, [place] # (Auto) 0.3, Eos # (Auto) 0.0, Baso # (Auto) 0.0, VBG pH 7.40, VBG pCO2 34.8 L, VBG pO2 50.6 H, VBG HCO3 21.0 L, VBG Total CO2 22.0 L, VBG O2 Saturation 85.3 H, VBG Base Excess -3.9 L, VBG Lactic Acid 4.6 H, Sodium 142, Potassium 3.7, Chloride 111 H, Carbon Dioxide 22, Anion Gap 12.7, BUN 6 L, Creatinine 0.60 L, Estimated Creat Clear 87, Estimated GFR 137, Est GFR ( Amer) 165, Glucose 143 H, Calcium 8.9, Total Bilirubin 1.7 H, AST 129 H, ALT 84 H, Alkaline Phosphatase 183 H, Total Protein 6.9, Albumin 3.9, Globulin 3.0, Albumin/Globulin Ratio 1.3, Lipase 374 H 09/03/24 11:32: Lactate 3.3 H 09/03/24 08:44 09/03/24 08:44 Orders (Tests/Meds): ED MEDICATIONS Generic Name Dose Route Start Last Admin Trade Name Freq PRN Reason Stop Dose Admin Albuterol/Ipratropium 3 ml 09/03/24 18:37 Ipratropium/Albuterol 3 Ml Neb IH 10/03/24 18:36 Q6HP PRN Shortness Of Breath Diazepam 10 mg 09/03/24 12:23 Diazepam 10mg/2ml Syringe IV 10/03/24 12:22 Q1HP PRN CIWA >16 Diazepam 5 mg 09/03/24 12:23 09/04/24 03:19 Diazepam 5mg Tablet PO 10/03/24 12:22 5 mg Q1HP PRN Administration CIWA Score 8-15 Diazepam 5 mg 09/03/24 12:23 09/03/24 14:19 Diazepam 5mg Tablet PO 10/03/24 12:22 5 mg Q6HP PRN Administration CIWA 2-7 Ezetimibe 10 mg 09/04/24 09:00 Ezetimibe 10mg Tablet PO 10/04/24 08:59 DAILY CHAUNCEY Folic Acid 1 mg 09/04/24 09:00 Folic Acid 1mg Tablet PO 10/04/24 08:59 DAILY CHAUNCEY Multivitamins 10 ml/ Thiamine 1,015 mls @ 125 mls/hr 09/04/24 09:00 HCl 100 mg/ Magnesium Sulfate IV 10/04/24 08:59 2 gm/ Lactated Ringer's DAILY CHAUNCEY Non-Formulary Medication 40 mg 09/03/24 21:00 09/03/24 21:39 Famotidine PO 10/03/24 20:59 40 mg HS CHAUNCEY Administration Non-Formulary Medication 2 cap 09/03/24 21:00 09/03/24 21:37 Bdnqrm-Vtmdfmqi-Qidgoea [Zenpep] PO 10/03/24 20:59 Not Given BID CHAUNCEY Pantoprazole Sodium 40 mg 09/03/24 21:00 09/03/24 21:38 Pantoprazole 40mg Tablet PO 10/03/24 20:59 40 mg BID CHAUNCEY Administration Quetiapine Fumarate 25 mg 09/03/24 21:00 09/03/24 21:38 Quetiapine 25mg Tablet PO 10/03/24 20:59 25 mg HS CHAUNCEY Administration Topiramate 25 mg 09/04/24 09:00 Topiramate 25mg Tablet PO 10/04/24 08:59 DAILY CHAUNCEY Umeclidinium/Vilanterol 1 puff 09/04/24 09:00 Umeclidinium/Vilanterol 62.5/25mcg Inhaler IH 10/04/24 08:59 DAILY CHAUNCEY Discontinued Medications Generic Name Dose Route Start Last Admin Trade Name Freq PRN Reason Stop Dose Admin Chlordiazepoxide HCl 10 mg 09/03/24 08:53 09/03/24 09:10 Chlordiazepoxide 10mg Capsule PO 09/03/24 08:54 10 mg ONCE ONE Administration Diazepam 2 mg 09/03/24 08:53 09/03/24 09:10 Diazepam 2mg Tablet PO 09/03/24 08:54 2 mg ONCE ONE Administration Lactated Ringer's 1,000 mls @ 999 mls/hr 09/03/24 09:34 09/03/24 09:52 Lactated Ringer's 1000 Ml Bag IV 09/03/24 10:34 999 mls/hr .Q1H1M ONE Administration Lactated Ringer's 1,000 mls @ 999 mls/hr 09/03/24 09:35 09/03/24 09:52 Lactated Ringer's 1000 Ml Bag IV 09/03/24 10:35 999 mls/hr .Q1H1M ONE Administration Ceftriaxone Sodium 2 gm/ 100 mls @ 200 mls/hr 09/03/24 12:23 09/03/24 13:04 Sodium Chloride IV 09/03/24 12:52 200 mls/hr ONCE ONE Administration Magnesium Oxide 800 mg 09/03/24 08:53 09/03/24 09:10 Magnesium Oxide 400mg Tablet PO 09/03/24 08:54 800 mg ONCE ONE Administration Nicotine 21 mg 09/03/24 17:30 09/03/24 17:30 Nicotine 21mg/24hr Patch TD 09/03/24 17:31 21 mg ONCE ONE Administration Potassium Chloride 60 meq 09/03/24 08:53 09/03/24 09:10 Potassium Chloride 20meq Tab PO 09/03/24 08:54 60 meq ONCE ONE Administration Trazodone HCl 100 mg 09/03/24 20:51 Trazodone 50mg Tablet PO 10/03/24 20:50 HSP PRN Insomnia ORDERS Category Date Time Status Consult Immigration Inspector [CONS] Routine Cons 09/03/24 08:45 Active CBC w/Auto Diff [Complete Blood Count Auto Diff] Stat Lab 09/03/24 08:44 Completed CMP [Comprehensive Metabolic Panel] Stat Lab 09/03/24 08:44 Completed Lactic Acid Stat Lab 09/03/24 11:32 Completed Lipase Stat Lab 09/03/24 08:44 Completed Blood Culture Stat Micro 09/03/24 12:32 Received VBG [Venous Blood Gas] Stat RT 09/03/24 08:44 Completed Medical Decision Narrative: 63-year-old male history of chronic alcoholism, hypertension, hyperlipidemia, COPD, presenting with alcohol withdrawal. He states that he stopped drinking approximately 5 days prior to this. Usually drinks a little over a pint of hard liquor a day. States that his tremors have been getting worse, feels lightheaded, weak, having difficulty walking due to generalized weakness. He has had multiple falls. Was vomiting, no longer vomiting, no diarrhea. Able to tolerate p.o. intake. Patient has no blood in his vomit or stool, shortness of breath, chest pain, or any other concerns. History was obtained via conversation with patient. On arrival, patient hemodynamically stable, alert, oriented x4, appropriate, GCS 15, moving all extremities spontaneously, pupils equal and reactive to light. Full physical exam performed and significant for well- appearing male no acute distress. He is hypertensive, mildly tremulous with intention tremor, but at rest not tremoring. Not responding to internal stimuli, very pleasant and speaking full sentences. Nontachycardic. Differential includes alcohol withdrawal, intoxication, among others. Patient placed on continuous cardiac monitoring and continuous pulse ox with initial blood pressure 169/85, heart rate 77, saturation 99% on room air. Independent interpretation of EKG shows sinus rhythm 75 bpm with AK 196, QRS 99, QTc 460. Incomplete right bundle branch block morphology with no acute ischemic changes. Patient was given IV fluids, rally pack, magnesium and potassium for symptomatic management and correction of underlying abnormalities. Workup independently interpreted and significant for nonactionable CBC. Patient's VBG with normal pH, CO2 normal at 35, bicarb a little low at 21, lactate elevated at 4.6. Normal kidney function, LFTs with AST to ALT ratio consistent with chronic alcoholic hepatitis, alkaline phosphatase is elevated at 183 and bilirubin 1.7. On reevaluation, patient resting comfortably. Tissue perfusion reassessment performed within 3 hours, patient mentating, following commands, good capillary refill and hemodynamically stable. Patient's repeat lactate still greater than 3. Out of concern for sepsis and an appropriate response of lactate, patient was given 2 g ceftriaxone, blood cultures were drawn. Hospital medicine was contacted and case was discussed at length. Given patient presentation, workup, history, this most likely represents acute alcohol withdrawal versus bacteremia. I feel more likely alcohol withdrawal given no other systemic signs or symptoms, clinically well-appearing male with labs otherwise concerning for underlying liver disease, mild metabolic changes. Cannot be ruled out, so admitted for further discernment. Label Stamper disclaimer Much of this encounter note is an electronic computer help desk specialist spoken language to printed text. Electronic computer help desk specialist of the spoken language may permit errors. Although I have reviewed the note, some errors may still exist. Critical Care Critical Care Time Critical Care Time: Yes (sepsis, toxicologic) Attestation: On 09/03/24, the high probability of a clinically significant, sudden or life threatening deterioration of the following system(s) required my full and direct attention, intervention and personal management. The time I documented below is in addition to time spent performing reported procedures but includes the following listed in this critical care notation. Total Time Total Critical Care Time: 35
[2024-09-03] MEDS: LACTATED RINGERS 1000ML 1,000 ML 999 ML IV ×2 (09:52)
--- NOTE | 2024-09-03 09:58 | PC.NURSE ---
left two voicemails with pcp office about moving back appt today
--- NOTE | 2024-09-03 11:33 | PC.NURSE ---
Irma in lab notified of lactic order placed and blood sent up at this time
[2024-09-03 11:55] LABS: Lactic Acid 3.3 mmol/L (0.7-2.1)
[2024-09-03 13:02] LABS: Reflex Lactic Add Lactic Reflex
[2024-09-03] MEDS: CEFTRIAXONE SODIUM 2 GM in 0.9 % SODIUM CHLORIDE 100 ML IV (13:04)
--- NOTE | 2024-09-03 13:28 | PC.NURSE ---
pt arrived on floor via wheelchair @[phone]
--- NOTE | 2024-09-03 14:02 | P.HP_ITS ---
History of Present Illness *Admission Date: 09/03/24 *Reason for visit:: Tremors, withdrawal symptoms *History of present illness: 63-year-old male with history of chronic alcoholism, hypertension, COPD. Presents with symptoms of alcohol withdrawal. States he stopped drinking approximately 5 days ago, drinks little over a pint a day. Tremors have been getting worse. Feeling lightheaded and weak. Presented to the ER due to vomiting, diarrhea, fatigue and withdrawal symptoms. Denies blood in vomit or stool. Denies shortness of breath or chest pain. On workup in the ER, found to have elevated blood pressure, heart rate in the 70s. O2 sats of 99% on room air. Noted to have an elevation of his lactate even after fluid resuscitation. Given desire to withdraw from alcohol and be treated for his symptoms along with elevated lactate of unexplained etiology, medicine consulted for admission and further management [facility] Disclaimer: The information contained in this section may have been updated after the patient was seen, as this information can be updated by other users. Medical History GERD (gastroesophageal reflux disease) CVA (cerebral vascular accident) Dyspnea on exertion Encounter for screening for malignant neoplasm of lung Smoking greater than 30 pack years Bipolar 1 disorder Abnormal LFTs Black tarry stools Alcohol intoxication Cirrhosis Chronic low back pain Alcoholism Anxiety and depression Blindness of right eye COPD (chronic obstructive pulmonary disease) Common bile duct dilatation Hiatal hernia Pancreatitis, acute Elevated LFTs Surgical History History of ankle surgery H/O knee surgery Hx of neck surgery History of cornea transplant History of lumbar fusion Family History Other Cancer Family history of diabetes mellitus type II Family history of stroke No significant family history Social History Smoking Status: Current every day smoker tobacco type: cigarettes packs per day: 1 alcohol intake: current alcohol intake frequency: 3 or more drinks per day substance use type: denies use current occupational status: disabled and other Travel in the last 8 weeks?: None household members: none housing: house lives independently: Yes marital status: education level: high school caffeine: No special feliciano needs: No agree to transfusion: No do you feel safe at home: Yes victim of physical abuse: No victim of emotional abuse: No victim of sexual abuse: No would you like helpful sources: No Have you lived/traveled outside US in past 30 days?: No Contact w/someone who lives/traveled outside US past 30 days?: No Exposure to someone with infectious disease in past 14 days?: No Do you have a fever (greater than 100.4 F or 38 C)?: No Have you tested positive for COVID-19?: No Exposed to someone with COVID-19 in past 14 days?: No Do you have a sore throat?: No Do you have a cough?: No Do you have any weakness?: No Do you have any diarrhea?: No Are you experiencing any unusual bleeding?: No Do you have any muscle aches/pain?: No Do you have any abdominal pain?: No Are you experiencing loss of taste or smell?: No Other Medical History Have you received the Flu Vaccine for this season: No Have you received the Pneumonia Vaccine: No Review of Systems Review of Systems Review of systems (narrative): 14 point review of systems performed, pertinent positives and negatives as per HPI Meds Home Medications and Allergies Home Medications ?Medication ?Instructions ?Recorded ?Confirmed ?Type aspirin 81 mg tablet 81 mg PO DAILY 05/27/24 09/03/24 History albuterol sulfate 90 mcg/actuation 2 puff inhalation Q4HP PRN 05/28/24 09/03/24 Rx aerosol inhaler shortness of breath or wheezing #8.5 grams ezetimibe 10 mg tablet 10 mg PO DAILY #90 tabs 05/28/24 09/03/24 Rx folic acid 1 mg tablet 1 mg PO DAILY #90 tabs 05/28/24 09/03/24 Rx multivitamin with folic acid 400 1 tab PO DAILY #90 tabs 05/28/24 09/03/24 Rx mcg tablet (Tab-A-Nanci) thiamine HCl (vitamin B1) 100 mg 100 mg PO DAILY 30 days #90 tabs 05/28/24 09/03/24 Rx tablet topiramate 25 mg tablet 25 mg PO DAILY #90 tabs 05/28/24 09/03/24 Rx umeclidinium 62.5 mcg-vilanterol 1 inh inhalation DAILY 90 days 05/28/24 09/03/24 Rx 25 mcg/actuation powdr for #180 ea inhalation (Anoro Ellipta) epinephrine 0.3 mg/0.3 mL 0.3 mg IM Q4HP PRN anaphylaxis 07/13/24 09/03/24 History injection, auto-injector (EpiPen 2-Khai) famotidine 40 mg tablet 40 mg PO HS 07/13/24 09/03/24 History fluticasone propionate 110 1 puff inhalation BID 07/13/24 09/03/24 History mcg/actuation HFA aerosol inhaler (Flovent HFA) pantoprazole 40 mg tablet,delayed 40 mg PO BID 07/13/24 09/03/24 History release (Protonix) quetiapine 25 mg tablet 25 mg PO HS 07/13/24 09/03/24 History potassium chloride 20 mEq 20 meq PO DAILY #30 tabs 08/26/24 09/03/24 Rx tablet,extended release(part/cryst) (Klor-Con M) qriibn-opqwsugr-vnrufpm 2 cap PO BID #120 caps 08/27/24 09/03/24 Rx 40,000-126,000-168,000 unit capsule, delay rel (Zenpep) New Prescriptions to Start Prescriptions: Allergies Allergy/AdvReac Type Severity Reaction Status Date / Time amoxicillin (AMOXICILLIN) Allergy Mild Unknown Verified 08/23/24 09:54 allergy reaction Penicillins (PENICILLINS) Allergy Mild Unknown Verified 08/23/24 09:54 allergy reaction BEE STINGS Allergy Severe Anaphylaxis Uncoded 05/30/24 14:03 Exam Data for Last 24 hours Vital signs and Labs for Last 24 Hours: Temp Pulse Resp BP Pulse Ox O2 Del Method 98.2 F 66 19 147/86 H 97 Room Air 09/03/24 13:05 09/03/24 13:30 09/03/24 13:30 09/03/24 13:30 09/03/24 13:30 09/03/24 13:30 Laboratory Results - last 24 hr 09/03/24 08:44: WBC 4.5 L, RBC 3.86 L, Hgb 12.7 L, Hct 37.8 L, MCV 97.9 H, MCH 32.9 H, MCHC 33.6, RDW 15.5, Plt Count 77 L, MPV 9.3, Neut % (Auto) 64.7, Lymph % (Auto) 27.4, [place] % (Auto) 6.4, Eos % (Auto) 0.9, Baso % (Auto) 0.4, Neut # (Auto) 2.9, Lymph # (Auto) 1.2, [place] # (Auto) 0.3, Eos # (Auto) 0.0, Baso # (Auto) 0.0, VBG pH 7.40, VBG pCO2 34.8 L, VBG pO2 50.6 H, VBG HCO3 21.0 L, VBG Total CO2 22.0 L, VBG O2 Saturation 85.3 H, VBG Base Excess -3.9 L, VBG Lactic Acid 4.6 H, Sodium 142, Potassium 3.7, Chloride 111 H, Carbon Dioxide 22, Anion Gap 12.7, BUN 6 L, Creatinine 0.60 L, Estimated Creat Clear 87, Estimated GFR 137, Est GFR ( Amer) 165, Glucose 143 H, Calcium 8.9, Total Bilirubin 1.7 H, AST 129 H, ALT 84 H, Alkaline Phosphatase 183 H, Total Protein 6.9, Albumin 3.9, Globulin 3.0, Albumin/Globulin Ratio 1.3, Lipase 374 H 09/03/24 11:32: Lactate 3.3 H I & O for Last 24 hours: Intake & Output 08/31/24 09/01/24 09/02/24 09/03/24 23:59 23:59 23:59 23:59 Output Total 0 / 0 Balance 0 / 0 Weight 79.469 kg Constitutional Constitutional: mild distress, chronically ill appearing and cooperative *Routine HEENT Exam Head: Present normocephalic Eye: Present EOMI and PERRL ENT: Present mucous membranes moist *Routine Neck Exam Neck: Present supple; Absent lymphadenopathy *Routine Respiratory Exam Respiratory: Present CTA bilaterally; Absent rhonchi or wheezes *Routine Cardiovascular Exam Cardiovascular: Present RRR *Routine Abdominal Exam Abdominal: Present soft and normoactive bowel sounds; Absent tenderness *Routine Rectal Exam Rectal:: deferred *Routine Genitalia Exam Genitalia:: deferred *Routine Extremities Exam Extremities: Absent cyanosis, clubbing or edema *Routine Skin Exam Skin: Present intact and warm; Absent rash *Routine Neurological Exam Neurological: Present alert, oriented X3 and moving all extremities; Absent altered mental status Assessment and Plan *Assessment and plan (1) Alcohol withdrawal: Status: Acute Category: Medical Code(s): F10.939 - Alcohol use, unspecified with withdrawal, unspecified (2) Hypokalemia: Status: Acute Category: Medical Code(s): E87.6 - Hypokalemia (3) Thrombocytopenia: Status: Acute Category: Medical Code(s): D69.6 - Thrombocytopenia, unspecified (4) Tobacco abuse: Status: Acute Category: Medical Code(s): Z72.0 - Tobacco use (5) HTN (hypertension): Status: Acute Qualifiers: Hypertension type: primary hypertension Qualified Code(s): I10 - Essential (primary) hypertension Category: Medical Code(s): I10 - Essential (primary) hypertension (6) Cirrhosis: Status: Acute Category: Medical Code(s): K74.60 - Unspecified cirrhosis of liver (7) Anxiety and depression: Status: Chronic Category: Medical Code(s): F41.9 - Anxiety disorder, unspecified; F32.A - Depression, unspecified (8) COPD (chronic obstructive pulmonary disease): Status: Chronic Qualifiers: COPD type: unspecified COPD Qualified Code(s): J44.9 - Chronic obstructive pulmonary disease, unspecified Category: Medical Code(s): J44.9 - Chronic obstructive pulmonary disease, unspecified Plan Mr. Blackmon is a 63-year-old male who presents with poor p.o. intake, alcohol withdrawal symptoms. Discussed case with ER physician, request admission for withdrawal and further management alcohol withdrawal along with peer support consult. I agreed to admit for further care. Initiated on [facility] protocol. Problems addressed as follows: Alcohol withdrawal - Having moderate symptoms of withdrawal. Initiated on [facility] protocol. - Continue Valium as needed per protocol. Monitor for toxicity - Continue multivitamin/rally pack daily. Thiamine 100 mg daily. - White count 4.5, hemoglobin 12.7. MCV 97.9. Sodium 142, chloride 111. Kidney function normal with BUN 6, creatinine 0.6. Mild elevation of liver enzymes bilirubin 1.7, AST 129, ALT 84, alk phos 183. - CBC, CMP, magnesium ordered for the morning. -mobile security specialist consulted to assist with management and to rehab referral after discharge COPD: Continue Anoro 1 inhalation daily, initiate DuoNebs every 6 hours as needed Continue Seroquel 25 mg nightly for sleep disorder Continue pantoprazole 40 mg twice daily and famotidine 40 mg nightly for GERD Thrombocytopenia: Platelets 77, likely secondary to his underlying cirrhosis, holding anticoagulation. Monitor for signs of bleeding Given persistently elevated lactate, low white count of 4.5, abnormal vitals on presentation, administered ceftriaxone IV once. Blood cultures obtained. Low concern for infection but will cover for minimum of 48 hours with empiric therapy pending culture results Continue Zenpep 2 capsules twice daily for pancreatic insufficiency Full code Regular diet Holding anticoagulation
[2024-09-03] MEDS: diazePAM 5MG TABLET 5 MG PO ×2 (14:19→21:38)
[2024-09-03] MEDS: NICOTINE 21MG/24HR PATCH 21 MG TD (17:30)
--- NOTE | 2024-09-03 17:38 | PC.NURSE ---
Pt resting in bed. A&O x4. Has ambulated to BR with standby assist. Tolerated well. CIWA is 4. Pt states he has some nausea.Tremors were observed. Seizure pads in place. Call light within reach.
--- NOTE | 2024-09-03 18:11 | PEERSUPPORT ---
Peer Support Note Patient Information Patient Information: DOS: 09/03/2024 ? Reason: ETOH ED Ps Consult ? ETOH Last Ingested: 08/30/2024 Ps spoke with pt via phone call on 08/30/2024, discussed a prevention plan to drinking. Pt stated he has not had any alcohol and knew to come to the hospital because he was feeling so bad and could not stand it. He was having mood swings and agitated, nausea, and vomiting.? Was not able to hold down any food or water. ? ETOH HX: Alcohol majority of his was able to function, then following of his he has lost control of his drinking. ? ? Previous Treatment: [facility]- [place], [place]. Stayed sober for a few weeks after completing. ? Legal Issues: None ? Support System: Roommate/friend-Zane ? Current Stressors: Withdrawal symptoms Not able to sleep Nausea-making it difficult to eat/vomiting ? Motivation for Change: Pt stated he wants to be sober and feels like getting him out of the house and connected will help him. He is interested in going to [facility] for outpatient treatment once he is discharged. ? Ps sent referral and Pt is aware when he is discharged he will report direct to [facility] for his initial appointment. Ps discussed policy and procedure and expectations of the program through services offered; Medical provider, therapy, support groups, UDS, and weekly appointments once enrolled. ? Pt is receptive and understanding accepting of this plan. ? Potential Barriers: Lack of connection to recovery support ? Harm Reduction: Connection to [facility] Peer Support Education on Alcohol use disorder Treatment referral and resources Mindful exercises- deep breathing/prayer meditation ? Recovery plan of action: -Awareness to withdrawal of alcohol/managed by [facility] -Ps to follow up on 09/03/2024
[2024-09-03] MEDS: PANTOPRAZOLE 40MG TABLET 40 MG PO (21:38)
[2024-09-03] MEDS: QUETIAPINE 25MG TABLET 25 MG PO (21:38)
[2024-09-04] MEDS: diazePAM 5MG TABLET 5 MG PO ×3 (02:10→23:20)
[2024-09-04 04:00] VITALS: BP 132/72; PULSE 72; RESP 17; TEMP 36.9; O2SAT 98; BMI 25.6
--- NOTE | 2024-09-04 04:27 | PC.NURSE ---
Alert and oriented throughout shift. CIWAs. Patient has complained of headache, attempted to call hospitalist over complaint, no answer, patient stated his symptoms were getting better. Room air. No other complaints. Lung sounds clear. Seizure precautions. Call light in reach.
[2024-09-04 06:44] LABS: Basophils % 0.7 % (0.1-2.0); Eosinophils # 0.1 Kmm3 (0.0-0.4); Eosinophils % 2.3 % (0.1-12.0); Hematocrit 32.9 % (42.0-52.0); Immature Granulocytes # 0 10^3uL; Immature Granulocytes % 0 %; Lymphocytes # 1.2 K/mm3 (0.7-4.5); Lymphocytes % 41.3 % (10-50); Mean Corpuscular HGB Conc 33.7 g/dL (31.8-35.4); Mean Corpuscular Hemoglobin 32.8 pg (27.0-31.2); Mean Corpuscular Volume 97.3 fl (80-94); Mean Platelet Volume 10.6 fl (7.4-10.4); Monocytes # 0.2 K/mm3 (0.1-1.0); Monocytes % 6.7 % (1.7-9.3); Neutrophils # 1.5 K/mm3 (1.8-7.8); Nucleated Red Blood Cells # 0 10^3/uL; Nucleated Red Blood Cells % 0 %; Platelet Count 54 K/mm3 (142-424); Red Blood Count 3.38 M/mm3 (4.60-6.20); Red Cell Distribution Width 15.1 % (11.5-17.5); Red Cell Distribution Width-SD 54.4 fL
[2024-09-04 07:24] LABS: Alanine Aminotransferase 66 U/L (12-78); Albumin Level 3.2 g/dl (3.5-5.0); Albumin/Globulin Ratio 1.1 (1.1-1.8); Alkaline Phosphatase 145 U/L (38-126); Anion Gap 7.5 mEq/L (5-15); Aspartate Amino Transferase 109 U/L (17-59); Blood Urea Nitrogen 5 mg/dl (9-20); Calcium 8.9 mg/dl (8.4-10.2); Carbon Dioxide 27 mmol/L (22.0-30.0); Chloride 109 mmol/L (98-107); Chol/HDL Ratio 3.2 (1-3.5); Cholesterol 138 mg/dl (140-200); Creatinine Clearance Estimated 85 mL/min (50-200); Estimated Glomerular Filt Rate 137 ml/min (>60); GFR (African American) 165 ML/MIN (>60); Globulin 2.8 g/dL (1.3-3.2); Glucose 90 mg/dl (74-100); HDL Cholesterol 43 mg/dl (40-60); Potassium 3.5 mmoL/L (3.5-5.1); Sodium 140 mmol/L (136-145); Triglycerides 95 mg/dl (30-150); VLDL Cholesterol 19 mg/dL (0-40)
[2024-09-04 07:34] LABS: Direct LDL Cholesterol 84.03 mg/dL (100-129)
[2024-09-04 07:42] LABS: Hemoglobin 10.9 g/dL (14.1-18.0)
[2024-09-04 08:00] VITALS: BP 134/80; PULSE 70; RESP 16; TEMP 36.7; O2SAT 99
[2024-09-04 08:25] LABS: Magnesium 1.6 mg/dl (1.6-2.3)
[2024-09-04] MEDS: POTASSIUM CHLORIDE 20MEQ TAB 40 MEQ PO ×2 (09:37→12:44)
[2024-09-04] MEDS: LIPASE/PROTEASE/AMYLASE 1 EACH CAPSULE.DR 2 EACH PO ×2 (09:37→20:10)
[2024-09-04] MEDS: EZETIMIBE 10MG TABLET 10 MG PO (09:38)
[2024-09-04] MEDS: TOPIRAMATE 25MG TABLET 25 MG PO (09:38)
[2024-09-04] MEDS: PANTOPRAZOLE 40MG TABLET 40 MG PO ×2 (09:38→20:10)
[2024-09-04] MEDS: MAGNESIUM SULFATE IN WATER 2 GM/50 ML PIGGYBACK IV (09:38)
[2024-09-04] MEDS: FOLIC ACID 1MG TABLET 1 MG PO (09:38)
[2024-09-04] MEDS: UMECLIDINIUM/VILANTEROL 62.5/25MCG INHALER 1 PUFF IH (09:56)
[2024-09-04] MEDS: MVI, ADULT NO.1 WITH VIT K 10 ML, THIAMINE HCL 100 MG, MAGNESIUM SULFATE 2 GM in LACTAT... 125 ML IV (10:57)
[2024-09-04 12:00] VITALS: BP 127/72; PULSE 75; RESP 16; TEMP 36.9; O2SAT 97
[2024-09-04 16:00] VITALS: BP 146/77; PULSE 76; RESP 20; TEMP 37; O2SAT 99
--- NOTE | 2024-09-04 18:33 | P.PN_ITS ---
Subjective *Date: 09/04/24 *Time: 22:44 Interval history: DAIN's overnight of 7-13. Denies chest pain today. Working with peer support. Improved p.o. intake. Stable on room air. Interested in outpatient rehab. Medical Exam Vital signs and Labs for Last 24 Hours: Vital Signs Temp Pulse Resp BP Pulse Ox O2 Del Method 09/04/24 18:30 Room Air 09/04/24 12:00 98.4 F 75 16 127/72 97 Room Air 09/04/24 09:54 Room Air 09/04/24 08:25 Room Air 09/04/24 08:00 98.1 F 70 16 134/80 99 Room Air 09/04/24 07:52 Room Air 09/04/24 06:42 Room Air 09/04/24 05:00 Room Air 09/04/24 04:00 98.5 F 72 17 132/72 98 Room Air 09/04/24 03:00 Room Air 09/04/24 01:00 Room Air 09/03/24 23:45 98.7 F 68 17 137/74 100 Room Air 09/03/24 23:00 Room Air 09/03/24 21:00 Room Air 09/03/24 20:00 Room Air 09/03/24 20:00 98.9 F 92 H 17 123/88 99 Room Air 09/03/24 18:55 Room Air Intake and Output 09/04/24 09/04/24 09/04/24 07:59 15:59 23:59 Intake Total 320 / 2770 1310 / 2770 1140 / 2770 Output Total 0 / 0 0 / 0 Balance 320 / 2770 1310 / 2770 1140 / 2770 Intake: Intake, Oral Amount 320 / 2070 1210 / 2070 540 / 2070 Intake, Total IV Amount 100 / 700 600 / 700 Magnesium Sulfate in Water 2 gm 100 / 100 In 50 ml @ 50 mls/hr IV Q1H [facility] Rx#:[id number] Mvi, Adult No.1 with Vit K 10 600 / 600 ml Thiamine HCl 100 mg Magnesium Sulfate 2 gm In Lactated Ringers 1000ML 1,000 ml @ 125 mls/hr IV DAILY [facility] Rx #:[id number] Output: Output, Urine Amount 0 / 0 0 / 0 Other: Number of Unmeasured Voids 1 1 Number of Bowel Movements 1 Weight 78.471 kg Patient Weight 09/04/24 23:59 Weight 78.471 kg Laboratory Results - last 24 hr 09/04/24 05:31: WBC 3.0 L D, RBC 3.38 L, Hgb 10.9 L D, Hct 32.9 L, MCV 97.3 H, MCH 32.8 H, MCHC 33.7, RDW 15.1, Plt Count 54 L D, MPV 10.6 H, Neut % (Auto) 49.0, Lymph % (Auto) 41.3, [place] % (Auto) 6.7, Eos % (Auto) 2.3, Baso % (Auto) 0.7, Neut # (Auto) 1.5 L, Lymph # (Auto) 1.2, [place] # (Auto) 0.2, Eos # (Auto) 0.1, Baso # (Auto) 0.0, Sodium 140, Potassium 3.5, Chloride 109 H, Carbon Dioxide 27, Anion Gap 7.5, BUN 5 L, Creatinine 0.60 L, Estimated Creat Clear 85, Estimated GFR 137, Est GFR ( Amer) 165, Glucose 90 D, Calcium 8.9, Magnesium 1.6, Total Bilirubin 2.0 H, AST 109 H, ALT 66, Alkaline Phosphatase 145 H, Total Protein 6.0 L, Albumin 3.2 L D, Globulin 2.8, Albumin/Globulin Ratio 1.1, Triglycerides 95, Cholesterol 138 L, LDL Cholesterol Direct 84.03 L, VLDL Cholesterol 19, HDL Cholesterol 43, Cholesterol/HDL Ratio 3.2 I & O for Labs for Last 24 Hours: Intake & Output 09/01/24 09/02/24 09/03/24 09/04/24 23:59 23:59 23:59 23:59 Intake Total 270 / 590 2770 / 2770 Output Total 0 / 0 0 / 0 Balance 270 / 590 2770 / 2770 Weight 79.469 kg 78.471 kg Microbiology Reports for the Last 24 Hours: Microbiology 09/03/24 12:25 Blood Blood Culture - Preliminary NO GROWTH AFTER 24 HOURS 09/03/24 12:32 Blood Blood Culture - Preliminary NO GROWTH AFTER 24 HOURS Constitutional: Present no acute distress, chronically ill appearing and cooperative Head: Present atraumatic and normocephalic ENT: Present normal exam Respiratory: Present normal respiratory effort; Absent rhonchi or wheezes Cardiac: Present Reg Rate and Rhythm GI: Present soft and normal bowel sounds; Absent tenderness Extremities: Present normal inspection and full ROM Skin: Present intact; Absent erythema Neuro: Present Grossly Intact, alert, awake, oriented x 3 and moves all extremities Assessment and Plan *Assessment and plan (1) Alcohol withdrawal: Status: Acute Category: Medical Code(s): F10.939 - Alcohol use, unspecified with withdrawal, unspecified (2) Hypokalemia: Status: Acute Category: Medical Code(s): E87.6 - Hypokalemia (3) Thrombocytopenia: Status: Acute Category: Medical Code(s): D69.6 - Thrombocytopenia, unspecified (4) Tobacco abuse: Status: Acute Category: Medical Code(s): Z72.0 - Tobacco use (5) HTN (hypertension): Status: Acute Qualifiers: Hypertension type: primary hypertension Qualified Code(s): I10 - Essential (primary) hypertension Category: Medical Code(s): I10 - Essential (primary) hypertension (6) Cirrhosis: Status: Acute Category: Medical Code(s): K74.60 - Unspecified cirrhosis of liver (7) Anxiety and depression: Status: Chronic Category: Medical Code(s): F41.9 - Anxiety disorder, unspecified; F32.A - Depression, unspecified (8) COPD (chronic obstructive pulmonary disease): Status: Chronic Qualifiers: COPD type: unspecified COPD Qualified Code(s): J44.9 - Chronic obstructive pulmonary disease, unspecified Category: Medical Code(s): J44.9 - Chronic obstructive pulmonary disease, unspecified Plan Mr. Blackmon is a 63-year-old male who presents with poor p.o. intake, alcohol withdrawal symptoms. Discussed case with ER physician, request admission for withdrawal and further management alcohol withdrawal along with peer support consult. I agreed to admit for further care. Initiated on CIWA protocol. Showing improvement. Responding to therapy. Problems addressed as follows: Alcohol withdrawal - Having moderate symptoms of withdrawal. Initiated on CIWA protocol. - Continue Valium as needed per protocol. Monitor for toxicity - Continue multivitamin/rally pack daily. Thiamine 100 mg daily. - White count remains low at 3, hemoglobin 10.9. Liver enzymes mildly elevated with bilirubin 2.0, AST 109, ALT 66. - Sodium 140, BUN 5, creatinine 0.6. - CBC, CMP, magnesium ordered for the morning. -patient resource specialist consulted to assist with management and to rehab referral after discharge - Anticipate discharge tomorrow with improvement in CIWA scores. COPD: Continue Anoro 1 inhalation daily, continue DuoNebs every 6 hours as needed Continue Seroquel 25 mg nightly for sleep disorder Continue pantoprazole 40 mg twice daily and famotidine 40 mg nightly for GERD Thrombocytopenia: Platelets 54, likely secondary to his underlying cirrhosis, holding anticoagulation. Monitor for signs of bleeding Given persistently elevated lactate, low white count of 3.0, continue ceftriaxone for 48 hours. Cultures remain negative. Continue Zenpep 2 capsules twice daily for pancreatic insufficiency Full code Regular diet Holding anticoagulation
[2024-09-04 20:00] VITALS: BP 128/66; PULSE 75; RESP 16; TEMP 36.8; O2SAT 98
[2024-09-04] MEDS: NICOTINE 21MG/24HR PATCH 21 MG TD (20:10)
[2024-09-04] MEDS: QUETIAPINE 25MG TABLET 25 MG PO (20:10)
[2024-09-04] MEDS: FAMOTIDINE 20MG TABLET 40 MG PO (20:10)
[2024-09-05] VITALS: BP 142/88; PULSE 88; RESP 16; TEMP 36.8; O2SAT 97
[2024-09-05] MEDS: diazePAM 5MG TABLET 5 MG PO ×2 (00:35→08:06)
--- NOTE | 2024-09-05 01:32 | PC.NURSE ---
A verbal order for Zofran 4 mg/2 mL IV every 8 hours PRN for nausea was obtained. Order was faxed to pharmacy and was received at 01:29.
[2024-09-05] MEDS: ONDANSETRON 4MG/2ML VIAL 4 MG IV (01:35)
[2024-09-05 04:00] VITALS: BP 131/70; PULSE 80; RESP 16; TEMP 36.9; O2SAT 98; BMI 26.4
--- NOTE | 2024-09-05 04:20 | PC.NURSE ---
Patient is alert and oriented x4. He was observed to have wakeful periods and resting periods (eyes closed, respirations even/unlabored on room air) throughout the night. CIWA scores were performed as appropriately throughout the shift (see intervention detail for times, scores, and symptoms reported). Oral diazepam was administered accordingly per MAR for the moderate withdrawal symptoms. Zofran was obtained/administered once per MAR for nausea. Seizure pads remain in place. Patient took a shower last night; he ambulates independently with supervision as needed. Abdomen remains distended and slightly tender upon palpation. Auscultation of his heart, lungs, and bowels were within normal findings. Patient was provided Gatorade and soft snacks to consume (has difficulty chewing due to no teeth). Scheduled medications were administered per MAR. Nicotine patch was applied to the right upper arm this shift. At this time, the patient is resting in bed without any apparent distress or further complaints. No new needs thus far. Call light within reach.
[2024-09-05 05:11] LABS: Acinetobacter calcoaceticus-ba Not Detected; Bacteroides fragilis Not Detected; Candida albicans Not Detected; Candida auris Not Detected; Candida glabrata Not Detected; Candida krusei Not Detected; Candida parapsilosis Not Detected; Candida tropicalis Not Detected; Cryptococcus neoformans/gattii Not Detected; Enterobacter cloacae complex Not Detected; Enterobacterales Not Detected; Enterococcus faecalis Not Detected; Enterococcus faecium Not Detected; Haemophilus influenzae Not Detected; Klebsiella aerogenes Not Detected; Klebsiella pneumoniae grp Not Detected; Listeria monocytogenes Not Detected; Neisseria meningitidis Not Detected; Proteus spp. Not Detected; Pseudomonas aeruginosa Not Detected; Salmonella spp. Not Detected; Serratia marcescens Not Detected; Staphylococcus epidermidis Not Detected; Staphylococcus lugdunensis Not Detected; Stenotrophomonas maltophilia Not Detected; Streptococcus agalactiae(GrpB) Not Detected; Streptococcus pneumoniae Not Detected; Streptococcus pyogenes Group A Not Detected; Streptococcus spp. Not Detected
[2024-09-05 05:12] LABS: Staphylococcus spp. Detected
--- NOTE | 2024-09-05 05:24 | PC.NURSE ---
Lab called to inform me that the patient's anaerobic blood culture from 09/03/24 serology resulted (+) for Staphylococcus species, gram (+) cocci. Yousif Manning MD was paged at this time to inform him about this.
[2024-09-05] MEDS: UMECLIDINIUM/VILANTEROL 62.5/25MCG INHALER 1 PUFF IH (06:27)
[2024-09-05 06:37] LABS: Basophils % 0.6 % (0.1-2.0); Eosinophils # 0.1 Kmm3 (0.0-0.4); Eosinophils % 1.8 % (0.1-12.0); Hematocrit 31.4 % (42.0-52.0); Hemoglobin 10.6 g/dL (14.1-18.0); Immature Granulocytes # 0 10^3uL; Immature Granulocytes % 0 %; Lymphocytes # 1.2 K/mm3 (0.7-4.5); Lymphocytes % 36.4 % (10-50); Mean Corpuscular HGB Conc 33.8 g/dL (31.8-35.4); Mean Corpuscular Hemoglobin 33.2 pg (27.0-31.2); Mean Corpuscular Volume 98.4 fl (80-94); Mean Platelet Volume 10.6 fl (7.4-10.4); Monocytes # 0.3 K/mm3 (0.1-1.0); Monocytes % 9.2 % (1.7-9.3); Neutrophils # 1.8 K/mm3 (1.8-7.8); Nucleated Red Blood Cells # 0 10^3/uL; Nucleated Red Blood Cells % 0 %; Red Blood Count 3.19 M/mm3 (4.60-6.20); Red Cell Distribution Width 15.1 % (11.5-17.5); Red Cell Distribution Width-SD 54.9 fL; White Blood Count 3.4 K/mm3 (4.8-10.8)
[2024-09-05 06:53] LABS: Alanine Aminotransferase 70 U/L (12-78); Albumin/Globulin Ratio 1.1 (1.1-1.8); Alkaline Phosphatase 154 U/L (38-126); Aspartate Amino Transferase 115 U/L (17-59); Bilirubin,Total 1.8 mg/dl (0.2-1.3); Blood Urea Nitrogen 7 mg/dl (9-20); Calcium 8.5 mg/dl (8.4-10.2); Carbon Dioxide 25 mmol/L (22.0-30.0); Chloride 110 mmol/L (98-107); Creatinine Clearance Estimated 88 mL/min (50-200); Estimated Glomerular Filt Rate 114 ml/min (>60); GFR (African American) 138 ML/MIN (>60); Globulin 2.8 g/dL (1.3-3.2); Glucose 101 mg/dl (74-100); Sodium 138 mmol/L (136-145); Total Protein,Serum 5.8 g/dl (6.3-8.2)
--- NOTE | 2024-09-05 07:19 | PC.NURSE ---
Lab called to report a critical platelet value of 44 for the patient. Pia NAVAS was paged at this time to inform him about the critical lab value.
[2024-09-05 07:20] LABS: Platelet Count 44 K/mm3 (142-424)
[2024-09-05 08:00] VITALS: BP 138/68; PULSE 78; RESP 18; TEMP 36.7; O2SAT 98
[2024-09-05] MEDS: LIPASE/PROTEASE/AMYLASE 1 EACH CAPSULE.DR 2 EACH PO (08:05)
[2024-09-05] MEDS: EZETIMIBE 10MG TABLET 10 MG PO (08:05)
[2024-09-05] MEDS: TOPIRAMATE 25MG TABLET 25 MG PO (08:05)
[2024-09-05] MEDS: PANTOPRAZOLE 40MG TABLET 40 MG PO (08:05)
[2024-09-05] MEDS: FOLIC ACID 1MG TABLET 1 MG PO (08:05)
--- NOTE | 2024-09-05 08:59 | EXP.DC.SUM ---
General Admission date:: 09/03/24 Discharge date: 09/05/24 HPI HPI HPI: 63-year-old male with history of chronic alcoholism, hypertension, COPD. Presents with symptoms of alcohol withdrawal. States he stopped drinking approximately 5 days ago, drinks little over a pint a day. Tremors have been getting worse. Feeling lightheaded and weak. Presented to the ER due to vomiting, diarrhea, fatigue and withdrawal symptoms. Denies blood in vomit or stool. Denies shortness of breath or chest pain. On workup in the ER, found to have elevated blood pressure, heart rate in the 70s. O2 sats of 99% on room air. Noted to have an elevation of his lactate even after fluid resuscitation. Given desire to withdraw from alcohol and be treated for his symptoms along with elevated lactate of unexplained etiology, medicine consulted for admission and further management Hospital Course Hospital Course Hospital Course: Mr. Blackmon is a 63-year-old male who presents with poor p.o. intake, alcohol withdrawal symptoms. Discussed case with ER physician, request admission for withdrawal and further management alcohol withdrawal along with peer support consult. I agreed to admit for further care. Initiated on CIWA protocol. Showed improvement with stability and withdrawal symptoms. injection specialist consulted during admission. Patient agreeable to follow-up with [facility] as an outpatient. Will have appointment on day of discharge to establish care for further treatment. Given improvement in withdrawal symptoms, will discharge home for further management. Problems addressed as follows: Alcohol withdrawal - Having moderate symptoms of withdrawal. Initiated on CIWA protocol. Treated with Valium per protocol. No signs of toxicity. Treated with multivitamins and thiamine daily. Patient did well with gradual improvement in CIWA scores. Minimal symptoms at time of discharge. Kidney function and electrolytes stable. Tolerating p.o. intake. injection specialist consulted to assist with management and to rehab referral after discharge. Discussed rehab with patient, he is open to following with [facility] at discharge. Wants to stop drinking. Will discharge with follow-up in the afternoon to establish care. COPD: Continue Anoro 1 inhalation daily, continue DuoNebs every 6 hours as needed. On room air at time of discharge and throughout admission. Continue Seroquel 25 mg nightly for sleep disorder Continue pantoprazole 40 mg twice daily and famotidine 40 mg nightly for GERD Thrombocytopenia: Platelets 54, likely secondary to his underlying cirrhosis, holding anticoagulation. No active signs of bleeding during admission Given persistently elevated lactate, low white count of 3.0, initiated on ceftriaxone empirically for 48 hours. Cultures remain negative. No active signs of infection. Discontinued at discharge. Continue Zenpep 2 capsules twice daily for pancreatic insufficiency Exam Data for Last 24 hours Vital signs and Labs for Last 24 Hours: Temp Pulse Resp BP Pulse Ox O2 Del Method 98.1 F 78 18 138/68 98 Room Air 09/05/24 08:00 09/05/24 08:00 09/05/24 08:00 09/05/24 08:00 09/05/24 08:00 09/05/24 08:00 Laboratory Results - last 24 hr 09/03/24 12:25: A. baumannii (PCR) Not detected, Bacteroides fragilis Not detected, Marcela albicans (PCR) Not detected, Marcela auris (PCR) Not detected, C. glabrata (PCR) Not detected, C. krusei (PCR) Not detected, C. parapsilosis (PCR) Not detected, C. tropicalis (PCR) Not detected, Cryptococcus neoformans PCR Not detected, Enterobacterales (PCR) Not detected, Enterococc faecalis PCR Not detected, Enterococc faecium PCR Not detected, E. coli (PCR) Not detected, H. influenzae DNA Not detected, Klebsiella aerogenes (PCR) Not detected, Klebsiella oxytoca PCR Not detected, K. pneumoniae group (PCR) Not detected, List. monocytogenes PCR Not detected, N. meningitidis (PCR) Not detected, Proteus species (PCR) Not detected, Salmonella spp. (PCR) Not detected, Serratia marcescens PCR Not detected, Staphylococcus sp PCR Detected, Staph aureus (PCR) Not detected, mecA/C & MREJ Resist Gene Not applicable, mecA/C-Methicil Resis Gene Not applicable, Staph epidermidis (PCR) Not detected, Staph lugdunensis (TEM-PCR) Not detected, S. maltophilia (PCR) Not detected, Streptococcus sp PCR Not detected, S.agalactiae Grp B KOKI Not detected, Strep pneumoniae (PCR) Not detected, S. pyogenes GrpA KOKI Not detected, P. aeruginosa (PCR) Not detected, [place]/B-Vanco Res Genes Not applicable, blaIMP Car res Gene PCR Not applicable, KPC-Carbap Res Gene PCR Not applicable, blaNDM Car Res Gene PCR Not applicable, OXA-48 Carbapenem Resis Gene (PCR) Not applicable, blaVIM Car Res Gene PCR Not applicable, CTX-M Gene Resistance (PCR) Not applicable, MCR-1 Resistance Gene Not applicable 09/05/24 05:40: WBC 3.4 L, RBC 3.19 L, Hgb 10.6 L, Hct 31.4 L, MCV 98.4 H, MCH 33.2 H, MCHC 33.8, RDW 15.1, Plt Count 44 L*, MPV 10.6 H, Neut % (Auto) 52.0, Lymph % (Auto) 36.4, [place] % (Auto) 9.2, Eos % (Auto) 1.8, Baso % (Auto) 0.6, Neut # (Auto) 1.8, Lymph # (Auto) 1.2, [place] # (Auto) 0.3, Eos # (Auto) 0.1, Baso # (Auto) 0.0, Sodium 138, Potassium 4.0, Chloride 110 H, Carbon Dioxide 25, Anion Gap 7.0, BUN 7 L D, Creatinine 0.70, Estimated Creat Clear 88, Estimated GFR 114, Est GFR ( Amer) 138, Glucose 101 H, Calcium 8.5, Magnesium 2.0 D, Total Bilirubin 1.8 H, AST 115 H, ALT 70, Alkaline Phosphatase 154 H, Total Protein 5.8 L, Albumin 3.0 L, Globulin 2.8, Albumin/Globulin Ratio 1.1 I & O for Last 24 hours: Intake & Output 09/02/24 09/03/24 09/04/24 09/05/24 23:59 23:59 23:59 23:59 Intake Total 270 / 590 2770 / 3220 450 / 450 Output Total 0 / 0 0 / 0 0 / 0 Balance 270 / 590 2770 / 3220 450 / 450 Weight 79.469 kg 78.471 kg 81.102 kg Microbiology Reports for the Last 24 Hours: Microbiology 09/03/24 12:25 Blood Blood Culture - Preliminary NO GROWTH AFTER 24 HOURS 09/03/24 12:32 Blood Blood Culture - Preliminary NO GROWTH AFTER 24 HOURS Constitutional Constitutional: no acute distress, average body habitus, chronically ill appearing and cooperative *Routine HEENT Exam Head: Present normocephalic Eye: Present EOMI and PERRL ENT: Present mucous membranes moist *Routine Neck Exam Neck: Present supple; Absent lymphadenopathy *Routine Respiratory Exam Respiratory: Present CTA bilaterally; Absent rhonchi, stridor, wheezes or crackles *Routine Cardiovascular Exam Cardiovascular: Present RRR *Routine Abdominal Exam Abdominal: Present soft and normoactive bowel sounds; Absent tenderness *Routine Rectal Exam Patient deferred: visual exam *Routine Exam Patient deferred: penile exam *Routine Extremities Exam Extremities: Absent cyanosis, clubbing or edema Comments: thighs tender to palpation bilaterally *Routine Skin Exam Skin: Present intact and warm; Absent rash *Routine Neurological Exam Neurological: Present alert, oriented X3 and moving all extremities; Absent altered mental status or tremors Results Data Completed and Pending Labs on day of discharge: Labs from last 24 hours 09/05/24 09/03/24 05:40 12:25 WBC 3.4 L RBC 3.19 L Hgb 10.6 L Hct 31.4 L MCV 98.4 H MCH 33.2 H MCHC 33.8 RDW 15.1 Plt Count 44 L* MPV 10.6 H Neut % (Auto) 52.0 Lymph % (Auto) 36.4 [place] % (Auto) 9.2 Eos % (Auto) 1.8 Baso % (Auto) 0.6 Neut # (Auto) 1.8 Lymph # (Auto) 1.2 [place] # (Auto) 0.3 Eos # (Auto) 0.1 Baso # (Auto) 0.0 Sodium 138 Potassium 4.0 Chloride 110 H Carbon Dioxide 25 Anion Gap 7.0 BUN 7 L D Creatinine 0.70 Estimated Creat Clear 88 Estimated GFR 114 Est GFR ( Amer) 138 Glucose 101 H Calcium 8.5 Magnesium 2.0 D Total Bilirubin 1.8 H AST 115 H ALT 70 Alkaline Phosphatase 154 H Total Protein 5.8 L Albumin 3.0 L Globulin 2.8 Albumin/Globulin Ratio 1.1 A. baumannii (PCR) Not detected Bacteroides fragilis Not detected Marcela albicans (PCR) Not detected Marcela auris (PCR) Not detected C. glabrata (PCR) Not detected C. krusei (PCR) Not detected C. parapsilosis (PCR) Not detected C. tropicalis (PCR) Not detected Cryptococcus neoformans PCR Not detected Enterobacterales (PCR) Not detected Enterococc faecalis PCR Not detected Enterococc faecium PCR Not detected E. coli (PCR) Not detected H. influenzae DNA Not detected Klebsiella aerogenes (PCR) Not detected Klebsiella oxytoca PCR Not detected K. pneumoniae group (PCR) Not detected List. monocytogenes PCR Not detected N. meningitidis (PCR) Not detected Proteus species (PCR) Not detected Salmonella spp. (PCR) Not detected Serratia marcescens PCR Not detected Staphylococcus sp PCR Detected Staph aureus (PCR) Not detected mecA/C & MREJ Resist Gene Not applicable mecA/C-Methicil Resis Gene Not applicable Staph epidermidis (PCR) Not detected Staph lugdunensis (TEM-PCR) Not detected S. maltophilia (PCR) Not detected Streptococcus sp PCR Not detected S.agalactiae Grp B KOKI Not detected Strep pneumoniae (PCR) Not detected S. pyogenes GrpA KOKI Not detected P. aeruginosa (PCR) Not detected Cayden/B-Vanco Res Genes Not applicable blaIMP Car res Gene PCR Not applicable KPC-Carbap Res Gene PCR Not applicable blaNDM Car Res Gene PCR Not applicable OXA-48 Carbapenem Resis Gene (PCR) Not applicable blaVIM Car Res Gene PCR Not applicable CTX-M Gene Resistance (PCR) Not applicable MCR-1 Resistance Gene Not applicable Preliminary micro results at discharge 09/03/24 12:25 Blood Culture - Preliminary Blood NO GROWTH AFTER 24 HOURS 09/03/24 12:32 Blood Culture - Preliminary Blood NO GROWTH AFTER 24 HOURS DS: Diagnosis Discharge Diagnosis (1) Alcohol withdrawal: Status: Acute Code(s): F10.939 - Alcohol use, unspecified with withdrawal, unspecified (2) Hypokalemia: Status: Acute Code(s): E87.6 - Hypokalemia (3) Thrombocytopenia: Status: Acute Code(s): D69.6 - Thrombocytopenia, unspecified (4) Tobacco abuse: Status: Acute Code(s): Z72.0 - Tobacco use (5) HTN (hypertension): Status: Acute Code(s): I10 - Essential (primary) hypertension Qualifiers: Hypertension type: primary hypertension Qualified Code(s): I10 - Essential (primary) hypertension (6) Cirrhosis: Status: Acute Code(s): K74.60 - Unspecified cirrhosis of liver (7) Anxiety and depression: Status: Chronic Code(s): F41.9 - Anxiety disorder, unspecified; F32.A - Depression, unspecified (8) COPD (chronic obstructive pulmonary disease): Status: Chronic Code(s): J44.9 - Chronic obstructive pulmonary disease, unspecified Qualifiers: COPD type: unspecified COPD Qualified Code(s): J44.9 - Chronic obstructive pulmonary disease, unspecified Meds Home Medications and Allergies Home Medications ?Medication ?Instructions ?Recorded ?Confirmed ?Type aspirin 81 mg tablet 81 mg PO DAILY 05/27/24 09/03/24 History albuterol sulfate 90 mcg/actuation 2 puff inhalation Q4HP PRN 05/28/24 09/03/24 Rx aerosol inhaler shortness of breath or wheezing #8.5 grams ezetimibe 10 mg tablet 10 mg PO DAILY #90 tabs 05/28/24 09/03/24 Rx folic acid 1 mg tablet 1 mg PO DAILY #90 tabs 05/28/24 09/03/24 Rx multivitamin with folic acid 400 1 tab PO DAILY #90 tabs 05/28/24 09/03/24 Rx mcg tablet (Tab-A-Nanci) thiamine HCl (vitamin B1) 100 mg 100 mg PO DAILY 30 days #90 tabs 05/28/24 09/03/24 Rx tablet topiramate 25 mg tablet 25 mg PO DAILY #90 tabs 05/28/24 09/03/24 Rx umeclidinium 62.5 mcg-vilanterol 1 inh inhalation DAILY 90 days 05/28/24 09/03/24 Rx 25 mcg/actuation powdr for #180 ea inhalation (Anoro Ellipta) epinephrine 0.3 mg/0.3 mL 0.3 mg IM Q4HP PRN anaphylaxis 07/13/24 09/03/24 History injection, auto-injector (EpiPen 2-Khai) famotidine 40 mg tablet 40 mg PO HS 07/13/24 09/03/24 History fluticasone propionate 110 1 puff inhalation BID 07/13/24 09/03/24 History mcg/actuation HFA aerosol inhaler (Flovent HFA) pantoprazole 40 mg tablet,delayed 40 mg PO BID 07/13/24 09/03/24 History release (Protonix) quetiapine 25 mg tablet 25 mg PO HS 07/13/24 09/03/24 History potassium chloride 20 mEq 20 meq PO DAILY #30 tabs 08/26/24 09/03/24 Rx tablet,extended release(part/cryst) (Klor-Con M) [id number] 2 cap PO BID #120 caps 08/27/24 09/03/24 Rx 40,000-126,000-168,000 unit capsule, delay rel (Zenpep) New Prescriptions to Start Prescriptions: Allergies Allergy/AdvReac Type Severity Reaction Status Date / Time amoxicillin (AMOXICILLIN) Allergy Mild Unknown Verified 08/23/24 09:54 allergy reaction Penicillins (PENICILLINS) Allergy Mild Unknown Verified 08/23/24 09:54 allergy reaction BEE STINGS Allergy Severe Anaphylaxis Uncoded 05/30/24 14:03 Discharge Plan Disposition Patient Disposition: Home, Self-Care Condition: Fair Discharge Order Discharge Orders: Discharge Order (Routine); Ordered 09/05/24 Ordered By: Laurent Palacio Follow up Plan Follow up with: Christian Monique MD [Primary Care Provider, [facility]] - 09/19/24 2:40 pm Prescriptions/Medication Reconciliation: Continued aspirin 81 mg tablet 81 mg PO DAILY albuterol sulfate 90 mcg/actuation HFA aerosol inhaler 2 puff INHALATION Q4HP PRN (Reason: shortness of breath or wheezing) Qty: 8.5 8RF ezetimibe 10 mg tablet 10 mg PO DAILY Qty: 90 3RF folic acid 1 mg tablet 1 mg PO DAILY Qty: 90 3RF multivitamin with folic acid [Tab-A-Nanci] 400 mcg tablet 1 tab PO DAILY Qty: 90 1RF thiamine HCl (vitamin B1) 100 mg tablet 100 mg PO DAILY 30 Days Qty: 90 3RF topiramate 25 mg tablet 25 mg PO DAILY Qty: 90 3RF Anoro Ellipta 62.5-25 mcg/actuation blister with device 1 inh inhalation DAILY 90 Days Qty: 180 2RF potassium chloride [Klor-Con M20] 20 mEq tablet,ER particles/crystals 20 meq PO DAILY Qty: 30 0RF Zenpep 40,000-126,000- 168,000 unit capsule,delayed release(DR/EC) 2 cap PO BID Qty: 120 2RF Rx Instructions: administer with meals and/or snacks quetiapine 25 mg tablet 25 mg PO HS famotidine 40 mg tablet 40 mg PO HS pantoprazole [Protonix] 40 mg tablet,delayed release (DR/EC) 40 mg PO BID epinephrine [EpiPen 2-Khai] 0.3 mg/0.3 mL auto-injector 0.3 mg IM Q4HP PRN (Reason: anaphylaxis) fluticasone propionate [Flovent HFA] 110 mcg/actuation HFA aerosol inhaler 1 puff inhalation BID Problem Reconciliation Problems Reviewed?: Yes Patient Discharge Instructions ACTIVITY: Continue current activity DIET: continue same diet Patient Instructions: Alcohol and Stress: There are Safer Ways to [place], DI for Alcohol Use Disorder Print Language: Czech Providers Primary Care Provider: Christian Monique Admit Provider: Laurent Palacio Attending Provider: Laurent Palacio
[2024-09-05] MEDS: MVI, ADULT NO.1 WITH VIT K 10 ML, THIAMINE HCL 100 MG, MAGNESIUM SULFATE 2 GM in LACTAT... 125 ML IV (09:22)
[2024-09-05] MEDS: POLYETHYLENE GLYCOL 3350 17 GM PACKET PO (09:26)
--- NOTE | 2024-09-10 10:56 | SW/DCPLANNER ---
Phoned patient x2. Left voicemail with call back name and number. Mary Grace BRAGG Calculating Machine Mechanic
--- NOTE | 2024-09-12 18:08 | PEERSUPPORT ---
Peer Support Note Patient Information Patient Information: DOS: 09/12/2024 Ps encountered pt at [facility] during his second appointment for his alcohol use disorder treatment. Pt stated he has had no alcohol since his discharge, he is keeping boundaries with others who drink. He is able to identify his emotions and being frustrated at times linking to his behaviors and actions showing self-awareness. Ps and pt discuss safe coping skills to regulate emotions: -Self-awareness to feelings and thoughts -Walk-away -Take a walk -Get outside -Deep breathing exercises Pt goals: -Slow to anger -Think before he speaks -Maintain sobriety -Communicate effectively -Stress less -Housing documents for assistance with relocating Plan: Refrain from drinking alcohol Ps to follow up with pt on 09/13/2024
== END 2024-09-05 10:18 | disposition home or self-care (01) | DRG 897 ==
LOC: ER 11:17 → 2ND 13:01
PROVIDERS: Admitting Provider Internal Medicine Adolescent Medicine; Emergency Provider Emergency Medicine; PCP Family Medicine; Visit Provider Internal Medicine Adolescent Medicine
DX: F10.239 Alcohol dependence with withdrawal, unspecified (principal); D69.6 Thrombocytopenia, unspecified; I10 Essential (primary) hypertension; K74.60 Unspecified cirrhosis of liver; R74.02 Elevation of levels of lactic acid dehydrogenase [LDH]; F41.9 Anxiety disorder, unspecified; F32.A Depression, unspecified; J44.9 Chronic obstructive pulmonary disease, unspecified; F17.210 Nicotine dependence, cigarettes, uncomplicated; R29.6 Repeated falls; K21.9 Gastro-esophageal reflux disease without esophagitis; K86.89 Other specified diseases of pancreas; Z79.82 Long term (current) use of aspirin
CPT/HCPCS: 36415; 80053; 80061; 82803; 83605; 83690; 83735; 85025; 87040; 87154; 87186; 93005; 94640; 99291; J0696; J2405; J3411; J3475; J7120

== ENCOUNTER 2024-09-10 09:10 | Outpatient (CLI) | payer MEDICARE, MEDICAID, SELFPAY ==
--- NOTE | 2024-09-10 09:00 | US_ITS ---
FINAL REPORT CLINICAL HISTORY: E04.1 - Nontoxic single thyroid nodule -- lt lobe nodule - zane padron FINDINGS: Ultrasound guided thyroid biopsy. HISTORY: Thyroid mass. PROCEDURE: After informed consent was obtained and a time-out was performed, the patient was prepped and draped in usual sterile fashion over the anterior neck. Utilizing local anesthesia and sterile technique with a 25-gauge needle, access to the lesion was obtained. Four passes were made. The patient received no conscious sedation. The patient tolerated procedure well and left the department in good condition. IMPRESSION: Status post ultrasound guided biopsy of a thyroid nodule without immediate complication. Films reviewed , interpreted and dictated by Dr. Aixa Pena. Transcribed by Zane Rivera PA-C. Reviewed, Interpreted and Dictated by Aixa Pena MD Transcribed by CHANEL Carmona Authenticated and [facility]
== END 2024-09-10 23:59 | disposition home or self-care (01) ==
LOC: RAD 09:11
PROVIDERS: PCP Family Medicine; Visit Provider Family Medicine
DX: E04.1 Nontoxic single thyroid nodule (principal)
CPT/HCPCS: 10005; 88173; 88305

== ENCOUNTER 2024-10-03 14:10 | Outpatient (CLI) | payer MEDICARE, MEDICAID, SELFPAY ==
[2024-10-03 18:28] LABS: Basophils # 0.1 K/mm3 (0-0.2); Eosinophils # 0.2 Kmm3 (0.0-0.4); Eosinophils % 3.6 % (0.1-12.0); Hematocrit 37.7 % (42.0-52.0); Hemoglobin 12.2 g/dL (14.1-18.0); Immature Granulocytes # 0.01 10^3uL; Immature Granulocytes % 0.2 %; Lymphocytes # 1.1 K/mm3 (0.7-4.5); Lymphocytes % 22.6 % (10-50); Mean Corpuscular HGB Conc 32.4 g/dL (31.8-35.4); Mean Corpuscular Hemoglobin 32.4 pg (27.0-31.2); Mean Platelet Volume 10.9 fl (7.4-10.4); Monocytes # 0.5 K/mm3 (0.1-1.0); Monocytes % 10.3 % (1.7-9.3); Neutrophils # 3.1 K/mm3 (1.8-7.8); Neutrophils % 62.3 % (37.0-80.0); Nucleated Red Blood Cells # 0 10^3/uL; Nucleated Red Blood Cells % 0 %; Platelet Count 75 K/mm3 (142-424); Red Blood Count 3.77 M/mm3 (4.60-6.20); Red Cell Distribution Width-SD 55.1 fL
[2024-10-03 19:10] LABS: Albumin Level 3.5 g/dl (3.5-5.0); Chloride 104 mmol/L (98-107); Potassium 4.5 mmoL/L (3.5-5.1); Sodium 137 mmol/L (136-145)
[2024-10-03 19:13] LABS: Alanine Aminotransferase 67 U/L (12-78); Albumin/Globulin Ratio 1.2 (1.1-1.8); Alkaline Phosphatase 134 U/L (38-126); Anion Gap 12.5 mEq/L (5-15); Aspartate Amino Transferase 91 U/L (17-59); Bilirubin,Total 1.3 mg/dl (0.2-1.3); Blood Urea Nitrogen 12 mg/dl (9-20); Calcium 9.1 mg/dl (8.4-10.2); Carbon Dioxide 25 mmol/L (22.0-30.0); Estimated Glomerular Filt Rate 114 ml/min (>60); GFR (African American) 138 ML/MIN (>60); Glucose 127 mg/dl (74-100); Total Protein,Serum 6.5 g/dl (6.3-8.2)
--- OUTSIDE RECORDS SUMMARY | 2024-10-04 10:20 | XMS_ITS | Referral Summary ---
Author Organization [employer] Address [address] [place] [address] Care Team Providers Care Silk Screen Cutter Name Role Phone Unavailable Primary Care Provider Unavailabl e Social History Tobacco Use Types Packs/Day Years Used Date Smoking Tobacco: Never Assessed Sex and Gender Information Value Date Recorded Sex Assigned at Not on file Legal Sex Male 5:42 PM CDT Gender Identity Not on file Sexual Orientation Not on file Plan of Treatment Not on file
--- OUTSIDE RECORDS SUMMARY | 2024-10-04 10:20 | XMS_ITS | Encounter Summary ---
Author Organization [employer] Address [address] [place] [address] Care Team Providers Care Merchandise Pickup/Receiving Associate Name Role Phone Unavailable Primary Care Provider Unavailabl e Encounter Details Date Type Department Care Team (Late st Contact Info) Description 08/09/2019 Transcribed Document [facility] Family Medicine [address] [place] [address] ProviderMarla MD [address] [place] [address] Social History Tobacco Use Types Packs/Day Years Used Date Smoking Tobacco: Never Assessed Sex and Gender Information Value Date Recorded Sex Assigned at Not on file Legal Sex Male 5:42 PM CDT Gender Identity Not on file Sexual Orientation Not on file documented as of this encounter Miscellaneous Notes * Cerner Conversion Note - Historical ProviderMD - 08/09/2019 11:34 PM CDT Cache Suicide Severity Rating Scale (C-SSRS) Entered On: 08/09/2019 23:56 EDT Performed On: 08/09/2019 23:54 EDT by Tereso Yarbrough RN Cache Suicide Severity Rating Scale (C-SSRS) CSSRS Past Month Wish to be : No CSSRS Past Month Suicidal Thoughts : No CSSRS Lifetime Suicide Behavior : No Suicide Severity Rating Score : 0 Suicide Severity Rating : No Additional Care Required at this time Tereso Yarbrough RN - 08/09/2019 23:54 EDT documented in this encounter Plan of Treatment Not on file documented as of this encounter Visit Diagnoses Not on filedocumented in this encounter
--- OUTSIDE RECORDS SUMMARY | 2024-10-04 10:20 | XMS_ITS | Clinical Summary ---
Author Organization [facility] Address [address] [place] [address] Care Team Providers Care Yard Laborer Name Role Phone Rubén Yoon MD Primary Care Provider + [phone] Allergies Active Allergy Reactions Criticality Noted Date Comments Penicillins Unknown - Patient st ates they do not know rxn details Low 05/28/2020 Medications ProAir HFA 108 (90 Base) MCG/ACT inhaler INHALE 2 PUFFS BY MOUTH EVERY 4 TO 6 HOURS NEEDED FOR SHORTNESS OF BREATH FOR WHEEZING 1 Active Advair Diskus 100-50 MCG/DOSE diskus inhaler Inhale 1 puff 2 (two) times a day. 1 Active Anoro Ellipta 62.5-25 MCG/INH aerosol powder 1 Active timolol (Timoptic) 0.5 % ophthalmic solutionIndicat ions:Suspected glaucoma of both eyes Administer 1 drop into the right eye 2 (two) times a day. 5 mL 3 3 Active latanoprost (Xalatan) 0.005 % ophthalmic solutionIndicat ions:Suspected glaucoma of both eyes Administer 1 drop into both eyes every night. 2.5 mL 11 3 Active fluorometholone (FML) 0.1 % ophthalmic suspensionIndic ations:Suspecte d glaucoma of both eyes Administer 1 drop into the right eye 1 (one) time each day. 5 mL 3 3 Active famotidine (Pepcid) 40 MG tablet Take 1 tablet (40 mg) by mouth 1 (one) time each day. 3 Active Zenpep 67921-505864 units capsule delayed-release particles capsule Take 2 capsules by mouth 2 (two) times a day. 3 Active pantoprazole (Protonix) 40 MG EC tablet Take 1 tablet (40 mg) by mouth 2 (two) times a day. 3 Active QUEtiapine (SEROquel) 25 MG tablet Take 1 tablet (25 mg) by mouth 1 (one) time each day. 3 Active sucralfate (Carafate) 1 g tablet Take 1 tablet (1 g) by mouth 2 (two) times a day. 3 Active GaviLyte-G 236 g solution Take by mouth 1 (one) time each day if needed. 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 03/16/2021 Suspected glaucoma of both eyes 02/01/2021 Dry eyes 10/30/2020 Status post penetrating keratoplasty 10/23/2020 Ocular hypertension of right eye 09/11/2020 Age-related nuclear cataract of left eye 021 PCO (posterior capsular opacification), right Immunizations Immunization Administration Dates Next Due Hep A, Adult 09/26/2018,03/26/2018 Hep B, Adolescent or Pediatric 01/12/2017,2016,07/12/2016 Influenza, injectable, quadr ivalent, preservative free 12/17/2017 Influenza, recombinant, quad rivalent, injectable, preservative free 12/04/2020,02/22/2020 Influenza, seasonal, injecta ble, preservative free 11/25/2016,01/06/2016 Moderna COVID-19 Vaccine (Re d Cap) 12+ years 01/13/2021,08/26/2020,07/29/2020 Pneumococcal Conjugate PCV 13 10/14/2015 Pneumococcal Polysaccharide PPV23 03/25/2018 Tdap 02/22/2014 Zoster, Recombinant 04/01/2021,01/09/2021 Family History Medical History Relation Name Comments Diabetes Brother Other cancer Father Diabetes Mother Diabetes Sister Relation Name Status Comments Brother Father Mother Sister Social History Tobacco Use Types Packs/Day Years Used Date Smoking Tobacco: Every Day Cigarettes 1 40 Tobacco Cessation:Ready to Q uit: Yes; Counseling Given: Yes Alcohol Use Standard Drinks/Week Comments Yes 0 (1 standard drink = 0.6 oz pure alcohol) Alcoholic Drinks/day: Consumes alcohol Sex and Gender Information Value Date Recorded Sex Assigned at Not on file Legal Sex Male 7:35 PM EDT Gender Identity Not on file Sexual Orientation Not on file Plan of Treatment Health Maintenance Due Date Last Done Comments [facility]-Depression Screening 1961 [facility]-HIV Screening 1961 [facility]-Hepatitis C Screening 1961 [facility]-/Child/Adol SDOH Screenings 1961 [facility]- SDOH Screenings 10/27/1979 [facility]-Adult SDOH Screenings 10/27/1979 CT Colonography 2006 Colonoscopy 2006 FIT-DNA 2006 FIT 2006 FOBT 2006 Sigmoidoscopy 2006 [facility]-Colorectal Cancer Screening 2006 [facility]-Pneumococcal Vaccine: 50+ Years (3 of 3 - PCV20 or PCV21) 03/25/2023 03/25/2018, 10/14/2015 [id number] Vaccine (4 - season) 2023 01/13/2021, 08/26/2020, 07/29/2020 [facility]-DTaP,Tdap,and Td Vaccines (2 - Td or Tdap) 02/23/2024 02/22/2014 [facility]-Influenza Vaccine (Season Ended) 2024 12/04/2020, 02/22/2020, 12/17/2017, Additional history exists [facility]-RSV Vaccine: 60+ Years or (1 - 1-dose 75+ series) 2036 [facility]-Hepatitis A Vaccines Aged Out 09/26/2018, 03/10 No longer eligible based on patient's age to complete this topic [facility]-Zoster Vaccines Completed 04/01/2021, HPV Vaccines Aged Out No longer eligi ble based on patient's age to complete this topic [facility]-HIB Vaccines Aged Out No longer e ligible based on patient's age to complete this topic [facility]-IPV Vaccines Aged Out No longer e ligible based on patient's age to complete this topic [facility]-Rotavirus Vaccines Aged Out No lo nger eligible based on patient's age to complete this topic Care Teams Yard Laborer Relationship Specialty Start Date End Date Rubén Yoon MD [address] [place] [address] PCP - General 08/21/20
--- OUTSIDE RECORDS SUMMARY | 2024-10-04 10:20 | XMS_ITS | Encounter Summary ---
Author Organization [employer] Address [address] [place] [address] Care Team Providers Care Corporate Scheduler Name Role Phone Unavailable Primary Care Provider Unavailabl e Encounter Details Date Type Department Care Team (Late st Contact Info) Description 08/10/2019 Transcribed Document [facility] [place] [facility] [address] [place] [address] ProvideraMrla MD [facility] [place] [address] Social History Tobacco Use Types Packs/Day Years Used Date Smoking Tobacco: Never Assessed Sex and Gender Information Value Date Recorded Sex Assigned at Not on file Legal Sex Male 5:42 PM CDT Gender Identity Not on file Sexual Orientation Not on file documented as of this encounter Miscellaneous Notes * Cerner Conversion Note - Historical ProviderMD - 08/10/2019 2:44 AM CDT ED Discharge Entered On: 08/10/2019 2:44 EDT Performed On: 08/10/2019 2:44 EDT by DAVID BOLIVAR Discharge Process Patient Disposition : Discharge Personal Belongings With Patient : Yes Patient Education Completed : Yes Teaching Evaluation : Verbalizes understanding IV Discontinued : Yes Nursing Documentation Completed : Yes DAVID BOLIVAR - 08/10/2019 2:44 EDT ED Discharge Discharge To : Home with ambulatory/outpatient follow-up Mode Of Departure : Private vehicle Accompanied By : Sibling Discharge Instructions Reviewed With, Opportunity For Questions Given : Patient Prescriptions Given to Patient : Yes DAVID BOLIVAR 08/10/2019 2:44 EDT documented in this encounter Plan of Treatment Not on file documented as of this encounter Visit Diagnoses Not on filedocumented in this encounter
--- OUTSIDE RECORDS SUMMARY | 2024-10-04 10:21 | XMS_ITS | Encounter Summary ---
Author Organization [facility] Address [address] [place] [address] Care Team Providers Care Ballet Company Artistic Director Name Role Phone Rubén Yoon MD Primary Care Provider [phone] Reason for Visit * Reason Comments Med Refill Encounter Details Date Type Department Care Team (Late st Contact Info) Description 12/04/2021 Refill [facility] [address] [facility], [address] [place] [address] Tex Enrique MD [address] [facility] [address] [place] [address] Suspected glaucoma of both eyes Social History Tobacco Use Types Packs/Day Years Used Date Smoking Tobacco: Every Day Alcohol Use Standard Drinks/Week Comments Yes 0 (1 standard drink = 0.6 oz pure alcohol) Alcoholic Drinks/day: Consumes alcohol Sex and Gender Information Value Date Recorded Sex Assigned at Not on file Legal Sex Male 7:35 PM EDT Gender Identity Not on file Sexual Orientation Not on file documented as of this encounter Plan of Treatment Not on file documented as of this encounter Visit Diagnoses Diagnosis Suspected glaucoma of both eyes documented in this encounter Additional Health Concerns Assessment Noted Time A fall risk assessment has been complete d for the patient 07/16/2021 12:53 PM EDT documented as of this encounter Care Teams Ballet Company Artistic Director Relationship Specialty Start Date End Date Rubén Yoon MD [address] [place] [address] PCP - General 08/21/20 documented as of this encounter
--- OUTSIDE RECORDS SUMMARY | 2024-10-04 10:21 | XMS_ITS | Clinical Summary ---
Author Organization [employer] Address [address] [place] [address] Care Team Providers Care Parts Interpreter Name Role Phone Unavailable Primary Care Provider [...]
--- OUTSIDE RECORDS SUMMARY | 2024-10-04 10:21 | XMS_ITS | Encounter Summary ---
Author Organization [employer] Address [address] [place] [address] Care Team Providers Care Bowling Ball Marker Name Role Phone Unavailable Primary Care Provider Unavailabl e Encounter Details Date Type Department Care Team (Late st Contact Info) Description 08/09/2019 Transcribed Document [facility] [place] [facility] [address] [place], [place] [id number] ProviderMarla MD [address] [place] [id number] Social History Tobacco Use Types Packs/Day Years Used Date Smoking Tobacco: Never Assessed Sex and Gender Information Value Date Recorded Sex Assigned at Not on file Legal Sex Male 5:42 PM CDT Gender Identity Not on file Sexual Orientation Not on file documented as of this encounter Miscellaneous Notes * Cerner Conversion Note - Marla ProviderMD - 08/09/2019 11:46 PM CDT Patient: BRAD BLACKMON Age: 58 years Sex: Male : 1960 Associated Diagnoses: Diverticulosis; Abdominal pain Author: BRAD FRAZIER MD-EMR Basic Information Additional information: Chief Complaint from Nursing Triage Note : Chief Complaint 08/09/2019 23:34 EDT Chief Complaint to ed via ems with c/o blood in stool and vomit. States it looks like tomato juice. Patient admits to alcohol abuse. i drank about 12 beers. . History of Present Illness The patient presents with abdominal pain. The onset was 2 days ago. The course/duration of symptoms is constant. The Location of pain at onset was left and lower. Radiating pain: none. The exacerbating factor is none. Associated symptoms: nausea, vomiting, denies fever and denies chills. 58-year-old male here for abdominal pain. Patient says for the past 2 days he's been having blood coming from all of his orifices. Says that he's had bloody stool, he's had emesis that has been bright red, states bloody nose and blood from his ears. Says he's had this previously. Believes he had a colonoscopy a couple years ago. He is a daily drinker but says he's had several beers today. Reports crampy pain, worse in his left lower quadrant. Review of Systems Constitutional symptoms: No fever, no chills. Respiratory symptoms: Negative except as documented in HPI. Cardiovascular symptoms: Negative except as documented in HPI. Gastrointestinal symptoms: Abdominal pain, nausea, vomiting, rectal bleeding. Genitourinary symptoms: Negative except as documented in HPI. Neurologic symptoms: Negative except as documented in HPI. Additional review of systems information: All other systems reviewed and otherwise negative. Health Status Allergies: Allergic Reactions (All) Severity Not Documented Amoxicillin- Hives. Penicillin- Hives.. Medications: (Selected) Inpatient Medications Ordered Normal Saline Flush: 10 mL, IV Push, See Comment Protonix bolus: 40 mg, IV Push, 1-Time Sodium Chloride 0.9% bolus: 1,000 mL, 1,000 mL/Hr, IV Piggyback, 1-Time Documented Medications Documented Centrum: Daily, 0 Refill(s) Co-Q10: Oral, 0 Refill(s). Past Medical/ Family/ Social History Surgical history: colonoscopy. right arm fx. back surgery, L3, L5 fusion. right leg fx. throat injury/surgery. cornea transplant right eye.. Family history: No family history items have been selected or recorded.. Social history: Social & Psychosocial Habits Alcohol 11/26/2015 Alcohol Use History, Social Habits Yes Days Per Week of Alcohol Use 5 Number of Drinks per Day 6 Alcohol Use Frequency Daily Nutrition/Health 11/26/2015 Caffeine intake amount: tea daily Substance Abuse 11/26/2015 Recreational Drug Use History No Recreational Drug Use Last 12 Months No Tobacco 11/26/2015 Smoking Status Current every day smoker Smoking Frequency Within Last 30 Days Five or more cigarettes p Tobacco Use Within Last Twelve Months Cigarettes Years of Tobacco Use 30 Packs/Tins Daily .5 . Problem list: Active Problems (1) No Chronic Problems . Physical Examination Vital Signs Vital Signs/Vital Measures 08/09/2019 23:40 EDT Systolic Blood Pressure 162 mmHg HI Diastolic Blood Pressure 115 mmHg HI Mean Arterial Pressure (MAP)-BMDI 131 Temperature Source Oral Temperature Mode Fahrenheit Temperature, Fahrenheit 98.6 Deg F Peripheral Pulse Rate 91 bpm Oxygen Saturation 98 % Oxygen Therapy Mode Room air . Measurements 08/09/2019 23:34 EDT Height Source Stated Height Entry Format Evon Height/LengthENGLISH (ft) 5 ft Height/Length THAI 10 Inch CLINICALHEIGHT 177.8 cm [place] Body Weight 72.02 kg Weight Source, ED Critical estimated dosing weight Weight Entry Format [place] Weight Tristanian lb 200 lb CLINICALWEIGHT 90.91 kg Body Surface Area (BSA) 2.09 m2 Body Mass Index 28.8 kg/m2 HI . Oxygen Saturation 08/09/2019 23:40 EDT Oxygen Saturation 98 % . General: Alert, no acute distress. Skin: Warm, dry, pink, intact. Head: Normocephalic, atraumatic. Neck: Supple, trachea midline. Eye: Pupils are equal, round and reactive to light, extraocular movements are intact, normal conjunctiva. Cardiovascular: Regular rate and rhythm, No murmur, Normal peripheral perfusion. Respiratory: Lungs are clear to auscultation, respirations are non-labored, breath sounds are equal, Symmetrical chest wall expansion. Gastrointestinal: Soft, Non distended, Normal bowel sounds, Tenderness: Mild, left lower quadrant, Guarding: Negative, Rebound: Negative. Musculoskeletal: Normal ROM, normal strength. Neurological: Alert and oriented to person, place, time, and situation, No focal neurological deficit observed, normal sensory observed, normal motor observed, normal speech observed. Psychiatric: Cooperative, appropriate mood & affect. Medical Decision Making Documents reviewed: Emergency department nurses' notes, prior records. Electrocardiogram: Time 08/10/2019 00:04:00, rate 90, [place] is leftward. , pvc/artifact in v4-6. Results review: Lab results : Lab Results 08/10/2019 1:00 EDT Urine Type. U CleanCatch Urine Color Yellow Urine Appearance Clear Urine Specific [place] 1.006 Urine pH Dipstick 7.0 Urine Leukocyte Esterase Negative Urine Nitrite Negative Urine Protein Dipstick Negative Urine Glucose Dipstick Negative Urine Ketones Dipstick Negative Urine Urobilinogen Dipstick 0.2 EU/dL Urine Bilirubin Dipstick Negative Urine Blood Dipstick Negative Ur Squamous Epithelial Cells 0-2 /HPF 08/10/2019 0:22 EDT Alcohol 298 mg/dL NA %Alcohol 0.30 NA 08/10/2019 0:21 EDT Sodium Level 142 mmol/L Potassium Level 3.9 mmol/L Chloride Level 111 mmol/L Carbon Dioxide Level 26 mmol/L Anion Gap 9 Glucose Level 97 mg/dL Blood Urea Nitrogen 9 mg/dL Creatinine Level 0.80 mg/dL eGFR >60 mL/min/1.73m2 eGFR NonAfrican >60 mL/min/1.73m2 Bun/Creatinine 11.2 Calcium Level 8.8 mg/dL Protein Total 7.5 Gram/dL Albumin Level 3.6 Gram/dL Globulin 3.9 Gram/dL A/G Ratio 0.9 LOW Bilirubin Total 0.5 mg/dL Alk Phos 138 Units/Liter HI AST 61 Units/Liter HI ALT 77 Units/Liter HI Magnesium Level 2.2 mg/dL 08/09/2019 23:45 EDT WBC 5.2 K/uL RBC 4.88 Million/uL Hgb 16.5 g/dL Hct 49.0 % MCV 100.4 fL HI MCH 33.8 pg HI MCHC 33.7 Gram/dL Platelet Count 142 K/uL LOW MPV 9.3 fL LOW RDW 12.9 % Neut % 40.6 % Neut # 2.10 K/uL Lymph % 41.9 % Lymph # 2.16 x10(3)/uL Sterling % 13.2 % HI Sterling # 0.68 K/uL Eos % 2.9 % Eos # 0.15 x10(3)/uL Baso % 1.2 % Baso # 0.06 x10(3)/uL Slide Review No IG# 0.01 x10(3)/uL IG% 0.20 % PT 10.3 Second(s) INR 1.0 PTT 28.5 Second(s) . Radiology results: NAME: BRAD BLACKMON / SEX: 1960 / Male MRN / ACC#: [id number] / [id number] ORDERING PHYSICIAN: Ordering Provider, Update EXAM REQUESTED: [id number]--BD ABDOMEN & PELVIS W/CONTRAST FACILITY: [facility] DATE: 08/10/2019 RADIOLOGIST NAME: Ramon Puentes CLINICAL HISTORY: . llq pain diverticulitis FINDINGS: Sigmoid diverticulosis is demonstrated. There is no significant colonic wall thickening or paracolic fat stranding to suggest diverticulitis. No acute enteric, hepatobiliary, pancreatic, splenic, renal or adrenal abnormalities are appreciated. The retroperitoneum is unremarkable. There is no free air or significant localized fluid collection.. Reexamination/ Reevaluation no bleeding here. patient is resting comfortably with normal vitals, asking for food. says he went to pcp 2 weeks ago for similar. patient asymptomatic here. no vomting or bloody stools. hemeoccult negative. no bleeding here. tolerating po. hgb 16.5. [place] 0. comfortable with plan of dc. will refer back to gi. reviewed his previous c scope with hemorrhoids and diverticula. discussed return precautions Impression and Plan Diagnosis Diverticulosis - Discharge, Medical Abdominal pain - Discharge, Medical Plan Condition: Improved. Disposition: Discharged Admit/Transfer/Discharge: Discharge (Order): Start: 08/10/2019 2:34 EDT, Discharge to: Home. Prescriptions: Prescription [facility] Pharmacy: omeprazole 40 mg oral delayed release capsule (Prescribe): 1 Cap, Oral, Daily, before a meal, 30 Cap, 0 Refill(s). Patient was given the following educational materials: Abdominal Pain, Adult, Diverticulosis. Follow up with: LOBITO JOHNSTON Within 2 to 3 days; POOJA WATT Within 2 to 3 days. Counseled: Patient, Regarding diagnosis, Regarding diagnostic results, Regarding treatment plan, Regarding prescription, Patient indicated understanding of instructions. documented in this encounter Plan of Treatment Not on file documented as of this encounter Visit Diagnoses Not on filedocumented in this encounter
--- OUTSIDE RECORDS SUMMARY | 2024-10-04 10:21 | XMS_ITS | Encounter Summary ---
Author Organization [employer] Address [address] [place] [address] Care Team Providers Care Engineering Professionals Name Role Phone Unavailable Primary Care Provider Unavailabl e Encounter Details Date Type Department Care Team (Late st Contact Info) Description 08/10/2019 Transcribed Document [facility] [place] [facility] [place] [address] ProviderMarla MD [facility] [place], [place] [address] Social History Tobacco Use Types Packs/Day Years Used Date Smoking Tobacco: Never Assessed Sex and Gender Information Value Date Recorded Sex Assigned at Not on file Legal Sex Male 5:42 PM CDT Gender Identity Not on file Sexual Orientation Not on file documented as of this encounter Miscellaneous Notes * Cerner Conversion Note - Historical ProviderMD - 08/10/2019 2:36 AM CDT Electronically signed by Teresita Schuster Conversion Medical Office Technology Instructor Cerner at 07/27/2022 8:24 PM CDT documented in this encounter Plan of Treatment Not on file documented as of this encounter Visit Diagnoses Not on filedocumented in this encounter
--- OUTSIDE RECORDS SUMMARY | 2024-10-04 10:21 | XMS_ITS | Encounter Summary ---
Author Organization [email or web address] Address [address] [place] [address] Care Team Providers Care Medical Researcher Name Role Phone Unavailable Primary Care Provider Unavailabl e Encounter Details Date Type Department Care Team (Late st Contact Info) Description 08/09/2019 Transcribed Document [facility] [place] [facility] [place] [address] ProviderMarla MD [address] [place] [id number] Social History Tobacco Use Types Packs/Day Years Used Date Smoking Tobacco: Never Assessed Sex and Gender Information Value Date Recorded Sex Assigned at Not on file Legal Sex Male 5:42 PM CDT Gender Identity Not on file Sexual Orientation Not on file documented as of this encounter Miscellaneous Notes * Cerner Conversion Note - Marla ProviderMD - 08/09/2019 11:34 PM CDT ED Triage Entered On: 08/09/2019 23:39 EDT Performed On: 08/09/2019 23:34 EDT by Tereso Yarbrough RN ED Triage Across the Room Chief Complaint : to ed via ems with c/o blood in stool and vomit. States it looks like tomato juice. Patient admits to alcohol abuse. i drank about 12 beers. Triage Date/Time : 08/09/2019 23:34 EDT Tereso Yarbrough RN - 08/09/2019 23:34 EDT DCP GENERIC CODE Tracking Acuity : 3 - Urgent Tracking Group : [facility] ED Tereso Yarbrough RN - 08/09/2019 23:34 EDT Mode of Arrival : Stretcher Transported to ED by : Ambulance/ALS EMS Service : [facility] To Room Via : Stretcher Accompanied By : Unaccompanied Height & Weight : Document ED Allergies : Document ED Reason for Visit : Document Tereso Yarbrough RN - 08/09/2019 23:34 EDT Infectious Disease History Has the patient ever been tested for COVID-19? : No, Patient stated COVID19 Screening : Yes Experiencing Infectious Disease Symptoms : Vomiting Physical contact outside [place] in the last 30 days : No Infectious Disease History : Chicken pox/Shingles, Measles, Mumps Tuberculosis Symptoms : None Tereso Yarbrough RN - 08/09/2019 23:34 EDT Allergy (As Of: 08/09/2019 23:39:01 EDT) Allergies (Active) amoxicillin Estimated Onset Date: Unspecified ; Reactions: hives ; Created By: Leslie Canales RN; Reaction Status: Active ; Category: Drug ; Substance: amoxicillin ; Type: Allergy ; Updated By: Leslie Canales RN; Reviewed Date: 08/09/2019 23:37 EDT penicillin Estimated Onset Date: Unspecified ; Reactions: hives ; Created By: Leslie Canales RN; Reaction Status: Active ; Category: Drug ; Substance: penicillin ; Type: Allergy ; Updated By: Leslie Canales RN; Reviewed Date: 08/09/2019 23:37 EDT Diagnosis Control ED (As Of: 08/09/2019 23:39:01 EDT) Problems(Active) No Chronic Problems (Cerner :NKP ) Name of Problem: No Chronic Problems ; Recorder: Leslie Canales RN; Code: NKP ; Last Updated: 11/26/2015 10:47 EDT ; Life Cycle Date: 11/26/2015 ; Life Cycle Status: Active ; Vocabulary: Cerner Diagnoses(Active) Vomiting Date: 08/09/2019 ; Diagnosis Type: Reason For Visit ; Confirmation: Complaint of ; Clinical Dx: Vomiting ; Classification: Medical ; Clinical Service: Emergency medicine ; Code: PNED ; Probability: 0 ; Diagnosis Code: [id number] ED Height and Weight Height Source : Stated Height Entry Format : [place] Height, Feet : 5 ft(Converted to: 152 cm, 60 Inch) Height, Inches : 10 Inch(Converted to: 0 ft 10 Inch, 25.40 cm) Clinical Height : 177.8 cm Weight Source, ED : Critical estimated dosing weight Weight Entry Format : [place] Weight, Pounds : 200 lb Clinical Dosing Weight : 90.91 kg Body Surface Area (BSA) : 2.09 m2 Body Mass Index : 28.8 kg/m2 (HI) [place] Body Weight (IBW) : 72.02 kg Tereso Yarbrough RN - 08/09/2019 23:34 EDT Electronically signed by Teresita Schuster Conversion Tobacco Packing Machine Operator Cerner at 07/27/2022 8:26 PM CDT documented in this encounter Plan of Treatment Not on file documented as of this encounter Visit Diagnoses Not on filedocumented in this encounter
--- OUTSIDE RECORDS SUMMARY | 2024-10-04 10:21 | XMS_ITS | Encounter Summary ---
Author Organization [employer] Address [address] [place] [address] Care Team Providers Care Call Center Operator Name Role Phone Unavailable Primary Care Provider Unavailabl e Encounter Details Date Type Department Care Team (Late st Contact Info) Description 08/10/2019 Transcribed Document [facility] [place] Family Medicine [address] [place] [address] ProviderMarla MD [facility] [place] [address] Social History Tobacco Use Types Packs/Day Years Used Date Smoking Tobacco: Never Assessed Sex and Gender Information Value Date Recorded Sex Assigned at Not on file Legal Sex Male 5:42 PM CDT Gender Identity Not on file Sexual Orientation Not on file documented as of this encounter Miscellaneous Notes * Cerner Conversion Note - Marla Orozco MD - 08/10/2019 2:43 AM CDT [facility] [place] [address] BRAD GUTIERREZ :1960 Visit Time:08/09/2019 Your Visit Summary Your Care Team Primary Provider: BRAD FRAZIRE Secondary Provider: Your Diagnosis Abdominal pain Abdominal pain Diverticulosis Vomiting Medical Information You may obtain a copy of your Emergency Department visit from Medical Records by calling the hospital phone number listed above and asking to be directed to the Medical Records Department. If you had special tests, such as EKG???s or X-rays, the interpretation of your tests given to you by the Emergency Department Physician is a preliminary report. Some fractures and illnesses fail to show up on preliminary tests. These will be reviewed again and we will call you if there are any new suggestions. If your symptoms continue notify your physician. After you leave, you should follow the instructions provided. What to do next Follow-Up Appointments Follow Up with POOJA WATT When Within 2 to 3 days Where: [address] [facility] [address] [place] [address]- Business (1) Follow Up with LOBITO JOHNSTON When Within 2 to 3 days Where: [address] [place] [address]- [facility] (1) Allergies amoxicillin (hives) penicillin (hives) Immunizations This Visit No Immunizations Found Medications What How Much When Instructions Next Dose omeprazole (omeprazole 40 mg oral delayed release capsule) 1 Capsule(s) Oral Every Day before a meal Printed Prescription multivitamin with minerals (Centrum) Every Day ubiquinone (Co-Q10) Oral The home medications listed are only as accurate as the information you provided. Please continue taking all of your medications prescribed by your Primary Care Provider unless specifically told to change or discontinue the medication. Please direct any questions regarding your home medications to your Primary Care Provider. Take your medications faithfully. Do NOT skip medication. Do NOT stop taking medications without the direction of a physician. Carry a list of your medications with you at all times, and take this medication list with you to your first follow up visit. Report any side effects. Avoid herbal remedies unless discussed with your physician. As part of your treatment plan, your physician may have prescribed a limited course of a controlled substance. This medication may be given to help people with moderate or severe pain or for other medical conditions, but there are risks involved with treatment. Common side effects may include nausea, constipation, drowsiness, sweating, itching, dry mouth, and rash. More serious side effects may include cognitive and motor impairment, like problems with thinking, concentrating, alertness, and movement (e.g. slowed reflexes), and driving and operating heavy machinery can be dangerous. It is important for you to talk to your physician if you have these side effects or questions. These controlled substances can produce physical dependence and be habit-forming if taken for an extended period of time, which means that the body has gotten used to them and may experience withdrawal symptoms if they are abruptly stopped. Withdrawal symptoms can include runny nose, sweating, goose bumps, diarrhea, abdominal cramping, rapid heartbeat, difficulty sleeping, and nervousness. Please dispose of unused and medications per pharmacy guidance. Test Results Laboratory or Other Results This Visit (last charted value for your 08/09/2019 visit) Hematology 08/09/2019 11:45 PM WBC: 5.2 K/uL -- Normal range between ( 3.6 and 9.5 ) RBC: 4.88 Million/uL -- Normal range between ( 4.20 and 5.70 ) Hct: 49.0 % -- Normal range between ( 40.1 and 51.0 ) Hgb: 16.5 g/dL -- Normal range between ( 13.5 and 17.3 ) Platelet Count: 142 K/uL -- Normal range between ( 163 and 369 ) MCH: 33.8 pg -- Normal range between ( 25.6 and 32.2 ) MCHC: 33.7 Gram/dL -- Normal range between ( 32.2 and 36.5 ) MCV: 100.4 fL -- Normal range between ( 79.0 and 94.8 ) Slide Review: No Eos %: 2.9 % -- Normal range between ( 0.0 and 7.0 ) [place] #: 0.68 K/uL -- Normal range between ( 0.16 and 1.00 ) Eos #: 0.15 x10(3)/uL -- Normal range between ( 0.00 and 0.80 ) [place] %: 13.2 % -- Normal range between ( 3.0 and 9.0 ) Baso %: 1.2 % -- Normal range between ( 0.0 and 1.5 ) Baso #: 0.06 x10(3)/uL -- Normal range between ( 0.00 and 0.20 ) RDW: 12.9 % -- Normal range between ( 11.7 and 14.9 ) Neut %: 40.6 % -- Normal range between ( 34.0 and 71.0 ) Neut #: 2.10 K/uL -- Normal range between ( 1.56 and 6.13 ) Lymph %: 41.9 % -- Normal range between ( 19.3 and 53.1 ) Lymph #: 2.16 x10(3)/uL -- Normal range between ( 1.00 and 3.90 ) MPV: 9.3 fL -- Normal range between ( 9.4 and 12.4 ) IG#: 0.01 x10(3)/uL -- Normal range between ( 0.00 and 0.05 ) IG%: 0.20 % -- Normal range between ( 0.00 and 0.60 ) Urinalysis 08/10/2019 1:00 AM Urine Nitrite: Negative Urine Leukocyte Esterase: Negative Urine Appearance: Clear Urine Glucose Dipstick: Negative Urine Blood Dipstick: Negative Urine Urobilinogen Dipstick: 0.2 EU/dL Urine Protein Dipstick: Negative Ur Squamous Epithelial Cells: 0-2 /HPF Urine Color: Yellow Urine Ketones Dipstick: Negative Urine pH Dipstick: 7.0 -- Normal range between ( 6.0 and 8.0 ) Urine Bilirubin Dipstick: Negative Urine Specific [place]: 1.006 -- Normal range between ( 1.005 and 1.030 ) Urine Type.: U [facility] General Chemistry 08/10/2019 0:21 AM Creatinine Level: 0.80 mg/dL -- Normal range between ( 0.70 and 1.30 ) Sodium Level: 142 mmol/L -- Normal range between ( 136 and 146 ) Potassium Level: 3.9 mmol/L -- Normal range between ( 3.5 and 5.1 ) Chloride Level: 111 mmol/L -- Normal range between ( 102 and 112 ) Carbon Dioxide Level: 26 mmol/L -- Normal range between ( 21 and 32 ) Anion Gap: 9 -- Normal range between ( 9 and 20 ) Bilirubin Total: 0.5 mg/dL -- Normal range between ( 0.2 and 1.2 ) A/G Ratio: 0.9 -- Normal range between ( 1.1 and 2.5 ) ALT: 77 Units/Liter -- Normal range between ( 16 and 61 ) AST: 61 Units/Liter -- Normal range between ( 5 and 37 ) Globulin: 3.9 Gram/dL -- Normal range between ( 1.5 and 4.5 ) Alk Phos: 138 Units/Liter -- Normal range between ( 27 and 136 ) Bun/Creatinine: 11.2 -- Normal range between ( 8.0 and 20.0 ) Calcium Level: 8.8 mg/dL -- Normal range between ( 8.4 and 10.1 ) eGFR : >60 mL/min/1.73m2 eGFR NonAfrican: >60 mL/min/1.73m2 Glucose Level: 97 mg/dL -- Normal range between ( 74 and 106 ) Magnesium Level: 2.2 mg/dL -- Normal range between ( 1.5 and 2.4 ) Blood Urea Nitrogen: 9 mg/dL -- Normal range between ( 7 and 22 ) Protein Total: 7.5 Gram/dL -- Normal range between ( 6.4 and 8.2 ) Albumin Level: 3.6 Gram/dL -- Normal range between ( 3.4 and 5.0 ) Coagulation 08/09/2019 11:45 PM INR: 1.0 -- Normal range between ( 0.9 and 1.1 ) PTT: 28.5 Second(s) -- Normal range between ( 24.0 and 34.0 ) PT: 10.3 Second(s) -- Normal range between ( 9.6 and 12.0 ) Toxicology 08/10/2019 0:22 AM %Alcohol: .30 Alcohol: 298 mg/dL [employer] Diverticulosis Diverticulosis is a condition that develops when small pouches (diverticula) form in the wall of the large intestine (colon). The colon is where water is absorbed and stool is formed. The pouches form when the inside layer of the colon pushes through weak spots in the outer layers of the colon. You may have a few pouches or many of them. What are the causes? The cause of this condition is not known. What increases the risk? The following factors may make you more likely to develop this condition: ??? Being older than age 60. Your risk for this condition increases with age. Diverticulosis is rare among people younger than age 30. By age 80, many people have it. ??? Eating a low-fiber diet. ??? Having frequent constipation. ??? Being overweight. ??? Not getting enough exercise. ??? Smoking. ??? Taking bmuo-qiw-qdyctgj pain medicines, like aspirin and ibuprofen. ??? Having a family history of diverticulosis. What are the signs or symptoms? In most people, there are no symptoms of this condition. If you do have symptoms, they may include: ??? Bloating. ??? Cramps in the abdomen. ??? Constipation or diarrhea. ??? Pain in the lower left side of the abdomen. How is this diagnosed? This condition is most often diagnosed during an exam for other colon problems. Because diverticulosis usually has no symptoms, it often cannot be diagnosed independently. This condition may be diagnosed by: ??? Using a flexible scope to examine the colon (colonoscopy). ??? Taking an X-ray of the colon after dye has been put into the colon (barium enema). ??? Doing a CT scan. How is this treated? You may not need treatment for this condition if you have never developed an infection related to diverticulosis. If you have had an infection before, treatment may include: ??? Eating a high-fiber diet. This may include eating more fruits, vegetables, and grains. ??? Taking a fiber supplement. ??? Taking a live bacteria supplement (probiotic). ??? Taking medicine to relax your colon. ??? Taking antibiotic medicines. Follow these instructions at home: ??? Drink 6???8 glasses of water or more each day to prevent constipation. ??? Try not to strain when you have a bowel movement. ??? If you have had an infection before: ? Eat more fiber as directed by your health care provider or your diet and dairy nutritionist (dietitian). ? Take a fiber supplement or probiotic, if your health care provider approves. ??? Take cvzs-bin-bztpzvx and prescription medicines only as told by your health care provider. ??? If you were prescribed an antibiotic, take it as told by your health care provider. Do not stop taking the antibiotic even if you start to feel better. ??? Keep all follow-up visits as told by your health care provider. This is important. Contact a health care provider if: ??? You have pain in your abdomen. ??? You have bloating. ??? You have cramps. ??? You have not had a bowel movement in 3 days. Get help right away if: ??? Your pain gets worse. ??? Your bloating becomes very bad. ??? You have a fever or chills, and your symptoms suddenly get worse. ??? You vomit. ??? You have bowel movements that are bloody or black. ??? You have bleeding from your rectum. Summary ??? Diverticulosis is a condition that develops when small pouches (diverticula) form in the wall of the large intestine (colon). ??? You may have a few pouches or many of them. ??? This condition is most often diagnosed during an exam for other colon problems. ??? If you have had an infection related to diverticulosis, treatment may include increasing the fiber in your diet, taking supplements, or taking medicines. This information is not intended to replace advice given to you by your health care provider. Make sure you discuss any questions you have with your health care provider. Document Released: 12/22/2004 Document Revised: 02/13/2017 Document Reviewed: 02/13/2017 [employer] Patient Education ?? 2019 [employer]. Abdominal Pain, Adult Abdominal pain can be caused by many things. Often, abdominal pain is not serious and it gets better with no treatment or by being treated at home. However, sometimes abdominal pain is serious. Your health care provider will do a medical history and a physical exam to try to determine the cause of your abdominal pain. Follow these instructions at home: ??? Take disn-zvw-hmiwfvz and prescription medicines only as told by your health care provider. Do not take a laxative unless told by your health care provider. ??? Drink enough fluid to keep your urine clear or pale yellow. ??? Watch your condition for any changes. ??? Keep all follow-up visits as told by your health care provider. This is important. Contact a health care provider if: ??? Your abdominal pain changes or gets worse. ??? You are not hungry or you lose weight without trying. ??? You are constipated or have diarrhea for more than 2???3 days. ??? You have pain when you urinate or have a bowel movement. ??? Your abdominal pain wakes you up at night. ??? Your pain gets worse with meals, after eating, or with certain foods. ??? You are throwing up and cannot keep anything down. ??? You have a fever. Get help right away if: ??? Your pain does not go away as soon as your health care provider told you to expect. ??? You cannot stop throwing up. ??? Your pain is only in areas of the abdomen, such as the right side or the left lower portion of the abdomen. ??? You have bloody or black stools, or stools that look like tar. ??? You have severe pain, cramping, or bloating in your abdomen. ??? You have signs of dehydration, such as: ? Dark urine, very little urine, or no urine. ? Cracked lips. ? Dry mouth. ? Sunken eyes. ? Sleepiness. ? Weakness. This information is not intended to replace advice given to you by your health care provider. Make sure you discuss any questions you have with your health care provider. Document Released: 01/04/2006 Document Revised: 10/14/2016 Document Reviewed: 09/07/2016 [employer] Patient Education ?? 2019 [employer]. Emergency Awareness and Preventative Care STROKE is an EMERGENCY Every Minute Counts Act FAST and Check for these signs: FACE Does the face look uneven? ARM Does one arm drift down? SPEECH Does their speech sound strange? TIME Call at any sign of stroke Stroke Risk Factors Atrial Fibrillation (irregular heartbeat) Diabetes Family history of stroke Heart Disease Heavy alcohol use High Blood Pressure High Cholesterol Physical inactivity and obesity Smoking Cigarette Smoking The facts are clear, cigarette smoking will shorten your life. Smoking can cause many illnesses along the way. As a healthcare provider, we recommend that you stop smoking. Assistance with quitting is available by contacting 9-436-KKKF-NOW. This is a free resource providing counseling, support, and referral. Or you may contact your personal physician. National Suicide Prevention Lifeline: The National Suicide Prevention Lifeline is a national network of local crisis centers that provides free and confidential emotional support to people in suicidal crisis or emotional distress 24 hours a day, 7 days a week. Don't Wait! Stop a Heart Attack Before it Starts What is a heart attack? A heart attack is damage or to a part of the heart from severely decreased or lack of blood flow to the heart. Over time, arteries can become narrow from the buildup of fat and cholesterol, which is called plaque. The plaque can rupture causing a blood clot to form. When the blood clot forms, the artery can become severely narrowed or completely blocked, causing a heart attack. Heart attack is the leading cause of in the [place]. 85% of muscle damage occurs within the first 2 hours. Delay in the recognition of heart attack symptoms increases the chances of . Know the early symptoms of a heart attack: Nausea Feeling of fullness in chest Jaw Pain Pain that travels down one or both arms Fatigue/being tired Anxiety Back Pain Chest pressure, squeezing, or discomfort Shortness of breath Sweating, or a cold sweat Feeling of impending doom There are unusual signs of a heart attack, too! Women, the elderly, and diabetics may present with atypical symptoms: Fainting/dizziness Weakness Confusion Risk Factors for a Heart Attack Some heart disease risk factors, such as age and family history, cannot be changed. Others, like smoking and lack of exercise, can be changed. Smoking High Cholesterol High Blood Pressure Family History Obesity Age Gender (Males are at higher risk) Lack of Exercise Diabetes Diet Stress Excessive Alcohol Intake If you or someone you know is experiencing the signs and symptoms of a heart attack, DON???T DELAY. Call immediately and seek help. If someone collapses, perform CPR! Do not attempt to drive if you are having symptoms of heart attack. Hands-Only CPR Why Hands-Only CPR? Hands-Only CPR has been shown to be as effective as conventional CPR for cardiac arrests that occur outside of a hospital. Survival depends on immediately receiving CPR from someone nearby. How do you perform Hands-Only CPR? There are two easy steps: Call if you see a teen or adult collapse Push hard and fast in the center of the chest at a beat of 100 beats per minute. Save a life! 4 WAYS TO GET AHEAD OF SEPSIS SEPSIS is a MEDICAL EMERGENCY. Time matters! Infections put you and your family at risk for a life-threatening condition called sepsis. Sepsis is the body's extreme response to an infection. It is life-threatening, and without timely treatment, sepsis can rapidly lead to tissue damage, organ failure, and . Sepsis happens when an infection you already have-in your skin, lungs, urinary tract or somewhere else-triggers a chain reaction throughout your body. 1 PREVENT INFECTIONS Take good care of chronic conditions. Talk to your doctor about getting the recommended vaccines. 2 PRACTICE GOOD HYGIENE Wash your hands frequently. Keep cuts or open sores clean and covered until they are healed. 3 KNOW THE SYMPTOMS Confusion or disorientation Shortness of breath High heart rate Fever, shivering, or feeling very cold Extreme pain or discomfort Clammy or sweaty skin 4 ACT FAST Get medical care IMMEDIATELY if you suspect sepsis or if you have an infection that is not getting better or is getting worse. To learn more about sepsis and how to prevent infections, visit www.cdc.gov/sepsis. The examination and treatment you have received in the Emergency Department has been done to provide an appropriate evaluation and stabilizing treatment on an emergency basis only. Given the limited resources, it is not meant to be a substitute for complete medical care. The follow-up doctor you named will receive a copy of your records and all test reports. IT IS IMPORTANT THAT YOU SCHEDULE A FOLLOW-UP APPOINTMENT AND ARE RE-EVALUATED. You should report any new complaints, symptoms, or remaining problems at that time. IT IS IMPOSSIBLE FOR THE EMERGENCY DEPARTMENT TO RECOGNIZE AND TREAT ALL ELEMENTS OF INJURY OR ILLNESS IN A SINGLE VISIT. If you have been referred to a specialist physician, it means that we believe you may have a condition that requires the expertise of a specialist. These physicians work in partnership with the hospital and have agreed to see referred patients in their office for further evaluation. KEEP IN MIND THAT THE SPECIALIST HAS HIS/HER OWN OFFICE POLICIES WHICH MAY REQUIRE PROPER INSURANCE OR PAYMENT UP FRONT BEFORE THE SPECIALIST WILL SEE YOU. It is your responsibility to call the specialist physician to make an appointment. We do not have the ability to refer patients to specialists/physicians that work with specific insurance companies. Please be advised that all financial charges or billing practices are determined by that practice, not the hospital. If your insurance company requires that you see a specialist from their approved list, it is your responsibility to contact your insurance company to make those arrangements. It is also your responsibility to follow any other requirements of your insurance company necessary to obtain coverage for claims submitted. We will bill your insurance; however, you are responsible today for any co-pay amounts. You will receive a separate bill for any services you may have received including: emergency, radiology, or pathology physicians. Patient Name:BRAD GUTIERREZ I have received this information and was given the opportunity to ask questions. Patient/Department Assistant Name: Patient/Department Assistant Signature: Relationship to Patient: Clinician/Hospital Department Assistant Signature: Please Provide a Telephone Number Where You Can Be Reached: Is it Permissible To Leave a Message? Date: Electronically signed by Teresita Schuster Conversion Defensive Driving Instructor Majo at 07/27/2022 8:37 PM CDT documented in this encounter Plan of Treatment Not on file documented as of this encounter Visit Diagnoses Not on filedocumented in this encounter
--- OUTSIDE RECORDS SUMMARY | 2024-10-04 10:21 | XMS_ITS | Encounter Summary ---
Author Organization [employer] Address [address] [place] [address] Care Team Providers Care Slat Basket Maker Machine Name Role Phone Unavailable Primary Care Provider Unavailabl e Encounter Details Date Type Department Care Team (Late st Contact Info) Description 08/09/2019 Transcribed Document [facility] [place] [address] [place] [address] ProviderMarla MD [facility] [place] [address] Social History Tobacco Use Types Packs/Day Years Used Date Smoking Tobacco: Never Assessed Sex and Gender Information Value Date Recorded Sex Assigned at Not on file Legal Sex Male 5:42 PM CDT Gender Identity Not on file Sexual Orientation Not on file documented as of this encounter Miscellaneous Notes * Cerner Conversion Note - Marla ProviderMD - 08/09/2019 11:34 PM CDT ED Assessment Entered On: 08/09/2019 23:56 EDT Performed On: 08/09/2019 23:54 EDT by Tereso Yarbrough RN ED Quick Look Assessment Level of Consciousness : Alert, Awake Affect/Behavior : Appropriate, Calm, Cooperative Orientation : Oriented x 4 Tereso Yarbrough RN - 08/09/2019 23:54 EDT ED General-Functional Assess Information Obtained From : Patient Communication Barrier : None Primary Language : Luxembourger Any Spiritual/Cultural Needs or Requests : No Currently in Unsafe Situation : No Tereso Yarbrough RN - 08/09/2019 23:54 EDT Social Habits Smoking Status : Smoker, current status unknown Smokeless Tobacco Status : Never Desires Tobacco Cessation Medication : No Reason for No Tobacco Cessation Medication : ED/procedural patient only Desires Tobacco Cessation Calc : 1 Tereso Yarbrough RN - 08/09/2019 23:54 EDT Social History (As Of: 08/09/2019 23:56:52 EDT) Tobacco: Smoking Status Current every day smoker. Five or more cigarettes per day Smoking Frequency Within Last 30 Days. Use in Last 12 Months: Cigarettes. Years of Use: 30. Packs/Tins Daily: .5. (Last Updated: 11/26/2015 10:41:59 EDT by Leslie Canales, SHIRA) Alcohol: Alcohol Use History Yes. Days/Week: 5. # Drinks/Day: 6. Alcohol Use Frequency Daily. (Last Updated: 11/26/2015 10:42:19 EDT by Leslie Canales, RN) Substance Abuse: Drug Use Hx: No. Use in Last 12 Months: No. (Last Updated: 11/26/2015 10:42:24 EDT by Leslie Canales, RN) Nutrition/Health: Caffeine intake amount: tea daily. (Last Updated: 11/26/2015 10:42:37 EDT by Leslie Canales, SHIRA) Cardiovascular ASMT, ED Cardiovascular Assessment WDL : WDL (Comment: Denies chest pain at this time [Tereso Yarbrough RN - 08/09/2019 23:54 EDT] ) Tereso Yarbrough RN - 08/09/2019 23:54 EDT Respiratory Respiratory Assessment WDL : WDL with exceptions (Comment: cough, soa but not visible soa just feels like it [Tereso Yarbrough RN - 08/09/2019 23:54 EDT] ) Tereso Yarbrough RN - 08/09/2019 23:54 EDT Gastrointestinal ED Gastrointestinal Assessment WDL : WDL with exceptions (Comment: n/v/d states that his vomit has looked like tomato juice [Tereso Yarbrough RN - 08/09/2019 23:54 EDT] ) Tereso Yarbrough RN - 08/09/2019 23:54 EDT Neurologic ASMT, ED Neurologic Assessment WDL : WDL with exceptions (Comment: Currently intoxicated but is A&O x4 [Tereso Yarbrough RN - 08/09/2019 23:54 EDT] ) Tereso Yarbrough RN - 08/09/2019 23:54 EDT Electronically signed by Teresita Schuster Conversion Route Sales Representative Cerner at 07/27/2022 8:34 PM CDT documented in this encounter Plan of Treatment Not on file documented as of this encounter Visit Diagnoses Not on filedocumented in this encounter
== END 2024-10-03 23:59 | disposition home or self-care (01) ==
LOC: LAB.DROPOF 10-04 10:15
PROVIDERS: PCP Family Medicine; Visit Provider Family Medicine
DX: K74.60 Unspecified cirrhosis of liver (principal); I10 Essential (primary) hypertension
CPT/HCPCS: 80053; 85025

== ENCOUNTER 2024-11-07 14:32 | Outpatient (CLI) | payer MEDICARE, MEDICAID, SELFPAY ==
[2024-11-07 19:27] LABS: Hematocrit 41.3 % (42.0-52.0); Hemoglobin 13.5 g/dL (14.1-18.0); Immature Granulocytes % 0.3 %; Mean Corpuscular HGB Conc 32.7 g/dL (31.8-35.4); Mean Corpuscular Hemoglobin 31.8 pg (27.0-31.2); Mean Corpuscular Volume 97.2 fl (80-94); Nucleated Red Blood Cells % 0 %; Platelet Count 98 K/mm3 (142-424); Red Blood Count 4.25 M/mm3 (4.60-6.20); Red Cell Distribution Width-SD 53.6 fL; White Blood Count 7.1 K/mm3 (4.8-10.8)
[2024-11-07 20:02] LABS: Alanine Aminotransferase 65 U/L (12-78); Albumin Level 4.0 g/dl (3.5-5.0); Albumin/Globulin Ratio 1.3 (1.1-1.8); Alkaline Phosphatase 179 U/L (38-126); Anion Gap 12.3 mEq/L (5-15); Aspartate Amino Transferase 94 U/L (17-59); Bilirubin,Total 1.3 mg/dl (0.2-1.3); Blood Urea Nitrogen 9 mg/dl (9-20); Calcium 9.9 mg/dl (8.4-10.2); Carbon Dioxide 27 mmol/L (22.0-30.0); Chloride 104 mmol/L (98-107); Creatinine,Serum 0.70 mg/dl (0.66-1.25); Estimated Glomerular Filt Rate 114 ml/min (>60); GFR (African American) 138 ML/MIN (>60); Globulin 3.2 g/dL (1.3-3.2); Glucose 94 mg/dl (74-100); Potassium 4.3 mmoL/L (3.5-5.1); Sodium 139 mmol/L (136-145); Total Protein,Serum 7.2 g/dl (6.3-8.2)
[2024-11-07 20:47] LABS: Hemoglobin A1C 4.9 % (4.0-6.0)
--- OUTSIDE RECORDS SUMMARY | 2024-11-08 10:23 | XMS_ITS | Encounter Summary ---
Author Organization [employer] ([place], [place], [place], [place]) Address [address] [place] [address] Care Team Providers Care Paint Prepper Name Role Phone Unavailable Primary Care Provider Unavailabl e Encounter Details Date Type Department Care Team (Late st Contact Info) Description 08/09/2019 Transcribed Document [facility] [place] Family Medicine [address] [place] [address] ProviderMarla MD [address] [place], [place] [id number] Social History Tobacco Use Types Packs/Day Years Used Date Smoking Tobacco: Never Assessed Sex and Gender Information Value Date Recorded Sex Assigned at Not on file Legal Sex Male 5:42 PM CDT Gender Identity Not on file Sexual Orientation Not on file documented as of this encounter Miscellaneous Notes * Cerner Conversion Note - Historical ProviderMD - 08/09/2019 11:34 PM CDT [place] Suicide Severity Rating Scale (C-SSRS) Entered On: 08/09/2019 23:56 EDT Performed On: 08/09/2019 23:54 EDT by Tereso Yarbrough RN [place] Suicide Severity Rating Scale (C-SSRS) CSSRS Past [...]
--- OUTSIDE RECORDS SUMMARY | 2024-11-08 10:23 | XMS_ITS | Clinical Summary ---
Author Organization [facility] Address [address] [place] [address] Care Team Providers Care Cargo Worker Name Role Phone Rubén Yoon MD Primary Care Provider + [phone] Allergies Active Allergy Reactions Criticality Noted Date [...] (one) time each day. 3 Active Zenpep 90790-869937 units capsule delayed-release particles capsule Take 2 [...] [facility]-HIV Screening 1961 [facility]-Hepatitis C Screening 1961 [facility]-Infant/Child/Adol SDOH Screenings 1961 [facility]- SDOH Screenings 10/27/1979 [facility]-Adult SDOH Screenings 10/27/1979 CT Colonography 2006 Colonoscopy 2006 FIT-DNA 2006 FIT 2006 FOBT 2006 Sigmoidoscopy 2006 [facility]-Colorectal Cancer Screening 2006 [facility]-Pneumococcal Vaccine: 50+ Years (3 of 3 - PCV20 or PCV21) 03/25/2023 03/25/2018, 10/14/2015 [id number] Vaccine (4 - season) 2023 01/13/2021, 08/26/2020, 07/29/2020 [facility]-DTaP,Tdap,and Td Vaccines (2 - Td or Tdap) 02/23/2024 02/22/2014 [facility]-Influenza Vaccine (#1) 12/09/202412/04, 02/22/2020, 12/17/2017, Additional history exists [facility]-RSV Vaccine: [...] age to complete this topic Care Teams Cargo Worker Relationship Specialty Start Date End Date Rubén Yoon MD [address] [place] [address] PCP - General 08/21/20
--- OUTSIDE RECORDS SUMMARY | 2024-11-08 10:23 | XMS_ITS | Clinical Summary ---
Author Organization [employer] [address] ([place], [place], [place], [place]) Address [address] [place] [address] Care Team Providers Care Analysis Lead Name Role Phone Unavailable Primary Care Provider [...]
--- OUTSIDE RECORDS SUMMARY | 2024-11-08 10:23 | XMS_ITS | Clinical Summary ---
Author Organization [facility] Address [address] [place] [address] Care Team Providers Care Habilitation Worker Name Role Phone Kari Barnard Primary Care Provider [phone] Allergies Active Allergy Reactions Criticality Noted Date Comments Amoxicillin Hives 08/25/2023 Bee Venom Anaphylaxis High 07/20/2023 Penicillins Hives Low 08/25/2023 Medications Pancrelipase, Qfg-Qzqy-Hqbd, (Zenpep) 77985-190211 units capsule delayed-releas e particles capsule Take 2 capsules by mouth 2 (Two) Times a Day. WITH SNACKS Active thiamine (VITAMIN B-1) 100 MG tablet tablet Take 1 tablet by mouth Daily. Active folic acid (FOLVITE) 1 MG tablet Take 1 tablet by mouth Daily. Active pantoprazole (PROTONIX) 40 MG EC tablet Take 1 tablet by mouth 2 (Two) Times a Day. IN THE MORNING ON AN EMPTY STOMACH AND BEFORE DINNER, NOT BEDTIME Activ e Fluticasone-Sa lmeterol (ADVAIR/WIXELA ) 100-50 MCG/ACT DISKUS Inhale 1 puff 2 (Two) Times a Day. Active lactulose (CHRONULAC) 10 GM/15ML solution Take 15 mL by mouth 3 (Three) Times a Day. Active albuterol sulfate HFA 108 (90 Base) MCG/ACT inhaler Inhale 2 puffs Every 4 (Four) Hours As Needed for Wheezing or Shortness of Air. Active timolol (TIMOPTIC) 0.5 % ophthalmic solution Administer 1 drop to the right eye 2 (Two) Times a Day. Active Cholecalcifero l 25 MCG (1000 UT) tablet Take 1 tablet by mouth Daily. Active Calcium-Magnes ium-Zinc 333-133-8.3 MG tablet Take 1 capsule by mouth Daily. Active COLLAGEN PO Take 120 mg by mouth Daily. Active aspirin 81 MG chewable tablet Chew 1 tablet Daily. 30 tablet 08/31/19 24 Active sucralfate (CARAFATE) 1 g tablet TAKE ONE TABLET BY MOUTH BEFORE MEALS AND AT BEDTIME Active QUEtiapine (SEROquel) 25 MG tablet Take 1 tablet by mouth every night at bedtime. Active lidocaine (LIDODERM) 5 % APPLY 1 PATCH TOPICALLY TO THE AFFECTED AREA ONCE DAILY AND LEAVE IN PLACE FOR 12 HOURS, THEN REMOVE AND LEAVE OFF FOR 12 HOURS Active EPINEPHrine (EPIPEN) 0.3 MG/0.3ML solution auto-injector injection INJECT THE CONTENTS OF 1 AUTO-INJECTOR INTRAMUSCULARLY ONCE NEEDED FOR ANAPHYLAXIS REACTION Active latanoprost (XALATAN) 0.005 % ophthalmic solution INSTILL 1 DROP INTO EACH EYE ONCE DAILY AT NIGHT Active ezetimibe (Zetia) 10 MG tablet Take 1 tablet by mouth Daily. 30 tablet 2 12/04/19 24 025 Active famotidine (PEPCID) 40 MG tablet Take 1 tablet by mouth every night at bedtime. 12/18/19 24 Active multivitamin with minerals tablet tablet Take 1 tablet by mouth Daily. 01/13/20 24 Active B Complex-C (B-complex with vitamin C) tablet Take 1 tablet by mouth Daily. Active topiramate (Topamax) 25 MG tablet Take 1 tablet by mouth See Admin Instructions for 30 days. Take one tablet twice a day for one week, then two tablets twice a day 120 tablet 3 05/03/19 25 Active Active Problems Problem Noted Date Diagnosed Date Chronic migraine without aur a without status migrainosus, not intractable 05/03/2024 Assessment & Plan (05/03/2024 3:09 PM EST): Start Topamax 25 mg BID for one week, then two tablets BID thereafter Paresthesias 08/28/2023 Moderate malnutrition 08/27/2023 Alcoholic cirrhosis 08/25/2023 HTN (hypertension) 08/25/2023 HLD (hyperlipidemia) 08/25/2023 COPD (chronic obstructive pulmonary disease) Tobacco abuse 08/25/2023 ETOH abuse 08/25/2023 Family History Medical History Relation Name Comments Diabetes Brother Diabetes Daughter Cancer Father Hypertension Father Diabetes Mother Hypertension Mother Relation Name Status Comments Brother Daughter Father Mother Social History Tobacco Use Types Packs/Day Years Used Date Smoking Tobacco: Every Day Cigarettes 1 45.6 Started: 1979 Passive Smoke Exposure: Current Smokeless Tobacco: Never Tobacco Cessation:Ready to Q uit: No; Counseling Given: Yes Alcohol Use Standard Drinks/Week Comments Yes 17 (1 standard drink = 0.6 oz pu re alcohol) [facility] Utilities Answer Date Recorded In the past 12 months has e [employer], gas, oil, or water INTERNET BUSINESS TRADER threatened to shut off services in your home? No 08/28/2023 AUDIT-C Answer Date Recorded Q1: How often do you have a drink containing alcohol? 4 or more times a week 08/28/2023 Q2: How many drinks containi ng alcohol do you have on a typical day when you are drinking? 10 or more Q3: How often do you have si x or more drinks on one occasion? Daily or almost daily 08/28/2023 Overall Financial Resource Strain (CARDIA) Answe r Date Recorded How hard is it for you to pa y for the very basics like food, housing, medical care, and heating? Not very hard 08/28/2023 [facility] [place] of Occupat ional Health - Occupational Stress Questionnaire Answer Date Recorded Do you feel stress - tense, restless, nervous, or anxious, or unable to sleep at night because your mind is troubled all the time - these days? Not at all 08/28/2023 Exercise Vital Sign Answer Date Recorde d On average, how many days pe r week do you engage in moderate to strenuous exercise (like a brisk walk)? 0 days 08/28/2023 On average, how many minutes do you engage in exercise at this level? 0 min 08/28/2023 Hunger Vital Sign Answer Date Recorded Within the past 12 months, y ou worried that your food would run out before you got the money to buy more. Never true 08/28/19 24 Within the past 12 months, t he food you bought just didn't last and you didn't have money to get more. Never true 08/28/2023 PRAPARE - Transportation Answer Date Re corded In the past 12 months, has l ack of transportation kept you from medical appointments or from getting medications? No 08/09 In the past 12 months, has l ack of transportation kept you from meetings, work, or from getting things needed for daily living? No 08/28/2023 Abuse Screen Answer Date Recorded Feels Unsafe at Home or Work/School no 08/28/2023 Feels Threatened by Someone no 08/09 Does Anyone Try to Keep You From Having Contact with Others or Doing Things Outside Your Home? no 08/28/2023 Physical Signs of Abuse Present no 08/28/2023 Housing Stability Answer Date Recorded Current Living Arrangements home 08/09 Potentially Unsafe Housing Conditions none 08/28/2023 Family and Community Support Answer Ibrahima e Recorded If for any reason you need h elp with day-to-day activities such as bathing, preparing meals, shopping, managing finances, etc., do you get the help you need? I get all the help I need 08/28/2023 How often do you feel lonely or isolated from those around you? Never 08/28/2023 Employment Answer Date Recorded Do you want help finding or keeping work or a job? I do not need or want help 08/28/2023 Disabilities Answer Date Recorded Difficulty Concentrating, Remembering or Making Decisions no 08/28/2023 Difficulty Managing Errands Independently no 08/28/2023 Education Answer Date Recorded Do you want help with school or training? For example, starting or completing job training or getting a high school diploma, GED or equivalent No 08/28/2023 Preferred Language Palauan 08/28/2023 PHQ-2 Answer Date Recorded Retired PHQ-9: Brief Depression Severity Measure Score 1 12/04/2023 Sex and Gender Information Value Date Recorded Sex Assigned at Not on file Legal Sex Male 12:58 PM EDT Gender Identity Not on file Sexual Orientation Not on file Last Filed Vital Signs Vital Sign Reading Time Taken Comments Blood Pressure 132/80 05/03/2024 2:45 PM EST Pulse 88 05/03/2024 2:45 PM EST Temperature 37.1 C (98.7 F) 01/29/2024 12:49 PM EDT Respiratory Rate 16 08/30/2023 11:10 AM EDT Oxygen Saturation 98% 05/03/2024 2:45 PM EST Inhaled Oxygen Concentration - - Weight 82.1 kg (181 lb) 05/03/2024 2:45 PM EST Height 172.7 cm (5' 7.99 ) 05/03/2024 2:45 PM ES T Body Mass Index 27.53 05/03/2024 2:45 PM EST Plan of Treatment Health Maintenance Due Date Last Done Comments COLOGUARD 2006 COLON CANCER SCREENING 5 YEA R SIGMOIDOSCOPY 2006 COLONOSCOPY 2006 COLORECTAL CANCER SCREENING 2006 CT COLONOGRAPHY 2006 FECAL OCCULT BLOOD TEST 2006 FIT Testing (1 year) 2006 LUNG CANCER SCREENING 10/27/2011 Pneumococcal Vaccine 50+ (3 of 3 - PCV20 or PCV21) 03/25/2023 03/25/2018, 10/14/2015 ANNUAL WELLNESS VISIT 12/04/2023 HEPATITIS C SCREENING 12/04/2023 COVID-19 Vaccine (4 - 2023-2 5 season) 2023 01/13/2021, 08/26/2020, 07/29/2020 TDAP/TD VACCINES (2 - Td or Tdap) 02/23/2024 014 LIPID PANEL 08/25/2024 08/26/2023 INFLUENZA VACCINE 01/08/2025 12/04/2020, , 12/17/2017, Additional history exists Hepatitis B Completed 01/12/2017, 07/2016, 07/12/2016 ZOSTER VACCINE Completed 04/01/2021, 01/09/2021 Procedures Procedure Name Priority Date/Time Associated Diagnosis Comments LIPID PANEL Urgent 08/26/2023 4:14 AM EDT from Last 3 Months or Most Recently Relevant to Health Maintenance Results * (ABNORMAL) Lipid Panel (08/26/2023 4:14 AM EDT) Total Cholesterol 202(H) 0 - 200 mg/dL 08/26/2023 6:03 AM EDT LABORATORY Triglycerides 186(H) 0 - 150 mg/dL 08/26/2023 6:03 AM EDT LABORATORY HDL Cholesterol 38(L) 40 - 60 mg/dL 08/26/2023 6:03 AM EDT LABORATORY LDL Cholesterol 131(H) 0 - 100 mg/dL 08/26/2023 6:03 AM EDT LABORATORY VLDL Cholesterol 33 5 - 40 mg/dL 08/26/2023 6:03 AM EDT LABORATORY LDL/HDL Ratio 3.34 08/26/2023 6:03 AM EDT LABORATORY Blood Venipuncture / Unknown 08/26/2023 4:14 AM EDT 08/26/2023 5:14 AM EDT Narrative LABORATORY - 08/26/2023 6:03 AM EDT Cholesterol Reference Ranges (U.S. Department of Health and Human Services ATP III Classifications) Desirable <200 mg/dL Borderline High 200-239 mg/dL High Risk >240 mg/dL Triglyceride Reference Ranges (U.S. Department of Health and Human Services ATP III Classifications) Normal <150 mg/dL Borderline High 150-199 mg/dL High 200-499 mg/dL Very High >500 mg/dL HDL Reference Ranges (U.S. Department of Health and Human Services ATP III Classifications) Low <40 mg/dl (major risk factor for CHD) High >60 mg/dl ('negative' risk factor for CHD) LDL Reference Ranges (U.S. Department of Health and Human Services ATP III Classifications) Optimal <100 mg/dL Near Optimal 100-129 mg/dL Borderline High 130-159 mg/dL High 160-189 mg/dL Very High >189 mg/dL us Pro Neville PA-C LAB BLOOD ORDERABLE S Final Result LABORATORY
[address] [place] [address], from Last 3 Months or Most Recently Relevant to Health Maintenance Insurance [facility] MEDICARE ADVANTAGE PPO Advance Directives * CPR (Attempt to Resuscitate) (Latest Code Status on File) Date Activated Date Inactivated Comments 08/25/2023 9:10 PM 08/30/2023 8:11 PM Question Answer Comments Code Status (Patient has no pulse and is not breathing): CPR (Attempt to Resuscitate) Medical Interventions (Patie nt has pulse or is breathing): Full Support Level Of Support Discussed With: Patient Care Teams Habilitation Worker Relationship Specialty Start Date End Date Kari Barnard PA [address] [place] [address] PCP - General Physician Automatic Lathe Tender 05/03/24
--- OUTSIDE RECORDS SUMMARY | 2024-11-08 10:23 | XMS_ITS | Encounter Summary ---
Author Organization [employer] ([place], [place], [place], [place]) Address [address] [place] [address] Care Team Providers Care Unit Aide Name Role Phone Unavailable Primary Care Provider Unavailabl e Encounter Details Date Type Department Care Team (Late st Contact Info) Description 08/10/2019 Transcribed Document [facility] [place] [facility] [place] [place] [address] ProviderMarla MD [facility] [place] [address] Social History Tobacco Use Types Packs/Day Years Used Date Smoking Tobacco: Never Assessed Sex and Gender Information Value Date Recorded Sex Assigned at Not on file Legal Sex Male 5:42 PM CDT Gender Identity Not on file Sexual Orientation Not on file documented as of this encounter Miscellaneous Notes * Cerner Conversion Note - Historical ProviderMD - 08/10/2019 2:36 AM CDT documented in this encounter Plan of Treatment Not on file documented as of this encounter Visit Diagnoses Not on filedocumented in this encounter
--- OUTSIDE RECORDS SUMMARY | 2024-11-08 10:23 | XMS_ITS | Encounter Summary ---
Author Organization [employer] ([place], [place], [place]) Address [address] [place] [address] Care Team Providers Care Sapphire Stylus Grinder Name Role Phone Unavailable Primary Care Provider Unavailabl e Encounter Details Date Type Department Care Team (Late st Contact Info) Description 08/09/2019 Transcribed Document [facility] [place] [facility] [place] [address] ProviderMarla MD [facility] [place] [address] Social History Tobacco Use Types [...] Communication Barrier : None Primary Language : [place] Any Spiritual/Cultural Needs or Requests : No [...] Updated: 11/26/2015 10:41:59 EDT by Leslie Canales, RN) Alcohol: Alcohol Use History Yes. Days/Week: 5. # Drinks/Day: 6. Alcohol Use Frequency Daily. (Last Updated: 11/26/2015 10:42:19 EDT by Leslie Canales, RN) Substance Abuse: Drug Use Hx: No. Use in Last 12 Months: No. (Last Updated: 11/26/2015 10:42:24 EDT by Leslie Canales, RN) Nutrition/Health: Caffeine intake amount: tea daily. (Last Updated: 11/26/2015 10:42:37 EDT by Leslie Canales, RN) Cardiovascular ASMT, ED Cardiovascular Assessment WDL : [...] EDT Electronically signed by Teresita Schuster Conversion Senior Java Software Developer Cerner at 07/27/2022 8:34 PM CDT documented in this encounter Plan of Treatment Not on file documented as of this encounter Visit Diagnoses Not on filedocumented in this encounter
--- OUTSIDE RECORDS SUMMARY | 2024-11-08 10:23 | XMS_ITS | Encounter Summary ---
Author Organization [employer] ([place], [place], [place], [place]) Address [address] [place] [address] Care Team Providers Care Cafeteria Operator Name Role Phone Unavailable Primary Care Provider Unavailabl e Encounter Details Date Type Department Care Team (Late st Contact Info) Description 08/10/2019 Transcribed Document [facility] [place] [facility] [place] [address] ProviderMarla MD [facility] [place] [address] Social History Tobacco Use Types Packs/Day Years Used Date Smoking Tobacco: Never Assessed Sex and Gender Information Value Date Recorded Sex Assigned at Not on file Legal Sex Male 5:42 PM CDT Gender Identity Not on file Sexual Orientation Not on file documented as of this encounter Miscellaneous Notes * Cerner Conversion Note - Marla ProviderMD - 08/10/2019 2:44 AM CDT ED [...]
--- OUTSIDE RECORDS SUMMARY | 2024-11-08 10:23 | XMS_ITS | Encounter Summary ---
Author Organization [facility] Address [address] [place] [address] Care Team Providers Care Meatcutter Name Role Phone Rubén Yoon MD Primary Care Provider [phone] Reason for Visit * Reason Comments Med Refill Encounter Details Date Type Department Care Team (Late st Contact Info) Description 12/04/2021 Refill [facility] [place] [address] [facility] [place] [address] Tex Enrique MD [address] [facility] [address] [place] [address] Suspected glaucoma of both eyes [...] documented as of this encounter Care Teams Meatcutter Relationship Specialty Start Date End Date Rubén Yoon MD [address] [place] [address] PCP - General 08/21/20 documented as of this encounter
--- OUTSIDE RECORDS SUMMARY | 2024-11-08 10:23 | XMS_ITS | Encounter Summary ---
Author Organization [employer] ([place], [place], [place], [place]) Address [address] [place] [address] Care Team Providers Care Medicine And Health Service Manager Name Role Phone Unavailable Primary Care Provider Unavailabl e Encounter Details Date Type Department Care Team (Late st Contact Info) Description 08/10/2019 Transcribed Document [facility] [place] [facility] [address] ProviderMarla [place] [address] Social History Tobacco Use Types [...] Orozco MD - 08/10/2019 2:43 AM CDT [facility] [place] [address] BRAD BLACKMON :1960 Visit Time:08/09/2019 Your Visit Summary Your Care Team Primary Provider: BRAD FRAZIER Secondary Provider: Your Diagnosis Abdominal pain Abdominal [...] Within 2 to 3 days Where: [address] [facility] [address] [place] [address]- Business (1) Follow Up with LOBITO JOHNSTON When Within 2 to 3 days Where: [address] [place] [address]- Business (1) Allergies amoxicillin (hives) penicillin (hives) Immunizations [...] range between ( 0.0 and 7.0 ) [place] #: 0.68 K/uL -- Normal range between ( 0.16 and 1.00 ) Eos #: 0.15 x10(3)/uL -- Normal range between ( 0.00 and 0.80 ) [place] %: 13.2 % -- Normal range between [...] ) Urine Bilirubin Dipstick: Negative Urine Specific [place]: 1.006 -- Normal range between ( 1.005 and 1.030 ) Urine Type.: U CleanCatch General Chemistry 08/10/2019 0:21 AM Creatinine Level: [...] getting enough exercise. ??? Smoking. ??? Taking rucj-qtr-yrlvcwi pain medicines, like aspirin and ibuprofen. ??? [...] health care provider or your diet and senior education specialist (dietitian). ? Take a fiber supplement or probiotic, if your health care provider approves. ??? Take zpua-txa-mlfglsd and prescription medicines only as told by [...] 12/22/2004 Document Revised: 02/13/2017 Document Reviewed: 02/13/2017 [employer] Interactive Patient Education ?? 2019 [employer]. Abdominal Pain, Adult Abdominal pain can be [...] Follow these instructions at home: ??? Take jkuk-oaj-rmtjaol and prescription medicines only as told by [...] 01/04/2006 Document Revised: 10/14/2016 Document Reviewed: 09/07/2016 [employer] Interactive Patient Education ?? 2019 [employer]. Emergency Awareness and Preventative Care STROKE is [...] Assistance with quitting is available by contacting 6-844-EHFCSekoiaNOW. This is a free resource providing counseling, [...] emergency, radiology, or pathology physicians. Patient Name:BRAD BLACKMON I have received this information and was given the opportunity to ask questions. Patient/Corridor Redevelopment Manager Name: Patient/Corridor Redevelopment Manager Signature: Relationship to Patient: Clinician/Hospital Corridor Redevelopment Manager Signature: Please Provide a Telephone Number Where You Can Be Reached: Is it Permissible To Leave a Message? Date: Electronically signed by Teresita Schuster Conversion Funeral Director/Embalmer/Owner Majo at 07/27/2022 8:37 PM CDT documented in this encounter Plan of Treatment Not on file documented as of this encounter Visit Diagnoses Not on filedocumented in this encounter
--- OUTSIDE RECORDS SUMMARY | 2024-11-08 10:23 | XMS_ITS | Encounter Summary ---
Author Organization [employer] ([place], [place], [place], [place]) Address [address] [place] [address] Care Team Providers Care Powder Press Operator Name Role Phone Unavailable Primary Care Provider Unavailabl e Encounter Details Date Type Department Care Team (Late st Contact Info) Description 08/09/2019 Transcribed Document [facility] [place] Medicine [facility] [place] [address] ProviderMarla MD [facility] [place] [id number] Social History Tobacco Use Types Packs/Day Years Used Date Smoking Tobacco: Never Assessed Sex and Gender Information Value Date Recorded Sex Assigned at Not on file Legal Sex Male 5:42 PM CDT Gender Identity Not on file Sexual Orientation Not on file documented as of this encounter Miscellaneous Notes * Cerner Conversion Note - Marla Orozco MD - 08/09/2019 11:46 PM CDT Patient: BRAD [...] Height Source Stated Height Entry Format Evon Height/Length, NEPALESE (ft) 5 ft Height/Length NEPALESE 10 Inch CLINICALHEIGHT 177.8 cm Marina Body Weight 72.02 kg Weight Source, ED Critical estimated dosing weight Weight Entry Format Holt Weight Tajik lb 200 lb CLINICALWEIGHT 90.91 kg Body [...] Electrocardiogram: Time 08/10/2019 00:04:00, rate 90, The [place] is leftward. , pvc/artifact in v4-6. Results review: Lab results : Lab Results 08/10/2019 1:00 EDT Urine Type. U CleanCatch Urine Color Yellow Urine Appearance Clear Urine Specific [place] 1.006 Urine pH Dipstick 7.0 Urine Leukocyte [...] % 41.9 % Lymph # 2.16 x10(3)/uL [place] % 13.2 % [place] # 0.68 K/uL Eos % 2.9 % Eos # 0.15 x10(3)/uL Baso % 1.2 % Baso # 0.06 x10(3)/uL Slide Review No IG# 0.01 x10(3)/uL IG% 0.20 % PT 10.3 Second(s) INR 1.0 PTT 28.5 Second(s) . Radiology results: NAME: BRAD BLACKMON / SEX: 1960 / Male MRN / ACC#: [id number] / [id number] ORDERING PHYSICIAN: Ordering Provider, Update EXAM REQUESTED: [id number]--JT ABDOMEN & PELVIS W/CONTRAST FACILITY: [facility] DATE: 08/10/2019 RADIOLOGIST NAME: Ramon Puentes CLINICAL [...] 2:34 EDT, Discharge to: Home. Prescriptions: Prescription [facility]: omeprazole 40 mg oral delayed release [...] Regarding prescription, Patient indicated understanding of instructions. Electronically signed by Teresita Schuster Conversion Customer Counter Associate Cerner at 07/27/2022 8:34 PM CDT documented in this encounter Plan of Treatment Not on file documented as of this encounter Visit Diagnoses Not on filedocumented in this encounter
--- OUTSIDE RECORDS SUMMARY | 2024-11-08 10:23 | XMS_ITS | Referral Summary ---
Author Organization [employer] ([place], [place], [place], [place]) Address [address] [place] [address] Care Team Providers Care Sustainable Products Marketing Manager Name Role Phone Unavailable Primary Care [...]
--- OUTSIDE RECORDS SUMMARY | 2024-11-08 10:23 | XMS_ITS | Encounter Summary ---
Author Organization [employer] ([place], [place], [place], [place]) Address [address] [place] [address] Care Team Providers Care Vice President Payment Name Role Phone Unavailable Primary Care Provider Unavailabl e Encounter Details Date Type Department Care Team (Late st Contact Info) Description 08/09/2019 Transcribed Document [facility] [place] Medicine [facility] [place] [address] ProviderMarla MD [address] [place] [address] Social History Tobacco Use Types Packs/Day [...] : 3 - Urgent Tracking Group : [facility] ED Tereso Yarbrough RN - 08/09/2019 23:34 EDT Mode of Arrival : Stretcher Transported to ED by : Ambulance/ALS EMS Service : [facility] To Room Via : Stretcher Accompanied By [...] PNED ; Probability: 0 ; Diagnosis Code: [id number] ED Height and Weight Height Source : Stated Height Entry Format : [place] Height, Feet : 5 ft(Converted to: 152 cm, 60 Inch) Height, Inches : 10 Inch(Converted to: 0 ft 10 Inch, 25.40 cm) Clinical Height : 177.8 cm Weight Source, ED : Critical estimated dosing weight Weight Entry Format : [place] Weight, Pounds : 200 lb Clinical Dosing Weight : 90.91 kg Body Surface Area (BSA) : 2.09 m2 Body Mass Index : 28.8 kg/m2 (HI) [place] Body Weight (IBW) : 72.02 kg Tereos Yarbrough RN - 08/09/2019 23:34 EDT documented in this encounter Plan of Treatment Not on file documented as of this encounter Visit Diagnoses Not on filedocumented in this encounter
== END 2024-11-07 23:59 | disposition home or self-care (01) ==
LOC: LAB.DROPOF 11-08 10:20
PROVIDERS: PCP Family Medicine; Visit Provider Family Medicine
DX: D64.9 Anemia, unspecified (principal); R79.89 Other specified abnormal findings of blood chemistry; R73.09 Other abnormal glucose
CPT/HCPCS: 80053; 83036; 85025

== ENCOUNTER 2024-11-18 10:21 | Outpatient (CLI) | payer MEDICARE, MEDICAID, SELFPAY ==
--- NOTE | 2024-11-18 10:30 | US_ITS ---
FINAL REPORT CLINICAL HISTORY: .SCROTAL MASS FINDINGS: SCROTAL ULTRASOUND FINDINGS: Testes have a homogeneous architecture. No masses are seen. Normal flow is demonstrated by Doppler exam. Small bilateral hydroceles. Epididymal structures are unremarkable. IMPRESSION: No evidence of testicular mass or torsion. Reviewed, Interpreted and Dictated by Josh Zapata MD Transcribed by Tish Pressley Authenticated and [facility]
== END 2024-11-18 23:59 | disposition home or self-care (01) ==
LOC: RAD 10:21
PROVIDERS: PCP Family Medicine; Visit Provider Family Medicine
DX: N43.3 Hydrocele, unspecified (principal)
CPT/HCPCS: 76870